=== PATIENT | female | born 1955 | race Caucasian/White ===

== ENCOUNTER → 2019-12-07 14:35 | Outpatient (BNVA) | payer OTHER, SELFPAY | PROVIDERS: PCP Internal Medicine; Referring Provider Internal Medicine; Visit Provider Internal Medicine | DX: J44.9 Chronic obstructive pulmonary disease, unspecified (principal); Z79.899 Other long term (current) drug therapy | CPT/HCPCS: 99212 ==

== ENCOUNTER 2019-12-14 09:36 | Outpatient (REF) | payer OTHER, SELFPAY ==
[2019-12-14 11:30] LABS: Alanine Aminotransferase 17 U/L (0-31); Albumin Level 4.4 g/dL (3.5-5.0); Alkaline Phosphatase 72 U/L (39-117); Anion Gap 12 (12-20); Aspartate Amino Transferase 15 U/L (5-31); Bilirubin Total 0.3 mg/dL (0.0-1.0); Blood Urea Nitrogen 20 mg/dL (9-16); Calcium 8.9 mg/dL (8.4-10.2); Carbon Dioxide 32 mmol/L (22-29); Chloride 102 mmol/L (96-108); Cholesterol 199 mg/dL; Estimated Glomerular Filt Rate > 60; Glucose Fasting 98 mg/dL (60-99); HDL Cholesterol 48 mg/dL; LDL Cholesterol Calculated 122 mg/dl; Potassium 3.9 mmol/l (3.3-5.1); Sodium 142 mmol/L (135-145); Total Protein 6.7 g/dL (6.5-8.0); Triglycerides 145 mg/dL
== END 2019-12-14 09:37 | disposition home or self-care (01) ==
LOC: HO.HMGCLDS 09:36
PROVIDERS: PCP Internal Medicine; Visit Provider Internal Medicine
DX: M54.5 Low back pain (principal); J44.9 Chronic obstructive pulmonary disease, unspecified
CPT/HCPCS: 80053; 80061

== ENCOUNTER 2019-12-22 16:20 | Outpatient (REF) | payer OTHER, SELFPAY ==
--- NOTE | 2019-12-22 16:27 | XR_ITS ---
EXAMINATION: XR RIBS, LEFT CLINICAL INFORMATION: 64-year-old female patient with pleural dyspnea. Left-sided rib pain following an injury. COMPARISON: Most recent portable chest x-ray on 11/30/2019. (No acute disease). TECHNIQUE: PA erect view of the chest with 3 additional views targeted to the left rib cage. A BB marker was placed at the site of concern in the lower left rib cage. FINDINGS: Lungs are clear. No consolidation, pneumothorax, or pleural effusion. The cardiomediastinal silhouette and pulmonary vasculature are normal. Osseous structures are unremarkable. Ribs are intact. No fractures are identified. IMPRESSION: Unremarkable examination.
== END 2019-12-22 16:21 | disposition home or self-care (01) ==
LOC: HO.HMGCX 16:20
PROVIDERS: PCP Internal Medicine; Visit Provider Nurse Practitioner Family
DX: R07.81 Pleurodynia (principal)
CPT/HCPCS: 71101

== ENCOUNTER 2020-01-14 14:04 | Outpatient (REF) | payer OTHER, SELFPAY ==
--- NOTE | 2020-01-14 14:09 | MM_ITS ---
EXAMINATION: MM SCREENING DIGITAL BREAST TOMOSYNTHESIS, BILATERAL CLINICAL INFORMATION: Screening. Asymptomatic. The lifetime risk of breast cancer based on the Tyrer-Cuzick Model is 5%. COMPARISON: Mammography: 09/14/2018, 07/18/2017 TECHNIQUE: Digital breast tomosynthesis is performed in both the craniocaudal and mediolateral oblique views along with computer-aided detection (CAD). Synthesized 2D images are generated from the tomosynthesis. FINDINGS: The breasts are almost entirely fatty (ACR BI-RADS breast composition Category a). There are no significant masses, abnormal calcifications, or other abnormalities. The axilla and skin contours are unremarkable. No significant changes. MM/MM tomosynthesis screening BI IMPRESSION: No mammographic evidence of malignancy. ASSESSMENT: BI-RADS 1: Negative RECOMMENDATION: Routine annual mammography screening. This patient's information was entered into a reminder system with a target due date for their next mammogram.
== END 2020-01-14 14:05 | disposition home or self-care (01) ==
LOC: HO.MAMMO 14:04
PROVIDERS: PCP Internal Medicine
DX: Z12.31 Encounter for screening mammogram for malignant neoplasm of breast (principal)
CPT/HCPCS: 77063; 77067

== ENCOUNTER 2020-01-31 14:25 | Outpatient (REF) | payer OTHER, SELFPAY ==
--- NOTE | 2020-01-31 14:27 | CT_ITS ---
EXAMINATION: CT CHEST SCREENING CLINICAL INFORMATION: Follow-up nodules in lung cancer screening. COMPARISON: CT chest 10/09/2018 TECHNIQUE: Multidetector volumetric CT imaging of the chest is performed without contrast using low dose technique. Additional 2D coronal and sagittal reformatted images and axial 3D maximum intensity projection (MIP) images are generated on the CT workstation. This CT examination was performed using dose optimization techniques as appropriate, variously including the following: *Automated exposure control *Adjustment of mA and/or kV according to patient size (this includes techniques or standardized protocols for targeted exams where dose is matched to indication/reason for exam; i.e. extremities or head) *Use of iterative reconstruction technique DLP: 71 mGy-cm FINDINGS: LUNGS: There is a 6 mm nodule along the major fissure likely intrafissural lymph node on axial image 229/6 minimal atelectasis scarring seen in the right middle lobe axial image 315/6. There are no pulmonary nodules visualized at this time. MEDIASTINUM: There is a 1.3 x 1.1 cm left thyroid nodule. The right thyroid lobe appears normal. The central trachea and bronchi appears widely patent. Mild atherosclerotic changes of thoracic arch is noted. Heart size is normal. Central trachea and the bronchi are widely patent. There is no pleural effusion. No abnormal mediastinal mass or lymph nodes. PLEURA: There is no pleural effusion. No pleural mass or thickening. AXILLA: No lymphadenopathy. UPPER ABDOMEN: Visualized liver, gallbladder, spleen and bilateral adrenal glands are unremarkable. OSSEOUS STRUCTURES: No lytic or sclerotic process seen. CT/CT lung screening IMPRESSION: New intrafissural lymph node. No parenchymal lung nodules seen. ASSESSMENT: Lung-RADS category 2 benign RECOMMENDATION: Recommend low-dose annual CT chest
== END 2020-01-31 14:26 | disposition home or self-care (01) ==
LOC: HO.CT 14:25
PROVIDERS: PCP Internal Medicine; Visit Provider Physician Assistant Medical
DX: Z12.2 Encounter for screening for malignant neoplasm of respiratory organs (principal); Z87.891 Personal history of nicotine dependence
CPT/HCPCS: 71250

== ENCOUNTER 2020-03-15 10:14 | Outpatient (REF) | payer OTHER, SELFPAY ==
--- NOTE | 2020-03-15 10:19 | XR_ITS ---
EXAMINATION: XR LUMBOSACRAL SPINE CLINICAL INFORMATION: Low back pain COMPARISON: April 30, 2018 TECHNIQUE: 3 views of the lumbar spine FINDINGS: There are 5 nonrib bearing lumbar vertebra. No acute fracture, spondylolisthesis, spondylolysis is identified there is mild scoliosis convex right superiorly and mild scoliosis convex left inferiorly. There is disc space narrowing at the L2-L3 level with marginal sclerosis and spurring. There is mild narrowing of the L5-S1 disc space. Facet arthropathy is seen L5-S1 bilaterally. No significant sacroiliac joint disease identified. There has been some mild progression in degenerative change at the L to 3 disc space level. XR/XR lumbar spine 2-3V IMPRESSION: No acute fracture, spondylolisthesis, or spondylolysis of the lumbar spine. Mild progression in degenerative disc disease as described.
[2020-03-15 11:09] LABS: MANUAL DIFF FLAG NO
[2020-03-15 11:14] LABS: Basophils Absolute Auto 0.1 X10*3/uL (0.0-0.2); Basophils Percent Auto 0.6 % (0-2); Eosinophils Absolute Auto 0.2 X10*3/uL (0.0-0.4); Eosinophils Percent Auto 1.5 % (0-4); Hematocrit 38.6 % (37-47); Hemoglobin 12.2 g/dl (12.0-16.0); Imm Gran Abs Auto 0.04 X10*3/uL (0.00-0.03); Imm Gran Pct Auto 0.4 % (0.0-0.4); Lymphocytes Absolute Auto 2.3 X10*3/uL (1.2-4.9); Lymphocytes Percent Auto 20.9 % (20-40); Mean Corpuscular HGB Conc 31.6 g/dl (31.0-35.0); Mean Corpuscular Hemoglobin 27.6 pg (27.0-33.0); Mean Corpuscular Volume 87.3 fL (80-98); Mean Platelet Volume 10.3 fL (9.4-12.3); Monocytes Absolute Auto 0.6 X10*3/uL (0.1-1.2); Neutrophils Absolute Auto 7.9 X10*3/uL (2.0-8.3); Neutrophils Percent Auto 71.6 % (45-73); Platelet Count 257 X10*3/uL (160-400); Red Blood Count 4.42 X10*6/uL (4.20-5.50); White Blood Count 11.1 X10*3/uL (4.8-10.8)
[2020-03-15 11:58] LABS: Anion Gap 14 (12-20); Blood Urea Nitrogen 20 mg/dL (9-16); Calcium 8.7 mg/dL (8.4-10.2); Carbon Dioxide 33 mmol/L (22-29); Chloride 101 mmol/L (96-108); Estimated Glomerular Filt Rate 60; Glucose Random 103 mg/dL (60-115); Potassium 3.5 mmol/l (3.3-5.1); Sodium 144 mmol/L (135-145)
== END 2020-03-15 10:15 | disposition home or self-care (01) ==
LOC: HO.HMGCX 10:14
PROVIDERS: PCP Internal Medicine; Visit Provider Nurse Practitioner Family
DX: R53.83 Other fatigue (principal); M54.5 Low back pain
CPT/HCPCS: 36415; 72100; 80048; 85025

== ENCOUNTER → 2020-03-22 14:15 | Outpatient (BNVA) | payer OTHER, SELFPAY | PROVIDERS: PCP Internal Medicine; Visit Provider Internal Medicine | DX: J44.9 Chronic obstructive pulmonary disease, unspecified (principal); G47.34 Idiopathic sleep related nonobstructive alveolar hypoventilation | CPT/HCPCS: Q3014 ==

== ENCOUNTER → 2020-06-28 14:15 | Outpatient (BNVA) | payer OTHER, SELFPAY | PROVIDERS: PCP Internal Medicine; Visit Provider Internal Medicine | DX: J44.9 Chronic obstructive pulmonary disease, unspecified (principal); M54.5 Low back pain; G47.34 Idiopathic sleep related nonobstructive alveolar hypoventilation | CPT/HCPCS: 99212 ==

== ENCOUNTER 2020-08-04 11:58 | Outpatient (REF) | payer OTHER, SELFPAY ==
[2020-08-11 09:27] LABS: HPV mRNA E6/E7 Not Detected (Not Detected)
== END 2020-08-04 11:59 | disposition home or self-care (01) ==
LOC: HO.LAB 11:58
PROVIDERS: Visit Provider Internal Medicine
DX: Z12.4 Encounter for screening for malignant neoplasm of cervix (principal)
CPT/HCPCS: 87624; 88142

== ENCOUNTER → 2020-11-01 08:15 | Outpatient (BNVA) | payer MEDICARE, SELFPAY | PROVIDERS: PCP Internal Medicine; Referring Provider Internal Medicine; Visit Provider Nurse Practitioner Family | DX: K59.01 Slow transit constipation (principal); K21.9 Gastro-esophageal reflux disease without esophagitis | CPT/HCPCS: 99202 ==

== ENCOUNTER 2020-12-05 14:19 | Outpatient (REF) | payer MEDICARE, SELFPAY ==
[2020-12-05 15:43] LABS: Hematocrit 37.6 % (37-47); Hemoglobin 12.1 g/dl (12.0-16.0); Mean Corpuscular HGB Conc 32.2 g/dl (31.0-35.0); Mean Corpuscular Hemoglobin 28.3 pg (27.0-33.0); Mean Corpuscular Volume 87.9 fL (80-98); Mean Platelet Volume 9.7 fL (9.4-12.3); Platelet Count 249 X10*3/uL (160-400); Red Blood Count 4.28 X10*6/uL (4.20-5.50); Red Cell Distribution Width 13.3 % (11.0-16.0); White Blood Count 9.4 X10*3/uL (4.8-10.8)
[2020-12-05 16:04] LABS: Alanine Aminotransferase 21 U/L (0-31); Albumin Level 4.7 g/dL (3.5-5.0); Alkaline Phosphatase 76 U/L (39-117); Anion Gap 11 (12-20); Aspartate Amino Transferase 20 U/L (5-31); Bilirubin Total 0.4 mg/dL (0.0-1.0); Blood Urea Nitrogen 14 mg/dL (9-16); Calcium 9.4 mg/dL (8.4-10.2); Carbon Dioxide 29 mmol/L (22-29); Chloride 107 mmol/L (96-108); Estimated Glomerular Filt Rate > 60; Glucose Random 95 mg/dL (60-115); Potassium 4.1 mmol/L (3.3-5.1); Sodium 143 mmol/L (135-145); Total Protein 7.2 g/dL (6.5-8.0)
[2020-12-05 16:25] LABS: TSH reflex Free T4 1.13 uIU/mL (0.32-4.0)
== END 2020-12-05 14:20 | disposition home or self-care (01) ==
LOC: HO.LAB 14:19
PROVIDERS: PCP Internal Medicine; Referring Provider Internal Medicine; Visit Provider Nurse Practitioner Family
DX: K59.01 Slow transit constipation (principal); K21.9 Gastro-esophageal reflux disease without esophagitis; Z12.11 Encounter for screening for malignant neoplasm of colon
CPT/HCPCS: 36415; 80053; 84443; 85027; 99212

== ENCOUNTER → 2020-12-07 13:42 | Outpatient (BNVA) | payer MEDICARE, SELFPAY | PROVIDERS: PCP Internal Medicine; Visit Provider Internal Medicine | DX: J44.9 Chronic obstructive pulmonary disease, unspecified (principal); G47.34 Idiopathic sleep related nonobstructive alveolar hypoventilation | CPT/HCPCS: 99212 ==

== ENCOUNTER 2021-01-12 16:53 | Emergency (ER) | payer MEDICARE, SELFPAY ==
[2021-01-12 17:38] VITALS: BP 125/56; PULSE 92; RESP 16; TEMP 36.9; O2SAT 98; BMI 29.9
--- NOTE | 2021-01-12 17:55 | ECG_ITS ---
Test Reason : AFIB Blood Pressure : / mmHG Vent. Rate : 087 BPM Atrial Rate : 087 BPM P-R Int : 156 ms QRS Dur : 080 ms QT Int : 400 ms P-R-T Axes : 018 001 008 degrees QTc Int : 481 ms Normal sinus rhythm Nonspecific ST abnormality Abnormal ECG When compared with ECG of 30-NOV-2019 15:19, ST more depressed Inferior leads Lateral leads Referred By: Kevin Enrique Electronically Signed By:MOON LOVETT MD
--- NOTE | 2021-01-12 17:56 | ED_ITS ---
HPI - Arrhythmia/Palpitations General Chief Complaint: Arrhythmia/Palpitations Stated Complaint: rapid heart beat back pain Time Seen by Provider: 01/12/21 17:47 Source: patient Limitations: no limitations History of Present Illness HPI narrative: This is a 65-year-old female with a history of palpitations, V- tach status post ablation, but no atrial fibrillation, who had gone to a clinic today for her back pain/sciatica, and when they took her vital signs are heart rate was noted to be fast. She was transported by EMS and was given Cardizem 20 mg IV for reported AFib with RVR. Patient reports that she feels better now. She denies any chest pain or shortness of breath. She denies alcohol use. She denies caffeine use. She denies any problems with thyroid, notes that she did have her thyroid checked recently. She notes that she does have history of hypertension and is on Cardizem and metoprolol for this. Related Data Home Medications Medication Instructions Recorded Confirmed amitriptyline 75 mg tablet 150 mg PO BEDTIME 11/27/19 09/07/20 lorazepam 0.5 mg tablet 0.5 mg PO TID PRN 11/27/19 09/07/20 sertraline 100 mg tablet 200 mg PO DAILY 11/27/19 09/07/20 zolpidem 10 mg tablet 10 mg PO BEDTIME PRN 11/27/19 09/07/20 aspirin 81 mg tablet,delayed 81 mg PO DAILY 03/22/20 09/07/20 release flu vacc [id number] 6mos up(PF) ml IM 03/22/20 09/07/20 trazodone 100 mg tablet 200 mg PO BEDTIME tab 06/28/20 09/07/20 Previous Rx's Medication Instructions Recorded atenolol 25 mg tablet 25 mg PO DAILY #90 tab 02/16/20 tiotropium bromide 18 mcg capsule 1 cap INHALATION DAILY #90 inh 02/16/20 with inhalation device omeprazole 20 mg capsule,delayed 20 mg PO BID #180 cap 02/29/20 release fluticasone 500 mcg-salmeterol 50 1 inh INHALATION BID #60 ea 05/15/20 mcg/dose blistr powdr for inhalation calcium citrate 500 mg PO BID #100 tab 05/20/20 atorvastatin 20 mg tablet 20 mg PO DAILY #90 tab 05/24/20 furosemide 40 mg tablet 40 mg PO DAILY #90 tab 10/12/20 diltiazem HCl 180 mg 180 mg PO DAILY #90 cap 10/16/20 capsule,extended release 24 hr, controlled docusate sodium 100 mg capsule 100 mg PO BEDTIME #30 cap 11/01/20 magnesium citrate (Citrate of 150 ml PO DAILY PRN #296 ml 11/01/20 Magnesia) sennosides 8.6 mg tablet (Natural 17.2 mg PO BEDTIME #60 tab 11/01/20 Senna Laxative) plecanatide 3 mg tablet (Trulance) 3 mg PO DAILY #30 tab 12/05/20 tramadol 50 mg tablet 50 - 100 mg PO Q4H PRN #20 tab 01/12/21 Allergies Allergy/AdvReac Type Severity Reaction Status Date / Time paroxetine [From PAXIL] Allergy Mild RASH Verified 01/12/21 15:57 adhesive tape AdvReac Severe Redness of Verified 01/12/21 15:57 Skin Review of Systems Constitutional: Constitutional: Denies headache(s) ENT: Denies dizziness and Denies headache(s) Musculoskeletal: Musculoskeletal: Reports back pain Neurologic: Denies dizziness, Denies headache(s) and Denies Sensory deficit (Neuro) REPLACED BY [facility] Past Medical History Medical History (Updated 01/12/21 @ 19:01 by Kevin Enrique MD) Anxiety Colonoscopy refused Constipation COPD (chronic obstructive pulmonary disease) Depression Fibromyalgia Hyperlipidemia Hypertension Lower back pain Mammogram normal Mitral valve prolapse Nocturnal hypoxia Normal pelvic exam Supraventricular tachycardia Surgical History History of cardiac radiofrequency ablation Family History Family History Father History of CVA (cerebrovascular accident) Mother History of CVA (cerebrovascular accident) Social History Social History Alcohol intake: current Alcohol intake frequency: does not drink Patient Tobacco Use Status: Former Tobacco user Advance Directives: No Advance Directives Information Provided: Yes Physical Exam Vital Signs: Vital Signs: Last Vital Signs Temp 98.4 F 01/12/21 17:38 Pulse 82 01/12/21 18:37 Resp 14 11/12/21 18:37 BP 125/59 L 01/12/21 18:37 Pulse Ox 92 01/12/21 18:37 Body Mass Index 29.9 Const: General: cooperative, no acute distress and alert Orientation/consciousness: patient oriented x3 HENMT: Head: Yes normal to inspection Eyes: General: appearance normal, both eyes and all related structures Eyelids: Yes eyelids normal Conjunctivae: conjunctivae normal Pupils: Equal, round and reactive pupils present Neck: Neck: Yes normal visual inspection and Yes supple Chest: Chest palpation & inspection: normal inspection of the chest Resp: Effort & Inspection: normal respiratory effort Auscultation: clear to auscultation bilaterally Cardio: Rate: regular rate Rhythm: regular rhythm Heart sounds: S1 normal heart sound present, S2 normal heart sound present, no gallops, no murmurs and no rubs GI: Palpation (GI): Soft to palpation, nontender and Other GI palpation findin gs present (Non-distended) Auscultation: normal bowel sounds Skin: General skin exam: no rashes or lesions noted Neuro: General: patient oriented x3, no focal motor deficits and CN's II-XI intact bilaterally Cranial nerves: Yes Equal, round and reactive pupils present Cognition (Neuro): normal cognition Motor exam (neuro): 5/5 motor strength present throughout Sensory Exam: No Sensory deficit (Neuro) Extrem: General: Yes normal to inspection and Yes no pedal edema Psych: Appearance: grossly normal Affect: normal affect MDM - Arrhythmia/Palpitations MDM Narrative Medical decision making narrative: Patient with reported atrial fibrillation, which was treated with Cardizem IV pre-hospital, and appears to have resolved. No evidence initially on the monitor or by EKG of ongoing atrial fibrillation. Patient has no history of atrial fibrillation, though she does have a history of ablation for V-tach. Few PVCs were noted on the monitor. CBC and chemistry, troponin were all negative. Patient's primary concern soon to her chronic left lower back and hip pain, for which she was being seen today when she had onset of the tachycardia, or when it was inclusion paraeducator when they were checking vital signs. Patient advised to follow-up the primary care physician. The patient is already on Cardizem and a beta-nasir, which should help suppress a rate control atrial fibrillation. Given the patient is out of atrial fibrillation now in I have not seen firm evidence that she was in it, do not believe anticoagulation is indicated at this time. Patient's potassium was borderline low, however this is unlikely to have contributed to paroxysmal atrial fibrillation Lab Data Result diagrams: 01/12/21 18:12 01/12/21 18:12 Labs: Lab Results 01/12/21 01/12/21 01/12/21 Range/Units 18:12 18:12 18:12 WBC 8.1 (4.8-10.8) X10*3/uL RBC 4.21 (4.20-5.50) X10*6/uL Hgb 12.1 (12.0-16.0) g/dl Hct 36.6 L (37.0-47.0) % MCV 86.9 (80.0-98.0) fL MCH 28.7 (27.0-33.0) pg MCHC 33.1 (31.0-35.0) g/dl RDW 13.1 (11.0-16.0) % Plt Count 228 (160-400) X10*3/uL MPV 9.6 (9.4-12.3) fL Immature Gran % (Auto) 0.2 (0.0-0.4) % Neut % (Auto) 70.6 (45-73) % Lymph % (Auto) 21.4 (20-40) % Grainger % (Auto) 4.8 (2-11) % Eos % (Auto) 2.5 (0-4) % Baso % (Auto) 0.5 (0-2) % Lymph # (Auto) 1.7 (1.2-4.9) X10*3/uL Grainger # (Auto) 0.4 (0.1-1.2) X10*3/uL Eos # (Auto) 0.2 (0.0-0.4) X10*3/uL Baso # (Auto) 0.0 (0.0-0.2) X10*3/uL Abs Immat Gran (auto) 0.02 (0.00-0.03) X10*3/uL Absolute Neuts (auto) 5.7 (2.0-8.3) x10*3/uL Absolute Nucleated RBC 0.000 (0.0-0.012) X10*3/uL Nucleated RBC % (auto) 0.0 (0.0-0.2) /100WBC Sodium 143 (135-145) mmol/L Potassium 3.3 (3.3-5.1) mmol/L Chloride 104 (96-108) mmol/L Carbon Dioxide 30 H (22-29) mmol/L Anion Gap 12 (12-20) BUN 8 L (9-16) mg/dL Creatinine 0.78 (0.5-1.4) mg/dL Estim Creat Clear Calc 81.3 Estimated GFR > 60 Random Glucose 104 (60-115) mg/dL Calcium 8.7 D (8.4-10.2) mg/dL Magnesium 1.8 (1.6-2.6) mg/dL Total Bilirubin 0.3 (0.0-1.0) mg/dL AST 21 (5-31) U/L ALT 25 (0-31) U/L Alkaline Phosphatase 78 (39-117) U/L Troponin I High Sens 4.6 (<3.5-17.0) ng/L Total Protein 6.6 (6.5-8.0) g/dL Albumin 4.2 (3.5-5.0) g/dL ECG Data Attestation: I personally reviewed and interpreted this ECG as follows: ECG interpretation date: 01/12/21 ECG interpretation time: 18:03 Interpretation: Sinus rhythm with a rate of 87. Nonspecific ST changes in leads to be very. Baseline artifact. Normal QRS axis. Q-waves in leads V1 and V2 suggestive of old septal infarct Discharge Plan Discharge Clinical Impression: Paroxysmal A-fib, Sciatica Patient Disposition: Home, Self-Care Instructions: A-fib (Atrial Fibrillation) (ED), Sciatica (ED) Additional Instructions: Follow-up with primary care physician or type disk quality control supervisor Use the tramadol as prescribed, for your low back pain. You can also continue the ibuprofen, and use acetaminophen 650 mg every 4-6 hours for pain. Return for any new or worsened symptoms. You were not in atrial fibrillation here in the emergency department but may have been in earlier. Your primary care physician or type disk quality control supervisor may want to have you where a heart monitor for a month to determine whether not you go in and out of atrial fibrillation. Anticoagulant therapy may be indicated if you repeatedly go into atrial fibrillation Prescriptions: New tramadol 50 mg tablet 50 - 100 mg PO Q4H PRN (Reason: pain) Qty: 20 RF: 0 No Action atenolol 25 mg tablet 25 mg PO DAILY Qty: 90 RF: 3 tiotropium bromide 18 mcg capsule, w/inhalation device 1 cap inhalation DAILY Qty: 90 RF: 3 omeprazole 20 mg capsule,delayed release(DR/EC) 20 mg PO BID Qty: 180 RF: 3 fluticasone propion-salmeterol 500-50 mcg/dose blister with device 1 inh inhalation BID Qty: 60 RF: 5 calcium citrate 250 mg calcium tablet 500 mg PO BID Qty: 100 RF: 2 atorvastatin 20 mg tablet 20 mg PO DAILY Qty: 90 RF: 3 furosemide 40 mg tablet 40 mg PO DAILY Qty: 90 RF: 3 diltiazem HCl 180 mg capsule,ext.rel 24h degradable 180 mg PO DAILY Qty: 90 RF: 0 zolpidem 10 mg tablet 10 mg PO BEDTIME PRNRF: 0 lorazepam 0.5 mg tablet 0.5 mg PO TID PRNRF: 0 sertraline 100 mg tablet 200 mg PO DAILY RF: 0 amitriptyline 75 mg tablet 150 mg PO BEDTIME RF: 0 Fluzone Quad [id number] (PF) 60 mcg (15 mcg x 4)/0.5 mL syringe IM RF: 0 aspirin 81 mg tablet,delayed release (DR/EC) 81 mg PO DAILY RF: 0 trazodone 100 mg tablet 200 mg PO BEDTIME RF: 0 docusate sodium 100 mg capsule 100 mg PO BEDTIME Qty: 30 RF: 3 sennosides [Natural Senna Laxative] 8.6 mg tablet 17.2 mg PO BEDTIME Qty: 60 RF: 1 magnesium citrate [Citrate of Magnesia] Solution 150 ml PO DAILY PRN (Reason: constipation) Qty: 296 RF: 2 Trulance 3 mg tablet 3 mg PO DAILY Qty: 30 RF: 3 Interventions: ED Discharge Assessment Last Done: 01/12/21 19:30 Discharge Date/Time: 01/12/21 19:30
[2021-01-12 18:16] LABS: MANUAL DIFF FLAG NO
[2021-01-12 18:22] LABS: Basophils Percent Auto 0.5 % (0-2); Eosinophils Absolute Auto 0.2 X10*3/uL (0.0-0.4); Eosinophils Percent Auto 2.5 % (0-4); Hematocrit 36.6 % (37.0-47.0); Hemoglobin 12.1 g/dl (12.0-16.0); Imm Gran Abs Auto 0.02 X10*3/uL (0.00-0.03); Imm Gran Pct Auto 0.2 % (0.0-0.4); Lymphocytes Absolute Auto 1.7 X10*3/uL (1.2-4.9); Lymphocytes Percent Auto 21.4 % (20-40); Mean Corpuscular HGB Conc 33.1 g/dl (31.0-35.0); Mean Corpuscular Hemoglobin 28.7 pg (27.0-33.0); Mean Corpuscular Volume 86.9 fL (80.0-98.0); Mean Platelet Volume 9.6 fL (9.4-12.3); Monocytes Absolute Auto 0.4 X10*3/uL (0.1-1.2); Monocytes Percent Auto 4.8 % (2-11); Neutrophils Absolute Auto 5.7 x10*3/uL (2.0-8.3); Neutrophils Percent Auto 70.6 % (45-73); Platelet Count 228 X10*3/uL (160-400); Red Blood Count 4.21 X10*6/uL (4.20-5.50); Red Cell Distribution Width 13.1 % (11.0-16.0); White Blood Count 8.1 X10*3/uL (4.8-10.8)
[2021-01-12 18:37] VITALS: BP 125/59; PULSE 82; RESP 14; O2SAT 92
[2021-01-12 18:37] LABS: Alanine Aminotransferase 25 U/L (0-31); Albumin Level 4.2 g/dL (3.5-5.0); Alkaline Phosphatase 78 U/L (39-117); Anion Gap 12 (12-20); Aspartate Amino Transferase 21 U/L (5-31); Bilirubin Total 0.3 mg/dL (0.0-1.0); Blood Urea Nitrogen 8 mg/dL (9-16); Calcium 8.7 mg/dL (8.4-10.2); Carbon Dioxide 30 mmol/L (22-29); Chloride 104 mmol/L (96-108); Creatinine Clr Calc Pharmacy 81.3; Estimated Glomerular Filt Rate > 60; Glucose Random 104 mg/dL (60-115); Magnesium 1.8 mg/dL (1.6-2.6); Potassium 3.3 mmol/L (3.3-5.1); Sodium 143 mmol/L (135-145); Total Protein 6.6 g/dL (6.5-8.0); Troponin-I High Sensitivity 4.6 ng/L (<3.5-17.0)
[2021-01-12] MEDS: traMADoL HCL 50 MG TABLET PO (19:27)
== END 2021-01-12 19:30 | disposition home or self-care (01) ==
PROVIDERS: Emergency Provider Emergency Medicine; PCP Internal Medicine
DX: I48.0 Paroxysmal atrial fibrillation (principal); M54.30 Sciatica, unspecified side; I10 Essential (primary) hypertension; J44.9 Chronic obstructive pulmonary disease, unspecified; Z79.899 Other long term (current) drug therapy
CPT/HCPCS: 36415; 80053; 83735; 84484; 85025; 93005; 99283; 99284

== ENCOUNTER → 2021-02-12 14:11 | Outpatient (BNVA) | payer MEDICARE, SELFPAY | PROVIDERS: PCP Internal Medicine; Referring Provider Internal Medicine; Visit Provider Nurse Practitioner Family | DX: K21.9 Gastro-esophageal reflux disease without esophagitis (principal); K58.1 Irritable bowel syndrome with constipation; K59.04 Chronic idiopathic constipation | CPT/HCPCS: 99212 ==

== ENCOUNTER 2021-03-27 14:26 | Outpatient (REF) | payer MEDICARE, SELFPAY ==
[2021-03-27 16:53] LABS: Folate 5.5 ng/mL (> or = 4.0); Vitamin B12 631 pg/mL (200-900)
[2021-03-30 10:25] LABS: Transglutaminase Ab IgG <1.0 U/mL; Transglutaminase IgA <1.0 U/mL
[2021-04-01 15:21] LABS: Vitamin D 25-OH, D2 <4 ng/mL; Vitamin D 25-OH, D3 60 ng/mL; Vitamin D 25-OH, Total 60 ng/mL (30-100)
== END 2021-03-27 14:27 | disposition home or self-care (01) ==
LOC: HO.LAB 14:26
PROVIDERS: PCP Internal Medicine; Referring Provider Internal Medicine; Visit Provider Nurse Practitioner Family
DX: R10.11 Right upper quadrant pain (principal); R14.0 Abdominal distension (gaseous); R19.7 Diarrhea, unspecified; E55.9 Vitamin D deficiency, unspecified; K59.04 Chronic idiopathic constipation; K58.1 Irritable bowel syndrome with constipation; K21.9 Gastro-esophageal reflux disease without esophagitis
CPT/HCPCS: 36415; 82306; 82607; 82746; 86364; 99212

== ENCOUNTER → 2021-03-28 13:13 | Outpatient (BNVA) | payer MEDICARE, SELFPAY | PROVIDERS: PCP Internal Medicine; Referring Provider Internal Medicine; Visit Provider Internal Medicine | DX: I48.0 Paroxysmal atrial fibrillation (principal); I47.1 Supraventricular tachycardia | CPT/HCPCS: 93005; 99202 ==

== ENCOUNTER → 2021-05-18 09:06 | Outpatient (REF) | payer MEDICARE, SELFPAY ==
--- NOTE | 2021-05-18 09:09 | CA_ITS ---
Transthoracic Echocardiogram Patient (Last, First, Middle): Yue Zayas, Gender: Female Date of : 1955 Age: 66 Procedure Date: 05/18/2021 Procedure Type: Transthoracic Echocardiogram Location: OP Height: 167.64 cm Weight: 86.18 kg BSA: 1.96 m2 Heart Rate: bpm BP: 132 / 80 mmHg Aviation Electrical Technician: NICOLE Referring MD: Nestor Sam MD Symptoms: I48.0 - Paroxysmal atrial fibrillation Study Quality: Fair ECG Rhythm: Sinus Conclusions: - The left ventricular systolic function is normal. The calculated ejection fraction is 57% by biplane method. - No obvious valvular pathology seen on this study. Findings Left Ventricle Normal left ventricular cavity size. There is normal left ventricular wall thickness. The left ventricular systolic function is normal. The calculated ejection fraction is 57% by biplane method. There is no evidence of regional wall motion abnormalities. Diastolic function is normal for age. Right Ventricle Normal right ventricular cavity size and systolic function. Atria Both atria are normal in size. Aortic Valve There is a normal trileaflet aortic valve. There is no aortic valve stenosis. There is no aortic valve regurgitation. Mitral Valve The mitral valve appears normal. There is trace mitral valve regurgitation. There is no mitral valve stenosis. Pulmonic Valve The pulmonic valve was not well visualized. Tricuspid Valve Normal tricuspid valve structure. There is trace tricuspid valve regurgitation. The pulmonary artery systolic pressure is normal. Great Vessels The aortic annulus, sinuses of valsalva, and asc aorta are normal in size. Venous The inferior vena cava is normal in size and collapses greater than 50% with inspiration. Pericardium/Pleural There is no evidence of pericardial effusion. Prior Study Comparison No significant change compared to prior study dated: 01/18/2015. Recommendations, Care & Conclusions No obvious valvular pathology seen on this study. Measurements 2D Linear Measurements IVSd: 0.96 0.6-0.9/0.6-1.0 cm LVIDd: 4.49 3.9-5.3/4.2-5.9 cm LVIDd Index: 2.29 2.4-3.2/2.2-3.1 cm/m2 LVIDs: 2.89 2.0-3.6 cm LVPWd: 1.01 0.7-1.1 cm LA Diam: 3.20 2.7-3.8/3.0-4.0 cm LAIDs Index: 1.63 1.5-2.3 cm/m2 LV Mass: 186.49 67-162/88-224 g LV Mass Index: 95.15 43-95/49-115 g/m2 LVOT Diam: 2.00 3.0+(-)1.3 cm 2D Systolic Function EF 4C: 56.60 >55% EF 2C: 57.20 >55% EF BiP: 56.50 >55% Mitral Valve MV Pk E: 0.72 MV PK A: 1.06 MV Decel Time: 156.00 E/A: 0.70 E'Lateral: 7.51 E'Medial: 6.96 E/E' Med: 10.30 E/E' Lat: 9.60 PHT: 46.00 MVA PHT: 4.78 Decel [place]: 4.62 Aortic Valve AoV Pk Subhash: 1.56 AoV Mn Subhash: 1.08 AoV VTI: 0.33 AoV Pk Grad: 10.00 Aov Mn Grad: 5.00 MASSIMO Cont.VTI: 2.18 LVOT LVOT Pk Subhash: 1.10 LVOT Mn Subhash: 0.74 LVOT VTI: 0.23 LVOT Pk Grad: 5.00 LVOT Mn Grad: 3.00 LVOT Diam: 2.00 LVOT Area: 3.14 Diastolic Function MV Pk E: 0.72 MV Pk A: 1.06 E/A: 0.70 E'Medial: 6.96 E/E' Med: 10.30 E' Laterial: 7.51 E/E' Lat: 9.60 Right Ventricle TAPSE (mm): 23.60 TVS' Subhash: 11.50 Tricuspid Valve TR Pk Subhash: 1.57 TR Pk Grad: 10.00 RA Press: 3.00 RVSP: 13.00 Great Vessels Aorta Sinus of Valsalva: 2.69 2.0-3.[address] [place]: 2.50 1.7-3.4 cm Ao Asc: 3.10 2.1-3.4 cm Ao Arch: 2.80 Updated in Other Vendor System with Status of Final Nestor Sam MD electronically signed on 05/19/2021 12:50:03 PM with status of Final
== END ==
LOC: HO.CARD 09:06
PROVIDERS: PCP Internal Medicine; Visit Provider Internal Medicine
DX: I48.0 Paroxysmal atrial fibrillation (principal)
CPT/HCPCS: 93306

== ENCOUNTER → 2021-05-22 11:02 | Outpatient (REF) | payer MEDICARE, SELFPAY ==
--- NOTE | 2021-05-22 11:04 | HM_ITS ---
Conclusion: 1. Patient was monitored for total period of 12 days and 23 hours 2. Baseline rhythm is normal sinus rhythm with average heart of 72 beats per minute 3. For short episodes of supra tachycardia, longest lasting 7 beats 4. Total of 3831 PVCs accounting for 0.29% of total beats accounting for occasional PVCs 5. Rare PACs noted 6. Patient reported symptoms correlate with sinus tachycardia MTDD
== END ==
LOC: HO.CARD 11:02
PROVIDERS: PCP Internal Medicine; Visit Provider Internal Medicine
DX: I48.0 Paroxysmal atrial fibrillation (principal)
CPT/HCPCS: 93246

== ENCOUNTER → 2021-06-06 13:44 | Outpatient (BNVA) | payer OTHER, SELFPAY | PROVIDERS: PCP Internal Medicine; Referring Provider Internal Medicine; Visit Provider Nurse Practitioner Family | DX: Z12.11 Encounter for screening for malignant neoplasm of colon (principal); K21.9 Gastro-esophageal reflux disease without esophagitis; K59.04 Chronic idiopathic constipation | CPT/HCPCS: 99212 ==

== ENCOUNTER → 2021-07-12 09:16 | Outpatient (BNVA) | payer OTHER, SELFPAY | PROVIDERS: PCP Internal Medicine; Referring Provider Internal Medicine; Visit Provider Internal Medicine | DX: I47.1 Supraventricular tachycardia (principal); I49.8 Other specified cardiac arrhythmias | CPT/HCPCS: 99212 ==

== ENCOUNTER 2021-07-25 13:24 | Outpatient (REF) | payer OTHER, SELFPAY ==
--- NOTE | ~2021-07-25 | XR_ITS ---
EXAMINATION: XR CHEST CLINICAL INFORMATION: Chest wall pain COMPARISON: Previous chest x-ray most recent December [address] January 2020 TECHNIQUE: 2 views of the chest were obtained. FINDINGS: No significant abnormality is noted involving the heart, lungs, mediastinum, bony thorax or soft tissues. XR/XR chest 2V IMPRESSION: Unremarkable examination.
[2021-07-25 17:22] LABS: Influenza A PCR NEGATIVE (Negative); Influenza B PCR NEGATIVE (Negative); Resp Syncy Virus RNA Qual PCR NEGATIVE (Negative); SARS COV2 PCR INHOUSE POSITIVE (Negative)
== END 2021-07-25 13:25 | disposition home or self-care (01) ==
LOC: HO.HMGCX 13:24
PROVIDERS: Visit Provider Emergency Medicine
DX: Z20.822 Contact with and (suspected) exposure to COVID-19 (principal); R07.81 Pleurodynia; R68.89 Other general symptoms and signs
CPT/HCPCS: 0241U; 71046

== ENCOUNTER → 2021-08-28 13:05 | Outpatient (BNVA) | payer OTHER, SELFPAY | PROVIDERS: PCP Internal Medicine; Visit Provider Internal Medicine | DX: J44.9 Chronic obstructive pulmonary disease, unspecified (principal); G47.34 Idiopathic sleep related nonobstructive alveolar hypoventilation; Z99.81 Dependence on supplemental oxygen | CPT/HCPCS: 94010; 99212 ==

== ENCOUNTER 2021-10-09 11:50 | Day surgery (SDC) | payer OTHER, SELFPAY ==
[2021-09-12 12:39] VITALS: BMI 29.0
[2021-10-05 09:57] VITALS: BMI 29.0
--- NOTE | 2021-10-08 10:24 | HO.ANESPROP2 ---
Documented by User: Rossy Ashton NP 10/08/21 13:08 HPI - Anesthesia Eval Consult details Narrative: 66yo F for Upper Endoscopy and Colonoscopy Pulmo cleared Cardiac cleared [facility] Active Problems Active Problems: All Active Problems (Updated 08/28/21 @ 13:57 by Ibrahima Hernandez MD) Urticaria (Acute) Atrial arrhythmia (Acute) AVNRT (AV neil re-entry tachycardia) (Acute) Supraventricular tachycardia (Acute) Tachycardia (Acute) Dog bite (Acute) Constipation (Acute) Normal pelvic exam (Acute) Rash (Acute) Radicular low back pain (Acute) Tired (Acute) Rib pain on left side (Acute) Nocturnal hypoxia (Acute) Colonoscopy refused (Acute) Mammogram normal (Acute) Hyperlipidemia (Acute) Hypertension (Acute) Lower back pain (Acute) COPD (chronic obstructive pulmonary disease) (Acute) Past Medical History Medical History Anxiety Colonoscopy refused Constipation COPD (chronic obstructive pulmonary disease) Depression Fibromyalgia Hyperlipidemia Hypertension Lower back pain Mammogram normal Mitral valve prolapse Nocturnal hypoxia Normal pelvic exam Supraventricular tachycardia Family History Family History Father History of CVA (cerebrovascular accident) Mother History of CVA (cerebrovascular accident) Surgical History Surgical History History of cardiac radiofrequency ablation Social History Social History Housing: House Alcohol intake: current Alcohol intake frequency: does not drink Patient Tobacco Use Status: Former Tobacco user Quit Date: 2011 e-Cigarette/Vaping Use: Never Used Use of substances other than those prescribed or required for medical reasons: No Are you DNR?: No Advance Directives: No Advance Directives Information Provided: Yes Current occupational status: retired Meds Allergies Allergy/AdvReac Type Severity Reaction Status Date / Time paroxetine [From PAXIL] Allergy Mild RASH Verified 08/28/21 13:37 adhesive tape AdvReac Severe Redness of Verified 08/28/21 13:37 Skin Home Medications Medication Instructions Recorded Confirmed Last Taken Type lorazepam 0.5 mg tablet 0.5 mg PO TID PRN 11/27/19 08/28/21 Unknown History zolpidem 10 mg tablet 10 mg PO BEDTIME PRN 11/27/19 08/28/21 Unknown History aspirin 81 mg tablet,delayed 81 mg PO DAILY 03/22/20 08/28/21 Unknown History release flu vacc [id number] 6mos up(PF) 60 ml IM 03/22/20 08/28/21 Unknown History mcg(15 mcgx4)/0.5 mL IM syringe trazodone 100 mg tablet 200 mg PO BEDTIME 06/28/20 08/28/21 Unknown History sennosides 8.6 mg capsule (senna) 8.6 mg PO BEDTIME 02/16/21 08/28/21 Unknown History cholecalciferol (vitamin D3) 50 50 mcg PO DAILY 08/28/21 08/28/21 Unknown History mcg (2,000 unit) capsule vitamin E 200 unit capsule 200 unit PO DAILY 08/28/21 08/28/21 Unknown History Exam Exam Date and Time: October 08, 2021 1024 Height,Weight and Vital Signs: Height 5 ft 7 in Weight 83.915 kg Narrative Narrative: SPIROMETRY TEST 08/2021 FVC=87 % FEV1=87% ? FEF 25-75? = 88 %? ( NORMAL ) EKG 03/2021 sinus rhythm at 83/Min; nonspecific ST-T changes but otherwise unremarkable ECHO 05/2021 Conclusions: - The left ventricular systolic function is normal.? The ? calculated ejection fraction is 57% by biplane method. ? - No obvious valvular pathology seen on this study.? Holter 05/2021 1. Patient was monitored for total period of 12 days and 23 hours 2. Baseline rhythm is normal sinus rhythm with average heart of 72 beats per minute 3. For short episodes of supra tachycardia, longest lasting 7 beats 4. Total of 3831 PVCs accounting for 0.29% of total beats accounting for occasional PVCs 5. Rare PACs noted 6. Patient reported symptoms correlate with sinus tachycardia Assessment and Plan Assessment Anesthesia Assessment: Chart Reviewed Documented by User: Yue Maharaj MD 10/09/21 13:58 PMF Past Medical History Medical History Anxiety Colonoscopy refused Constipation COPD (chronic obstructive pulmonary disease) Depression Fibromyalgia Hyperlipidemia Hypertension Lower back pain Mammogram normal Mitral valve prolapse Nocturnal hypoxia Normal pelvic exam Supraventricular tachycardia Family History Family History Father History of CVA (cerebrovascular accident) Mother History of CVA (cerebrovascular accident) Surgical History Surgical History History of cardiac radiofrequency ablation History of Problems with Anesthesia: No Social History Social History Housing: House Alcohol intake: current Alcohol intake frequency: does not drink Patient Tobacco Use Status: Former Tobacco user Quit Date: 2011 e-Cigarette/Vaping Use: Never Used Use of substances other than those prescribed or required for medical reasons: No Are you DNR?: No Advance Directives: No Advance Directives Information Provided: Yes Current occupational status: retired [employer] Allergies Allergy/AdvReac Type Severity Reaction Status Date / Time paroxetine [From PAXIL] Allergy Mild RASH Verified 08/28/21 13:37 adhesive tape AdvReac Severe Redness of Verified 08/28/21 13:37 Skin Home Medications Medication Instructions Recorded Confirmed Last Taken Type lorazepam 0.5 mg tablet 0.5 mg PO TID PRN 11/27/19 08/28/21 Unknown History zolpidem 10 mg tablet 10 mg PO BEDTIME PRN 11/27/19 08/28/21 Unknown History aspirin 81 mg tablet,delayed 81 mg PO DAILY 03/22/20 08/28/21 Unknown History release flu vacc [id number] 6mos up(PF) 60 ml IM 03/22/20 08/28/21 Unknown History mcg(15 mcgx4)/0.5 mL IM syringe trazodone 100 mg tablet 200 mg PO BEDTIME 06/28/20 08/28/21 Unknown History sennosides 8.6 mg capsule (senna) 8.6 mg PO BEDTIME 02/16/21 08/28/21 Unknown History cholecalciferol (vitamin D3) 50 50 mcg PO DAILY 08/28/21 08/28/21 Unknown History mcg (2,000 unit) capsule vitamin E 200 unit capsule 200 unit PO DAILY 08/28/21 08/28/21 Unknown History Exam Airway Mallampati Class: III TM Dist: >3cm Neck ROM: Full Denture: Upper and Lower Loose/Missing/Broken Teeth: Yes, Upper and Lower Heart: RRR Lungs: CTA Assessment and Plan Assessment Anesthesia Assessment: Anesthesia Plan Discussed Final Anesthetic Review History of Problems with Anesthesia: No NPO: Yes ASA Class: III Final Preanesthetic Review: Meds/Allgs Chart Reviewed, Consent Obtained/Reviewed and Anes Risks/Benef Reviewed Patient Risk: Intermediate Procedure Risk: Intermediate Anesthetic Plan Anesthetic Plan: MAC: Disposition: Standard PACU
[2021-10-09 12:55] VITALS: BP 167/81; PULSE 85; RESP 16; TEMP 36.3; O2SAT 95
[2021-10-09] MEDS: Lactated Ringers 1,000 ML 100 ML IVCONT (12:57)
--- NOTE | 2021-10-09 13:30 | MHC.SHP ---
Pre-Procedural Eval Section A Date of Service: 10/09/21 Section B Chief Complaint: reflux disease,screening Details of Present Illness: dysphagia Relevant Family History (Specify if Yes): No Relevant Social History: None Present Medications: see Short Stay Collaborative assessment Medical History: Significant History (Anxiety Colonoscopy refused Constipation COPD (chronic obstructive pulmonary disease) Depression Fibromyalgia Hyperlipidemia Hypertension Lower back pain Mammogram normal Mitral valve prolapse Nocturnal hypoxia Normal pelvic exam Supraventricular tachycardia) History of Previous Operations: Relevant previous surgery/procedure and date(s) (History of cardiac radiofrequency ablation) Allergies: Allergies Allergy/AdvReac Type Severity Reaction Status Date / Time paroxetine [From PAXIL] Allergy Mild RASH Verified 08/28/21 13:37 adhesive tape AdvReac Severe Redness of Verified 08/28/21 13:37 Skin Review of Systems Sugical H&P ROS: Negative: Constitution, Cardiovascular, Respiratory, Neurological, Psychiatric, Hem-Onc, Allergic/Immunologic, Gastrointestinal, Genitourinary, Musculoskeletal, Integumentary, Endocrine and Eyes/Ears/Nose/Throat Exam Surgical H&P Exam: Normal: HEENT, Normal: Heart, Normal: Lungs, Normal: Extremities, Normal: Abdomen, Normal: Skin and Normal: Neurological Plan Diagnosis/Plan: Unchanged I have reviewed the history and physical and performed a pertinent physical examination on my patient. No changes have occurred unless specified.
--- NOTE | 2021-10-09 13:34 | P.OP_ITS ---
Operative Note Operative Note Date of Service: 10/09/21 Narrative: Operative Information Procedure Description: EGD, Colonoscopy Indication: GERD, dysphagia Anesthesia: MAC FLEXIBLE TRANSORAL UPPER GASTROINTESTINAL ENDOSCOPY AND COLONOSCOPY PROCEDURE NOTE UPPER ENDOSCOPY Consent: Indications for the procedure and potential complications of bleeding, perforation, reaction to medications and missed diagnosis were discussed with the patient and informed consent was obtained. Instrument: Olympus GIF H 190 J mid size upper endoscope Monitoring: Vital signs and clinical assessment, continuous EKG monitoring, Pulse oximetry, Carbon Dioxide monitoring and blood pressure monitoring were done throughout the procedure. Procedure: The patient was placed in the left lateral decubitis position and pre-procedure medications were administered and a bite block was placed. The endoscope was inserted into the mouth and advanced under direct vision to the third part of duodenum. A careful inspection was made as the upper endoscope was withdrawn including a retroflexed examination of the proximal stomach; Findings and interventions are described below. Findings: Larynx:normal Esophagus: GE junction at 40 cm, diaphragm hiatus at 40 cm, esophagitis at GEJ with erythema and edema, bx taken. Balloon dilation to 18 mm with resistance felt at LES and UEs, no tears seen, Random esophagus bx taken Stomach: Patchy erythema, with few bleeding spots. Biopsies were obtained. Grade 2 flap valve on retroflexed examination of the cardia. Duodenum: Normal bulb and descending duodenum, bx taken Intervention: Biopsies as noted above COLONOSCOPY Instrument: Olympus variable stiffness pediatric scope 190L Colonoscopy Monitoring: Vital signs and clinical assessment, continuous EKG monitoring, Pulse oximetry, Carbon Dioxide monitoring and blood pressure monitoring were done throughout the procedure. Colon withdrawal time was 10 minutes. Procedure: The patient was placed in the left lateral decubitis position and pre-procedure medications were administered. After a digital rectal examination of the ano-rectum, the video colonoscope was inserted into the rectum and advanced through the colon to the cecum/TI. The colonoscope was slowly withdrawn in a retrograde panoramic fashion and the colon mucosa was carefully examined including a retroflexed view of the rectum. Findings and interventions are described below. Procedure Difficulty:moderate, pressure was required Findings: Terminal Ileum-normal Patchy melanosis coli Cecum:normal Ascending Colon: 8-10 mm sessile polyp removed with cold snare Transverse Colon -normal Descending Colon:normal Sigmoid Colon: moderate severe diverticulosis wwith luminal narrowing and hypertrophy Rectum: Retroflexion with medium internal hemorrhoids, grade II Anorectum - normal Colon preparation: [place] Bowel Preparation Scale Right colon; 2 Transverse colon: 1-2 Left colon; 1-2 (0 = Unprepared colon segment with mucosa not seen due to solid stool that cannot be cleared. 1 = Portion of mucosa of the colon segment seen, but other areas of the colon segment not well seen due to staining, residual stool and/or opaque liquid. 2 = Minor amount of residual staining, small fragments of stool and/or opaque liquid, but mucosa of colon segment seen well. 3 = Entire mucosa of colon segment seen well with no residual staining, small fragments of stool or opaque liquid) Impression and Post Procedure Diagnosis: Endoscopy Findings: gastritis esophagitis Colonoscopy Findings: polyp internal hemorrhoids diverticular disease melanosis coli Plan: Await Pathology results Repeat Colonoscopy in 1-2 years due to prep or earlier if clinically indicated High fiber diet leaflet avoid straining at stool, epsom salts and sitz bath, anusol supps or cream review compliance and timing of PPi, may need to change PPi or increase dose Above findings were reviewed with the patient and relevant handouts were provided if indicated.
[2021-10-09 14:35] VITALS: BP 133/78; PULSE 74; RESP 18; TEMP 36.6; O2SAT 95
[2021-10-09 14:50] VITALS: BP 126/79; PULSE 72; RESP 18; O2SAT 97
[2021-10-09 15:05] VITALS: BP 147/57; PULSE 73; RESP 16; TEMP 36.5; O2SAT 97
== END 2021-10-09 16:03 | disposition home or self-care (01) ==
PROVIDERS: PCP Emergency Medicine; Visit Provider Internal Medicine Gastroenterology
PROC: (CPT 45385; principal; 2021-10-09 13:10)
DX: Z12.11 Encounter for screening for malignant neoplasm of colon (principal); D12.2 Benign neoplasm of ascending colon; K63.89 Other specified diseases of intestine; K57.30 Diverticulosis of large intestine without perforation or abscess without bleeding; K58.1 Irritable bowel syndrome with constipation; K21.9 Gastro-esophageal reflux disease without esophagitis; K64.1 Second degree hemorrhoids; K29.70 Gastritis, unspecified, without bleeding; K20.80 Other esophagitis without bleeding; K44.9 Diaphragmatic hernia without obstruction or gangrene; J44.9 Chronic obstructive pulmonary disease, unspecified; E78.5 Hyperlipidemia, unspecified; M79.7 Fibromyalgia; I10 Essential (primary) hypertension; I47.1 Supraventricular tachycardia; F32.A Depression, unspecified; G47.34 Idiopathic sleep related nonobstructive alveolar hypoventilation; F41.1 Generalized anxiety disorder; Z79.82 Long term (current) use of aspirin; Z79.899 Other long term (current) drug therapy; Z88.8 Allergy status to other drugs, medicaments and biological substances; Z87.891 Personal history of nicotine dependence
CPT/HCPCS: 45385; 43249; 43239; 88305; 88342; J2250

== ENCOUNTER 2021-10-16 12:50 | Outpatient (REF) | payer OTHER, SELFPAY ==
--- NOTE | ~2021-10-16 | CT_ITS ---
EXAMINATION: CT CHEST SCREENING CLINICAL INFORMATION: Lung screening. Z87.891 - Personal history of nicotine dependence. COMPARISON: CT lung screening 01/31/2020, 10/09/2018 TECHNIQUE: Multidetector volumetric CT imaging of the chest is performed without contrast using low dose technique. Additional 2D coronal and sagittal reformatted images and axial 3D maximum intensity projection (MIP) images are generated on the CT workstation. This CT examination was performed using dose optimization techniques as appropriate, variously including the following: *Automated exposure control *Adjustment of mA and/or kV according to patient size (this includes techniques or standardized protocols for targeted exams where dose is matched to indication/reason for exam; i.e. extremities or head) *Use of iterative reconstruction technique DLP: 59 mGy-cm FINDINGS: LUNGS: Central airways are clear and there is no endobronchial lesion or bronchiectasis. No airspace consolidation or groundglass opacity. No interval new pulmonary nodules. Again, there are small triangular pleural tags at the bilateral apices right series 5/ and left series 5/74. Left: There is a stable nodule under 5 mm medial left lower lobe, series 5/341, unchanged since 2019 consistent with a benign nodule. MEDIASTINUM: No hilar or mediastinal adenopathy. Thoracic aorta normal in caliber. Heart size normal. No pericardial effusion. Coronary artery atherosclerotic calcifications similar to prior studies. PLEURA: There is no pleural effusion. No pleural mass or thickening. AXILLA: No lymphadenopathy. UPPER ABDOMEN: Unremarkable OSSEOUS STRUCTURES: Unremarkable. CT/CT lung screening IMPRESSION: -Stable nodule under 5 mm medial left lower lobe similar to prior exams dating back to 2019 consistent with benign nodule. -No new pulmonary nodule. -No adenopathy or effusion. ASSESSMENT: Lung-RADS category 2: Benign RECOMMENDATION: Routine annual low-dose CT screening in 12 months.
== END 2021-10-16 12:51 | disposition home or self-care (01) ==
LOC: HO.CT 12:50
PROVIDERS: Visit Provider Physician Assistant Medical
DX: Z12.2 Encounter for screening for malignant neoplasm of respiratory organs (principal); Z87.891 Personal history of nicotine dependence
CPT/HCPCS: 71271

== ENCOUNTER → 2021-11-02 10:38 | Outpatient (BNVA) | payer OTHER, SELFPAY | PROVIDERS: PCP Internal Medicine; Visit Provider Nurse Practitioner Family | DX: R19.7 Diarrhea, unspecified (principal); K21.9 Gastro-esophageal reflux disease without esophagitis; K59.04 Chronic idiopathic constipation; D36.9 Benign neoplasm, unspecified site; Z98.890 Other specified postprocedural states | CPT/HCPCS: 99212 ==

== ENCOUNTER 2022-01-22 12:55 | Outpatient (REF) | payer OTHER, SELFPAY ==
--- NOTE | ~2022-01-22 | MM_ITS ---
EXAMINATION: BONE DENSITOMETRY CLINICAL INDICATION: Asymptomatic menopausal state. COMPARISON: Baseline BD dated 05/27/2017. TECHNIQUE: Using a Topple Track DXA System (software version: 13.1) manufactured by [employer], dual-energy x-ray absorptiometry was performed of the lumbar spine and left hip. The images are of good technical quality. Summary results are attached. FINDINGS: AP SPINE L1-L4 (excluding L2 and L3): The data of L1-L4 has been changed to exclude the L2 and L3 vertebral bodies, because degenerative changes at these levels may cause overestimation of lumbar spine density. Current: BMD 1.189 g/cm2, Z-score 0.7, T-score 0.2, normal, 3.0% increase from baseline (<5% change is not significant). Baseline: BMD 1.154 g/cm2. LEFT FEMUR, NECK: Current: BMD 0.903 g/cm2, Z-score -0.2, T-score -1.0, normal. Baseline: BMD 0.884 g/cm2. LEFT FEMUR, TOTAL: Current: BMD 0.971 g/cm2, Z-score 0.2, T-score -0.3, normal, 4.3% increase from baseline (<5% change is not significant). Baseline: BMD 0.931 g/cm2. IDENTIFIED RISK FACTORS: Early menopause, glucocorticoids (chronic), menopause, osteoporosis, secondary osteoporosis. HISTORY OF FRACTURE: None listed. MEDICATIONS: Calcium supplements or multivitamin, vitamin D. MM/XR DEXA axial skeleton IMPRESSION: 1. DIAGNOSIS: Normal bone density based on the lowest T-score value of -1.0 in the femoral neck applying World Health Organization criteria. 2. 10-YEAR FRACTURE RISK PREDICTION, FRAX: According to the guidelines, FRAX calculation should only be performed on patients in the osteopenia bone density category. Therefore, FRAX was not performed on this patient. 3. Treatment Recommendations: NOF guidelines recommend consideration for treatment in postmenopausal women and men age 50 and older presenting with the following: -A hip or vertebral (clinical or morphometric) fracture. -T-score less than or equal to -2.5 at the femoral neck or spine after appropriate evaluation to exclude secondary causes. -Low bone mass at the hip or spine and a 10-year fracture probability by FRAX of greater than or equal to 3% for hip fracture or greater than or equal to 20% for major osteoporotic fracture based on the [place] adapted WHO algorithm. 4. Other Recommendations: All treatment decisions require clinical judgment and consideration of individual patient factors, including patient preferences, comorbidities, previous drug use, risk factors not captured in the FRAX model (e.g. frailty, falls, vitamin D deficiency, increased bone turnover, interval significant decline in bone density) and possible under or overestimation of fracture risk by FRAX. FUTURE SCAN RECOMMENDATION: People with diagnosed cases of osteoporosis or at high risk for fracture should have regular bone mineral density tests. For patients eligible for Medicare, routine testing is allowed once every 2 years. The testing frequency can be increased to one year for patients who have rapidly progressing disease, those who are receiving or discontinuing medical therapy to restore bone mass, or have additional risk factors.
--- NOTE | ~2022-01-22 | MM_ITS ---
EXAMINATION: MM SCREENING DIGITAL BREAST TOMOSYNTHESIS, BILATERAL CLINICAL INFORMATION: Screening. Asymptomatic. The lifetime risk of breast cancer based on the Tyrer-Cuzick Model is 10%. COMPARISON: Mammography: 01/14/2020, 09/14/2018, 07/18/2017 TECHNIQUE: Digital breast tomosynthesis is performed in both the craniocaudal and mediolateral oblique views along with computer-aided detection (CAD). Synthesized 2D images are generated from the tomosynthesis. FINDINGS: The breasts are almost entirely fatty (ACR BI-RADS breast composition Category a). There are no significant masses, abnormal calcifications, or other abnormalities. No developing density or architectural abnormality. The axilla are unremarkable. No significant changes. MM/MM tomosynthesis screening BI IMPRESSION: No mammographic evidence of malignancy. ASSESSMENT: BI-RADS 1: Negative RECOMMENDATION: Routine annual mammography screening. This patient's information was entered into a reminder system with a target due date for their next mammogram.
== END 2022-01-22 12:56 | disposition home or self-care (01) ==
LOC: HO.MAMMO 12:55
PROVIDERS: PCP Internal Medicine; Visit Provider Internal Medicine
DX: Z12.31 Encounter for screening mammogram for malignant neoplasm of breast (principal); Z13.820 Encounter for screening for osteoporosis; Z78.0 Asymptomatic menopausal state
CPT/HCPCS: 77063; 77067; 77080

== ENCOUNTER → 2022-03-27 13:46 | Outpatient (BNVA) | payer OTHER, SELFPAY | PROVIDERS: PCP Internal Medicine; Visit Provider Internal Medicine | DX: J44.9 Chronic obstructive pulmonary disease, unspecified (principal); G47.34 Idiopathic sleep related nonobstructive alveolar hypoventilation | CPT/HCPCS: 99212 ==

== ENCOUNTER → 2022-04-01 12:48 | Outpatient (BNVA) | payer OTHER, SELFPAY | PROVIDERS: PCP Internal Medicine; Referring Provider Internal Medicine; Visit Provider Internal Medicine | DX: I47.1 Supraventricular tachycardia (principal); I49.8 Other specified cardiac arrhythmias | CPT/HCPCS: 93005; 99212 ==

== ENCOUNTER → 2022-05-09 10:43 | Outpatient (BNVA) | payer OTHER, SELFPAY | PROVIDERS: PCP Internal Medicine; Visit Provider Nurse Practitioner Family | DX: K59.04 Chronic idiopathic constipation (principal); K21.9 Gastro-esophageal reflux disease without esophagitis | CPT/HCPCS: 99212 ==

== ENCOUNTER 2022-09-18 10:26 | Outpatient (AMB) | payer OTHER, SELFPAY ==
--- NOTE | 2022-09-18 10:56 | A.OFFPC_ITS ---
Vital Signs 09/18/22 10:58 Height 5 ft 6 in Weight 173 lb BMI 27.9 BP 122/66 Blood Pressure Location Lt brachial Position Sitting Pulse 91 Pulse Source Pulse Oximeter Pulse Oximetry (%) 98 Oxygen Delivery Method Room Air Intake Visit Reasons: cancer screening, x-rays of the chest and spine Intake Note: Pt is here today for a follow up visit. Pt states that she would like to have xrays order for neck and shoulder, and spine and lower back. Pt states that she also gets pain on the R side of her groin area. Allergies paroxetine [From PAXIL] Allergy (Mild, Verified 09/18/22 11:03) RASH adhesive tape Adverse Reaction (Severe, Verified 09/18/22 11:03) Redness of Skin Tobacco use date assessed: 09/18/22 Fall risk assessment: No Falls in past year Last assessed Fall Risk: 09/18/22 Dental Screening Dental Screen Date: 09/18/22 Did you have a dental visit in the last 12 months?: Yes Did you have a dental problem in the last 6 months where you did not have access to dental care?: No Was dental information given to patient?: Patient has dentist HPI cancer screening, x-rays of the chest and spine HPI Details Patient presents for the follow-up. Chronic depression hypertension hyperlipidemia and COPD are stable on current medications. Patient complains of chronic neck pain and right groin pain worse when starting to walk on and off for few months. Patient denies any weakness or numbness in extremities. she complains of chronic lower back pain for many years [facility] Medical History Anxiety Colonoscopy refused Constipation COPD (chronic obstructive pulmonary disease) Depression Fibromyalgia Hyperlipidemia Hypertension Lower back pain Mammogram normal Mitral valve prolapse Nocturnal hypoxia Normal pelvic exam Supraventricular tachycardia Tubular adenoma Surgical History History of cardiac radiofrequency ablation Family History (Updated 09/18/22 @ 11:07 by NEREYDA Roberts) Father History of CVA (cerebrovascular accident) Mother History of CVA (cerebrovascular accident) Social History Housing: House Alcohol intake: never Patient Tobacco Use Status: Former Tobacco user Quit Date: 2011 e-Cigarette/Vaping Use: Never Used Current occupational status: retired Cognitive needs: No Hearing needs: No Vision needs: Yes Questionnaire Thrive Questionnaire Date Thrive assessed: 02/07/22 AUDIT C Alcohol Use Questionnaire (AUDIT-C) 1. How often do you have a drink containing alcohol?: Never 3. How often do you have six or more drinks on one occasion?: Never Total Score: 0 SAI-7 AMB Questionnaire SAI-7 Date SAI - 7 assessed: 02/07/22 Source: Developed by Drs. Mustapha Dunlap, Mandi Good, Segun Dueñas and colleagues, with an educational jennifer from [employer]. Review of Systems Const All systems reviewed & are unremarkable except as noted in HPI and below Reports no additional complaints Eyes Reports no additional complaints ENT Reports no additional complaints Card Reports no additional complaints Resp Reports no additional complaints GI Reports no additional complaints Reports no additional complaints Physical exam (Primary Care) Vital Signs: Last Vital Signs Pulse 91 09/18/22 10:58 BP 122/66 09/18/22 10:58 Pulse Ox 98 09/18/22 10:58 Oxygen Delivery Method Room Air 09/18/22 10:58 BMI result Body Mass Index 27.9 Tobacco/Smoking Status: Tobacco use Status Tobacco use date assessed 09/18/22 09/18/22 11:10 Patient Tobacco Use Status Former Tobacco user 09/18/22 11:10 e-Cigarette/Vaping Use Never Used 09/18/22 11:10 Thrive Assessment: Date of Thrive Assessment Date Thrive assessed 02/07/22 09/18/22 11:10 Const General: no acute distress HENMT Head: Yes normal to inspection Ears: hearing grossly normal bilaterally Mouth: Normal oral and palatal mucosa present Eyes General: appearance normal, both eyes and all related structures Neck Neck: Yes supple Resp Effort & Inspection: normal respiratory effort Auscultation: clear to auscultation bilaterally Cardio Rhythm: regular rhythm Heart sounds: S1 normal heart sound present and S2 normal heart sound present GI Inspection: Yes normal to inspection Palpation (GI): Soft to palpation Percussion: Yes normal to percussion Auscultation: normal bowel sounds Extrem Other: DROM of both hips Assessment and Plan Assessment & Plan (1) Hip pain, right: Code(s): M25.551 - Pain in right hip Plan: check XR , PT PRN (2) Hyperlipidemia: Code(s): E78.5 - Hyperlipidemia, unspecified Plan: restart Lipitor (3) Hypertension: Code(s): I10 - Essential (primary) hypertension Plan: cont meds (4) COPD (chronic obstructive pulmonary disease): Comment: COPD , CHRONIC, WELL CONTROLLED AND STABLE AT THIS TIME. CONTINUE CURRENT MEDICAL REGIMEN WHICH IS FOLLOWS TX: WIXELA , [id number] ONE INH BID INCRUSE ELLIPTA ONE INH DAILY PROAIR 2 PUFFS Q 4-6 HRS PRN Code(s): J44.9 - Chronic obstructive pulmonary disease, unspecified Plan: cont inhalers and f/u with Pulmonology (5) Neck pain: Code(s): M54.2 - Cervicalgia Plan: refer to PT Orders: Orders XR hip BI w PEL1V Today M25.551 - Pain in right hip Comprehensive [place]. Panel Fast Today E78.5 - Hyperlipidemia, unspecified, I10 - Essential (primary) hypertension, J44.9 - Chronic obstructive pulmonary disease, unspecified Lipid Panel Today E78.5 - Hyperlipidemia, unspecified, I10 - Essential (primary) hypertension, J44.9 - Chronic obstructive pulmonary disease, unspecified TSH reflex Free T4 Today E78.5 - Hyperlipidemia, unspecified, I10 - Essential (primary) hypertension, J44.9 - Chronic obstructive pulmonary disease, unspecified Complete Blood Count Auto Diff Today E78.5 - Hyperlipidemia, unspecified, I10 - Essential (primary) hypertension, J44.9 - Chronic obstructive pulmonary disease, unspecified Vitamin D 25-OH Total Today E78.5 - Hyperlipidemia, unspecified, I10 - Essential (primary) hypertension, J44.9 - Chronic obstructive pulmonary disease, unspecified PT Evaluation and Treatment Today M54.2 - Cervicalgia Medications: Refilled atorvastatin 20 mg PO DAILY 90 tabs 3RF Coding Level of Care Code Est Pt Level 4 (13148) Diagnoses Hip pain, right M25.551 Hyperlipidemia E78.5 Hypertension I10 COPD (chronic obstructive pulmonary disease) J44.9 Neck pain M54.2
[2022-09-18 10:58] VITALS: BP 122/66; PULSE 91; O2SAT 98; BMI 27.9
== END 2022-09-18 11:38 | disposition home or self-care (01) ==
PROVIDERS: PCP Internal Medicine; Visit Provider Internal Medicine
DX: M25.551 Pain in right hip (principal); E78.5 Hyperlipidemia, unspecified; I10 Essential (primary) hypertension; J44.9 Chronic obstructive pulmonary disease, unspecified; M54.2 Cervicalgia
CPT/HCPCS: 99214

== ENCOUNTER 2022-09-18 11:33 | Outpatient (REF) | payer OTHER, SELFPAY ==
--- NOTE | ~2022-09-18 | XR_ITS ---
EXAMINATION: XR BILATERAL HIPS WITH AP PELVIS CLINICAL INFORMATION: Hip pain. COMPARISON: CT abdomen and pelvis of 12/22/2016. TECHNIQUE: AP view of the pelvis and 2 views of each hip were obtained. FINDINGS: AP film of the pelvis does not demonstrate any evidence of acute fracture or diastasis. Sacroiliac joints appear unremarkable. The hip joint spaces appear generally maintained. There is degenerative disc disease with facet arthropathy bilaterally at the L5-S1 level. Bone island is seen about the right ischium. Sclerotic region involving the left ischium is present and appears to have been present on lumbar spine study of 04/30/2018. 2 views of the right hip demonstrate stable bone islands within the femoral head and neck. No acute fracture or dislocation is identified. Joint spaces maintained. Mild marginal spurring is present. No new abnormal lytic or sclerotic lesions are appreciated and there is no evidence of femoral head collapse. About the superior junctions of the femoral head and neck, there appears to be a bump which may be related to impingement syndrome. 2 views of the left hip do not demonstrate any evidence of acute fracture or dislocation. No abnormal lytic or sclerotic lesions are appreciated. No evidence of femoral head collapse. XR/XR hip BI w PEL1V IMPRESSION: Degenerative disc disease and facet arthropathy L5-S1 bilaterally. No evidence of acute fracture or diastasis of the pelvis or either hip. Question some degree of right hip impingement syndrome. Stable sclerotic lesions about the pelvis and proximal femurs.
[2022-09-18 13:03] LABS: MANUAL DIFF FLAG NO
[2022-09-18 13:41] LABS: Basophils Absolute Auto 0.1 X10*3/uL (0.0-0.2); Basophils Percent Auto 0.7 % (0-2); Eosinophils Absolute Auto 0.1 X10*3/uL (0.0-0.4); Eosinophils Percent Auto 1.3 % (0-4); Hematocrit 40.2 % (37.0-47.0); Hemoglobin 13.1 g/dl (12.0-16.0); Imm Gran Abs Auto 0.02 X10*3/uL (0.00-0.03); Imm Gran Pct Auto 0.2 % (0.0-0.4); Lymphocytes Absolute Auto 1.9 X10*3/uL (1.2-4.9); Lymphocytes Percent Auto 19.3 % (20-40); Mean Corpuscular HGB Conc 32.6 g/dl (31.0-35.0); Mean Corpuscular Hemoglobin 28.9 pg (27.0-33.0); Mean Corpuscular Volume 88.5 fL (80.0-98.0); Monocytes Absolute Auto 0.4 X10*3/uL (0.1-1.2); Monocytes Percent Auto 4.5 % (2-11); Neutrophils Absolute Auto 7.1 x10*3/uL (2.0-8.3); Platelet Count 256 X10*3/uL (160-400); Red Blood Count 4.54 X10*6/uL (4.20-5.50); Red Cell Distribution Width 12.7 % (11.0-16.0); White Blood Count 9.6 X10*3/uL (4.8-10.8)
[2022-09-19 02:12] LABS: Alanine Aminotransferase 14 U/L (0-31); Albumin Level 4.5 g/dL (3.5-5.0); Alkaline Phosphatase 71 U/L (39-117); Anion Gap 11 (12-20); Aspartate Amino Transferase 13 U/L (5-31); Bilirubin Total 0.3 mg/dL (0.0-1.0); Blood Urea Nitrogen 14 mg/dL (9-16); Calcium 9.4 mg/dL (8.4-10.2); Carbon Dioxide 30 mmol/L (22-29); Chloride 106 mmol/L (96-108); Cholesterol 308 mg/dL; Estimated Glomerular Filt Rate > 60; Glucose Fasting 77 mg/dL (60-99); HDL Cholesterol 50 mg/dL; LDL Cholesterol Calculated 233 mg/dl; Potassium 3.4 mmol/L (3.3-5.1); Sodium 144 mmol/L (135-145); Triglycerides 129 mg/dL; Vitamin D 25-OH Total 68.1 ng/mL (>30)
== END 2022-09-18 11:34 | disposition home or self-care (01) ==
LOC: HO.HMGCX 11:33
PROVIDERS: PCP Internal Medicine; Visit Provider Internal Medicine
DX: E78.5 Hyperlipidemia, unspecified (principal); I10 Essential (primary) hypertension; J44.9 Chronic obstructive pulmonary disease, unspecified; M25.551 Pain in right hip
CPT/HCPCS: 36415; 73521; 80053; 80061; 82306; 84443; 85025

== ENCOUNTER 2022-11-08 10:51 | Outpatient (REF) | payer OTHER, SELFPAY ==
[2022-11-08 13:08] LABS: Alanine Aminotransferase 20 U/L (0-31); Albumin Level 4.4 g/dL (3.5-5.0); Alkaline Phosphatase 62 U/L (39-117); Aspartate Amino Transferase 18 U/L (5-31); Bilirubin Direct 0.1 mg/dL (0.0-0.5); Bilirubin Total 0.3 mg/dL (0.0-1.0); Total Protein 6.8 g/dL (6.5-8.0)
== END 2022-11-08 10:52 | disposition home or self-care (01) ==
LOC: HO.LAB 10:51
PROVIDERS: PCP Nurse Practitioner Family; Visit Provider Nurse Practitioner Family
DX: K59.04 Chronic idiopathic constipation (principal); K21.9 Gastro-esophageal reflux disease without esophagitis; R10.9 Unspecified abdominal pain; Z91.09 Other allergy status, other than to drugs and biological substances
CPT/HCPCS: 36415; 80076; 86003; 99212

== ENCOUNTER 2022-11-08 10:51 | Outpatient (AMB) | payer OTHER, SELFPAY ==
--- NOTE | 2022-11-08 10:52 | A.OFFVIS_ITS ---
Intake Vital Signs 11/08/22 10:53 Height 5 ft 6 in Weight 174 lb 2.643 oz BMI 28.1 BP 131/76 Blood Pressure Location Lt brachial Position Sitting Pulse 80 Intake Visit Reasons: 6 month fu Intake Note: Yue presents in office as a est.patient for 6month f/u for GERD, CIC, re- discuss colo PT CC: Patient c/o LLQ abdominal pain for the last 3 days and constantly having a sore throat (onset a few weeks ago ). She reports having constipation and when she is able to have a BM it's really small . She also c/o nausea, poor appetite, GERD, and choking with food sometimes. She also reports waking up a lot at night because she feels theres is a liquid there and I have to swallow it down , and when she spits it out is white and sticky . Patient states she has noticed puffiness from face, hands and fingers recently. Allergies paroxetine [From PAXIL] Allergy (Mild, Verified 11/08/22 10:58) RASH adhesive tape Adverse Reaction (Severe, Verified 11/08/22 10:58) Redness of Skin HPI 6 month fu HPI Details LAST VISIT: Constipation Continue taking Linzess. Patient was encouraged that if she is not moving her bowels daily she should call and we can increase the Linzess. Patient was also encouraged to increase water/fluid intake and activity to promote better bowel motility. GERD (gastroesophageal reflux disease) Continue taking pantoprazole. I will have her take it once a day instead of twice a day. Patient can continue taking sucralfate at bedtime. Discussed with patient avoiding dietary triggers in late night snacking. Staying upright for minimum 3 hours after meals discussed with patient. I will see her in 6 months we will discuss going for colonoscopy done. Patient had suboptimal prep on last colonoscopy and will need to repeat it 1 year from the last one. Patient is agreeable to this plan and verbalizes understanding of instructions. She was given the opportunity to ask questions and all questions answered. ? Thank you for allowing me to participate in her care Plan Medications Changed From pantoprazole 40 mg PO BID 60 tabs 4RF K21.9 To pantoprazole 40 mg PO DAILY 90 tabs 4RF K21.9 TODAY'S VISIT Patient is here today for follow-up. Patient reports that she continues to have epigastric discomfort and bloating. Patient continues to be constipated. Taking Linzess 145 mcg daily and states that she is going very small amounts and not every day. Patient has left lower quadrant pain. Denies melena, hematochezia, unintentional weight loss or ribbon like stools. Patient continues to have epigastric discomfort and dyspepsia without dysphagia or odynophagia. Patient reports that sometimes at night time she will have epigastric pain feels like she is having mucus coming up. Patient is taking pantoprazole every morning and sucralfate at bedtime. Patient denies any nausea or vomiting. Reports to have sore throat in the past couple days postnasal drip and mucus. Patient denies any environmental allergies. [facility] Medical History Tubular adenoma Constipation Normal pelvic exam Nocturnal hypoxia Colonoscopy refused Mammogram normal Hyperlipidemia Lower back pain Hypertension Mitral valve prolapse Supraventricular tachycardia Fibromyalgia Depression Anxiety COPD (chronic obstructive pulmonary disease) Surgical History History of cardiac radiofrequency ablation Family History Father History of CVA (cerebrovascular accident) Mother History of CVA (cerebrovascular accident) Social History Housing: House Alcohol intake: never Patient Tobacco Use Status: Former Tobacco user Quit Date: 2011 e-Cigarette/Vaping Use: Never Used Current occupational status: retired Cognitive needs: No Hearing needs: No Vision needs: Yes Review of Systems Const Denies weight gain and Denies weight loss ENT Reports no additional complaints, Denies dysphagia and Denies odynophagia Card Reports no additional complaints Resp Reports no additional complaints GI Reports abdominal pain (LLQ), Denies belching, Denies melena, Reports bloating, Reports constipation, Denies dysphagia, Denies excessive flatus, Denies dyspepsia, Denies heartburn, Denies diarrhea, Denies loose stools, Denies nausea, Denies odynophagia and Denies vomiting Reports no additional complaints Musc Reports no additional complaints Neuro Reports no additional complaints Psych Reports no additional complaints Endo Reports no additional complaints Physical Exam Vital Signs: Last Vital Signs Pulse 80 11/08/22 10:53 BP 131/76 11/08/22 10:53 BMI result Body Mass Index 28.1 Const General: healthy appearing, no acute distress and well developed Nutritional Appearance: obese Orientation/consciousness: patient oriented x3 HEENT Head: Yes normal to inspection, Yes normocephalic and Yes atraumatic Face and sinus: Yes normal facial exam Mouth: Normal oral and palatal mucosa present Throat: Yes posterior oropharynx normal, Yes tonsils normal and Yes uvula midline Eyes General: appearance normal, both eyes and all related structures Neck Neck: Yes normal visual inspection, Yes full ROM and Yes trachea midline Thyroid: Thyroid normal Resp Effort & Inspection: normal respiratory effort, able to speak in complete sentences, no tracheal deviation and symmetric chest movement Auscultation: clear to auscultation bilaterally Cardio Rate: regular rate Heart sounds: S1 normal heart sound present and S2 normal heart sound present GI Inspection: Yes normal to inspection, No distended and Yes obesity Palpation (GI): Soft to palpation, not firm, nontender and No hepatosplenomegaly present Auscultation: normal bowel sounds General: Yes no CVA tenderness Back/Spine/Pelvis Back: no CVA tenderness Skin General skin exam: elasticity normal, turgor normal and dry skin Neuro General: patient oriented x3 Psych Appearance: grossly normal Mental Status: mental status grossly normal Speech and movement: Normal speech and movement present Assessment & Plan Assessment & Plan (1) Constipation: Code(s): K59.00 - Constipation, unspecified Qualifiers: Constipation type: chronic idiopathic constipation Qualified Code(s): K59.04 - Chronic idiopathic constipation Plan: Will increase Linzess to 290 mcg daily. Patient can also take Senokot in the evening if she will not have a better bowel movement. Patient was encouraged to increase fluid intake and activity to promote better bowel motility. (2) GERD (gastroesophageal reflux disease): Code(s): K21.9 - Gastro-esophageal reflux disease without esophagitis Qualifiers: Esophagitis presence: esophagitis presence not specified Qualified Code(s): K21.9 - Gastro-esophageal reflux disease without esophagitis Plan: Continue pantoprazole in the morning half an hour before breakfast and sucralfate at bedtime. Patient was encouraged to avoid dietary triggers and late night snacking. Staying upright for minimum 3 hours after meals discussed with patient. Patient will return in 6 weeks. Will send her for upper endoscopy and colonoscopy. Patient will call us sooner if she will have any GI concerning symptoms. Patient is agreeable to this plan and verbalizes understanding of instructions. She was given the opportunity to ask questions and all questions answered. Thank you for allowing me to participate in her care Orders: Orders Rast Allergen 11/08/22 K21.9 - Gastro-esophageal reflux disease without esophagitis Liver Panel 11/08/22 R10.9 - Unspecified abdominal pain Medications: New 2 linaclotide (Linzess) 290 mcg PO QAM 30 caps 4RF K59.00 - Constipation, unspecified sennosides (senna) 8.6 mg PO BEDTIME 90 caps 3RF Discontinued linaclotide Discontinued Reason: Doctor's Order 145 mcg PO DAILY 90 caps 2RF Coding Level of Care Code Est Pt Level 4 (25935) Diagnoses Chronic idiopathic constipation K59.04 Constipation type: chronic idiopathic constipation Gastroesophageal reflux disease, unspecified whether esophagitis present K21.9 Esophagitis presence: esophagitis presence not specified Time Spent (min) 35 Comment 25 minutes spent with patient and additional 10 minutes spent reviewing her records
[2022-11-08 10:53] VITALS: BP 131/76; PULSE 80; BMI 28.1
== END 2022-11-08 11:34 | disposition home or self-care (01) ==
PROVIDERS: Visit Provider Nurse Practitioner Family
DX: K59.04 Chronic idiopathic constipation (principal); K21.9 Gastro-esophageal reflux disease without esophagitis
CPT/HCPCS: 99214

== ENCOUNTER 2022-12-20 11:26 | Outpatient (AMB) | payer OTHER, SELFPAY ==
--- NOTE | 2022-12-20 11:45 | A.OFFVIS_ITS ---
Intake Vital Signs 12/20/22 11:51 Height 5 ft 6 in Weight 175 lb BMI 28.2 BP 131/62 Blood Pressure Location Lt brachial Position Sitting Pulse 83 Intake Visit Reasons: 6 week follow up Intake Note: Patient 6 week follow up for constipation and la results. Patient cc: abdominal discomfort and pain, acid reflex with burning sensation, between diarrhea and constipation and some swallowing problems on and off. Denies any other GI issues. 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 Patient can also take Senokot in the evening if she will not have a better bowel movement. Patient was encouraged to increase fluid intake and activity to promote better bowel motility. GERD (gastroesophageal reflux disease) Continue pantoprazole in the morning half an hour before breakfast and sucralfate at bedtime. Patient was encouraged to avoid dietary triggers and late night snacking. Staying upright for minimum 3 hours after meals discussed with patient. Patient will return in 6 weeks. Will send her for upper endoscopy and colonoscopy. Patient will call us sooner if she will have any GI concerning symptoms. Patient is agreeable to this plan and verbalizes understanding of instructions. She was given the opportunity to ask questions and all questions answered. TODAY'S VISIT Patient is here will today for follow-up. Patient reports that since last him his seen her she has noticed some improvement, however he continues to have abdominal pain hand discomfort review patient reports frequent postprandial abdominal bloating. Patient states that she is trying to eat healthy food. Avoiding foods that are greasy, spicy or fried. Patient reports that she has been moving her bowels better currently is taking Linzess 290 mcg daily and patient will take Senokot in the evening if she does not have a good bowel movement. Patient still does not feel like she empties her bowels completely. This happens every few days or so. Patient reports the pain in the left lower quadrant and left upper quadrant. Labs reviewed, and they were normal. Patient reports feeling nauseous occasionally no vomiting. Patient denies any melena, hematochezia, unintentional weight loss or ribbon like stools. Patient had colonoscopy and upper endoscopy done. Colonoscopy and upper endoscopy done in November of 2021. Recommendation was made for colonoscopy to be repeated in 1- 3 years due to suboptimal prep. [facility] Medical History Tubular adenoma Constipation Normal pelvic exam Nocturnal hypoxia Colonoscopy refused Mammogram normal Hyperlipidemia Lower back pain Hypertension Mitral valve prolapse Supraventricular tachycardia Fibromyalgia Depression Anxiety COPD (chronic obstructive pulmonary disease) Surgical History History of cardiac radiofrequency ablation Family History Father History of CVA (cerebrovascular accident) Mother History of CVA (cerebrovascular accident) Social History Housing: House Alcohol intake: never Patient Tobacco Use Status: Former Tobacco user Quit Date: 2011 e-Cigarette/Vaping Use: Never Used Current occupational status: retired Cognitive needs: No Hearing needs: No Vision needs: Yes Review of Systems Const Denies weight gain and Denies weight loss ENT Reports no additional complaints, Reports dysphagia and Denies odynophagia Card Reports no additional complaints Resp Reports no additional complaints GI Reports abdominal pain, Reports belching, Denies melena, Reports bloating, Denies change in bowel habits, Reports constipation, Reports dysphagia, Denies excessive flatus, Reports dyspepsia, Reports heartburn, Denies diarrhea, Denies loose stools, Denies nausea, Denies odynophagia and Denies vomiting Reports no additional complaints Musc Reports no additional complaints Neuro Reports no additional complaints Psych Reports no additional complaints Endo Reports no additional complaints Physical Exam Vital Signs: Last Vital Signs Pulse 83 12/20/22 11:51 BP 131/62 12/20/22 11:51 BMI result Body Mass Index 28.2 Const General: healthy appearing, no acute distress and well developed Nutritional Appearance: obese Orientation/consciousness: patient oriented x3 HEENT Head: Yes normal to inspection, Yes normocephalic and Yes atraumatic Face and sinus: Yes normal facial exam Mouth: Normal oral and palatal mucosa present Throat: Yes posterior oropharynx normal, Yes tonsils normal and Yes uvula midline Eyes General: appearance normal, both eyes and all related structures Neck Neck: Yes normal visual inspection, Yes full ROM and Yes trachea midline Thyroid: Thyroid normal Resp Effort & Inspection: normal respiratory effort, able to speak in complete sentences, no tracheal deviation and symmetric chest movement Auscultation: clear to auscultation bilaterally Cardio Rate: regular rate Heart sounds: S1 normal heart sound present and S2 normal heart sound present GI Inspection: Yes normal to inspection, No distended and Yes obesity Palpation (GI): Soft to palpation, not firm, Tenderness to palpation present (GI) (LLQ) and No hepatosplenomegaly present Auscultation: Hypoactive bowel sounds present General: Yes no CVA tenderness Back/Spine/Pelvis Back: no CVA tenderness Skin General skin exam: elasticity normal, turgor normal and dry skin Neuro General: patient oriented x3 Psych Appearance: grossly normal Mental Status: mental status grossly normal Affect: normal affect Assessment & Plan Assessment & Plan (1) Constipation: Code(s): K59.00 - Constipation, unspecified Qualifiers: Constipation type: chronic idiopathic constipation Qualified Code(s): K59.04 - Chronic idiopathic constipation (2) GERD (gastroesophageal reflux disease): Code(s): K21.9 - Gastro-esophageal reflux disease without esophagitis Qualifiers: Esophagitis presence: esophagitis presence not specified Qualified Code(s): K21.9 - Gastro-esophageal reflux disease without esophagitis (3) Postprandial abdominal bloating: Code(s): R14.0 - Abdominal distension (gaseous) (4) Abdominal pain: Code(s): R10.9 - Unspecified abdominal pain Qualifiers: Abdominal location: left lower quadrant Qualified Code(s): R10.32 - Left lower quadrant pain Plan Patient will continue taking Linzess. She was encouraged to increase fluid intake and activity to promote better bowel motility. Patient continues to have pain in the left lower quadrant sometimes in the mid abdomen. Patient describes this pain as sharp, he not elevated by rest. Will need to send her for CT scan to rule out diverticulitis, unlikely colitis due to her constipation. Patient experiences nausea, however there is no right upper quadrant discomfort we will hold off on ordering abdominal ultrasound as patient has mild tenderness to left lower quadrant. Due to patient's body habitus unable to identify if there is inguinal hernia. I will see patient in 3 months , sooner on as needed basis. Will call patient with CT scan results. If patient will continue to have abdominal pain is discomfort despite moving her bowels and change in diet she was encouraged to go to ED. Next visit we will discuss going for colonoscopy and upper endoscopy. Patient still has occasional epigastric pain and nausea will change her PPI to Nexium. Patient will call the office if she will continue to have epigastric pain. Patient is agreeable to this plan and verbalizes understanding of instructions. She was given the opportunity to ask questions and all questions answered. Thank you for allowing me to participate in her care Orders: Orders CT abdomen pelvis w IV con 12/20/22 R10.9 - Unspecified abdominal pain Lipase Today R10.9 - Unspecified abdominal pain Blood Urea Nitrogen 12/20/22 R10.11 - Right upper quadrant pain Creatinine 12/20/22 R10.11 - Right upper quadrant pain Medications: New esomeprazole magnesium (Nexium) 40 mg PO DAILY 30 caps 5RF K21.9 - Gastro- esophageal reflux disease without esophagitis Discontinued pantoprazole Discontinued Reason: Doctor's Order 40 mg PO BID 180 tabs 4RF K21.9 - Gastro-esophageal reflux disease without esophagitis Coding Level of Care Code Est Pt Level 4 (90277) Diagnoses Chronic idiopathic constipation K59.04 Constipation type: chronic idiopathic constipation Gastroesophageal reflux disease, unspecified whether esophagitis present K21.9 Esophagitis presence: esophagitis presence not specified Postprandial abdominal bloating R14.0 Left lower quadrant abdominal pain R10.32 Abdominal location: left lower quadrant Time Spent (min) 35 Comment 25 minutes spent with patient and additional 10 minutes spent reviewing her records
[2022-12-20 11:51] VITALS: BP 131/62; PULSE 83; BMI 28.2
== END 2022-12-20 12:22 | disposition home or self-care (01) ==
PROVIDERS: PCP Internal Medicine; Visit Provider Nurse Practitioner Family
DX: K59.04 Chronic idiopathic constipation (principal); K21.9 Gastro-esophageal reflux disease without esophagitis; R14.0 Abdominal distension (gaseous); R10.32 Left lower quadrant pain
CPT/HCPCS: 99214

== ENCOUNTER → 2022-12-20 11:26 | Outpatient (BNVA) | payer OTHER, SELFPAY | PROVIDERS: PCP Internal Medicine; Visit Provider Nurse Practitioner Family | DX: K59.04 Chronic idiopathic constipation (principal); K21.9 Gastro-esophageal reflux disease without esophagitis; R14.0 Abdominal distension (gaseous); R10.32 Left lower quadrant pain | CPT/HCPCS: 99212 ==

== ENCOUNTER 2023-01-14 12:21 | Outpatient (REF) | payer OTHER, SELFPAY ==
[2023-01-14 14:10] LABS: Blood Urea Nitrogen 19 mg/dL (9-16); Estimated Glomerular Filt Rate > 60; Lipase 15 U/L (8-78)
== END 2023-01-14 12:22 | disposition home or self-care (01) ==
LOC: HO.HMGCLDS 12:21
PROVIDERS: PCP Internal Medicine; Visit Provider Nurse Practitioner Family
DX: R10.11 Right upper quadrant pain (principal)
CPT/HCPCS: 36415; 82565; 83690; 84520

== ENCOUNTER 2023-01-27 13:13 | Outpatient (REF) | payer OTHER, SELFPAY | END 2023-01-27 13:14 | disposition home or self-care (01) | LOC: HO.MAMMO 13:13 | PROVIDERS: PCP Internal Medicine; Visit Provider Internal Medicine | DX: Z12.31 Encounter for screening mammogram for malignant neoplasm of breast (principal) | CPT/HCPCS: 77063; 77067 ==

== ENCOUNTER → 2023-01-27 13:15 | Outpatient (BNV) | payer OTHER, SELFPAY | PROVIDERS: PCP Internal Medicine; Visit Provider Radiology Diagnostic Radiology | DX: Z12.31 Encounter for screening mammogram for malignant neoplasm of breast (principal) | CPT/HCPCS: 77063; 77067 ==

== ENCOUNTER 2023-01-28 13:28 | Outpatient (REF) | payer OTHER, SELFPAY ==
--- NOTE | ~2023-01-28 | CT_ITS ---
EXAMINATION: CT ABDOMEN AND PELVIS WITH CONTRAST CLINICAL INFORMATION: Unspecified abdominal pain. COMPARISON: CT lung screening study 10/16/2021, CT abdomen and pelvis 12/22/2016. TECHNIQUE: Multidetector volumetric images were obtained from the superior aspect of the liver through the pubic symphysis following administration 85 mL of Omnipaque 350 intravenous contrast. Sagittal and coronal reformatted images were obtained on the technologist's workstation. Oral contrast: No This CT examination was performed using dose optimization techniques as appropriate, variously including the following: *Automated exposure control *Adjustment of mA and/or kV according to patient size (this includes techniques or standardized protocols for targeted exams where dose is matched to indication/reason for exam; i.e. extremities or head) *Use of iterative reconstruction technique DLP: 534 mGy-cm FINDINGS: LUNG BASES: There is a new area of wedge-shaped/mass-like consolidation present in the right lower lobe. A pleural-based mass cannot be entirely excluded. LIVER, GALLBLADDER, AND BILIARY TREE: The liver is normal in size, shape, and attenuation. Two small subcentimeter hypodensities are present in the left lobe of the liver consistent with cysts or possibly tiny hemangiomas. These were also present on the 12/22/2016 study. No new worrisome focal hepatic lesion or biliary ductal dilatation is present. The gallbladder is contracted but otherwise is unremarkable with no evidence of radiopaque gallstones, gallbladder wall thickening, or obvious pericholecystic inflammatory changes. PANCREAS: Unremarkable. SPLEEN: Unremarkable. ADRENAL GLANDS: Unremarkable. KIDNEYS AND URETERS: The kidneys are normal in size, shape, and attenuation. No hydronephrosis, hydroureter, or calculi seen. In the left kidney, there is an 8 mm rounded cortical hypodensity seen in the upper pole posterior which measures 27 Hounsfield units. In 2017, this was present and measured 5 mm. Although this is most likely a cyst, possibly Bosniak class II, ultrasound is needed for confirmation of this. BLADDER: Unremarkable. GASTROINTESTINAL TRACT: The small and large bowel is unremarkable aside from scattered diverticula without diverticulitis. The appendix is unremarkable. ABDOMINAL WALL: No significant hernia is appreciated. LYMPH NODES: Normal. VASCULAR: Calcific atherosclerotic changes are present in the aorta and iliofemoral vessels. There is no evidence of an abdominal aortic aneurysm. PELVIC VISCERA: Unremarkable. OSSEOUS STRUCTURES: Degenerative changes are present in the spine, most marked from L1 through L3 and at L4-L5. No bony destructive lesions are seen. CT/CT abdomen pelvis w IV con IMPRESSION: 1. A cause for the patient's abdominal pain has not been found. 2. There is a new area of wedge-shaped/mass-like consolidation in the right lower lobe. A pleural-based mass cannot be entirely excluded. 3. There is an 8 mm rounded cortical hypodensity in the upper pole of the left kidney which measures 27 Hounsfield units. Although this is most likely a cyst, possibly Bosniak class II, ultrasound is needed for confirmation of this. 4. Other incidental findings as described above. According to the UPDATED 2017 Fleischner Society recommendations, the advised follow up imaging for a single solid nodule measuring greater than [address] at 3 months, PET/CT, or tissue sampling as clinically appropriate.
[2023-01-28] MEDS: Barium Sulfate Oral (Vanilla) 450 ML ORAL.SUSP 900 ML PO (15:43)
[2023-01-28] MEDS: iohexoL 350 MG/ML 100 ML INFUS..BTL IV (15:44)
== END 2023-01-28 13:29 | disposition home or self-care (01) ==
LOC: HO.CT 13:28
PROVIDERS: PCP Internal Medicine; Visit Provider Nurse Practitioner Family
DX: R10.9 Unspecified abdominal pain (principal)
CPT/HCPCS: 74177; Q9967

== ENCOUNTER 2023-01-30 08:40 | Outpatient (AMB) | payer OTHER, SELFPAY ==
[2023-01-30 09:32] VITALS: BP 128/74; PULSE 82; TEMP 36.6; O2SAT 93; BMI 28.2
--- NOTE | 2023-01-30 09:32 | AM.OFFWIN_ITS ---
Intake Vital Signs 01/30/23 09:32 Height 5 ft 6 in Weight 175 lb BMI 28.2 BP 128/74 Blood Pressure Location Lt brachial Position Sitting Pulse 82 Pulse Source Pulse Oximeter Temp 97.8 F Temp Source Temporal Artery Scan Pulse Oximetry (%) 93 Oxygen Delivery Method Room Air Intake Visit Reasons: EP wheezing dry cough headache masked in lobby Intake Note: pt is here for c/o wheezing with dry cough and headache Patient Tobacco Use Status: Former Tobacco user Quit Date: 2011 Allergies paroxetine [From PAXIL] Allergy (Mild, Verified 01/30/23 09:32) RASH adhesive tape Adverse Reaction (Severe, Verified 01/30/23 09:32) Redness of Skin Do you need a note to return to daycare/school/sports/work: Yes HPI HPI Comments History of Present Illness Details This is a 67-year-old female with a past medical history of hypertension, hyperlipidemia, atrial fibrillation and COPD utilizing oxygen at nighttime only presenting for evaluation of a scratchy throat, dry cough and wheezing that has been evolving over the past 1 week. Patient states she has not used her rescue inhaler or oxygen with any increased frequency. She denies having any fevers, chills, ear pain, Chest pain,hemoptysis or sputum production. [facility] Medical History Tubular adenoma Constipation Normal pelvic exam Nocturnal hypoxia Colonoscopy refused Mammogram normal Hyperlipidemia Lower back pain Hypertension Mitral valve prolapse Supraventricular tachycardia Fibromyalgia Depression Anxiety COPD (chronic obstructive pulmonary disease) Surgical History History of cardiac radiofrequency ablation Family History Father History of CVA (cerebrovascular accident) Mother History of CVA (cerebrovascular accident) Social History Housing: House Alcohol intake: never Patient Tobacco Use Status: Former Tobacco user Quit Date: 2011 e-Cigarette/Vaping Use: Never Used Current occupational status: retired Cognitive needs: No Hearing needs: No Vision needs: Yes Review of Systems Const All systems reviewed & are unremarkable except as noted in HPI and below Eyes Reports as per HPI ENT Reports no additional complaints Card Reports as per HPI Resp Reports cough, Denies hemoptysis and Reports wheezing GI Reports as per HPI Skin/Breast Reports system reviewed and no additional complaints, except as documented Neuro Reports no additional complaints Aller/Immun Reports wheezing Physical Exam Vital Signs: Last Vital Signs Temp 97.8 F 01/30/23 09:32 Pulse 82 01/30/23 09:32 BP 128/74 01/30/23 09:32 Pulse Ox 93 01/30/23 09:32 Oxygen Delivery Method Room Air 01/30/23 09:32 BMI result Body Mass Index 28.2 Afebrile, POX 93 on room air. Const General: cooperative, healthy appearing, comfortable, no acute distress and well developed; No ill appearing Nutritional Appearance: average body habitus Orientation/consciousness: patient oriented x3 Limitations: no limitations HEENT Head: Yes normal to inspection Ears: hearing grossly normal bilaterally, external ears normal, TM's normal bilaterally and EAC's normal General nose exam: Normal external nose present Face and sinus: Yes normal facial exam Mouth: Normal oral and palatal mucosa present and moist mucous membranes abnormal (dry mucous membranes) Throat: Yes posterior oropharynx normal and No postnasal drainage Eyes Alignment and Position: alignment normal Conjunctivae: conjunctivae normal Sclerae: sclerae normal Corneas: corneas normal Pupils: Equal, round and reactive pupils present EOM: EOMs intact bilaterally Neck Lymphatic: no lymphadenopathy noted Resp Effort & Inspection: able to speak in complete sentences, audible wheezes, Actively coughing, respiratory effort not decreased and no respiratory distress Auscultation: wheezes and diminished lung sounds Cardio Rate: regular rate Neuro General: patient oriented x3 Cranial nerves: Yes Equal, round and reactive pupils present Psych Appearance: grossly normal Mental Status: mental status grossly normal Insight: Good insight present (Psych) Judgement: Good judgement present (Psych) Results Reviewed Results Reviewed: CXR reveals possible new nodule RLL; no evidence of active pneumonia. Assessment & Plan Assessment & Plan (1) Cough: Code(s): R05.9 - Cough, unspecified Plan: Prednisone burst x 4 days; patient will follow-up with PCP within 2 weeks if her symptoms do not improve, sooner for any worsening symptoms. Orders: Orders XR chest 2V Today R05.9 - Cough, unspecified Medications: New prednisone 40 mg (2 x 20 mg) PO DAILY 8 tabs 0RF Coding Level of Care Code Est Pt Level 3 (40827) Diagnoses Cough R05.9 Time Spent (min) 25
== END 2023-01-30 10:50 | disposition home or self-care (01) ==
PROVIDERS: PCP Internal Medicine; Visit Provider Physician Assistant
DX: R05.9 Cough, unspecified (principal)
CPT/HCPCS: 99213

== ENCOUNTER 2023-01-30 10:24 | Outpatient (REF) | payer OTHER, SELFPAY ==
--- NOTE | ~2023-01-30 | XR_ITS ---
EXAMINATION: XR CHEST 2 VIEW CLINICAL INFORMATION: Cough COMPARISON: 07/25/2021 TECHNIQUE: PA and lateral views of the chest obtained. FINDINGS: New 22 mm Nodular opacity is evident in the medial right infrahilar region. The left lung is clear. The cardiomediastinal silhouette is stable. XR/XR chest 2V IMPRESSION: New nodular right lower lobe 22 mm airspace opacity, perhaps pneumonia though nonspecific. Close follow-up is recommended to confirm clearing. If persistent, suggest chest CT.
== END 2023-01-30 10:25 | disposition home or self-care (01) ==
LOC: HO.HMGCX 10:24
PROVIDERS: PCP Internal Medicine; Visit Provider Physician Assistant
DX: R05.9 Cough, unspecified (principal)
CPT/HCPCS: 71046

== ENCOUNTER 2023-02-03 19:06 | Inpatient (IN) | payer OTHER, SELFPAY ==
[2023-02-03] VITALS (8 sets, daily range): BP systolic 122–139; BP diastolic 39–78; PULSE 80–101; RESP 14–20; TEMP 36.9; O2SAT 93–96; BMI 29.4
--- NOTE | ~2023-02-03 | XR_ITS ---
EXAMINATION: XR CHEST CLINICAL INFORMATION: Shortness of breath. COMPARISON: Chest radiograph dated 01/30/2023; CT lung dated 10/16/2021. TECHNIQUE: Frontal view of the chest was obtained. FINDINGS: The heart, great vessels, pulmonary vasculature and mediastinum are stable. There is a focus of probable plate-like atelectasis at the medial right base overlapping the right cardiac contour. No pleural effusion or pneumothorax is seen. There is mild bilateral bronchiolar wall thickening. No acute osseous abnormality is seen. XR/XR chest 1V IMPRESSION: 1. There is a small focus of probable plate-like atelectasis at the medial right base. Recommend short-term follow-up chest radiographs to ensure clearance and exclude the possibility of underlying obstructive process. 2. There is mild bilateral bronchiolar wall thickening, which can be associated with acute bronchiolitis or reactive airways disease.
[2023-02-03 19:23] LABS: MANUAL DIFF FLAG NO
[2023-02-03 19:24] LABS: Basophils Percent Auto 0.2 % (0-2); Eosinophils Absolute Auto 0.1 X10*3/uL (0.0-0.4); Eosinophils Percent Auto 0.8 % (0-4); Hematocrit 39.3 % (37.0-47.0); Imm Gran Abs Auto 0.06 X10*3/uL (0.00-0.03); Imm Gran Pct Auto 0.5 % (0.0-0.4); Lymphocytes Absolute Auto 2.2 X10*3/uL (1.2-4.9); Lymphocytes Percent Auto 17.1 % (20-40); Mean Corpuscular HGB Conc 33.1 g/dl (31.0-35.0); Mean Corpuscular Volume 87.5 fL (80.0-98.0); Monocytes Absolute Auto 0.3 X10*3/uL (0.1-1.2); Monocytes Percent Auto 2.2 % (2-11); Neutrophils Percent Auto 79.2 % (45-73); Platelet Count 246 X10*3/uL (160-400); Red Blood Count 4.49 X10*6/uL (4.20-5.50); Red Cell Distribution Width 12.6 % (11.0-16.0); White Blood Count 12.6 X10*3/uL (4.8-10.8)
[2023-02-03] MEDS: diphenhydrAMINE HCL 50 MG/ML VIAL 25 MG IVPUSH (19:31)
[2023-02-03] MEDS: EPINEPHrine 1 MG/ML VIAL 0.3 MG IM (19:32)
[2023-02-03] MEDS: methylPREDNISolone Sod Succ 125 MG/2 ML VIAL IVPUSH (19:32)
[2023-02-03] MEDS: 0.9 % Sodium Chloride 1,000 ML 999 ML IV (19:33)
[2023-02-03 19:40] LABS: Alanine Aminotransferase 13 U/L (0-31); Albumin Level 4.1 g/dL (3.5-5.0); Alkaline Phosphatase 75 U/L (39-117); Anion Gap 14 (12-20); Aspartate Amino Transferase 11 U/L (5-31); Bilirubin Total 0.3 mg/dL (0.0-1.0); Blood Urea Nitrogen 12 mg/dL (9-16); Calcium 8.7 mg/dL (8.4-10.2); Carbon Dioxide 28 mmol/L (22-29); Chloride 103 mmol/L (96-108); Creatinine Clr Calc Pharmacy 69.5; Estimated Glomerular Filt Rate > 60; Glucose Random 115 mg/dL (60-115); Potassium 3.1 mmol/L (3.3-5.1); Sodium 142 mmol/L (135-145); Total Protein 6.7 g/dL (6.5-8.0)
--- NOTE | 2023-02-03 19:47 | ED.ALLEREA ---
HPI - Allergic Reaction General Chief complaint: Allergic Reaction Stated complaint: HIVES WHEEZING AND COUGH Time Seen by Provider: 02/03/23 19:10 Source: patient Mode of arrival: EMS Limitations: no limitations History of Present Illness HPI narrative: 67 y/o F patient; PMH COPD, SVT s/p ablation, HTN, HLD; presents from home on recommendation of physician over the phone with concern for anaphylaxis. The patient states she started feeling ill on 01/30/2023. She endorses a cough, congestion, and wheezing. She was treated with 5 days of prednisone and no antibiotics. She states today she woke up with red rash covering her body and significant wheezing. She denies throat swelling, difficulty breathing, nausea/vomiting, or diarrhea. She states the rash is whole body and pruritic despite home benadryl. Patient denies a PMH of anaphylaxis, denies use of an epi-pen previously. She does not current smoke. She denies any new foods, products, lotions, etc. Related Data Home Medications Medication Instructions Recorded Confirmed lorazepam 0.5 mg tablet 0.5 mg PO TID PRN 11/27/19 04/01/22 aspirin 81 mg tablet,delayed 81 mg PO DAILY 03/22/20 04/01/22 release trazodone 100 mg tablet 200 mg PO BEDTIME 06/28/20 04/01/22 cholecalciferol (vitamin D3) 50 50 mcg PO DAILY 08/28/21 04/01/22 mcg (2,000 unit) capsule vitamin E 200 unit capsule 200 unit PO DAILY 08/28/21 04/01/22 duloxetine 20 mg capsule,delayed 20 mg PO DAILY 09/18/22 release (Cymbalta) sertraline 100 mg tablet 100 mg PO DAILY 09/18/22 zolpidem 5 mg tablet 5 mg PO BEDTIME PRN 11/08/22 Previous Rx's Medication Instructions Recorded amitriptyline 75 mg tablet 150 mg (2 x 75 mg) PO BEDTIME #60 05/30/21 tabs albuterol sulfate 90 mcg/actuation 2 puff PO Q6H PRN for wheezing 02/05/22 aerosol inhaler #25.5 grams furosemide 40 mg tablet 40 mg PO DAILY #90 tabs 03/15/22 diltiazem HCl 180 mg 180 mg PO DAILY #90 caps 04/11/22 capsule,extended release 24 hr, controlled atorvastatin 20 mg tablet 20 mg PO DAILY #90 tabs 09/18/22 Incruse Ellipta 62.5 mcg/actuation 1 inh inhalation DAILY #90 ea 10/01/22 powder for inhalation (umeclidinium) linaclotide 290 mcg capsule 290 mcg PO QAM #30 caps 11/08/22 (Linzess) sucralfate 1 gram tablet 1 g PO BEDTIME #90 tabs 11/25/22 atenolol 25 mg tablet 25 mg PO DAILY #90 tabs 11/26/22 esomeprazole magnesium 40 mg 40 mg PO DAILY #30 caps 12/20/22 capsule,delayed release (Nexium) cyclobenzaprine 5 mg tablet 5 mg PO BEDTIME #60 tabs 01/01/23 bisacodyl 5 mg tablet,delayed 10 mg (2 x 5 mg) PO BEDTIME #60 01/13/23 release (Dulcolax (bisacodyl)) tabs prednisone 20 mg tablet 40 mg (2 x 20 mg) PO DAILY #8 tabs 01/30/23 Allergies Allergy/AdvReac Type Severity Reaction Status Date / Time paroxetine [From PAXIL] Allergy Mild RASH Verified 01/30/23 09:32 adhesive tape AdvReac Severe Redness of Verified 01/30/23 09:32 Skin Review of Systems Review of Systems: Yes all other systems are reviewed and are negative PMFSH Past Medical History Attestation statement: The following information was validated with the patient. Source: old records reviewed Medical History Tubular adenoma Constipation Normal pelvic exam Nocturnal hypoxia Colonoscopy refused Mammogram normal Hyperlipidemia Lower back pain Hypertension Mitral valve prolapse Supraventricular tachycardia Fibromyalgia Depression Anxiety COPD (chronic obstructive pulmonary disease) Surgical History History of cardiac radiofrequency ablation Family History Family History Father History of CVA (cerebrovascular accident) Mother History of CVA (cerebrovascular accident) Social History Social History Housing: House Alcohol intake: never Patient Tobacco Use Status: Former Tobacco user Quit Date: 2012 Smoked in Last 30 Days: No e-Cigarette/Vaping Use: Never Used Use of substances other than those prescribed or required for medical reasons: No Advance Directives: Yes Advance Directives Information Provided: No Advance Directives on File: No Current occupational status: retired Cognitive needs: No Hearing needs: No Vision needs: Yes Physical Exam ED Vital Signs: Vital Signs - 24 hr 02/03/23 19:11 02/03/23 19:22 02/03/23 19:23 Temperature 98.5 F Pulse Rate 86 85 Respiratory Rate 20 20 Blood Pressure 139/59 L Pulse Oximetry 95 95 Oxygen Delivery Method Room Air Room Air 02/03/23 19:32 02/03/23 19:59 02/03/23 20:18 Temperature Pulse Rate 82 89 81 Respiratory Rate 14 16 Blood Pressure 139/59 L Pulse Oximetry Oxygen Delivery Method 02/03/23 20:49 Temperature Pulse Rate 101 H Respiratory Rate 20 Blood Pressure 129/39 L Pulse Oximetry 93 Oxygen Delivery Method Room Air BMI result Body Mass Index 29.4 Patient is afebrile and hemodynamically stable. Const General: cooperative HENMT Head: Yes normal to inspection and Yes atraumatic Ears: hearing grossly normal bilaterally, external ears normal and TM's normal bilaterally General nose exam: Normal external nose present and Normal nares present Mouth: Normal oral and palatal mucosa present, lip normal, tongue normal, oropharynx normal, moist mucous membranes and no drooling Throat: Yes tonsils normal and Yes uvula midline Eyes General: appearance normal, both eyes and all related structures Pupils: Equal, round and reactive pupils present EOM: EOMs intact bilaterally Neck Neck: Yes full ROM and Yes supple Chest Chest palpation & inspection: normal inspection of the chest and normal palpation of entire chest wall Resp Effort & Inspection: able to speak in complete sentences, audible wheezes, Actively coughing and no stridor Auscultation: wheezes Cardio Rate: regular rate Rhythm: regular rhythm Peripheral pulses: Peripheral pulses 2+ throughout GI Inspection: Yes normal to inspection Palpation (GI): Soft to palpation, not firm, nontender, no guarding and not rigid Skin Other: Erythematous maculopapular rash to entire body including face, chest, abdomen, back, arms/legs, hands/feet Neuro Cranial nerves: Yes Equal, round and reactive pupils present Course Course Course Narrative: Patient is afebrile and hemodynamically stable. She has an erythematous maculopapular rash to entire body and audible wheezing without respiratory acute distress, with concern for anaphylaxis - decision to treat with Epi-Pen. Ordered Famotidine, Solu-Medrol, Benadryl, and breathing treatments. Reevaluation(s) Reevaluation #1: Patient continued to have wheezing and report difficulty with breathing. Difficult presentation of anaphylaxis versus allergic reaction with underlying dyspnea. Low suspicion for COPD exacerbation or sepsis due to clear CXR, no change in cough, no fever. No indication for antibiotic coverage at this time. Provided Magnesium 2g IV. Time: 20:27 Reevaluation #2: Re-evaluated multiple times. Reports continued improvement in symptoms. However continues to have wheezing. SpO2 90 - 94% on RA. Provided tylenol 975mg for generalized non-focal headache. Time: 21:00 Reevaluation #3: Discussed with hospitalist plan for admission for observation. Patient accepted for admission. Condition: Stable Time: 21:17 Medications Administered Discontinued Medications Generic Name Dose Route Start Last Admin Trade Name Freq PRN Reason Stop Dose Admin Albuterol Sulfate 5 mg/ 7.5 mg 02/03/23 20:13 02/03/23 20:16 Albuterol Sulfate 2.5 mg INHALE 02/03/23 20:14 7.5 mg ONCE ONE Administration Albuterol Sulfate 2.5 mg/ 0 mg 02/03/23 19:54 02/03/23 19:57 Albuterol/Ipratropium 3 ml INHALE 02/03/23 19:55 5 dose ONCE ONE Administration Diphenhydramine HCl 25 mg 02/03/23 19:23 02/03/23 19:31 Diphenhydramine Hcl 50 Mg/Ml Vial IVPUSH 02/03/23 19:24 25 mg ONCE ONE Administration Epinephrine 0.3 mg 02/03/23 19:23 02/03/23 19:32 Epinephrine 1 Mg/Ml Vial IM 02/03/23 19:24 0.3 mg STAT STA Administration Famotidine 20 mg 02/03/23 19:45 02/03/23 20:03 Famotidine/Pf 20 Mg/2 Ml Vial IVPUSH 02/03/23 19:46 20 mg ONCE ONE Administration Sodium Chloride 1,000 mls @ 999 mls/hr 02/03/23 19:30 02/03/23 21:08 Ns IV 02/03/23 20:30 Infused .Q1H1M JULISSA Infusion Magnesium Sulfate 2 gm in 50 mls @ 150 mls/hr 02/03/23 20:06 02/03/23 20:55 Magnesium Sulfate/H2o IV 02/03/23 20:25 Infused ONCE ONE Infusion Methylprednisolone Sodium Succinate 125 mg 02/03/23 19:23 02/03/23 19:32 Methylprednisolone Sod Succ 125 Mg/2 Ml Vial IVPUSH 02/03/23 19:24 125 mg ONCE ONE Administration Medical Decision Making Lab Data 02/03/23 19:20 02/03/23 19:20 Labs: Lab Results 02/03/23 Range/Units 19:20 WBC 12.6 H (4.8-10.8) X10*3/uL RBC 4.49 (4.20-5.50) X10*6/uL Hgb 13.0 (12.0-16.0) g/dl Hct 39.3 (37.0-47.0) % MCV 87.5 (80.0-98.0) fL MCH 29.0 (27.0-33.0) pg MCHC 33.1 (31.0-35.0) g/dl RDW 12.6 (11.0-16.0) % Plt Count 246 (160-400) X10*3/uL MPV 9.0 L (9.4-12.3) fL Immature Gran % (Auto) 0.5 H (0.0-0.4) % Neut % (Auto) 79.2 H (45-73) % Lymph % (Auto) 17.1 L (20-40) % [place] % (Auto) 2.2 (2-11) % Eos % (Auto) 0.8 (0-4) % Baso % (Auto) 0.2 (0-2) % Lymph # (Auto) 2.2 (1.2-4.9) X10*3/uL [place] # (Auto) 0.3 (0.1-1.2) X10*3/uL Eos # (Auto) 0.1 (0.0-0.4) X10*3/uL Baso # (Auto) 0.0 (0.0-0.2) X10*3/uL Abs Immat Gran (auto) 0.06 H (0.00-0.03) X10*3/uL Absolute Neuts (auto) 10.0 H (2.0-8.3) x10*3/uL Absolute Nucleated RBC 0.000 (0.0-0.012) X10*3/uL Nucleated RBC % (auto) 0.0 (0.0-0.2) /100WBC Sodium 142 (135-145) mmol/L Potassium 3.1 L (3.3-5.1) mmol/L Chloride 103 (96-108) mmol/L Carbon Dioxide 28 (22-29) mmol/L Anion Gap 14 (12-20) BUN 12 (9-16) mg/dL Creatinine 0.85 (0.5-1.4) mg/dL Estim Creat Clear Calc 69.5 Estimated GFR > 60 Random Glucose 115 (60-115) mg/dL Calcium 8.7 D (8.4-10.2) mg/dL Magnesium 1.5 L (1.6-2.6) mg/dL Total Bilirubin 0.3 (0.0-1.0) mg/dL AST 11 (5-31) U/L ALT 13 (0-31) U/L Alkaline Phosphatase 75 (39-117) U/L Total Protein 6.7 (6.5-8.0) g/dL Albumin 4.1 (3.5-5.0) g/dL Discharge Plan Discharge Prescriptions: No Action amitriptyline 75 mg tablet 150 mg PO BEDTIME Qty: 60 2RF albuterol sulfate 90 mcg/actuation HFA aerosol inhaler 2 puff PO Q6H PRN (Reason: for wheezing) Qty: 25.5 0RF furosemide 40 mg tablet 40 mg PO DAILY Qty: 90 3RF diltiazem HCl 180 mg capsule,ext.rel 24h degradable 180 mg PO DAILY Qty: 90 3RF Incruse Ellipta 62.5 mcg/actuation blister with device 1 inh inhalation DAILY Qty: 90 3RF sucralfate 1 gram tablet 1 g PO BEDTIME Qty: 90 0RF atenolol 25 mg tablet 25 mg PO DAILY Qty: 90 3RF cyclobenzaprine 5 mg tablet 5 mg PO BEDTIME Qty: 60 0RF bisacodyl [Dulcolax (bisacodyl)] 5 mg tablet,delayed release (DR/EC) 10 mg PO BEDTIME Qty: 60 4RF diphenhydramine HCl 25 mg tablet 50 mg PO ONCE Qty: 2 0RF sertraline 100 mg tablet 100 mg PO DAILY duloxetine [Cymbalta] 20 mg capsule,delayed release(DR/EC) 20 mg PO DAILY atorvastatin 20 mg tablet 20 mg PO DAILY Qty: 90 3RF prednisone 20 mg tablet 40 mg PO DAILY Qty: 8 0RF lorazepam 0.5 mg tablet 0.5 mg PO TID PRN aspirin 81 mg tablet,delayed release (DR/EC) 81 mg PO DAILY trazodone 100 mg tablet 200 mg PO BEDTIME vitamin E 200 unit capsule 200 unit PO DAILY cholecalciferol (vitamin D3) 50 mcg (2,000 unit) capsule 50 mcg PO DAILY zolpidem 5 mg tablet 5 mg PO BEDTIME PRN Linzess 290 mcg capsule 290 mcg PO QAM Qty: 30 4RF esomeprazole magnesium [Nexium] 40 mg capsule,delayed release(DR/EC) 40 mg PO DAILY Qty: 30 5RF
--- NOTE | 2023-02-03 19:49 | PC.NURSE ---
pt chuya from home reporting the sudden onset of a hive like rash. pt reports being seen at PCP previously and being given prednisone, pt reports after taking prednisone the rash developed. pt reports taking prednisone in the past without any issues. pt has hives noted across her face, neck, upper extremities, lower extremities, chest and back. Bilateral expiratory wheezing noted at this time. pt able to talk in full sentences and denies SOB. pt air way clear. at bedside to assess pt. Iv established and labs obtained and sent.
[2023-02-03] MEDS: Albuterol Sulfate 2.5 MG, Albuterol/Iprat 2.5/0.5MG 3 ML 3 ML INHALE (19:57)
[2023-02-03 20:03] LABS: Magnesium 1.5 mg/dL (1.6-2.6)
[2023-02-03] MEDS: Famotidine/PF 20 MG/2 ML VIAL IVPUSH (20:03)
--- NOTE | 2023-02-03 20:05 | PC.NURSE ---
respiratory at bedside doing breathing treatment, pt medicated per may.
[2023-02-03] MEDS: Albuterol Sulfate 5 MG, Albuterol Sulfate (0.083%) 2.5 MG 7.5 MG INHALE (20:16)
[2023-02-03] MEDS: Magnesium Sulfate/H2O 2 GM/50 ML PIGGYBACK IV (20:28)
[2023-02-03 21:16] LABS: COVID-19 Test Negative (Negative); IDNOW Serial# BCCEAD1C
[2023-02-03] MEDS: Acetaminophen 325 MG TABLET 975 MG PO (21:21)
--- NOTE | 2023-02-03 21:22 | PC.NURSE ---
pt medicated per may for 10/10 headache.
--- NOTE | 2023-02-03 22:49 | P.HPHOSP_ITS ---
History of Present Illness Date of Service: 02/03/23 Attending physician on admission: Bubba Herzog Chief Complaint: Worsening SOB x 4 days; Generalized body rash / Hives x1 day 67 year old white female with PMH of COPD (on home o2), AVNRT (s/p ablation), hypertension, hyperlipidemia, chronic low back pain she presents to the emergency room for evaluation of a generalized body rash that she noticed when she woke up this morning. She has been feeling unwell for the last week or so - stating that she has been feeling weak, congested and [place] a cough and as wheezing. She was seen at an urgent care facility and diagnosed with COPD exacebation and was started on Prednisone 40 mg BID for 5 days. She unfortunately has not noticed any appreciable change in her condition stating that she still feels congested and has shortness of breath that is worse with exertion and is still wheezing. She does not endorse any associated chest pain, palpitations, fevers or chills. Today when she woke up, she noticed that she had hives all over her body which were not present last night when she went to bed plus she was also wheezing a lot. She has not taken any new medications. Later in the evening, she called her PCP who advised her to come to the ER where on arrival she was treated with a dose of Epi-pen, Benadryl, Pepcid, Solu- medrol, magnesium and IV fluids. She also received updrafts for her COPD and reported feeling somehow better when compared to her initial presentation and her oxygen saturations also improved to 90-94% on room air. Initial work up was significant for mild leucocytosis of 12.6, hypokalemia at 3.1 and hypomagnesemia. Admission was requested or continued care. Review of Systems 2 Review of Systems: Yes all other systems are reviewed and are negative [facility] Medical History Tubular adenoma Constipation Normal pelvic exam Nocturnal hypoxia Colonoscopy refused Mammogram normal Hyperlipidemia Lower back pain Hypertension Mitral valve prolapse Supraventricular tachycardia Fibromyalgia Depression Anxiety COPD (chronic obstructive pulmonary disease) Family History Father History of CVA (cerebrovascular accident) Mother History of CVA (cerebrovascular accident) Surgical History History of cardiac radiofrequency ablation Social History Housing: House Alcohol intake: never Patient Tobacco Use Status: Former Tobacco user Quit Date: 2011 Smoked in Last 30 Days: No e-Cigarette/Vaping Use: Never Used Use of substances other than those prescribed or required for medical reasons: No Advance Directives: Yes Advance Directives Information Provided: No Advance Directives on File: No Nutrition Risks: No Nutritional Risk Current occupational status: retired Cognitive needs: No Hearing needs: No Vision needs: Yes Meds Allergies Allergy/AdvReac Type Severity Reaction Status Date / Time paroxetine [From PAXIL] Allergy Mild RASH Verified 01/30/23 09:32 adhesive tape AdvReac Severe Redness of Verified 01/30/23 09:32 Skin Home Medications Medication Instructions Recorded Confirmed Last Taken Type lorazepam 0.5 mg tablet 0.5 mg PO TID PRN Agitation 11/27/19 02/03/23 Unknown History aspirin 81 mg tablet,delayed 81 mg PO DAILY 03/22/20 02/03/23 02/03/23 History release trazodone 100 mg tablet 200 mg PO BEDTIME 06/28/20 02/03/23 Unknown History cholecalciferol (vitamin D3) 50 50 mcg PO DAILY 08/28/21 02/03/23 Unknown History mcg (2,000 unit) capsule vitamin E 200 unit capsule 200 unit PO DAILY 08/28/21 02/03/23 Unknown History duloxetine 20 mg capsule,delayed 20 mg PO DAILY 09/18/22 02/03/23 02/03/23 History release (Cymbalta) sertraline 100 mg tablet 100 mg PO DAILY 09/18/22 02/03/23 Unknown History zolpidem 5 mg tablet 5 mg PO BEDTIME PRN Insomnia 11/08/22 02/03/23 Unknown History atenolol 25 mg tablet 25 mg PO BEDTIME 02/03/23 02/03/23 Unknown History bisacodyl 5 mg tablet,delayed 10 mg PO BEDTIME PRN Constipation 02/03/23 02/03/23 Unknown History release (Dulcolax (bisacodyl)) cyanocobalamin (vitamin B-12) 500 500 mcg PO DAILY 02/03/23 02/03/23 Unknown History mcg tablet cyclobenzaprine 5 mg tablet 5 mg PO BEDTIME PRN Pain 02/03/23 02/03/23 Unknown History furosemide 40 mg tablet 40 mg PO DAILY 02/03/23 02/03/23 Unknown History linaclotide 290 mcg capsule 290 mcg PO DAILY 02/03/23 02/03/23 Unknown History (Linzess) pantoprazole 40 mg tablet,delayed 40 mg PO DAILY 02/03/23 02/03/23 Unknown History release Physical Exam 2 Vital Signs and Narrative: Vital Signs: Last Vital Signs Temp 98.5 F 02/03/23: Pulse 101 H 02/03/23 20:49 Resp 20 02/03/23 20:49 BP 129/39 L 02/03/23 20:49 Pulse Ox 93 02/03/23 20:49 O2 Del Method Room Air 02/03/23 20:49 BMI result Body Mass Index 29.4 General: Well nourished WF in bed. Awake and alert. In no apparent distress Eyes: No pallor or jaundice. PERRLA, EOMI HENT: Moist oral mucus membranes. No oropharyngeal lesions. Neck: Supple. No cervical adenopathy. No JVD Cardiovascular: Tachycardic but regular. Normal heart sounds. No murmurs, rubs or gallops. No JVD. No peripheral edema. Respiratory: Normal respiratory effort with no accessory muscle use. CTAB. , CTA bilaterally Gastrointestinal: Abdomen is soft, non-tender, non-distended. Normoactive bowel sounds. No hepatosplenomegally Extremities: No edema. No calf tenderness. Good peripheral pulses Skin - Warm/Dry. Noted with a maculopapular rash involving the proximal thighs and trunk (anterior chest, abdomen and back). No mottling. Capillary refill is < 2 seconds Neurological - AAOx4. Intact speech & cognition. Normal gait & balance. CN II - XII grossly intact but not individually tested. No motor or sensory deficits Hematologic: No bleeding. No ecchymosis. No swollen or tender lymph nodes. Psychiatric: Cooperative. Appropriate mood and affect . Results Labs 02/03/23 19:20 02/03/23 19:20 Labs: Laboratory Results - last 24 hr 02/03/23 02/03/23 19:20 20:52 MCV 87.5 MCH 29.0 MCHC 33.1 RDW 12.6 Plt Count 246 MPV 9.0 L Immature Gran % (Auto) 0.5 H Neut % (Auto) 79.2 H Lymph % (Auto) 17.1 L [place] % (Auto) 2.2 Eos % (Auto) 0.8 Baso % (Auto) 0.2 Lymph # (Auto) 2.2 [place] # (Auto) 0.3 Eos # (Auto) 0.1 Baso # (Auto) 0.0 Abs Immat Gran (auto) 0.06 H Absolute Neuts (auto) 10.0 H Absolute Nucleated RBC 0.000 Nucleated RBC % (auto) 0.0 Anion Gap 14 Estim Creat Clear Calc 69.5 Estimated GFR > 60 Random Glucose 115 Calcium 8.7 D Magnesium 1.5 L Total Bilirubin 0.3 AST 11 ALT 13 Alkaline Phosphatase 75 Total Protein 6.7 Albumin 4.1 COVID-19 (DELON) Negative COVID-19 Clin Com See Note Imaging Radiologist's Impressions: Impressions Chest X-Ray 02/03/23 19:33 IMPRESSION: 1. There is a small focus of probable plate-like atelectasis at the medial right base. Recommend short-term follow-up chest radiographs to ensure clearance and exclude the possibility of underlying obstructive process. 2. There is mild bilateral bronchiolar wall thickening, which can be associated with acute bronchiolitis or reactive airways disease. Assessment and Plan (1) COPD exacerbation: Status: Acute (2) Allergic reaction: Status: Acute (3) Hypomagnesemia: Status: Acute (4) Leukocytosis (leucocytosis): Status: Acute Plan 67 year old white female with PMH of COPD (on home o2), AVNRT (s/p ablation), hypertension, hyperlipidemia, chronic low back pain here with 1. COPD with acute exacerbation - with associated acute bronchitis - admit and continue with scheduled steroids, Duo Nebs and PRN Albuterol updrafts - start Azithromycin - continue supplemental Oxygen with target SpO2 of ~ 88-94% 2. Allergic reaction - unclear allergen - likely from exposure to beddings or clothes overnight though denies using new detergent - states that she is improving since treatment at time of arrival - will continue PRN steroids, Benadryl and Pepcid - re-evaluate in AM 3. Hypokalemia & Hypomagnesemia - 3.1 mmol/L & 1.5 mg/dl respectively - replete and recheck in AM 4. Leucocytosis - likely reactive due to steroids - monitor 5. Depression - resume Duloxetine and Sertraline Quality Stroke Does the patient have a stroke diagnosis?: No VTE Prior VTE?: No VTE Risk Level:: Medical - moderate - high VTE Device Contraindication: Treatment Not Indicated VTE Drug Contraindication: N/A - Med Ordered
--- NOTE | 2023-02-03 22:58 | PHA.MEDREC ---
Pharmacy Consult ? Medication Reconciliation Pharmacy has completed the medication reconciliation with patient, patient stated she doesn't use the prednisone or senna.
[2023-02-03 23:05] LABS: Appearance Urine Clear; Color Urine Yellow; Glucose Urine UA Negative (Negative); Leukocyte Esterase Urine Small (1+) (Negative); Nitrite Urine Negative (Negative); Specific Gravity - Urine <= 1.005 (1.005-1.025); UMIC TRIGGER UACC YES; Urine Blood Negative (Negative); Urine Ketones Negative (Negative); Urine Protein Negative (Neg-Trace)
[2023-02-03 23:09] LABS: Bacteria Urine None Seen (None Seen); Hyaline Casts Urine 0-2 /LPF (0-2); RBC Urine 0-2 /HPF (0-2); Squamous Epithelial Cell Urine 0-2 /HPF (0-2); WBC Urine 0-5 /HPF (0-5)
--- NOTE | 2023-02-03 23:10 | PC.NURSE ---
pt ambulated to bedside commode with steady gait, urine sample obtained.
[2023-02-03 23:16] LABS: UACC Culture Trigger YES
[2023-02-03] MEDS: Enoxaparin Sodium 40 MG/0.4 ML SYRINGE SUBCUT (23:28)
--- NOTE | 2023-02-03 23:35 | PC.NURSE ---
pt facial swelling subsided, pt still has notable rash to abdomen, bilateral legs and bilateral forearms.
[2023-02-03 23:42] LABS: Influenza A PCR NEGATIVE (Negative); Influenza B PCR NEGATIVE (Negative); Resp Syncy Virus RNA Qual PCR NEGATIVE (Negative); SARS COV2 PCR INHOUSE NEGATIVE (Negative)
[2023-02-04] VITALS (10 sets, daily range): BP systolic 129–150; BP diastolic 51–70; PULSE 71–89; RESP 15–20; TEMP 36.1–37.1; O2SAT 91–97
[2023-02-04] MEDS: 0.9 % Sodium Chloride Flush 3 ML SYRINGE IVFLUSH ×4 (00:19→21:05)
[2023-02-04] MEDS: traZODone HCL 100 MG TABLET 200 MG PO ×2 (01:31→21:16)
[2023-02-04] MEDS: atenoloL 25 MG TABLET PO ×2 (01:31→21:17)
[2023-02-04] MEDS: Sucralfate 1 GM TABLET PO ×2 (01:31→21:16)
--- NOTE | 2023-02-04 01:33 | PC.NURSE ---
pt medicated per brooke, RN grinding supervisor to bring up amyltripalin.
[2023-02-04] MEDS: Amitriptyline HCl 50 MG TABLET 150 MG PO ×2 (01:57→21:17)
--- NOTE | 2023-02-04 04:34 | PC.NURSE ---
p sleeping, respirations even and unlabored.
[2023-02-04 05:55] LABS: Basophils Percent Auto 0.1 % (0-2); Hemoglobin 10.9 g/dl (12.0-16.0); Imm Gran Abs Auto 0.09 X10*3/uL (0.00-0.03); Imm Gran Pct Auto 0.8 % (0.0-0.4); Lymphocytes Absolute Auto 0.9 X10*3/uL (1.2-4.9); Lymphocytes Percent Auto 7.4 % (20-40); MANUAL DIFF FLAG SCAN; Mean Corpuscular Hemoglobin 29.1 pg (27.0-33.0); Mean Corpuscular Volume 88.2 fL (80.0-98.0); Mean Platelet Volume 9.4 fL (9.4-12.3); Monocytes Absolute Auto 0.1 X10*3/uL (0.1-1.2); Monocytes Percent Auto 0.8 % (2-11); Neutrophils Absolute Auto 10.7 x10*3/uL (2.0-8.3); Neutrophils Percent Auto 90.9 % (45-73); Platelet Count 220 X10*3/uL (160-400); Red Blood Count 3.74 X10*6/uL (4.20-5.50); Red Cell Distribution Width 12.7 % (11.0-16.0); SCAN SMEAR FLAG 1; White Blood Count 11.8 X10*3/uL (4.8-10.8)
[2023-02-04 06:13] LABS: SLIDE REVIEW VERIFIED
[2023-02-04 06:17] LABS: Anion Gap 12 (12-20); Blood Urea Nitrogen 9 mg/dL (9-16); Calcium 8.3 mg/dL (8.4-10.2); Carbon Dioxide 26 mmol/L (22-29); Chloride 105 mmol/L (96-108); Creatinine Clr Calc Pharmacy 84.4; Estimated Glomerular Filt Rate > 60; Glucose Random 142 mg/dL (60-115); Potassium 3.4 mmol/L (3.3-5.1); Sodium 140 mmol/L (135-145)
[2023-02-04 06:33] LABS: Thyroid Stimulating Hormone 0.22 uIU/mL (0.32-4.0)
[2023-02-04] MEDS: Omeprazole 20 MG CAPSULE.DR PO (06:55)
--- NOTE | 2023-02-04 07:05 | PC.NURSE ---
pt set up for breakfast at this time.
[2023-02-04] MEDS: Albuterol/Iprat 2.5/0.5MG 3 ML AMPUL.NEB INHALE ×4 (08:25→20:19)
[2023-02-04] MEDS: methylPREDNISolone Sod Succ 125 MG/2 ML VIAL 60 MG IVPUSH ×2 (08:28→21:18)
[2023-02-04] MEDS: Sertraline HCL 100 MG TABLET PO (08:29)
[2023-02-04] MEDS: Docusate Sodium 100 MG CAPSULE PO ×2 (08:29→21:16)
[2023-02-04] MEDS: Atorvastatin Calcium 20 MG TABLET PO (08:29)
[2023-02-04] MEDS: Furosemide 40 MG TABLET PO (08:29)
[2023-02-04] MEDS: Cholecalciferol (Vitamin D3) 25 MCG TABLET 50 MCG PO (08:29)
[2023-02-04] MEDS: DULoxetine HCl 20 MG CAPSULE.DR PO (08:29)
[2023-02-04] MEDS: Aspirin Enteric Coated 81 MG TABLET.DR PO (08:29)
[2023-02-04] MEDS: dilTIAZem HCL CD 180 MG CAP.ER.24H PO (08:29)
--- NOTE | 2023-02-04 08:37 | PC.NURSE ---
pt medicated per may, this rn contacted pharmacy to bring pt vitamin B12.
--- NOTE | 2023-02-04 08:46 | P.PNIM_ITS ---
Subjective Subjective Date of Service: 02/04/23 Interval History: f/u on copd exacerbation and urticaria rash she feels less sob, rash is fading and is not sure what may have triggered it Physical Exam 2 Vital Signs: Vital Signs: Last Vital Signs Temp 98.7 F 02/04/23 01:29 Pulse 76 02/04/23 08:36 Resp 16 02/04/23 08:36 BP 139/61 02/04/23 08:36 Pulse Ox 93 02/04/23 08:36 O2 Del Method Room Air 02/04/23 08:36 O2 Flow Rate 2 02/04/23 01:29 BMI result Body Mass Index 29.4 Const: Other: General: AO X 3, no acute distress Resp: no wheeze CVS: S1,S2,RRR GI: +BS, NT, no distention Skin: No rash Neuro: motor grossly intact Psych: appropriate affect Objective Data Active Medications Acetaminophen (Acetaminophen 325 Mg Tablet) 650 mg PO Q6H PRN PRN Reason: Pain, Mild (Pain Scale 1-3) Al Hydroxide/Mg Hydroxide (Magnesium Hydrox/Alum Hydrox 30 Ml Oral.Susp) 30 ml PO Q4H PRN PRN Reason: Heartburn/Nausea Albuterol Sulfate (Albuterol Sulfate (0.083%) 2.5 Mg/3 Ml Vial.Neb) 2.5 mg INHALE 6XD PRN PRN Reason: Shortness of Breath/Wheezing Stop: 02/04/23 12:01 Albuterol/Ipratropium (Albuterol/Iprat 2.5/0.5mg 3 Ml Ampul.Neb) 3 ml INHALE RQID [facility] Last Admin: 02/04/23 08:25 Dose: 3 ml Documented By: JESUS Amitriptyline HCl (Amitriptyline Hcl 50 Mg Tablet) 150 mg PO BEDTIME [facility] Last Admin: 02/04/23 01:57 Dose: 150 mg Documented By: SUDEEP Aspirin (Aspirin Enteric Coated 81 Mg Tablet.) 81 mg PO DAILY [facility] Last Admin: 02/04/23 08:29 Dose: 81 mg Documented By: SUDEEP Atenolol (Atenolol 25 Mg Tablet) 25 mg PO BEDTIME [facility]; Protocol Last Admin: 02/04/23 01:31 Dose: 25 mg Documented By: SUDEEP Atorvastatin Calcium (Atorvastatin Calcium 20 Mg Tablet) 20 mg PO DAILY [facility] Last Admin: 02/04/23 08:29 Dose: 20 mg Documented By: SUDEEP Bisacodyl (Bisacodyl 5 Mg Tablet.) 10 mg PO BEDTIME PRN PRN Reason: Constipation Cyanocobalamin (Cyanocobalamin (Vitamin B-12) 500 Mcg Tablet) 500 mcg PO DAILY [facility] Cyclobenzaprine HCl (Cyclobenzaprine Hcl 5 Mg Tablet) 5 mg PO BEDTIME PRN PRN Reason: Pain, Moderate(Pain Scale 4-6) Diltiazem HCl (Diltiazem Hcl Cd 180 Mg Cap.Er.24h) 180 mg PO DAILY [facility]; Protocol Last Admin: 02/04/23 08:29 Dose: 180 mg Documented By: SUDEEP Docusate Sodium (Docusate Sodium 100 Mg Capsule) 100 mg PO BID [facility] Last Admin: 02/04/23 08:29 Dose: 100 mg Documented By: SUDEEP Duloxetine HCl (Duloxetine Hcl 20 Mg Capsule.) 20 mg PO DAILY [facility] Last Admin: 02/04/23 08:29 Dose: 20 mg Documented By: SUDEEP Enoxaparin Sodium (Enoxaparin Sodium 40 Mg/0.4 Ml Syringe) 40 mg SUBCUT Q24H [facility] Last Admin: 02/03/23 23:28 Dose: 40 mg Documented By: SUDEEP Furosemide (Furosemide 40 Mg Tablet) 40 mg PO DAILY [facility]; Protocol Last Admin: 02/04/23 08:29 Dose: 40 mg Documented By: SUDEEP Guaifenesin/Dextromethorphan (Guaifenesin Dm 200/20/10 Ml 10 Ml Syrup) 10 ml PO QID PRN PRN Reason: Cough Lorazepam (Lorazepam 0.5 Mg Tablet) 0.5 mg PO TID PRN PRN Reason: Restlessness Melatonin (Melatonin 3 Mg Tablet) 6 mg PO BEDTIME PRN PRN Reason: Insomnia Methylprednisolone Sodium Succinate (Methylprednisolone Sod Succ 125 Mg/2 Ml Vial) 60 mg IVPUSH BID [facility] Last Admin: 02/04/23 08:28 Dose: 60 mg Documented By: SUDEEP Non-Formulary Medication (Linaclotide [Linzess]) 290 mcg PO DAILY [facility] Non-Formulary Medication (Vitamin E) 200 unit PO DAILY [facility] Omeprazole (Omeprazole 20 Mg Capsule.Dr) 20 mg PO DAILY@0630 [facility] Last Admin: 02/04/23 06:55 Dose: 20 mg Documented By: SUDEEP Ondansetron HCl (Ondansetron Hcl 4 Mg/2 Ml Vial) 4 mg IVPUSH Q8H PRN PRN Reason: Nausea and Vomiting Senna (Sennosides 8.6 Mg Tablet) 17.2 mg PO BEDTIME PRN PRN Reason: Constipation Sertraline HCl (Sertraline Hcl 100 Mg Tablet) 100 mg PO DAILY [facility] Last Admin: 02/04/23 08:29 Dose: 100 mg Documented By: SUDEEP Sodium Chloride (0.9 % Sodium Chloride Flush 3 Ml Syringe) 3 ml IVFLUSH QSHIFT [facility] Last Admin: 02/04/23 07:03 Dose: 3 ml Documented By: SUDEEP Sucralfate (Sucralfate 1 Gm Tablet) 1 gm PO BEDTIME [facility] Last Admin: 02/04/23 01:31 Dose: 1 gm Documented By: SUDEEP Trazodone HCl (Trazodone Hcl 100 Mg Tablet) 200 mg PO BEDTIME [facility] Last Admin: 02/04/23 01:31 Dose: 200 mg Documented By: SUDEEP Vitamin D (Cholecalciferol (Vitamin D3) 25 Mcg Tablet) 50 mcg PO DAILY [facility] Last Admin: 02/04/23 08:29 Dose: 50 mcg Documented By: SUDEEP Labs 02/04/23 05:19 02/04/23 05:19 Labs: Laboratory Results - last 24 hr 02/03/23 02/03/23 02/03/23 19:20 20:52 22:59 MCV 87.5 MCH 29.0 MCHC 33.1 RDW 12.6 Plt Count 246 MPV 9.0 L Immature Gran % (Auto) 0.5 H Neut % (Auto) 79.2 H Lymph % (Auto) 17.1 L [place]anner % (Auto) 2.2 Eos % (Auto) 0.8 Baso % (Auto) 0.2 Lymph # (Auto) 2.2 Banner # (Auto) 0.3 Eos # (Auto) 0.1 Baso # (Auto) 0.0 Abs Immat Gran (auto) 0.06 H Absolute Neuts (auto) 10.0 H Absolute Nucleated RBC 0.000 Nucleated RBC % (auto) 0.0 Smear Tech's Comments Anion Gap 14 Estim Creat Clear Calc 69.5 Estimated GFR > 60 Random Glucose 115 Calcium 8.7 D Magnesium 1.5 L Total Bilirubin 0.3 AST 11 ALT 13 Alkaline Phosphatase 75 Total Protein 6.7 Albumin 4.1 TSH Urine Color Yellow Urine Appearance Clear Urine pH 6.0 Ur Specific [place] <= 1.005 Urine Protein Negative Urine Glucose (UA) Negative Urine Ketones Negative Urine Blood Negative Urine Nitrite Negative Ur Leukocyte Esterase Small (1+) H Urine RBC 0-2 Urine WBC 0-5 Ur Squamous Epith Cells 0-2 Urine Bacteria None Seen Hyaline Casts 0-2 COVID-19 (DELON) Negative COVID-19 Clin Com See Note Influenza Type A (PCR) NEGATIVE Influenza Type B (PCR) NEGATIVE RSV RNA Qual (PCR) NEGATIVE SARS-CoV-2 RNA (RT-PCR) NEGATIVE 02/04/23 05:19 MCV 88.2 MCH 29.1 MCHC 33.0 RDW 12.7 Plt Count 220 MPV 9.4 Immature Gran % (Auto) 0.8 H Neut % (Auto) 90.9 H Lymph % (Auto) 7.4 L [place] % (Auto) 0.8 L Eos % (Auto) 0.0 Baso % (Auto) 0.1 Lymph # (Auto) 0.9 L [place] # (Auto) 0.1 Eos # (Auto) 0.0 Baso # (Auto) 0.0 Abs Immat Gran (auto) 0.09 H Absolute Neuts (auto) 10.7 H Absolute Nucleated RBC 0.000 Nucleated RBC % (auto) 0.0 Smear Tech's Comments VERIFIED Anion Gap 12 Estim Creat Clear Calc 84.4 Estimated GFR > 60 Random Glucose 142 H Calcium 8.3 L Magnesium Total Bilirubin AST ALT Alkaline Phosphatase Total Protein Albumin TSH 0.22 L Urine Color Urine Appearance Urine pH Ur Specific [place] Urine Protein Urine Glucose (UA) Urine Ketones Urine Blood Urine Nitrite Ur Leukocyte Esterase Urine RBC Urine WBC Ur Squamous Epith Cells Urine Bacteria Hyaline Casts COVID-19 (DELON) COVID-19 Clin Com Influenza Type A (PCR) Influenza Type B (PCR) RSV RNA Qual (PCR) SARS-CoV-2 RNA (RT-PCR) Assessment and Plan (1) COPD exacerbation: Status: Acute (2) Allergic reaction: Status: Acute Plan 67 year old white female with PMH of COPD (on home o2), AVNRT (s/p ablation), hypertension, hyperlipidemia, chronic low back pain here with 1. COPD with acute exacerbation + bronchitis, overall better. Continue bronchodilators, change steroid to Prednisone, continue Z-pack for bronchitis, reassess for dischargte later today 2. Allergic reaction, urticaria type, cause unknown, is fading, continue steroid as above 3. Hypokalemia & Hypomagnesemia--both corrected 4. Leucocytosis - likely reactive due to steroids - monitor 5. Depression - resume Duloxetine and Sertraline dispo: reassess for dc after lunch Quality Stroke Does the patient have a stroke diagnosis?: No VTE Prior VTE?: No VTE Risk Level:: Medical - moderate - high VTE Device Contraindication: Treatment Not Indicated VTE Drug Contraindication: N/A - Med Ordered
[2023-02-04 09:03] LABS: Estimated Average Glucose 105 mg/dL; Hemoglobin A1c % 5.3 % (<6.0)
[2023-02-04 09:06] LABS: Magnesium 2.3 mg/dL (1.6-2.6)
--- NOTE | 2023-02-04 09:15 | PC.NURSE ---
this RN resumed care of pt at this time. a&ox3, vss and up to date. nsr on the property assessment monitor. pt c/o headache - requesting tylenol - will administer. no sob/wob noted at this time. productive cough noted. crackles noted throughout upon auscultation. 95% on RA - pt no longer on O2 - states she uses O2 via NC PRN at home. mostly at night. warm to the touch red/non-raised hives noted to face/neck/bilateral thighs. pt denies itchiness/pain. resting comfortably in no apparent distress. respirations even and unlabored. call ag placed within reach.
[2023-02-04] MEDS: Acetaminophen 325 MG TABLET 650 MG PO ×3 (09:21→21:18)
--- NOTE | 2023-02-04 09:22 | PC.NURSE ---
medicated w/ PRN tylenol for MATTHEWS - will reassess.
--- NOTE | 2023-02-04 10:23 | PC.NURSE ---
belongings list completed. admission note completed. admitting RN notified and aware. transport also notified.
--- NOTE | 2023-02-04 10:36 | MHC.CM.PN ---
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
--- NOTE | 2023-02-04 10:59 | PC.NURSE ---
pt receiving breathing treatment from RT prior to being transported upstairs. transport also bedside.
[2023-02-04] MEDS: LORazepam 0.5 MG TABLET PO ×2 (12:02→21:16)
[2023-02-04] MEDS: Cyanocobalamin (Vitamin B-12) 500 MCG TABLET PO (12:02)
[2023-02-04] MEDS: Enoxaparin Sodium 40 MG/0.4 ML SYRINGE SUBCUT (23:14)
[2023-02-05 04:00] VITALS: BP 147/69; PULSE 67; RESP 18; TEMP 36.9; O2SAT 96
[2023-02-05 06:51] VITALS: BP 158/72; PULSE 77; RESP 18; TEMP 36; O2SAT 98
[2023-02-05] MEDS: Albuterol/Iprat 2.5/0.5MG 3 ML AMPUL.NEB INHALE ×2 (07:34→11:24)
[2023-02-05 07:37] VITALS: PULSE 63; RESP 18; O2SAT 95
[2023-02-05] MEDS: methylPREDNISolone Sod Succ 125 MG/2 ML VIAL 60 MG IVPUSH (08:55)
[2023-02-05] MEDS: 0.9 % Sodium Chloride Flush 3 ML SYRINGE IVFLUSH (08:57)
[2023-02-05] MEDS: dilTIAZem HCL CD 180 MG CAP.ER.24H PO (08:58)
[2023-02-05] MEDS: Cholecalciferol (Vitamin D3) 25 MCG TABLET 50 MCG PO (08:58)
[2023-02-05] MEDS: Docusate Sodium 100 MG CAPSULE PO (08:58)
[2023-02-05] MEDS: Atorvastatin Calcium 20 MG TABLET PO (08:59)
[2023-02-05] MEDS: Aspirin Enteric Coated 81 MG TABLET.DR PO (08:59)
[2023-02-05] MEDS: DULoxetine HCl 20 MG CAPSULE.DR PO (08:59)
[2023-02-05] MEDS: Furosemide 40 MG TABLET PO (08:59)
[2023-02-05] MEDS: Sertraline HCL 100 MG TABLET PO (08:59)
[2023-02-05] MEDS: Cyanocobalamin (Vitamin B-12) 500 MCG TABLET PO (08:59)
--- NOTE | 2023-02-05 09:23 | P.DS_ITS ---
DS: Providers Provider Date of Service: 02/05/23 Date of admission: 02/03/23 22:34 Primary care physician: Liberty Bustillos MD DS: Diagnosis Discharge Diagnosis (1) COPD exacerbation: Status: Acute (2) Allergic reaction: Status: Acute DS: Summary Hospital Course Hospital Course: Admission HPI Chief Complaint: Worsening SOB x 4 days; Generalized body rash / Hives x1 day 67 year old white female with PMH of COPD (on home o2), AVNRT (s/p ablation), hypertension, hyperlipidemia, chronic low back pain she presents to the emergency room for evaluation of a generalized body rash that she noticed when she woke up this morning. She has been feeling unwell for the last week or so - stating that she has been feeling weak, congested and [place] a cough and as wheezing. She was seen at an urgent care facility and diagnosed with COPD exacebation and was started on Prednisone 40 mg BID for 5 days. She unfortunately has not noticed any appreciable change in her condition stating that she still feels congested and has shortness of breath that is worse with exertion and is still wheezing. She does not endorse any associated chest pain, palpitations, fevers or chills. Today when she woke up, she noticed that she had hives all over her body which were not present last night when she went to bed plus she was also wheezing a lot. She has not taken any new medications. Later in the evening, she called her PCP who advised her to come to the ER where on arrival she was treated with a dose of Epi-pen, Benadryl, Pepcid, Solu- medrol, magnesium and IV fluids. She also received updrafts for her COPD and reported feeling somehow better when compared to her initial presentation and her oxygen saturations also improved to 90-94% on room air. Initial work up was significant for mild leucocytosis of 12.6, hypokalemia at 3.1 and h ypomagnesemia. Admission was requested or continued care. Hospital course: Patient presented with shortness of breath with her clinical presentation consistent with acute exacerbation of copd, additionally had some urticaria rash on arms and legs of unclear etiology. copd exacerbation was treated with iv steroid, bronchodilators by Neb and oxygen as needed, she uses oxygen at home mostly at night. Overall she is breathing better, more comfortable and wish to go home. She will be dischargd with Prednisone 40 mg daily for 3 more days for total of 5, as for the rash she doesn't recall taking new medes or using any new products as triger. The rash is fading and she can using benadryl as needed for itch contro Time Attestation Discharge coordination time: Greater than 30 minutes Quality: Safe Use of Opioids Does Pt have an Active Cancer Diagnosis on the Problem List?: No Quality: Stroke Does the patient have a stroke diagnosis?: No Physical Exam Vital Signs: Vital Signs: Last Vital Signs Temp 96.8 F 02/05/23 06:51 Pulse 63 02/05/23 07:37 Resp 18 02/05/23 07:37 BP 158/72 H 02/05/23 06:51 Pulse Ox 98 02/05/23 06:51 O2 Del Method Nasal Cannula 02/05/23 06:51 O2 Flow Rate 2 02/05/23 06:51 BMI result Body Mass Index 29.4 Const: Other: General: AO X 3, no acute distress Resp: CTA bilateral, no wheeze CVS: S1,S2,RRR GI: +BS, NT, no distention Skin: No rash Neuro: motor grossly intact Psych: appropriate affect Discharge Plan Discharge Anticipated Discharge Date/Time: 02/05/23 09:13 Patient Disposition: Home, Self-Care Discharge Diagnosis: Acute copd exacerbation, urticaria rash Referrals: Liberty Bustillos MD [Primary Care Provider] - 1 Week Discharge Medications: New prednisone 20 mg tablet 40 mg PO DAILY Qty: 6 0RF diphenhydramine HCl [Benadryl Allergy] 25 mg tablet 25 mg PO Q8H PRN (Reason: itching or allergic reaction) Qty: 10 0RF Rx Instructions: OTC ok Continued amitriptyline 75 mg tablet 150 mg PO BEDTIME Qty: 60 2RF albuterol sulfate 90 mcg/actuation HFA aerosol inhaler 2 puff PO Q6H PRN (Reason: for wheezing) Qty: 25.5 0RF diltiazem HCl 180 mg capsule,ext.rel 24h degradable 180 mg PO DAILY Qty: 90 3RF Incruse Ellipta 62.5 mcg/actuation blister with device 1 inh inhalation DAILY Qty: 90 3RF sucralfate 1 gram tablet 1 g PO BEDTIME Qty: 90 0RF pantoprazole 40 mg tablet,delayed release (DR/EC) 40 mg PO DAILY Linzess 290 mcg capsule 290 mcg PO DAILY furosemide 40 mg tablet 40 mg PO DAILY atenolol 25 mg tablet 25 mg PO BEDTIME bisacodyl [Dulcolax (bisacodyl)] 5 mg tablet,delayed release (DR/EC) 10 mg PO BEDTIME PRN (Reason: Constipation) cyclobenzaprine 5 mg tablet 5 mg PO BEDTIME PRN (Reason: Pain) cyanocobalamin (vitamin B-12) 500 mcg Tablet 500 mcg PO DAILY sertraline 100 mg tablet 100 mg PO DAILY duloxetine [Cymbalta] 20 mg capsule,delayed release(DR/EC) 20 mg PO DAILY atorvastatin 20 mg tablet 20 mg PO DAILY Qty: 90 3RF lorazepam 0.5 mg tablet 0.5 mg PO TID PRN (Reason: Agitation) aspirin 81 mg tablet,delayed release (DR/EC) 81 mg PO DAILY trazodone 100 mg tablet 200 mg PO BEDTIME vitamin E 200 unit capsule 200 unit PO DAILY cholecalciferol (vitamin D3) 50 mcg (2,000 unit) capsule 50 mcg PO DAILY zolpidem 5 mg tablet 5 mg PO BEDTIME PRN (Reason: Insomnia) esomeprazole magnesium [Nexium] 40 mg capsule,delayed release(DR/EC) 40 mg PO DAILY Qty: 30 5RF Discontinued diphenhydramine HCl 25 mg tablet 50 mg PO ONCE Qty: 2 0RF Discharge Orders: Discharge Order (Routine); Ordered 02/05/23 Ordered By: Jer Hammonds Diet: Advance to usual diet Activity on Discharge: As tolerated Stand Alone Forms: Patient Portal Discharge page Care Plan Goals: full recovery from copd exacerbation and rash Health Concerns: copd urticaria rash Plan of Treatment: take prednisone as directed for copd exacerbation, continue using inhalers, prednisone should also help with the rash and if itchy you may take benadryl for this, please benadryl causes sedation and you should be careful driving or operating machinery after taking it Assessment: as above
--- NOTE | 2023-02-05 09:23 | MHC.CM.PN ---
pt dcd home no skilled servies needed
[2023-02-05 11:27] VITALS: PULSE 83; RESP 20; O2SAT 96
== END 2023-02-05 14:00 | disposition home or self-care (01) | DRG 202 ==
LOC: HO.ED 22:36 → HO.EDOVER 22:50 → HO.S3 02-04 09:37
PROVIDERS: Admitting Provider Internal Medicine; Emergency Provider Emergency Medicine; PCP Internal Medicine; Visit Provider Internal Medicine
DX: J20.9 Acute bronchitis, unspecified (principal); J44.0 Chronic obstructive pulmonary disease with (acute) lower respiratory infection; J44.1 Chronic obstructive pulmonary disease with (acute) exacerbation; L50.0 Allergic urticaria; F32.A Depression, unspecified; E87.6 Hypokalemia; I10 Essential (primary) hypertension; E78.5 Hyperlipidemia, unspecified; E83.42 Hypomagnesemia; Z20.822 Contact with and (suspected) exposure to COVID-19; Z87.891 Personal history of nicotine dependence; Z79.82 Long term (current) use of aspirin; Z79.899 Other long term (current) drug therapy
CPT/HCPCS: 0241U; 36415; 71045; 80048; 80053; 81001; 83036; 83735; 84443; 85025; 87086; 87635; 94640; 99285; J0171; J1200; J1650; J2930; J3475

== ENCOUNTER → 2023-02-03 22:34 | Outpatient (BNV) | payer OTHER, SELFPAY | PROVIDERS: Admitting Provider Internal Medicine; Emergency Provider Emergency Medicine; PCP Internal Medicine; Visit Provider Internal Medicine | DX: J44.1 Chronic obstructive pulmonary disease with (acute) exacerbation (principal); T78.40XA Allergy, unspecified, initial encounter; E83.42 Hypomagnesemia; D72.829 Elevated white blood cell count, unspecified | CPT/HCPCS: 99222; 99232; 99239 ==

== ENCOUNTER 2023-02-11 10:58 | Outpatient (AMB) | payer OTHER, SELFPAY ==
--- NOTE | 2023-02-11 11:32 | MHC.OFFVIS ---
Intake Vital Signs 02/11/23 11:33 Height 5 ft 6 in Weight 179 lb BMI 28.9 BP 110/70 Blood Pressure Location Lt brachial Position Sitting Pulse 90 Pulse Source Pulse Oximeter Pulse Oximetry (%) 92 Oxygen Delivery Method Room Air Intake Visit Reasons: COPD Intake Note: pt is here for follow up of abnormal ct scan from abd/pelvic. She went to urgent care for dx of bronchitis and was given prednisone for 4 days and after finishing the med, she woke up in hives and went to ER for this. Merchandising Lead Required: No Allergies paroxetine [From PAXIL] Allergy (Mild, Verified 02/11/23 12:33) RASH adhesive tape Adverse Reaction (Severe, Verified 02/11/23 12:33) Redness of Skin Medication List - Last Reconciled 02/11/23 by Ibrahima Hernandez MD albuterol sulfate 90 mcg/actuation 2 puffs PO Q6H PRN amitriptyline 150 mg (2 x 75 mg) PO BEDTIME aspirin 81 mg PO DAILY atenolol 25 mg PO BEDTIME atorvastatin 20 mg PO DAILY cholecalciferol (vitamin D3) 50 mcg PO DAILY cyanocobalamin (vitamin B-12) 500 mcg PO DAILY cyclobenzaprine 5 mg PO BEDTIME PRN diltiazem HCl ER 180 mg PO DAILY diphenhydramine HCl (Benadryl Allergy) 25 mg PO Q8H PRN duloxetine (Cymbalta) 20 mg PO DAILY esomeprazole magnesium (Nexium) 40 mg PO DAILY furosemide 40 mg PO DAILY Incruse Ellipta 62.5 mcg/actuation (umeclidinium) 1 inh inhalation DAILY NS linaclotide (Linzess) 290 mcg PO DAILY lorazepam 0.5 mg PO TID PRN pantoprazole 40 mg PO DAILY sennosides (senna) mg PO DAILY sertraline 100 mg PO DAILY sucralfate 1 g PO BEDTIME trazodone 200 mg PO BEDTIME vitamin E 200 units PO DAILY zolpidem 5 mg PO BEDTIME PRN Do you need a note to return to daycare/school/sports/work: No HPI COPD HPI Details Comes in today, with increased cough sore throat, Recently seen at our urgent care with the symptoms and she was prescribed 5 days course of prednisone, for acute exacerbation, no antibiotics. After using prednisone for 4 days she broken to hives and had to rash over the body, She thought the she may have allergy to prednisone, seen in the emergency room, Treated symptomatically. No antibiotics were given, Her rash had subsided within 1 day. She continues to have hacking cough and is has hoarseness. She gets short of breath on minimal exertion. Patient has past history of smoking but quit in 2011. [facility] Medical History (Updated 02/11/23 @ 12:44 by Ibrahima Hernandez MD) Lung density on x-ray Tubular adenoma Constipation Normal pelvic exam Nocturnal hypoxia Colonoscopy refused Mammogram normal Hyperlipidemia Lower back pain Hypertension Mitral valve prolapse Supraventricular tachycardia Fibromyalgia Depression Anxiety COPD (chronic obstructive pulmonary disease) Surgical History History of cardiac radiofrequency ablation Family History Father History of CVA (cerebrovascular accident) Mother History of CVA (cerebrovascular accident) Social History Household Members: Family Housing: House Alcohol intake: never Patient Tobacco Use Status: Former Tobacco user Quit Date: 2011 e-Cigarette/Vaping Use: Never Used Advance Directives Date on File: 02/03/23 service: No Current occupational status: retired Cognitive needs: No Hearing needs: No Vision needs: Yes Review of Systems Const All systems reviewed & are unremarkable except as noted in HPI and below Eyes Reports no additional complaints ENT Reports no additional complaints Card Denies chest pain, Denies irregular heart rhythm and Denies leg edema Resp Reports as per HPI GI Reports constipation and Reports heartburn (Controlled with omeprazole) Reports no additional complaints Musc Denies abnormal gait (Slow mainly because of back pain), Reports back pain (Her back remains stiff most of the times) and Reports myalgias Skin/Breast Reports system reviewed and no additional complaints, except as documented Neuro Denies abnormal gait (Slow mainly because of back pain) Psych Reports anxiety Physical Exam Vital Signs: Last Vital Signs Pulse 90 02/11/23 11:33 BP 110/70 02/11/23 11:33 Pulse Ox 92 02/11/23 11:33 Oxygen Delivery Method Room Air 02/11/23 11:33 BMI result Body Mass Index 28.9 Const General: comfortable, no acute distress, alert and awake Orientation/consciousness: patient oriented x3 HEENT Head: Yes normal to inspection General nose exam: No nasal polyps present and No nasal discharge present Face and sinus: Yes sinuses nontender Mouth: oropharynx normal Throat: Yes posterior oropharynx normal Eyes General: appearance normal, both eyes and all related structures Neck Neck: Yes normal visual inspection, Yes no lymphadenopathy, Yes trachea midline and Yes no JVD Thyroid: Thyroid normal Chest Chest palpation & inspection: normal inspection of the chest, normal palpation of entire chest wall and no tenderness Resp Other: Percussion note resonant, breath sounds are equal on both sides. She has scattered expiratory wheezes on both sides. Cardio Palpation: normal PMI Rate: regular rate Rhythm: regular rhythm Heart sounds: no gallops and no murmurs GI Palpation (GI): Soft to palpation, nontender, No hepatosplenomegaly present and no masses Auscultation: normal bowel sounds Back/Spine/Pelvis Thoracic/Lumbar Spine: thoracic and lumbar spine normal to inspection, thoraco-lumbar ROM limited and thoraco-lumbar spasm Skin General skin exam: no rashes or lesions noted Neuro General: patient oriented x3 and no focal motor deficits Cranial nerves: Yes CN's II-XII intact bilaterally Extrem General: Yes normal to inspection, Yes no clubbing, cyanosis or edema and Yes no calf tenderness Psych Appearance: grossly normal and well kempt Speech and movement: Normal speech and movement present Results Reviewed Results Reviewed: CT scan of the abdomen and pelvis on 01/28/2023. A wedge shaped masslike consolidation in the right lower lobe, probably atelectasis Assessment & Plan Assessment & Plan (1) COPD (chronic obstructive pulmonary disease): Comment: COPD , CHRONIC, ,HAS AN ACUTE EXCERBATION ,. SEC TO AC BRONCHITIS . CONTINUE CURRENT MEDICAL REGIMEN WHICH IS FOLLOWS Code(s): J44.9 - Chronic obstructive pulmonary disease, unspecified Plan: TX: INCRUSE ELLIPTA ONE INH DAILY PROAIR 2 PUFFS Q 4-6 HRS PRN ALBUTEROL INH SOLUTION IN NEB , Q 4-6 HRS PRN Z-SUNIL FOLLOWED BY AZITHROMYCIN 250 MG ON ALTERNATE DAYS . (2) Nocturnal hypoxia: Comment: PATIENT HAS HISTORY OF NOCTURNAL HYPOXEMIA, TREATED WITH OXYGEN SUPPLEMENTATION. 2L/MT SHE DOES NEED OXYGEN SOMETIME DURING THE DAY WELL Code(s): G47.34 - Idiopathic sleep related nonobstructive alveolar hypoventilation Plan: ABOVE (3) Lung density on x-ray: Comment: ON THE CT SCAN OF ABDOMEN, A WHICH SHAPE DENSITY IN THE RIGHT LOWER LOBE WHICH IS PROBABLY DUE TO ATELECTASIS, BUT A PLEURAL. BASED NEOPLASM CANNOT BE RULED OUT Code(s): J98.4 - Other disorders of lung Plan: PATIENT WOULD NEED A CT SCAN OF THE CHEST AT A SHORT INTERVAL OF 3 MONTHS, FOR FOLLOW-UP. Medications: New azithromycin For 250 mg dose pack: take 500 mg today (day 1), then 250 mg for 4 days (days 2-5) PO 6 tabs 0RF BRONCHITIS azithromycin INTIAL COURSE OF Z-SUNIL FOLLOWED BY AZITHROMYCIN 250 MG ON ALTERNATE DAYS 250 mg PO .Q ALTERNATE DAYS 5 weeks 18 tabs 2RF COPD/BRONCHITIS albuterol sulfate 2.5 mg (3 mL) inhalation Q4-6H PRN 180 mL 1RF shortness of breath or wheezing 30 days Coding Level of Care Code Est Pt Level 4 (71317) Diagnoses COPD (chronic obstructive pulmonary disease) J44.9 Nocturnal hypoxia G47.34 Lung density on x-ray J98.4
[2023-02-11 11:33] VITALS: BP 110/70; PULSE 90; O2SAT 92; BMI 28.9
== END 2023-02-11 12:00 | disposition home or self-care (01) ==
PROVIDERS: PCP Internal Medicine; Visit Provider Internal Medicine
DX: J44.9 Chronic obstructive pulmonary disease, unspecified (principal); G47.34 Idiopathic sleep related nonobstructive alveolar hypoventilation; J98.4 Other disorders of lung
CPT/HCPCS: 99214

== ENCOUNTER → 2023-02-11 10:58 | Outpatient (BNVA) | payer OTHER, SELFPAY | PROVIDERS: PCP Internal Medicine; Visit Provider Internal Medicine | DX: J44.9 Chronic obstructive pulmonary disease, unspecified (principal); J98.4 Other disorders of lung; G47.34 Idiopathic sleep related nonobstructive alveolar hypoventilation | CPT/HCPCS: 99212 ==

== ENCOUNTER 2023-03-04 13:32 | Outpatient (AMB) | payer OTHER, SELFPAY ==
[2023-03-04 13:44] VITALS: BP 124/76; PULSE 87; O2SAT 95; BMI 29.0
--- NOTE | 2023-03-04 13:44 | A.OFFPC_ITS ---
Vital Signs 03/04/23 13:44 Height 5 ft 6 in Weight 180 lb BMI 29.0 BP 124/76 Blood Pressure Location Lt brachial Position Sitting Pulse 87 Pulse Source Pulse Oximeter Pulse Oximetry (%) 95 Oxygen Delivery Method Room Air Intake Visit Reasons: Hospital follow up Intake Note: Pt is here today for hospital follow up visit. Allergies paroxetine [From PAXIL] Allergy (Mild, Verified 03/04/23 13:48) RASH adhesive tape Adverse Reaction (Severe, Verified 03/04/23 13:48) Redness of Skin Medication List - Last Reconciled 03/04/23 by Liberty Bustillos MD albuterol sulfate 90 mcg/actuation 2 puffs PO Q6H PRN albuterol sulfate 2.5 mg (3 mL) inhalation Q4-6H PRN 30 days amitriptyline 150 mg (2 x 75 mg) PO BEDTIME aspirin 81 mg PO DAILY atenolol 25 mg PO BEDTIME atorvastatin 20 mg PO DAILY azithromycin 250 mg PO .Q ALTERNATE DAYS 5 weeks cholecalciferol (vitamin D3) 50 mcg PO DAILY cyanocobalamin (vitamin B-12) 500 mcg PO DAILY cyclobenzaprine 5 mg PO BEDTIME PRN diltiazem HCl ER 180 mg PO DAILY diphenhydramine HCl (Benadryl Allergy) 25 mg PO Q8H PRN duloxetine (Cymbalta) 20 mg PO DAILY esomeprazole magnesium (Nexium) 40 mg PO DAILY furosemide 40 mg PO DAILY Incruse Ellipta 62.5 mcg/actuation (umeclidinium) 1 inh inhalation DAILY NS linaclotide (Linzess) 290 mcg PO DAILY lorazepam 0.5 mg PO TID PRN pantoprazole 40 mg PO DAILY sennosides (senna) mg PO DAILY sertraline 100 mg PO DAILY sucralfate 1 g PO BEDTIME trazodone 200 mg PO BEDTIME vitamin E 200 units PO DAILY zolpidem 5 mg PO BEDTIME PRN Tobacco use date assessed: 03/04/23 Fall risk assessment: 1 Fall in past year Last assessed Fall Risk: 03/04/23 Dental Screening Dental Screen Date: 03/04/23 Did you have a dental visit in the last 12 months?: No Did you have a dental problem in the last 6 months where you did not have access to dental care?: No Was dental information given to patient?: Patient declined HPI Hospital follow up HPI Details Pt presents for f/u of ER for asthma and acute urticaria. Pt completed 5 days of Prednisone. Pt f/u with return agent and was started on Azithromycin slow taper down using albuterol inhaler every 3 hours. [facility] Medical History (Updated 03/04/23 @ 14:38 by Liberty Bustillos MD) Lung density on x-ray Tubular adenoma Constipation Normal pelvic exam Nocturnal hypoxia Colonoscopy refused Mammogram normal Hyperlipidemia Lower back pain Hypertension Mitral valve prolapse Supraventricular tachycardia Fibromyalgia Depression Anxiety COPD (chronic obstructive pulmonary disease) Surgical History History of cardiac radiofrequency ablation Family History Father History of CVA (cerebrovascular accident) Mother History of CVA (cerebrovascular accident) Social History Household Members: Family Housing: House Alcohol intake: never Patient Tobacco Use Status: Former Tobacco user Quit Date: 2011 e-Cigarette/Vaping Use: Never Used Advance Directives Date on File: 02/03/23 service: No Current occupational status: retired Cognitive needs: No Hearing needs: No Vision needs: Yes Questionnaire PHQ-9 Over the last 2 weeks, how often have you been bothered by any of the following problems? 1. Little interest or pleasure in doing things: nearly every day 2. Feeling down, depressed, or hopeless: more than half the days 3. Trouble falling or staying asleep, or sleeping too much: nearly every day 4. Feeling tired or having little energy: nearly every day 5. Poor appetite or overeating: nearly every day 6. Feeling bad about yourself - or that you are a failure or have let yourself or your family down: nearly every day 7. Trouble concentrating on things, such as reading the newspaper or watching television: not at all 8. Moving or speaking so slowly that other people could have noticed. Or the opposite - being so fidgety or restless that you have been moving around a lot more than usual: not at all 9. Thoughts that you would be better off or of hurting yourself in some way: not at all Total score: 17 Depression Screening Interpretation: Positive Depression Screening Done: Yes [id number] - PHQ-9 Billing: Yes Source: Developed by Drs. Mustapha Dunlap, eSgun Marquis and colleagues, with an educational jennifer from [employer] Thrive Questionnaire Date Thrive assessed: 03/04/23 I am a: Patient What is your living situation today?: I have a steady place to live Within the past 12 months, did the food you bought not last and you didn't have the money to get more?: Sometimes True Within the past 12 months, did you worry whether your food would run out before you got money to buy more?: Sometimes True Do you have trouble paying for medicines?: No Do you have trouble getting transportation to medical appointments?: No Do you have trouble paying your heating and electricity bill?: No Do you have trouble taking care of your child, family member or friend?: No Do you have trouble with day-to-day activities such as bathing, preparing meals, shopping, managing finances, etc.?: Yes Are you currently unemployed and looking for a job?: No Are you interested in more education?: No AUDIT C Alcohol Use Questionnaire (AUDIT-C) 1. How often do you have a drink containing alcohol?: Never 3. How often do you have six or more drinks on one occasion?: Never Total Score: 0 SAI-7 AMB Questionnaire SAI-7 Date SAI - 7 assessed: 03/04/23 Feeling nervous, anxious, or on edge: 3 = Nearly every day Not being able to stop or control worryin = More than half the days Worrying too much about different things: 2 = More than half the days Trouble relaxin = Nearly every day Being so restless that it is hard to sit still: 1 = Several days Becoming easily annoyed or irritable: 3 = Nearly every day Feeling afraid as if something awful might happen: 2 = More than half the days Total SAI-7 score (0-4 normal; 5-9 mild; 10-14 moderate; 15-21 severe): 16 Source: Developed by Drs. Mustapha Dunlap, Segun Marquis and colleagues, with an educational jennifer from [employer] Review of Systems Const All systems reviewed & are unremarkable except as noted in HPI and below Reports no additional complaints Eyes Reports no additional complaints ENT Reports no additional complaints Card Reports no additional complaints Resp Reports no additional complaints GI Reports no additional complaints Reports no additional complaints Physical exam (Primary Care) Vital Signs: Last Vital Signs Pulse 87 03/04/23 13:44 BP 124/76 03/04/23 13:44 Pulse Ox 95 03/04/23 13:44 Oxygen Delivery Method Room Air 03/04/23 13:44 BMI result Body Mass Index 29.0 Tobacco/Smoking Status: Tobacco use Status Tobacco use date assessed 03/04/23 03/04/23 13:54 Patient Tobacco Use Status Former Tobacco user 03/04/23 13:54 e-Cigarette/Vaping Use Never Used 03/04/23 13:47 Depression Screening Interpretation: Positive Thrive Assessment: Date of Thrive Assessment Date Thrive assessed 02/04/23 03/04/23 13:47 Const General: no acute distress HENMT Head: Yes normal to inspection Face and sinus: Yes normal facial exam Neck Neck: Yes supple Resp Effort & Inspection: normal respiratory effort Auscultation: wheezes and diminished lung sounds Cardio Rhythm: regular rhythm Heart sounds: S1 normal heart sound present and S2 normal heart sound present GI Inspection: Yes normal to inspection Palpation (GI): Soft to palpation Assessment and Plan Assessment & Plan (1) Hypertension: Code(s): I10 - Essential (primary) hypertension Plan: Continue current medications (2) Hyperlipidemia: Code(s): E78.5 - Hyperlipidemia, unspecified Plan: Continue statin (3) Supraventricular tachycardia: Comment: s/p ablation [facility] 2017, echo and Holter normal 05/22, follow-up with cardiology, on Cardizem and atenolol Code(s): I47.1 - Supraventricular tachycardia (4) COPD (chronic obstructive pulmonary disease): Comment: COPD , CHRONIC, ,HAS AN ACUTE EXCERBATION ,. SEC TO AC BRONCHITIS . CONTINUE CURRENT MEDICAL REGIMEN WHICH IS FOLLOWS Code(s): J44.9 - Chronic obstructive pulmonary disease, unspecified Plan: Not well controlled on current treatment, Trelegy will be started. patient was advised to stop Incruse and use albuterol as needed for wheezing. she follows up in 1 month for PE Orders: Orders Comprehensive [place]. Panel Fast 3 Weeks E78.5 - Hyperlipidemia, unspecified, I10 - Essential (primary) hypertension, I49.8 - Other specified cardiac arrhythmias, Z00.00 - Encounter for general adult medical examination without abnormal findings Complete Blood Count Auto Diff 3 Weeks E78.5 - Hyperlipidemia, unspecified, I10 - Essential (primary) hypertension, I49.8 - Other specified cardiac arrhythmias, Z00.00 - Encounter for general adult medical examination without abnormal findings Lipid Panel 3 Weeks E78.5 - Hyperlipidemia, unspecified, I10 - Essential (primary) hypertension, I49.8 - Other specified cardiac arrhythmias, Z00.00 - Encounter for general adult medical examination without abnormal findings TSH reflex Free T4 3 Weeks E78.5 - Hyperlipidemia, unspecified, I10 - Essential (primary) hypertension, I49.8 - Other specified cardiac arrhythmias, Z00.00 - Encounter for general adult medical examination without abnormal findings Vitamin D 25-OH Total 3 Weeks E78.5 - Hyperlipidemia, unspecified, I10 - Essential (primary) hypertension, I49.8 - Other specified cardiac arrhythmias, Z00.00 - Encounter for general adult medical examination without abnormal findings Medications: New Trelegy Ellipta 100-62.5-25 mcg ([id number]) 1 inh inhalation DAILY 60 ea 3RF NS Discontinued Incruse Ellipta 62.5 mcg/actuation (umeclidinium) Discontinued Reason: Doctor's Order 1 inh inhalation DAILY 90 ea 3RF NS Coding Level of Care Code Est Pt Level 4 (78478) Diagnoses Hypertension I10 Hyperlipidemia E78.5 Supraventricular tachycardia I47.1 COPD (chronic obstructive pulmonary disease) J44.9
== END 2023-03-04 14:40 | disposition home or self-care (01) ==
PROVIDERS: PCP Internal Medicine; Visit Provider Internal Medicine
DX: I10 Essential (primary) hypertension (principal); E78.5 Hyperlipidemia, unspecified; I47.1 Supraventricular tachycardia; J44.9 Chronic obstructive pulmonary disease, unspecified
CPT/HCPCS: 99214

== ENCOUNTER 2023-03-19 13:34 | Outpatient (AMB) | payer OTHER, SELFPAY ==
--- NOTE | 2023-03-19 13:47 | MHC.OFFVIS ---
Intake Vital Signs 03/19/23 13:48 Height 5 ft 6 in Weight 182 lb BMI 29.4 BP 122/60 Blood Pressure Location Lt brachial Position Sitting Pulse 88 Pulse Source Pulse Oximeter Pulse Oximetry (%) 96 Oxygen Delivery Method Room Air Intake Visit Reasons: COPD Allergies paroxetine [From PAXIL] Allergy (Mild, Verified 03/19/23 14:13) RASH adhesive tape Adverse Reaction (Severe, Verified 03/19/23 14:13) Redness of Skin Medication List - Last Reconciled 03/19/23 by Ibrahima Hernandez MD albuterol sulfate 90 mcg/actuation 2 puffs PO Q6H PRN albuterol sulfate 2.5 mg (3 mL) inhalation Q4-6H PRN 30 days amitriptyline 150 mg (2 x 75 mg) PO BEDTIME aspirin 81 mg PO DAILY atenolol 25 mg PO BEDTIME atorvastatin 20 mg PO DAILY azithromycin 250 mg PO .Q ALTERNATE DAYS 5 weeks cholecalciferol (vitamin D3) 50 mcg PO DAILY cyanocobalamin (vitamin B-12) 500 mcg PO DAILY cyclobenzaprine 5 mg PO BEDTIME PRN diltiazem HCl ER 180 mg PO DAILY diphenhydramine HCl (Benadryl Allergy) 25 mg PO Q8H PRN duloxetine (Cymbalta) 20 mg PO DAILY esomeprazole magnesium (Nexium) 40 mg PO DAILY furosemide 40 mg PO DAILY linaclotide (Linzess) 290 mcg PO DAILY lorazepam 0.5 mg PO TID PRN pantoprazole 40 mg PO DAILY sennosides (senna) mg PO DAILY sertraline 100 mg PO DAILY sucralfate 1 g PO BEDTIME trazodone 200 mg PO BEDTIME Trelegy Ellipta 100-62.5-25 mcg ([id number]) 1 inh inhalation DAILY NS vitamin E 200 units PO DAILY zolpidem 5 mg PO BEDTIME PRN Do you need a note to return to daycare/school/sports/work: No HPI COPD HPI Details Yue is 67 years old female being treated for chronic obstructive pulmonary disease. She is on Trelegy Ellipta 1 inhalation daily and also uses albuterol in the nebulizer or albuterol HFA p.r.n.. She is doing fairly well except for ongoing complaint of mild intermittent cough, and getting short of breath on minimal exertion. Luckily she has had no recent respiratory infection. She is on azithromycin 250 mg on alternate days to prevent any recurrent respiratory infection and also for anti-inflammatory effect. Complaining of discomfort in the back of the chest and also in the back, and this is all more related to her chronic backache problem. [facility] Medical History Lung density on x-ray Tubular adenoma Constipation Normal pelvic exam Nocturnal hypoxia Colonoscopy refused Mammogram normal Hyperlipidemia Lower back pain Hypertension Mitral valve prolapse Supraventricular tachycardia Fibromyalgia Depression Anxiety COPD (chronic obstructive pulmonary disease) Surgical History History of cardiac radiofrequency ablation Family History Father History of CVA (cerebrovascular accident) Mother History of CVA (cerebrovascular accident) Social History Household Members: Family Housing: House Alcohol intake: never Patient Tobacco Use Status: Former Tobacco user Quit Date: 2011 e-Cigarette/Vaping Use: Never Used Advance Directives Date on File: 02/03/23 service: No Current occupational status: retired Cognitive needs: No Hearing needs: No Vision needs: Yes Review of Systems Const All systems reviewed & are unremarkable except as noted in HPI and below Eyes Reports no additional complaints ENT Reports no additional complaints Card Denies chest pain, Denies irregular heart rhythm and Denies leg edema Resp Reports as per HPI GI Reports constipation and Reports heartburn (Controlled with omeprazole) Reports no additional complaints Musc Denies abnormal gait (Slow mainly because of back pain), Reports back pain (Her back remains stiff most of the times) and Reports myalgias Skin/Breast Reports system reviewed and no additional complaints, except as documented Neuro Denies abnormal gait (Slow mainly because of back pain) Psych Reports anxiety Physical Exam Vital Signs: Last Vital Signs Pulse 88 03/19/23 13:48 BP 122/60 03/19/23 13:48 Pulse Ox 96 03/19/23 13:48 Oxygen Delivery Method Room Air 03/19/23 13:48 BMI result Body Mass Index 29.4 Const General: comfortable, no acute distress, alert and awake Orientation/consciousness: patient oriented x3 HEENT Head: Yes normal to inspection General nose exam: No nasal polyps present and No nasal discharge present Face and sinus: Yes sinuses nontender Mouth: oropharynx normal Throat: Yes posterior oropharynx normal Eyes General: appearance normal, both eyes and all related structures Neck Neck: Yes normal visual inspection, Yes no lymphadenopathy, Yes trachea midline and Yes no JVD Thyroid: Thyroid normal Chest Chest palpation & inspection: normal inspection of the chest, normal palpation of entire chest wall and no tenderness Resp Other: Percussion note resonant, breath sounds are equal on both sides. I do not hear any wheezes or crepitations today. Cardio Palpation: normal PMI Rate: regular rate Rhythm: regular rhythm Heart sounds: no gallops and no murmurs GI Palpation (GI): Soft to palpation, nontender, No hepatosplenomegaly present and no masses Auscultation: normal bowel sounds Back/Spine/Pelvis Thoracic/Lumbar Spine: thoracic and lumbar spine normal to inspection, thoraco-lumbar ROM limited and thoraco-lumbar spasm Skin General skin exam: no rashes or lesions noted Neuro General: patient oriented x3 and no focal motor deficits Cranial nerves: Yes CN's II-XII intact bilaterally Extrem General: Yes normal to inspection, Yes no clubbing, cyanosis or edema and Yes no calf tenderness Psych Appearance: grossly normal and well kempt Speech and movement: Normal speech and movement present Assessment & Plan Assessment & Plan (1) COPD (chronic obstructive pulmonary disease): Comment: COPD , CHRONIC, CONTROLLED AND STABLE . Code(s): J44.9 - Chronic obstructive pulmonary disease, unspecified Plan: CONTINUE TRELEGY ELLIPTA 1 INHALATION DAILY. ALBUTEROL SOLUTION IN THE NEBULIZER Q 4-6 HOURS ONLY P.R.N.. ALTERNATIVELY SHE CAN USE ALBUTEROL HFA 2 PUFFS Q 4-6 HOURS P.R.N. ADVISED TO AVOID ANY EXCESSIVE USE OF ALBUTEROL. (2) Nocturnal hypoxia: Comment: PATIENT HAS HISTORY OF NOCTURNAL HYPOXEMIA, TREATED WITH OXYGEN SUPPLEMENTATION. 2L/MT SHE DOES NEED OXYGEN SOMETIME DURING THE DAY WELL Code(s): G47.34 - Idiopathic sleep related nonobstructive alveolar hypoventilation Plan: CONTINUE USING O2 2 L/MINUTE AT NIGHT. (3) Lung density on x-ray: Comment: ON THE CT SCAN OF ABDOMEN, A WHICH SHAPE DENSITY IN THE RIGHT LOWER LOBE WHICH IS PROBABLY DUE TO ATELECTASIS, BUT A PLEURAL. BASED NEOPLASM CANNOT BE RULED OUT SHE WOULD NEED A REPEAT CT SCAN OF THE CHEST , AT 3 MONTHS INTERVAL, WHICH IS BEING ORDERED. Code(s): J98.4 - Other disorders of lung Plan: CT SCAN OF THE CHEST BEFORE NEXT VISIT Orders: Orders CT chest wo IV con Today J44.9 - Chronic obstructive pulmonary disease, unspecified, J98.4 - Other disorders of lung Coding Level of Care Code Est Pt Level 3 (10731) Diagnoses COPD (chronic obstructive pulmonary disease) J44.9 Nocturnal hypoxia G47.34 Lung density on x-ray J98.4
[2023-03-19 13:48] VITALS: BP 122/60; PULSE 88; O2SAT 96; BMI 29.4
== END 2023-03-19 14:13 | disposition home or self-care (01) ==
PROVIDERS: PCP Internal Medicine; Visit Provider Internal Medicine
DX: J44.9 Chronic obstructive pulmonary disease, unspecified (principal); G47.34 Idiopathic sleep related nonobstructive alveolar hypoventilation; J98.4 Other disorders of lung
CPT/HCPCS: 99213

== ENCOUNTER → 2023-03-19 13:34 | Outpatient (BNVA) | payer OTHER, SELFPAY | PROVIDERS: PCP Internal Medicine; Visit Provider Internal Medicine | DX: J44.9 Chronic obstructive pulmonary disease, unspecified (principal); J98.4 Other disorders of lung; G47.34 Idiopathic sleep related nonobstructive alveolar hypoventilation; Z99.81 Dependence on supplemental oxygen | CPT/HCPCS: 99212 ==

== ENCOUNTER 2023-03-21 11:21 | Outpatient (AMB) | payer OTHER, SELFPAY ==
[2023-03-21 11:23] VITALS: BP 86/48; PULSE 88; BMI 29.2
--- NOTE | 2023-03-21 11:23 | A.OFFVIS_ITS ---
Intake Vital Signs 03/21/23 11:23 Height 5 ft 6 in Weight 180 lb 12.465 oz BMI 29.2 BP 86/48 L Blood Pressure Location Lt brachial Position Sitting Pulse 88 Intake Visit Reasons: [address] results Intake Note: Yue presents in the office as a [address] scan results. CC: She is not having any concerns just here today for the results of the CT scan. Director Media Required: No Allergies paroxetine [From PAXIL] Allergy (Mild, Verified 03/21/23 11:26) RASH adhesive tape Adverse Reaction (Severe, Verified 03/21/23 11:26) Redness of Skin HPI [address] results HPI Details LAST VISIT: Constipation GERD (gastroesophageal reflux disease) Postprandial abdominal bloating Abdominal pain Plan Patient will continue taking Linzess. She was encouraged to increase fluid intake and activity to promote better bowel motility. Patient continues to have pain in the left lower quadrant sometimes in the mid abdomen. Patient describes this pain as sharp, he not elevated by rest. Will need to send her for CT scan to rule out diverticulitis, unlikely colitis due to her constipation. Patient experiences nausea, however there is no right upper quadrant discomfort we will hold off on ordering abdominal ultrasound as patient has mild tenderness to left lower quadrant. Due to patient's body habitus unable to identify if there is inguinal hernia. I will see patient in 3 months , sooner on as needed basis. Will call patient with CT scan results. If patient will continue to have abdominal pain is discomfort despite moving her bowels and change in diet she was encouraged to go to ED. Next visit we will discuss going for colonoscopy and upper endoscopy. Patient still has occasional epigastric pain and nausea will change her PPI to Nexium. Patient will call the office if she will continue to have epigastric pain. Patient is agreeable to this plan and verbalizes understanding of instructions. She was given the opportunity to ask questions and all questions answered. ? Thank you for allowing me to participate in her care Orders Orders CT abdomen pelvis w IV con 12/20/22 R10.9 Lipase Today R10.9 Blood Urea Nitrogen 12/20/22 R10.11 Creatinine 12/20/22 R10.11 Medications New esomeprazole magnesium (Nexium) 40 mg PO DAILY 30 caps 5RF K21.9 Discontinued pantoprazole Discontinued Reason: Doctor's Order 40 mg PO BID 180 tabs 4RF K21.9 TODAY'S VISIT: Patient is here today for follow-up and to discuss CT scan results. Patient had no acute processes found on CT scan that would explain patient's abdominal pain in the left upper quadrant. Patient reports that she started taking Nexium and feeling better her symptoms of epigastric pain. Moving her bowels better now that she is taking Linzess daily. Patient denies any melena, hematochezia, unintentional weight loss or ribbon like stools. Patient denies any dyspepsia, dysphagia or odynophagia. Patient reports increased symptoms of shortness of breath even at rest. Patient reports that just recently her PCP change her inhaler to Trelegy Ellipta. Patient has to use additional rescue inhalers and nebulizers. Patient is scheduled for colonoscopy in June. Uses O2 p.r.n.. [facility] Medical History Lung density on x-ray Tubular adenoma Constipation Normal pelvic exam Nocturnal hypoxia Colonoscopy refused Mammogram normal Hyperlipidemia Lower back pain Hypertension Mitral valve prolapse Supraventricular tachycardia Fibromyalgia Depression Anxiety COPD (chronic obstructive pulmonary disease) Surgical History History of cardiac radiofrequency ablation Family History Father History of CVA (cerebrovascular accident) Mother History of CVA (cerebrovascular accident) Social History Household Members: Family Housing: House Alcohol intake: never Patient Tobacco Use Status: Former Tobacco user Quit Date: 2011 e-Cigarette/Vaping Use: Never Used Advance Directives Date on File: 02/03/23 service: No Current occupational status: retired Cognitive needs: No Hearing needs: No Vision needs: Yes Review of Systems Const Denies weight gain and Denies weight loss ENT Reports no additional complaints, Denies dysphagia and Denies odynophagia Card Reports no additional complaints Resp Reports no additional complaints GI Denies abdominal pain, Denies belching, Denies melena, Denies bloating, Denies change in bowel habits, Denies dysphagia, Denies excessive flatus, Denies dyspepsia, Denies heartburn, Denies diarrhea, Denies loose stools, Denies nausea, Denies odynophagia and Denies vomiting Musc Reports no additional complaints Neuro Reports no additional complaints Psych Reports no additional complaints Endo Reports no additional complaints Physical Exam Vital Signs: Last Vital Signs Pulse 88 03/21/23 11:23 BP 86/48 L 03/21/23 11:23 BMI result Body Mass Index 29.2 Const General: healthy appearing, no acute distress and well developed Nutritional Appearance: obese Orientation/consciousness: patient oriented x3 HEENT Mouth: Normal oral and palatal mucosa present Resp Effort & Inspection: normal respiratory effort, able to speak in complete sentences, no tracheal deviation and symmetric chest movement Auscultation: clear to auscultation bilaterally Cardio Jugular venous distension: no JVD Rate: regular rate Heart sounds: S1 normal heart sound present, S2 normal heart sound present, no gallops and no murmurs GI Inspection: Yes normal to inspection and No distended Palpation (GI): Soft to palpation, not firm, nontender and No hepatosplenomegaly present Auscultation: normal bowel sounds General: Yes no CVA tenderness Back/Spine/Pelvis Back: no CVA tenderness Skin General skin exam: elasticity normal, turgor normal and dry skin Neuro General: patient oriented x3 Psych Appearance: grossly normal Mental Status: mental status grossly normal Results Reviewed Results Reviewed: CT OF ABDOMEN AND PELVIS FINDINGS: LUNG BASES: There is a new area of wedge-shaped/mass-like consolidation present in the right lower lobe. A pleural-based mass cannot be entirely excluded. LIVER, GALLBLADDER, AND BILIARY TREE: The liver is normal in size, shape, and attenuation. Two small subcentimeter hypodensities are present in the left lobe of the liver consistent with cysts or possibly tiny hemangiomas. These were also present on the 12/22/2016 study. No new worrisome focal hepatic lesion or biliary ductal dilatation is present. The gallbladder is contracted but otherwise is unremarkable with no evidence of radiopaque gallstones, gallbladder wall thickening, or obvious pericholecystic inflammatory changes. PANCREAS: Unremarkable. SPLEEN: Unremarkable. ADRENAL GLANDS: Unremarkable. KIDNEYS AND URETERS: The kidneys are normal in size, shape, and attenuation. No hydronephrosis, hydroureter, or calculi seen. In the left kidney, there is an 8 mm rounded cortical hypodensity seen in the upper pole posterior which measures 27 Hounsfield units. In 2017, this was present and measured 5 mm. Although this is most likely a cyst, possibly Bosniak class II, ultrasound is needed for confirmation of this. BLADDER: Unremarkable. GASTROINTESTINAL TRACT: The small and large bowel is unremarkable aside from scattered diverticula without diverticulitis. The appendix is unremarkable. ABDOMINAL WALL: No significant hernia is appreciated. LYMPH NODES: Normal. VASCULAR: Calcific atherosclerotic changes are present in the aorta and iliofemoral vessels. There is no evidence of an abdominal aortic aneurysm. PELVIC VISCERA: Unremarkable. OSSEOUS STRUCTURES: Degenerative changes are present in the spine, most marked from L1 through L3 and at L4-L5. No bony destructive lesions are seen. CT/CT abdomen pelvis w IV con IMPRESSION: 1. A cause for the patient's abdominal pain has not been found. 2. There is a new area of wedge-shaped/mass-like consolidation in the right lower lobe. A pleural-based mass cannot be entirely excluded. 3. There is an 8 mm rounded cortical hypodensity in the upper pole of the left kidney which measures 27 Hounsfield units. Although this is most likely a cyst, possibly Bosniak class II, ultrasound is needed for confirmation of this. 4. Other incidental findings as described above. Assessment & Plan Assessment & Plan (1) Constipation: Code(s): K59.00 - Constipation, unspecified Qualifiers: Constipation type: chronic idiopathic constipation Qualified Code(s): K59.04 - Chronic idiopathic constipation (2) GERD (gastroesophageal reflux disease): Code(s): K21.9 - Gastro-esophageal reflux disease without esophagitis Qualifiers: Esophagitis presence: esophagitis presence not specified Qualified Code(s): K21.9 - Gastro-esophageal reflux disease without esophagitis (3) Postprandial abdominal bloating: Code(s): R14.0 - Abdominal distension (gaseous) (4) Abdominal pain: Code(s): R10.9 - Unspecified abdominal pain Qualifiers: Abdominal location: left upper quadrant Qualified Code(s): R10.12 - Left upper quadrant pain Plan Patient will continue Linzess daily patient can take Dulcolax tablets in the evening. Colonoscopy scheduled for June. Patient will do split MiraLax prep would for Dulcolax tablets at noon day before the procedure. Patient denies any cardiac symptoms. Patient is on Trelegy Ellipta for COPD and is doing better. Patient was encouraged to make sure that she uses in the morning of the procedure. Encouraged to take rescue inhaler with her. Patient might need a nebulizer treatment before the procedure. What to expect before during and after procedure discussed with patient. Patient will follow-up in the office after the procedure, sooner on as needed basis. Patient is agreeable to this plan and verbalizes understanding of instructions. She was given the opportunity to ask questions and all questions answered. Thank you for allowing me to participate in her care Medications: New bisacodyl 10 mg (2 x 5 mg) PO BEDTIME 180 tabs 1RF polyethylene glycol 3350 (Miralax) As directed by gastroenterology department at [facility] 238 grams PO ONCE 238 grams 0RF Z12.11 - Encounter for screening for malignant neoplasm of colon Refilled esomeprazole magnesium (Nexium) 40 mg PO DAILY 90 caps 2RF K21.9 - Gastro- esophageal reflux disease without esophagitis Coding Level of Care Code Est Pt Level 4 (71439) Diagnoses Chronic idiopathic constipation K59.04 Constipation type: chronic idiopathic constipation Gastroesophageal reflux disease, unspecified whether esophagitis present K21.9 Esophagitis presence: esophagitis presence not specified Postprandial abdominal bloating R14.0 Left upper quadrant abdominal pain R10.12 Abdominal location: left upper quadrant Time Spent (min) 35 Comment 25 minutes spent with patient and additional 10 minutes spent reviewing her records
== END 2023-03-21 11:52 | disposition home or self-care (01) ==
PROVIDERS: PCP Internal Medicine; Visit Provider Nurse Practitioner Family
DX: K59.04 Chronic idiopathic constipation (principal); K21.9 Gastro-esophageal reflux disease without esophagitis; R14.0 Abdominal distension (gaseous); R10.12 Left upper quadrant pain
CPT/HCPCS: 99214

== ENCOUNTER → 2023-03-21 11:21 | Outpatient (BNVA) | payer OTHER, SELFPAY | PROVIDERS: PCP Internal Medicine; Visit Provider Nurse Practitioner Family | DX: K59.04 Chronic idiopathic constipation (principal); K21.9 Gastro-esophageal reflux disease without esophagitis; R14.0 Abdominal distension (gaseous); R10.12 Left upper quadrant pain | CPT/HCPCS: 99212 ==

== ENCOUNTER 2023-03-28 08:54 | Outpatient (AMB) | payer OTHER, SELFPAY ==
[2023-03-28 09:05] VITALS: BP 122/74; PULSE 77; O2SAT 97; BMI 29.0
--- NOTE | 2023-03-28 09:05 | A.OFFPC_ITS ---
Vital Signs 03/28/23 09:05 Height 5 ft 6 in Weight 180 lb BMI 29.0 BP 122/74 Blood Pressure Location Lt brachial Position Sitting Pulse 77 Pulse Source Pulse Oximeter Pulse Oximetry (%) 97 Oxygen Delivery Method Room Air Intake Visit Reasons: Annual PE Intake Note: Pt is here today for PE.Pt is fasting today. Allergies paroxetine [From PAXIL] Allergy (Mild, Verified 03/28/23 09:08) RASH adhesive tape Adverse Reaction (Severe, Verified 03/28/23 09:08) Redness of Skin Medication List - Last Reconciled 03/28/23 by Liberty Bustillos MD albuterol sulfate 90 mcg/actuation 2 puffs PO Q6H PRN albuterol sulfate 2.5 mg (3 mL) inhalation Q4-6H PRN 30 days amitriptyline 150 mg (2 x 75 mg) PO BEDTIME aspirin 81 mg PO DAILY atenolol 25 mg PO BEDTIME atorvastatin 20 mg PO DAILY azithromycin 250 mg PO .Q ALTERNATE DAYS 5 weeks bisacodyl 10 mg (2 x 5 mg) PO BEDTIME cholecalciferol (vitamin D3) 50 mcg PO DAILY cyanocobalamin (vitamin B-12) 500 mcg PO DAILY cyclobenzaprine 5 mg PO BEDTIME PRN diltiazem HCl ER 180 mg PO DAILY diphenhydramine HCl (Benadryl Allergy) 25 mg PO Q8H PRN duloxetine (Cymbalta) 20 mg PO DAILY esomeprazole magnesium (Nexium) 40 mg PO DAILY furosemide 40 mg PO DAILY linaclotide (Linzess) 290 mcg PO DAILY lorazepam 0.5 mg PO TID PRN polyethylene glycol 3350 (Miralax) 238 grams PO ONCE sertraline 100 mg PO DAILY sucralfate 1 g PO BEDTIME trazodone 200 mg PO BEDTIME Trelegy Ellipta 100-62.5-25 mcg (kihgpeamhmy-xbufiztwm-mmnuowrs) 1 inh inhalation DAILY NS vitamin E 200 units PO DAILY zolpidem 5 mg PO BEDTIME PRN Tobacco use date assessed: 03/04/23 HPI Annual PE HPI Details Patient presents for physical. She complains of persistent wheezing shortness of breath with exertion despite using albuterol updraft every 4 hours and taking Trelegy daily. Patient will have a CT of the chest to evaluate for a new right lower lobe wedge shape masslike consolidation present on abdominal CT. Patient follows up with contact center professional Dr. Hernandez. She denies sputum production fever chills night sweats. Patient complains of chronic abdominal pain and constipation and will have a colonoscopy. Chronic depression anxiety stable on current medications. Patient is established with supraventricular tachycardia controlled on Cardizem and beta-nasir. [facility] Medical History (Updated 03/28/23 @ 10:20 by Liberty Bustillos MD) Lung density on x-ray Tubular adenoma Constipation Normal pelvic exam Nocturnal hypoxia Colonoscopy refused Mammogram normal Hyperlipidemia Lower back pain Hypertension Mitral valve prolapse Supraventricular tachycardia Fibromyalgia Depression Anxiety COPD (chronic obstructive pulmonary disease) Surgical History History of cardiac radiofrequency ablation Family History Father History of CVA (cerebrovascular accident) Mother History of CVA (cerebrovascular accident) Social History Household Members: Family Housing: House Alcohol intake: never Patient Tobacco Use Status: Former Tobacco user Quit Date: 2011 e-Cigarette/Vaping Use: Never Used Advance Directives Date on File: 02/03/23 service: No Current occupational status: retired Cognitive needs: No Hearing needs: No Vision needs: Yes Questionnaire Thrive Questionnaire Date Thrive assessed: 03/04/23 SAI-7 AMB Questionnaire SAI-7 Date SAI - 7 assessed: 03/04/23 Source: Developed by Drs. Mustapha Dunlap, Mandi Good, Segun Dueñas and colleagues, with an educational jennifer from [employer] Review of Systems Const All systems reviewed & are unremarkable except as noted in HPI and below Reports no additional complaints Eyes Reports no additional complaints ENT Reports no additional complaints Card Reports no additional complaints Resp Reports no additional complaints GI Reports no additional complaints Reports no additional complaints Physical exam (Primary Care) Vital Signs: Last Vital Signs Pulse 77 03/28/23 09:05 BP 122/74 03/28/23 09:05 Pulse Ox 97 03/28/23 09:05 Oxygen Delivery Method Room Air 03/28/23 09:05 BMI result Body Mass Index 29.0 Tobacco/Smoking Status: Tobacco use Status Tobacco use date assessed 03/04/23 03/28/23 09:07 Patient Tobacco Use Status Former Tobacco user 03/28/23 09:07 e-Cigarette/Vaping Use Never Used 03/28/23 09:07 Thrive Assessment: Date of Thrive Assessment Date Thrive assessed 03/04/23 03/28/23 09:07 Const General: no acute distress HENMT Head: Yes normal to inspection Ears: hearing grossly normal bilaterally General nose exam: Normal external nose present Face and sinus: Yes normal facial exam Mouth: Normal oral and palatal mucosa present Eyes General: appearance normal, both eyes and all related structures Neck Neck: Yes no lymphadenopathy and Yes supple Resp Effort & Inspection: normal respiratory effort Auscultation: wheezes Cardio Rhythm: regular rhythm Heart sounds: S1 normal heart sound present and S2 normal heart sound present GI Inspection: Yes normal to inspection Palpation (GI): Soft to palpation Percussion: Yes normal to percussion Auscultation: normal bowel sounds Assessment and Plan Assessment & Plan (1) Hyperlipidemia: Code(s): E78.5 - Hyperlipidemia, unspecified Plan: Continue statin (2) Hypertension: Code(s): I10 - Essential (primary) hypertension Plan: Continue current medications (3) Anemia: Code(s): D64.9 - Anemia, unspecified Plan: Check CBC iron studies and B12 level (4) Supraventricular tachycardia: Comment: s/p ablation [facility] 2017, echo and Holter normal 05/22, follow-up with cardiology, on Cardizem and atenolol Code(s): I47.1 - Supraventricular tachycardia Plan: Follow-up with cardiology (5) Mammogram normal: Comment: 2022 (6) Renal cyst, acquired, left: Comment: [address] abd/pelvis 03/26 Code(s): N28.1 - Cyst of kidney, acquired Plan: Obtain renal ultrasound (7) COPD (chronic obstructive pulmonary disease): Comment: COPD , CHRONIC, CONTROLLED AND STABLE, normal spirometry 2021 Code(s): J44.9 - Chronic obstructive pulmonary disease, unspecified Plan: For persistent wheezing increase Trelegy to 200 continue albuterol p.r.n. and supplemental O2. Patient follow-up with pulmonology in June (8) Nocturnal hypoxia: Comment: PATIENT HAS HISTORY OF NOCTURNAL HYPOXEMIA, TREATED WITH OXYGEN SUPPLEMENTATION. 2L/MT SHE DOES NEED OXYGEN SOMETIME DURING THE DAY WELL Code(s): G47.34 - Idiopathic sleep related nonobstructive alveolar hypoventilation Plan: Continue supplemental O2 (9) Depression: Comment: f/u psychiatrist and psychologist Code(s): F32.9 - Major depressive disorder, single episode, unspecified (10) Mass of right lung: Comment: RLL on CT abd/pelvic 03/26 , will have chest CT, F/U PULMONOLOGY Code(s): R91.8 - Other nonspecific abnormal finding of lung field Orders: Orders Comprehensive [place]. Panel Fast Today D64.9 - Anemia, unspecified, E78.5 - Hyper lipidemia, unspecified, I10 - Essential (primary) hypertension Lipid Panel Today D64.9 - Anemia, unspecified, E78.5 - Hyperlipidemia, unspecified, I10 - Essential (primary) hypertension IRON PROFILE Today D64.9 - Anemia, unspecified, E78.5 - Hyperlipidemia, unspecified, I10 - Essential (primary) hypertension Vitamin B12 and Folate Today D64.9 - Anemia, unspecified, E78.5 - Hyperlipidemia, unspecified, I10 - Essential (primary) hypertension B Type Natriuretic Peptide Today D64.9 - Anemia, unspecified, E78.5 - Hyperlipidemia, unspecified, I10 - Essential (primary) hypertension US renal BI Today N28.1 - Cyst of kidney, acquired Complete Blood Count Auto Diff Today D64.9 - Anemia, unspecified, E78.5 - Hyperlipidemia, unspecified, I10 - Essential (primary) hypertension Magnesium Today I47.1 - Supraventricular tachycardia Medications: New bfuhbqguadl-bizoxqmdc-dupcvhxi 200-62.5-25 mcg (Trelegy Ellipta) 1 inh inhalation DAILY 60 ea 5RF Discontinued Trelegy Ellipta 100-62.5-25 mcg (eiivyadynjv-cwjnocmac-tngfptoe) Discontinued Reason: Doctor's Order 1 inh inhalation DAILY 60 ea 3RF NS Coding Level of Care Code Est Pt Prev Care >65y(25428) Diagnoses Hyperlipidemia E78.5 Hypertension I10 Anemia D64.9 Supraventricular tachycardia I47.1 Mammogram normal Renal cyst, acquired, left N28.1 COPD (chronic obstructive pulmonary disease) J44.9 Nocturnal hypoxia G47.34 Depression F32.9 Mass of right lung R91.8
== END 2023-03-28 10:20 | disposition home or self-care (01) ==
PROVIDERS: PCP Internal Medicine; Visit Provider Internal Medicine
DX: Z00.00 Encounter for general adult medical examination without abnormal findings (principal); E78.5 Hyperlipidemia, unspecified; I47.10 Supraventricular tachycardia, unspecified; J44.9 Chronic obstructive pulmonary disease, unspecified; I10 Essential (primary) hypertension; D64.9 Anemia, unspecified; N28.1 Cyst of kidney, acquired; G47.34 Idiopathic sleep related nonobstructive alveolar hypoventilation; F32.9 Major depressive disorder, single episode, unspecified; R91.8 Other nonspecific abnormal finding of lung field
CPT/HCPCS: 99397

== ENCOUNTER 2023-04-07 14:06 | Outpatient (REF) | payer OTHER, SELFPAY ==
--- NOTE | ~2023-04-07 | US_ITS ---
EXAMINATION: US RETROPERITONEAL LIMITED (RENAL ONLY) CLINICAL INFORMATION: Cyst of kidney, acquired. COMPARISON: CT abdomen and pelvis 01/28/2023. Ultrasound abdomen 07/10/2017. TECHNIQUE: Real-time imaging of the kidneys. FINDINGS: RIGHT KIDNEY: 11.0 x 4.4 x 5.0 cm (SAG x AP x TRV). The kidney is normal in size, contour, and echogenicity. Renal cortical thickness is normal. No calculi or focal parenchymal lesions. No hydronephrosis. LEFT KIDNEY: 10.5 x 4.2 x 4.7 cm (SAG x AP x TRV). The kidney is normal in size, contour, and echogenicity. Renal cortical thickness is normal. No renal calculi or hydronephrosis. 0.9 x 0.8 x 0.8 cm upper/midpole cyst correlating with recent CT finding. US/US renal BI IMPRESSION: Subcentimeter left renal cyst.
== END 2023-04-07 14:07 | disposition home or self-care (01) ==
LOC: HO.HMGCX 14:06
PROVIDERS: PCP Internal Medicine; Visit Provider Internal Medicine
DX: N28.1 Cyst of kidney, acquired (principal)
CPT/HCPCS: 76775

== ENCOUNTER 2023-05-07 09:36 | Outpatient (AMB) | payer OTHER, SELFPAY ==
--- NOTE | 2023-05-07 09:38 | A.OFFVIS_ITS ---
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 Accompanied by: Self / Same As Patient Allergies paroxetine [From PAXIL] Allergy (Mild, Verified 05/07/23 09:40) RASH adhesive tape Adverse Reaction (Severe, Verified 05/07/23 09:40) Redness of Skin Medication List - Last Reconciled 05/07/23 by Nestor Sam MD albuterol sulfate 2.5 mg (3 mL) inhalation Q4-6H PRN 30 days albuterol sulfate 90 mcg/actuation 2 puffs PO Q6H PRN amitriptyline 150 mg (2 x 75 mg) PO BEDTIME aspirin 81 mg PO DAILY atenolol 25 mg PO BEDTIME atorvastatin 20 mg PO DAILY azithromycin 250 mg PO .Q ALTERNATE DAYS 5 weeks bisacodyl 10 mg (2 x 5 mg) PO BEDTIME cholecalciferol (vitamin D3) 50 mcg PO DAILY cyanocobalamin (vitamin B-12) 500 mcg PO DAILY diltiazem HCl ER 180 mg PO DAILY diphenhydramine HCl (Benadryl Allergy) 25 mg PO Q8H PRN duloxetine (Cymbalta) 20 mg PO DAILY esomeprazole magnesium (Nexium) 40 mg PO DAILY nubpwqpaeqk-gcuttjeep-ojlbomfs 200-62.5-25 mcg (Trelegy Ellipta) 1 inh inhalation DAILY furosemide 40 mg PO DAILY linaclotide (Linzess) 290 mcg PO QAM lorazepam 0.5 mg PO TID PRN polyethylene glycol 3350 (Miralax) 238 grams PO ONCE sucralfate 1 g PO BEDTIME trazodone 300 mg PO BEDTIME vitamin E 200 units PO DAILY HPI HPI Comments History of Present Illness Details 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 Previously seeing . It seems that she was getting a lot of episodes of palpitations thought to be from supraventricular tachycardia. Then in 2016, she was seen by [facility] EP and underwent ablation of the same. In 2020, she was again having palpitations and heart racing into the 140s. Then there is a mention of atrial fibrillation by EMT evaluation but the ER visit rather showed sinus rhythm. Since then, she has been on diltiazem plus atenolol. She states that she is recently again noticing some palpitations. She feels as though her heart rates going into the 140s. Happens off and on. Couple of times a month or so. No other cardiac symptoms. [facility] Medical History (Updated 05/07/23 @ 12:09 by Nestor Sam MD) Lung density on x-ray Tubular adenoma Constipation Normal pelvic exam Nocturnal hypoxia Colonoscopy refused Mammogram normal Hyperlipidemia Lower back pain Hypertension Mitral valve prolapse Supraventricular tachycardia Fibromyalgia Depression Anxiety COPD (chronic obstructive pulmonary disease) Surgical History History of cardiac radiofrequency ablation Family History Father History of CVA (cerebrovascular accident) Mother History of CVA (cerebrovascular accident) Social History Household Members: Family Housing: House Alcohol intake: never Patient Tobacco Use Status: Former Tobacco user Quit Date: 2011 e-Cigarette/Vaping Use: Never Used Advance Directives Date on File: 02/03/23 service: No Current occupational status: retired Cognitive needs: No Hearing needs: No Vision needs: Yes Review of Systems Const Denies weakness ENT Denies dizziness Card Reports chest pain, Denies chest pain with activity, Denies syncope, Denies rapid heart rate, Denies pedal edema, Denies edema, Denies leg edema, Denies lig htheadedness, Denies palpitations, Reports dyspnea and Denies orthopnea Resp Denies cough and Reports dyspnea GI Denies hematochezia and Denies change in stool character Musc Denies abnormal gait, Denies muscle cramps, Denies muscle weakness, Denies numbness, Denies radiating pain into limb and Denies tingling Neuro Denies abnormal gait, Denies dizziness, Denies syncope, Denies numbness, Denies tingling and Denies weakness Endo Denies palpitations Physical Exam Vital Signs: Last Vital Signs Pulse 76 05/07/23 09:42 BP 110/76 05/07/23 09:42 BMI result Body Mass Index 29.5 Const General: comfortable and no acute distress Orientation/consciousness: patient oriented x3 HEENT Other: Unremarkable Head: Yes normal to inspection Neck Neck: Yes normal visual inspection Chest Chest palpation & inspection: normal inspection of the chest Resp Auscultation: clear to auscultation bilaterally Cardio Palpation: normal PMI Heart sounds: S1 normal heart sound present, S2 normal heart sound present, no gallops, no murmurs and no rubs GI Palpation (GI): Soft to palpation Back/Spine/Pelvis Other: unremarkable Skin General skin exam: no rashes or lesions noted Neuro General: patient oriented x3 Extrem General: Yes normal to inspection Psych Mental Status: mental status grossly normal Office Procedures EKG Details: EKG with sinus rhythm at 79/Min; nonspecific ST-T changes; [place] [id number], Complete Assessment & Plan Assessment & Plan (1) AVNRT (AV neil re-entry tachycardia): Code(s): I47.1 - Supraventricular tachycardia (2) Atrial arrhythmia: Code(s): I49.8 - Other specified cardiac arrhythmias Plan EKG from 01/2021 shows a narrow complex tachycardia at 180/Min. Appears regular. Could be rather recurrent AVNRT. Atrial tachycardia vs flutter also possible. Less likely atrial fibrillation. EKG from ER itself shows sinus rhythm at 87/Min. 2 week Holter shows underlying sinus rhythm; occasional PACs and some PVCs but no significant runs. Echocardiogram with normal LVEF, 57%; no significant valvular pathology and otherwise unremarkable. Due to a complaints of palpitations again, we will do a 30 day monitor. For meds, continue diltiazem/atenolol. Follow-up after the above. Orders: Orders ECG 30 day event monitor Today I47.1 - Supraventricular tachycardia Coding Level of Care Code Est Pt Level 3 (48552) Diagnoses AVNRT (AV neil re-entry tachycardia) I47.1 Atrial arrhythmia I49.8 CPT Codes EKG - CPT: 46296-[id number], Complete ([id number])
[2023-05-07 09:42] VITALS: BP 110/76; PULSE 76; BMI 29.5
== END 2023-05-07 10:13 | disposition home or self-care (01) ==
PROVIDERS: PCP Internal Medicine; Visit Provider Internal Medicine
DX: I47.10 Supraventricular tachycardia, unspecified (principal); I49.8 Other specified cardiac arrhythmias
CPT/HCPCS: 93010; 99213

== ENCOUNTER → 2023-05-07 09:36 | Outpatient (BNVA) | payer OTHER, SELFPAY | PROVIDERS: PCP Internal Medicine; Visit Provider Internal Medicine | DX: I47.10 Supraventricular tachycardia, unspecified (principal); I49.8 Other specified cardiac arrhythmias | CPT/HCPCS: 93005; 99212 ==

== ENCOUNTER 2023-06-03 12:52 | Outpatient (REF) | payer OTHER, SELFPAY ==
--- NOTE | ~2023-06-03 | CT_ITS ---
EXAMINATION: CT CHEST WITHOUT CONTRAST CLINICAL INFORMATION: Other disorders of lung COMPARISON: CT lung screening study 10/16/2021, chest radiograph 02/03/2023 TECHNIQUE: Multidetector volumetric CT imaging of the chest was done. Axial MIP volume rendering provided. Sagittal and coronal reformatted images were obtained. This CT examination was performed using dose optimization techniques as appropriate, variously including the following: *Automated exposure control *Adjustment of mA and/or kV according to patient size (this includes techniques or standardized protocols for targeted exams where dose is matched to indication/reason for exam; i.e. extremities or head) *Use of iterative reconstruction technique DLP: 337 mGy-cm FINDINGS: LUNGS: Some scattered tiny punctate 1 to 2 mm sized pulmonary nodules are seen. Again noted is a 5 mm left lower lobe medial subpleural nodule, unchanged from prior (9:229 compare prior 5:340). The lungs are clear with no evidence of inflammation or new or concerning nodules. MEDIASTINUM: 1.8 cm nodule is seen in the left lobe of the thyroid. Although this was not included on the prior CT scan it was present on the 01/31/2020 CT scan and is unchanged. No mediastinal or hilar lymphadenopathy. CORONARY ARTERY CALCIFICATION: Moderate PLEURA: There is no pleural effusion. No pleural mass or thickening. AXILLA: No lymphadenopathy. UPPER ABDOMEN: Spleen is enlarged at 13.4 cm. OSSEOUS STRUCTURES: Unremarkable. CT/CT chest wo IV con IMPRESSION: 1. Stable 5 mm left lower lobe pulmonary nodule with other small scattered punctate nodules. 2. Stable 1.8 cm left thyroid nodule. 3. Mild splenomegaly. Fleischner guidelines were followed.
== END 2023-06-03 12:53 | disposition home or self-care (01) ==
LOC: HO.CT 12:52
PROVIDERS: PCP Internal Medicine; Visit Provider Internal Medicine
DX: J98.4 Other disorders of lung (principal); J44.9 Chronic obstructive pulmonary disease, unspecified
CPT/HCPCS: 71250

== ENCOUNTER 2023-06-12 10:07 | Outpatient (AMB) | payer OTHER, SELFPAY ==
[2023-06-12 10:22] VITALS: BP 104/68; PULSE 83; O2SAT 94; BMI 29.4
--- NOTE | 2023-06-12 10:22 | A.OFFVIS_ITS ---
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 Allergies paroxetine [From PAXIL] Allergy (Mild, Verified 06/12/23 10:44) RASH adhesive tape Adverse Reaction (Severe, Verified 06/12/23 10:44) Redness of Skin Medication List - Last Reconciled 06/12/23 by Ibrahima Hernandez MD albuterol sulfate 2.5 mg (3 mL) inhalation Q4-6H PRN 30 days albuterol sulfate 90 mcg/actuation 2 puffs PO Q6H PRN amitriptyline 150 mg (2 x 75 mg) PO BEDTIME aspirin 81 mg PO DAILY atenolol 25 mg PO BEDTIME atorvastatin 20 mg PO DAILY bisacodyl 10 mg (2 x 5 mg) PO BEDTIME cholecalciferol (vitamin D3) 50 mcg PO DAILY cyanocobalamin (vitamin B-12) 500 mcg PO DAILY diltiazem HCl ER 180 mg PO DAILY diphenhydramine HCl (Benadryl Allergy) 25 mg PO Q8H PRN duloxetine (Cymbalta) 20 mg PO DAILY esomeprazole magnesium (Nexium) 40 mg PO DAILY sdirkkfeiub-cbkxwaxdh-nztldifn 200-62.5-25 mcg (Trelegy Ellipta) 1 inh inhalation DAILY furosemide 40 mg PO DAILY linaclotide (Linzess) 290 mcg PO QAM lorazepam 0.5 mg PO TID PRN polyethylene glycol 3350 (Miralax) 238 grams PO ONCE sucralfate 1 g PO BEDTIME trazodone 300 mg PO BEDTIME vitamin E 200 units PO DAILY Do you need a note to return to daycare/school/sports/work: No HPI COPD HPI Details Yue is 68 years old female, with longstanding history of lung disease, related to smoking and allergies, Since she is on azithromycin 250 on alternate days her symptoms have been much less. She does have mild intermittent cough but it is not as bothersome as it used to be. Denies any wheezing attacks. And does not have any significant shortness of breath on exertion. She is being followed for a small pulmonary nodule, and had a recent CT scan. [facility] Medical History Lung density on x-ray Tubular adenoma Constipation Normal pelvic exam Nocturnal hypoxia Colonoscopy refused Mammogram normal Hyperlipidemia Lower back pain Hypertension Mitral valve prolapse Supraventricular tachycardia Fibromyalgia Depression Anxiety COPD (chronic obstructive pulmonary disease) Surgical History History of cardiac radiofrequency ablation Family History Father History of CVA (cerebrovascular accident) Mother History of CVA (cerebrovascular accident) Social History Household Members: Family Housing: House Alcohol intake: never Patient Tobacco Use Status: Former Tobacco user Quit Date: 2011 e-Cigarette/Vaping Use: Never Used Advance Directives Date on File: 02/03/23 service: No Current occupational status: retired Cognitive needs: No Hearing needs: No Vision needs: Yes Review of Systems Const All systems reviewed & are unremarkable except as noted in HPI and below Eyes Reports no additional complaints ENT Reports no additional complaints Card Denies chest pain, Denies irregular heart rhythm and Denies leg edema Resp Reports as per HPI GI Reports constipation and Reports heartburn (Controlled with omeprazole) Reports no additional complaints Musc Denies abnormal gait (Slow mainly because of back pain), Reports back pain (Her back remains stiff most of the times) and Reports myalgias Skin/Breast Reports system reviewed and no additional complaints, except as documented Neuro Denies abnormal gait (Slow mainly because of back pain) Psych Reports anxiety Physical Exam Vital Signs: Last Vital Signs Pulse 83 06/12/23 10:22 BP 104/68 06/12/23 10:22 Pulse Ox 94 06/12/23 10:22 Oxygen Delivery Method Room Air 06/12/23 10:22 BMI result Body Mass Index 29.4 Const General: comfortable, no acute distress, alert and awake Orientation/consciousness: patient oriented x3 HEENT Head: Yes normal to inspection General nose exam: No nasal polyps present and No nasal discharge present Face and sinus: Yes sinuses nontender Mouth: oropharynx normal Throat: Yes posterior oropharynx normal Eyes General: appearance normal, both eyes and all related structures Neck Neck: Yes normal visual inspection, Yes no lymphadenopathy, Yes trachea midline and Yes no JVD Thyroid: Thyroid normal Chest Chest palpation & inspection: normal inspection of the chest, normal palpation of entire chest wall and no tenderness Resp Other: Percussion note resonant, breath sounds are equal on both sides. I do not hear any wheezes or crepitations today. Cardio Palpation: normal PMI Rate: regular rate Rhythm: regular rhythm Heart sounds: no gallops and no murmurs GI Palpation (GI): Soft to palpation, nontender, No hepatosplenomegaly present and no masses Auscultation: normal bowel sounds Back/Spine/Pelvis Thoracic/Lumbar Spine: thoracic and lumbar spine normal to inspection, thoraco- lumbar ROM limited and thoraco-lumbar spasm Skin General skin exam: no rashes or lesions noted Neuro General: patient oriented x3 and no focal motor deficits Cranial nerves: Yes CN's II-XII intact bilaterally Extrem General: Yes normal to inspection, Yes no clubbing, cyanosis or edema and Yes no calf tenderness Psych Appearance: grossly normal and well kempt Speech and movement: Normal speech and movement present Results Reviewed Results Reviewed: CT SCAN OF THE CHEST RESULTS ARE REVIEWED. HAS A FEW TINY PULMONARY NODULES. AND ONE 5 MM NODULE IN THE LEFT LOWER LOBE WHICH REMAINS UNCHANGED . ALSO INCIDENTAL FINDING OF A NODULE IN LEFT LOBE OF THYROID 1.8 CM IN SIZE AND UNCHANGED FROM 2020. Assessment & Plan Assessment & Plan (1) COPD (chronic obstructive pulmonary disease): Comment: COPD , CHRONIC, CONTROLLED AND STABLE, normal spirometry 2021 Code(s): J44.9 - Chronic obstructive pulmonary disease, unspecified Plan: USE ALBUTEROL INHALER OR ALTERNATIVELY ALBUTEROL IN THE NEBULIZER Q 6 HOURS ONLY P.R.N. (2) Nocturnal hypoxia: Comment: PATIENT HAS HISTORY OF NOCTURNAL HYPOXEMIA, TREATED WITH OXYGEN SUPPLEMENTATION. 2L/MT She is now using it only off and on. Code(s): G47.34 - Idiopathic sleep related nonobstructive alveolar hypoventilation Plan: ADVISE THAT SHE SHOULD USE O2 2 L/MINUTE EVERY NIGHT. IF SHE WANTS TO GET RID OF OXYGEN WE WILL HAVE TO DO ANOTHER OVERNIGHT OXIMETRY RECORDING. SHE WILL LET US KNOW. (3) Lung density on x-ray: Comment: ON THE CT SCAN OF ABDOMEN, A WHICH SHAPE DENSITY IN THE RIGHT LOWER LOBE WHICH IS PROBABLY DUE TO ATELECTASIS, BUT A PLEURAL. BASED NEOPLASM REPEAT CT SCAN SHOWS THAT THE DENSITY IN THE RIGHT LOWER LOBE HAS RESOLVED, WAS PROBABLY ATELECTASIS. HAS 5 MM DENSITY IN LEFT LOWER LOBE WHICH IS UNCHANGED FROM BEFORE Code(s): J98.4 - Other disorders of lung Plan: WILL CONTINUE ANNUAL LUNG SCREENING PROGRAM Medications: New azithromycin 250 mg PO 3XW 30 days 13 tabs 3RF RECURRENT BRONCHITIS Coding Level of Care Code Est Pt Level 3 (50821) Diagnoses COPD (chronic obstructive pulmonary disease) J44.9 Nocturnal hypoxia G47.34 Lung density on x-ray J98.4
== END 2023-06-12 10:56 | disposition home or self-care (01) ==
PROVIDERS: PCP Internal Medicine; Visit Provider Internal Medicine
DX: J44.9 Chronic obstructive pulmonary disease, unspecified (principal); G47.34 Idiopathic sleep related nonobstructive alveolar hypoventilation; J98.4 Other disorders of lung
CPT/HCPCS: 99213

== ENCOUNTER → 2023-06-12 10:07 | Outpatient (BNVA) | payer OTHER, SELFPAY | PROVIDERS: PCP Internal Medicine; Visit Provider Internal Medicine | DX: J44.9 Chronic obstructive pulmonary disease, unspecified (principal); G47.34 Idiopathic sleep related nonobstructive alveolar hypoventilation; J98.4 Other disorders of lung | CPT/HCPCS: 99212 ==

== ENCOUNTER 2023-06-18 11:26 | Day surgery (SDC) | payer OTHER, SELFPAY ==
[2023-06-13 13:26] VITALS: BMI 29.2
--- NOTE | 2023-06-18 11:56 | HO.ANESPROP2 ---
HPI - Anesthesia Eval Consult details Narrative: for colon PMFSH Active Problems Active Problems: All Active Problems Mass of right lung (Acute) Depression (Acute) Renal cyst, acquired, left (Acute) Anemia (Acute) Annual physical exam (Acute) Lung density on x-ray (Acute) Leukocytosis (leucocytosis) (Acute) Allergic reaction (Acute) Cough (Acute) Hip pain, right (Acute) Neck pain (Acute) Hx of esophagogastroduodenoscopy (Acute) Hx of colonoscopy (Acute) Postmenopausal (Acute) Tubular adenoma (Acute) Urticaria (Acute) Supraventricular tachycardia (Acute) Tachycardia (Acute) Dog bite (Acute) Constipation (Acute) Normal pelvic exam (Acute) Rash (Acute) Radicular low back pain (Acute) Tired (Acute) Rib pain on left side (Acute) Nocturnal hypoxia (Acute) Colonoscopy refused (Acute) Mammogram normal (Acute) Hyperlipidemia (Acute) Hypertension (Acute) Lower back pain (Acute) COPD (chronic obstructive pulmonary disease) (Acute) Past Medical History Medical History Lung density on x-ray Tubular adenoma Constipation Normal pelvic exam Nocturnal hypoxia Colonoscopy refused Mammogram normal Hyperlipidemia Lower back pain Hypertension Mitral valve prolapse Supraventricular tachycardia Fibromyalgia Depression Anxiety COPD (chronic obstructive pulmonary disease) Family History Family History Father History of CVA (cerebrovascular accident) Mother History of CVA (cerebrovascular accident) Family history of problems with anesthesia: No Surgical History Surgical History History of cardiac radiofrequency ablation History of Problems with Anesthesia: No Social History Social History Household Members: Family Housing: House Alcohol intake: never Patient Tobacco Use Status: Former Tobacco user Quit Date: 2011 e-Cigarette/Vaping Use: Never Used Advance Directives: No Advance Directives Information Provided: Yes Advance Directives Date on File: 02/03/23 service: No Current occupational status: retired Cognitive needs: No Hearing needs: No Vision needs: Yes Meds Allergies Allergy/AdvReac Type Severity Reaction Status Date / Time paroxetine [From PAXIL] Allergy Mild RASH Verified 06/12/23 10:44 adhesive tape AdvReac Severe Redness of Verified 06/12/23 10:44 Skin Active Medications: Current Medications Lactated Ringer's (Lr) 1,000 mls @ 50 mls/hr IVCONT .Q20H JULISSA Home Medications ?Medication ?Instructions ?Recorded ?Confirmed ?Last Taken ?Type lorazepam 0.5 mg tablet 0.5 mg PO TID PRN Agitation 11/27/19 06/13/23 Unknown History aspirin 81 mg tablet,delayed 81 mg PO DAILY 03/22/20 06/13/23 02/03/23 History release cholecalciferol (vitamin D3) 50 50 mcg PO DAILY 08/28/21 06/13/23 Unknown History mcg (2,000 unit) capsule vitamin E 200 unit capsule 200 unit PO DAILY 08/28/21 06/13/23 Unknown History duloxetine 20 mg capsule,delayed 20 mg PO DAILY 09/18/22 06/13/23 02/03/23 History release (Cymbalta) atenolol 25 mg tablet 25 mg PO BEDTIME 02/03/23 06/13/23 Unknown History cyanocobalamin (vitamin B-12) 500 500 mcg PO DAILY 02/03/23 06/13/23 Unknown History mcg tablet trazodone 100 mg tablet 300 mg PO BEDTIME 05/07/23 06/13/23 Unknown History Exam Height,Weight and Vital Signs: Height 5 ft 6 in Weight 82.1 kg Airway Mallampati Class: II TM Dist: >3cm Neck ROM: Full Heart: rrrr Lungs: cta Assessment and Plan Assessment Anesthesia Assessment: Anesthesia Plan Discussed and Chart Reviewed Final Anesthetic Review Family History of Problems with Anesthesia: No History of Problems with Anesthesia: No NPO: Yes ASA Class: III (on 2 l oxygen at night) Final Preanesthetic Review: No Changes in Pt Med Stat, Meds/Allgs Chart Reviewed, Consent Obtained/Reviewed and Anes Risks/Benef Reviewed Patient Risk: Intermediate Procedure Risk: Low Anesthetic Plan Anesthetic Plan: MAC: Disposition: Standard PACU
[2023-06-18 12:05] VITALS: BP 127/79; PULSE 85; RESP 20; TEMP 36.9; O2SAT 90
[2023-06-18 12:21] VITALS: BP 126/84; PULSE 79; RESP 20; TEMP 36.9; O2SAT 96
[2023-06-18] MEDS: Lactated Ringers 1,000 ML 50 ML IVCONT (12:22)
--- NOTE | 2023-06-18 12:41 | P.HPSUR_ITS ---
Pre-Procedural Eval Section A - 24 Hr Update-Section A only Date of Service: 06/18/23 Section B - Complete if H&P > 30 days Chief Complaint: screening Relevant Family History (Specify if Yes): No Relevant Social History: None Present Medications: see Short Stay Collaborative assessment Medical History: Significant History (Lung density on x-ray Tubular adenoma Constipation Normal pelvic exam Nocturnal hypoxia Colonoscopy refused Mammogram normal Hyperlipidemia Lower back pain Hypertension Mitral valve prolapse Supraventricular tachycardia Fibromyalgia Depression Anxiety COPD (chronic obstructive pulmonary disease)) History of Previous Operations: Relevant previous surgery/procedure and date(s) (History of cardiac radiofrequency ablation) Allergies: Allergies Allergy/AdvReac Type Severity Reaction Status Date / Time paroxetine [From PAXIL] Allergy Mild RASH Verified 06/12/23 10:44 adhesive tape AdvReac Severe Redness of Verified 06/12/23 10:44 Skin Review of Systems Sugical H&P ROS: Negative: Constitution, Cardiovascular, Respiratory, Ne urological, Psychiatric, Hem-Onc, Allergic/Immunologic, Gastrointestinal, Genitourinary, Musculoskeletal, Integumentary, Endocrine and Eyes/Ears/Nose/Throat Exam Surgical H&P Exam: Normal: HEENT, Normal: Heart, Normal: Lungs, Normal: Extremities, Normal: Abdomen, Normal: Skin and Normal: Neurological Plan Diagnosis/Plan: Unchanged I have reviewed the history and physical and performed a pertinent physical examination on my patient. No changes have occurred unless specified. Time Spent With Patient Time: Total time managing care of this patient today ____ minutes.
--- NOTE | 2023-06-18 12:43 | P.OP_ITS ---
Operative Note Operative Note Date of Service: 06/18/23 Narrative: Operative Information Procedure Description: Colonoscopy Indication: screening, hx of colon polyps Anesthesia: MAC COLONOSCOPY Instrument: Olympus variable stiffness pediatric scope 190L Colonoscopy Monitoring: Vital signs and clinical assessment, continuous EKG monitoring, Pulse oximetry, Carbon Dioxide monitoring and blood pressure monitoring were done throughout the procedure. Colon withdrawal time was 11 minutes. Procedure: The patient was placed in the left lateral decubitis position and pre-procedure medications were administered. After a digital rectal examination of the ano-rectum, the video colonoscope was inserted into the rectum and advanced through the colon to the cecum/TI. The colonoscope was slowly withdrawn in a retrograde panoramic fashion and the colon mucosa was carefully examined including a retroflexed view of the rectum. Findings and interventions are described below. Procedure Difficulty: easy Findings: Terminal Ileum-normal Cecum: 10 mm sessile polyp removed with cold snare, several small non bleeding AVM noted Ascending Colon: normal Transverse Colon -normal Descending Colon:normal Sigmoid Colon: mild to moderate diverticulosis Rectum: Retroflexion with small to medium internal hemorrhoids seen, grade I Anorectum - normal Intervention: cold forceps Colon preparation: [place] Bowel Preparation Scale Right colon; 2 Transverse colon: 2 Left colon; 2 (0 = Unprepared colon segment with mucosa not seen due to solid stool that cannot be cleared. 1 = Portion of mucosa of the colon segment seen, but other areas of the colon segment not well seen due to staining, residual stool and/or opaque liquid. 2 = Minor amount of residual staining, small fragments of stool and/or opaque liquid, but mucosa of colon segment seen well. 3 = Entire mucosa of colon segment seen well with no residual staining, small fragments of stool or opaque liquid) Impression and Post Procedure Diagnosis: diverticulosis colon polyp internal hemorrhoids AVM Plan: High fiber diet leaflet Avoid straining at stool, epsom salts and sitz bath, anusol supps or cream Repeat Colonoscopy in 5 years due to polyp or earlier if clinically indicated Above findings were reviewed with the patient and relevant handouts were provided if indicated.
[2023-06-18 13:23] VITALS: BP 101/36; PULSE 99; RESP 16; TEMP 36.7; O2SAT 99
[2023-06-18 13:38] VITALS: BP 110/48; PULSE 70; RESP 16; TEMP 36.7; O2SAT 94
== END 2023-06-18 15:01 | disposition home or self-care (01) ==
PROVIDERS: PCP Internal Medicine; Visit Provider Internal Medicine Gastroenterology
PROC: 0DJD8ZZ Inspection of Lower Intestinal Tract, Via Natural or Artificial Opening Endoscopic (ICD-10-PCS; CPT 45378; principal; 2023-06-18 13:40)
DX: Z12.11 Encounter for screening for malignant neoplasm of colon (principal); D12.0 Benign neoplasm of cecum; K55.20 Angiodysplasia of colon without hemorrhage; K57.30 Diverticulosis of large intestine without perforation or abscess without bleeding; K64.0 First degree hemorrhoids; Z86.010 Personal history of colon polyps; I10 Essential (primary) hypertension; J44.9 Chronic obstructive pulmonary disease, unspecified
CPT/HCPCS: 45385; 88305; J2704

== ENCOUNTER → 2023-06-18 11:26 | Outpatient (BNV) | payer OTHER, SELFPAY | PROVIDERS: PCP Internal Medicine; Visit Provider Internal Medicine Gastroenterology | DX: Z12.11 Encounter for screening for malignant neoplasm of colon (principal); Z86.010 Personal history of colon polyps; D12.0 Benign neoplasm of cecum; Q27.33 Arteriovenous malformation of digestive system vessel; K57.30 Diverticulosis of large intestine without perforation or abscess without bleeding; K64.0 First degree hemorrhoids | CPT/HCPCS: 45385 ==

== ENCOUNTER 2023-07-02 12:43 | Outpatient (AMB) | payer OTHER, SELFPAY ==
[2023-07-02 13:06] VITALS: BP 108/48; PULSE 67; BMI 29.4
--- NOTE | 2023-07-02 13:06 | A.OFFVIS_ITS ---
Vital Signs 07/02/23 13:06 Height 5 ft 6 in Weight 182 lb 1.629 oz BMI 29.4 BP 108/48 L Blood Pressure Location Lt brachial Position Sitting Pulse 67 Intake Visit Reasons: s/p colon terence Intake Note: Yue returns to in office visit today in follow up of colonoscopy performed on 06/18/[address] Rodas. CC: Patient c/o lower abdominal cramping, and constipation sometimes. Polysomnographer Required: No Accompanied by: Self / Same As Patient Allergies paroxetine [From PAXIL] Allergy (Mild, Verified 07/02/23 13:12) RASH adhesive tape Adverse Reaction (Severe, Verified 07/02/23 13:12) Redness of Skin HPI HPI s/p colon terence: Details: LAST VISIT: Constipation GERD (gastroesophageal reflux disease) Postprandial abdominal bloating Abdominal pain Plan Patient will continue Linzess daily patient can take Dulcolax tablets in the evening. Colonoscopy scheduled for June. Patient will do split MiraLax prep would for Dulcolax tablets at noon day before the procedure. Patient denies any cardiac symptoms. Patient is on Trelegy Ellipta for COPD and is doing better. Patient was encouraged to make sure that she uses in the morning of the procedure. Encouraged to take rescue inhaler with her. Patient might need a nebulizer treatment before the procedure. What to expect before during and after procedure discussed with patient. Patient will follow-up in the office after the procedure, sooner on as needed basis. Patient is agreeable to this plan and verbalizes understanding of instructions. She was given the opportunity to ask questions and all questions answered. ? Thank you for allowing me to participate in her care Medications New bisacodyl 10 mg (2 x 5 mg) PO BEDTIME 180 tabs 1RF polyethylene glycol 3350 (Miralax) As directed by gastroenterology department at [facility] 238 grams PO ONCE 238 grams 0RF Z12.11 Refilled esomeprazole magnesium (Nexium) 40 mg PO DAILY 90 caps 2RF K21.9 COLONOSCOPY: Findings: Terminal Ileum-normal Cecum: 10 mm sessile polyp removed with cold snare, several small non bleeding AVM noted Ascending Colon: normal Transverse Colon -normal Descending Colon:normal Sigmoid Colon: mild to moderate diverticulosis Rectum: Retroflexion with small to medium internal hemorrhoids seen, grade I Anorectum - normal Intervention: cold forceps Colon preparation: [place] Bowel Preparation Scale Right colon; 2 Transverse colon: 2 Left colon; 2 (0 = Unprepared colon segment with mucosa not seen due to solid stool that cannot be cleared. 1 = Portion of mucosa of the colon segment seen, but other areas of the colon segment not well seen due to staining, residual stool and/or opaque liquid. 2 = Minor amount of residual staining, small fragments of stool and/or opaque liquid, but mucosa of colon segment seen well. 3 = Entire mucosa of colon segment seen well with no residual staining, small fragments of stool or opaque liquid) Impression and Post Procedure Diagnosis: diverticulosis colon polyp internal hemorrhoids AVM Plan: High fiber diet leaflet Avoid straining at stool, epsom salts and sitz bath, anusol supps or cream Repeat Colonoscopy in 5 years due to polyp or earlier if clinically indicated PATHOLOGY RESULTS Diagnosis Colon, cecal polyp: Tubular adenoma; negative for high-grade dysplasia and carcinoma TODAY'S VISIT Patient is here today for follow-up and to discuss colonoscopy results. Patient denies any ill effects from the prep, anesthesia or procedure itself. Patient continues to have a left lower quadrant discomfort. Severe diverticulosis in sigmoid colon most likely related to her discomfort. Patient is taking Linzess in the morning, however she continues to feel like she does not empty her bowels completely. Patient is taking Nexium in the morning and sucralfate at night time. Her symptoms of acid reflux are suppressed completely. Occasional depending on what she eats she might have epigastric discomfort with postprandial abdominal bloating. Patient denies any melena, hematochezia, unintentional weight loss or ribbon like stools. Patient denies any dyspepsia, dysphagia or odynophagia. Tubular adenoma found in cecum without high-grade dysplasia or carcinoma. Multiple small AVM noted also in cecum without any trace of bleeding. Colonoscopy and biopsy results discussed with patient [facility] Medical History (Updated 07/14/23 @ 20:37 by RAYMON GoncalvesP-BC) Diverticulosis Lung density on x-ray Tubular adenoma Constipation Normal pelvic exam Nocturnal hypoxia Colonoscopy refused Mammogram normal Hyperlipidemia Lower back pain Hypertension Mitral valve prolapse Supraventricular tachycardia Fibromyalgia Depression Anxiety COPD (chronic obstructive pulmonary disease) Surgical History H/O colonoscopy History of cardiac radiofrequency ablation Family History Father History of CVA (cerebrovascular accident) Mother History of CVA (cerebrovascular accident) Social History Household Members: Family Housing: House Alcohol intake: never Patient Tobacco Use Status: Former Tobacco user Quit Date: 2011 e-Cigarette/Vaping Use: Never Used Advance Directives Date on File: 02/03/23 service: No Current occupational status: retired Cognitive needs: No Hearing needs: No Vision needs: Yes Review of Systems Const Denies weight gain and Denies weight loss ENT Reports no additional complaints, Denies dysphagia and Denies odynophagia Card Reports no additional complaints Resp Reports no additional complaints GI Reports abdominal pain (LLQ), Denies belching, Denies melena, Reports bloating (Occasional), Reports constipation, Denies dysphagia, Denies excessive flatus, Denies dyspepsia, Denies heartburn, Denies diarrhea, Denies loose stools, Denies nausea, Denies odynophagia and Denies vomiting Reports no additional complaints Musc Reports no additional complaints Neuro Reports no additional complaints Psych Reports no additional complaints Endo Reports no additional complaints Physical Exam Vital Signs: Last Vital Signs Pulse 67 07/02/23 13:06 BP 108/48 L 07/02/23 13:06 BMI result Body Mass Index 29.4 Const General: healthy appearing and no acute distress Nutritional Appearance: obese Orientation/consciousness: patient oriented x3 Resp Effort & Inspection: normal respiratory effort, able to speak in complete sentences, no tracheal deviation and symmetric chest movement Auscultation: clear to auscultation bilaterally Cardio Rate: regular rate GI Inspection: Yes normal to inspection, No distended and Yes obesity Palpation (GI): Soft to palpation, not firm, nontender and No hepatosplenomegaly present Auscultation: normal bowel sounds General: Yes no CVA tenderness Back/Spine/Pelvis Back: no CVA tenderness Skin General skin exam: elasticity normal, turgor normal and dry skin Neuro General: patient oriented x3 Psych Appearance: grossly normal Mental Status: mental status grossly normal Assessment & Plan Assessment & Plan (1) Constipation: Code(s): K59.00 - Constipation, unspecified Category: Medical Qualifiers: Constipation type: chronic idiopathic constipation Qualified Code(s): K59.04 - Chronic idiopathic constipation (2) Tubular adenoma: Code(s): D36.9 - Benign neoplasm, unspecified site Category: Medical (3) Diverticulosis: Code(s): K57.90 - Diverticulosis of intestine, part unspecified, without perforation or abscess without bleeding Category: Medical (4) GERD (gastroesophageal reflux disease): Code(s): K21.9 - Gastro-esophageal reflux disease without esophagitis Qualifiers: Esophagitis presence: esophagitis presence not specified Qualified Code(s): K21.9 - Gastro-esophageal reflux disease without esophagitis (5) Postprandial abdominal bloating: Code(s): R14.0 - Abdominal distension (gaseous) (6) Abdominal pain: Code(s): R10.9 - Unspecified abdominal pain Qualifiers: Abdominal location: left lower quadrant Qualified Code(s): R10.32 - Left lower quadrant pain (7) Status post colonoscopy: Code(s): Z98.890 - Other specified postprocedural states Plan Patient will continue taking Linzess. However patient can try taking Senokot 2 tablets as well as Colace 2 capsules in the evening to see if her left lower quadrant pain gets better. Patient was diagnosed with moderate diverticulosis. She was encouraged to increase fiber intake as well as increase fluid intake. Colonoscopy will be repeated in 5 years, sooner if clinically necessary. Tubular adenoma found on colonoscopy without high-grade dysplasia or carcinoma. Patient will return in the office in 3 weeks. She is agreeable to this plan and verbalizes understanding of instructions. She was given the opportunity to ask questions and all questions answered. Thank you for allowing me to participate in her care Medications: New docusate sodium 200 mg (2 x 100 mg) PO BEDTIME 180 caps 3RF K59.00 - Constipation, unspecified sennosides (Natural Senna Laxative) 17.2 mg (2 x 8.6 mg) PO BEDTIME 180 tabs 3RF constipation K59.00 - Constipation, unspecified Coding Level of Care Code Est Pt Level 3 (08056) Diagnoses Chronic idiopathic constipation K59.04 Constipation type: chronic idiopathic constipation Tubular adenoma D36.9 Diverticulosis K57.90 Gastroesophageal reflux disease, unspecified whether esophagitis present K21.9 Esophagitis presence: esophagitis presence not specified Postprandial abdominal bloating R14.0 Left lower quadrant abdominal pain R10.32 Abdominal location: left lower quadrant Status post colonoscopy Z98.890 Time Spent (min) 30 Comment 20 minutes spent with patient and additional 10 minutes spent reviewing her records
== END 2023-07-02 13:33 | disposition home or self-care (01) ==
PROVIDERS: PCP Internal Medicine; Visit Provider Nurse Practitioner Family
DX: K59.04 Chronic idiopathic constipation (principal); D36.9 Benign neoplasm, unspecified site; K57.90 Diverticulosis of intestine, part unspecified, without perforation or abscess without bleeding; K21.9 Gastro-esophageal reflux disease without esophagitis; R14.0 Abdominal distension (gaseous); R10.32 Left lower quadrant pain; Z98.890 Other specified postprocedural states
CPT/HCPCS: 99213

== ENCOUNTER → 2023-07-02 12:43 | Outpatient (BNVA) | payer OTHER, SELFPAY | PROVIDERS: PCP Internal Medicine; Visit Provider Nurse Practitioner Family | DX: K59.04 Chronic idiopathic constipation (principal); R10.9 Unspecified abdominal pain; D36.9 Benign neoplasm, unspecified site; K57.90 Diverticulosis of intestine, part unspecified, without perforation or abscess without bleeding; R14.0 Abdominal distension (gaseous); R10.32 Left lower quadrant pain; L21.9 Seborrheic dermatitis, unspecified; Z98.890 Other specified postprocedural states | CPT/HCPCS: 99212 ==

== ENCOUNTER 2023-09-19 13:06 | Outpatient (AMB) | payer OTHER, SELFPAY ==
--- NOTE | 2023-09-19 13:09 | A.OFFVIS_ITS ---
Vital Signs 09/19/23 13:13 Height 5 ft 6 in Weight 189 lb 9.561 oz BMI 30.6 BP 146/63 H Blood Pressure Location Lt brachial Position Sitting Pulse 80 Intake Visit Reasons: 2 mos follow up Intake Note: Yue presents in the office as a 2 month follow up. CC: She states that she stopped the linzess and senna. She was having constipation but with the dulcolax and docusate sodium she seems to go just fine. Allergies paroxetine [From PAXIL] Allergy (Mild, Verified 09/19/23 13:13) RASH adhesive tape Adverse Reaction (Severe, Verified 09/19/23 13:13) Redness of Skin HPI HPI 2 mos follow up: Details: LAST VISIT Constipation Tubular adenoma Diverticulosis GERD (gastroesophageal reflux disease) Postprandial abdominal bloating Abdominal pain Status post colonoscopy Plan Patient will continue taking Linzess. However patient can try taking Senokot 2 tablets as well as Colace 2 capsules in the evening to see if her left lower quadrant pain gets better. Patient was diagnosed with moderate diverticulosis. She was encouraged to increase fiber intake as well as increase fluid intake. Colonoscopy will be repeated in 5 years, sooner if clinically necessary. Tubular adenoma found on colonoscopy without high-grade dysplasia or carcinoma. Patient will return in the office in 3 weeks. She is agreeable to this plan and verbalizes understanding of instructions. She was given the opportunity to ask questions and all questions answered. ? Thank you for allowing me to participate in her care Medications New docusate sodium 200 mg (2 x 100 mg) PO BEDTIME 180 caps 3RF K59.00 sennosides (Natural Senna Laxative) 17.2 mg (2 x 8.6 mg) PO BEDTIME 180 tabs 3RF constipation K59.00 TODAY'S VISIT Patient is here today for follow-up. Patient reports that she still was unable to have a bowel movement even though she was taking Linzess and Senokot. Patient reports that she stopped taking both of these medications she was given script for Colace. States that she had left over Dulcolax so she started taking Dulcolax and Colace at bedtime. Patient reports that now she is able to move her bowels. Denies any melena, hematochezia. Reports that she no longer experiences acid reflux. Patient states that she takes Nexium every morning and her symptoms are suppressed throughout the day and at night time. Patient is avoiding dietary triggers. Does not eat late at night. Occasional postprandial abdominal bloating depending on what she eats patient denies any other GI concerning symptoms. [facility] Medical History Diverticulosis Lung density on x-ray Tubular adenoma Constipation Normal pelvic exam Nocturnal hypoxia Colonoscopy refused Mammogram normal Hyperlipidemia Lower back pain Hypertension Mitral valve prolapse Supraventricular tachycardia Fibromyalgia Depression Anxiety COPD (chronic obstructive pulmonary disease) Surgical History H/O colonoscopy History of cardiac radiofrequency ablation Family History Father History of CVA (cerebrovascular accident) Mother History of CVA (cerebrovascular accident) Social History Household Members: Family Housing: House Alcohol intake: never Patient Tobacco Use Status: Former Tobacco user e-Cigarette/Vaping Use: Never Used Advance Directives Date on File: 02/03/23 service: No Current occupational status: retired Cognitive needs: No Hearing needs: No Vision needs: Yes Review of Systems Const Denies weight gain and Denies weight loss ENT Reports no additional complaints, Denies dysphagia and Denies odynophagia Card Reports no additional complaints Resp Reports no additional complaints GI Denies abdominal pain, Denies belching, Denies melena, Denies bloating, Denies change in bowel habits, Denies dysphagia, Denies excessive flatus, Denies dyspepsia, Denies heartburn, Denies diarrhea, Denies loose stools, Denies nausea, Denies odynophagia and Denies vomiting Musc Reports no additional complaints Neuro Reports no additional complaints Psych Reports no additional complaints Endo Reports no additional complaints Physical Exam Vital Signs: Last Vital Signs Pulse 80 09/19/23 13:13 BP 146/63 H 09/19/23 13:13 BMI result Body Mass Index 30.6 Const General: healthy appearing and no acute distress Nutritional Appearance: obese Orientation/consciousness: patient oriented x3 Resp Effort & Inspection: normal respiratory effort, able to speak in complete sentences, no tracheal deviation and symmetric chest movement Auscultation: clear to auscultation bilaterally Cardio Rate: regular rate GI Inspection: Yes normal to inspection, No distended and Yes obesity Palpation (GI): Soft to palpation, not firm, nontender and No hepatosplenomegaly present Auscultation: normal bowel sounds General: Yes no CVA tenderness Back/Spine/Pelvis Back: no CVA tenderness Skin General skin exam: elasticity normal, turgor normal and dry skin Neuro General: patient oriented x3 Psych Appearance: grossly normal Mental Status: mental status grossly normal Assessment & Plan Assessment & Plan (1) Constipation: Code(s): K59.00 - Constipation, unspecified Category: Medical Qualifiers: Constipation type: chronic idiopathic constipation Qualified Code(s): K59.04 - Chronic idiopathic constipation (2) Tubular adenoma: Code(s): D36.9 - Benign neoplasm, unspecified site Category: Medical (3) Diverticulosis: Code(s): K57.90 - Diverticulosis of intestine, part unspecified, without perforation or abscess without bleeding Category: Medical (4) GERD (gastroesophageal reflux disease): Code(s): K21.9 - Gastro-esophageal reflux disease without esophagitis Qualifiers: Esophagitis presence: esophagitis presence not specified Qualified Code(s): K21.9 - Gastro-esophageal reflux disease without esophagitis (5) Postprandial abdominal bloating: Code(s): R14.0 - Abdominal distension (gaseous) (6) Abdominal pain: Code(s): R10.9 - Unspecified abdominal pain Qualifiers: Abdominal location: generalized Qualified Code(s): R10.84 - Generalized abdominal pain Plan Patient will continue taking Colace and Dulcolax. Increase fluid intake and activity to promote better bowel motility. Continue Nexium. Patient will wean herself off of sucralfate. Will check ultrasound of the liver. Patient had CT scan in January of 2023, two hypodense cyst versus hemangiomas that were unchanged since 2016. Will recheck liver panel. Avoid dietary triggers and late night snacking. Staying upright for minimum 3 hours after meals discussed with patient. Patient will follow-up in 6 months, sooner on as needed basis. Patient is agreeable to this plan and verbalizes understanding of instructions. She was given the opportunity to ask questions and all questions answered. Thank you for allowing me to participate in her care Orders: Orders US abdomen limited Today K76.89 - Other specified diseases of liver Liver Panel Today R74.01 - Elevation of levels of liver transaminase levels Medications: New bisacodyl 10 mg (2 x 5 mg) PO DAILY 180 tabs 3RF Refilled esomeprazole magnesium (Nexium) 40 mg PO DAILY 90 caps 2RF K21.9 - Gastro- esophageal reflux disease without esophagitis Coding Level of Care Code Est Pt Level 3 (15442) Diagnoses Chronic idiopathic constipation K59.04 Constipation type: chronic idiopathic constipation Tubular adenoma D36.9 Diverticulosis K57.90 Gastroesophageal reflux disease, unspecified whether esophagitis present K21.9 Esophagitis presence: esophagitis presence not specified Postprandial abdominal bloating R14.0 Generalized abdominal pain R10.84 Abdominal location: generalized Time Spent (min) 30 Comment 20 minutes spent with patient and additional 10 minutes spent reviewing her records
[2023-09-19 13:13] VITALS: BP 146/63; PULSE 80; BMI 30.6
== END 2023-09-19 13:46 | disposition home or self-care (01) ==
PROVIDERS: PCP Internal Medicine; Visit Provider Nurse Practitioner Family
DX: K59.04 Chronic idiopathic constipation (principal); D36.9 Benign neoplasm, unspecified site; K57.90 Diverticulosis of intestine, part unspecified, without perforation or abscess without bleeding; K21.9 Gastro-esophageal reflux disease without esophagitis; R14.0 Abdominal distension (gaseous); R10.84 Generalized abdominal pain
CPT/HCPCS: 99213

== ENCOUNTER → 2023-09-19 13:06 | Outpatient (BNVA) | payer OTHER, SELFPAY | PROVIDERS: PCP Internal Medicine; Visit Provider Nurse Practitioner Family | DX: K59.04 Chronic idiopathic constipation (principal); K57.90 Diverticulosis of intestine, part unspecified, without perforation or abscess without bleeding; K21.9 Gastro-esophageal reflux disease without esophagitis; K76.89 Other specified diseases of liver; D36.9 Benign neoplasm, unspecified site; R14.0 Abdominal distension (gaseous); R10.84 Generalized abdominal pain; R74.01 Elevation of levels of liver transaminase levels | CPT/HCPCS: 99212 ==

== ENCOUNTER 2023-09-30 09:48 | Outpatient (REF) | payer OTHER, SELFPAY ==
--- NOTE | ~2023-09-30 | US_ITS ---
EXAMINATION: US ABDOMEN LIMITED CLINICAL INFORMATION: Other specified diseases of liver/liver cyst. COMPARISON: Renal ultrasound 04/07/2023. CT abdomen and pelvis 01/28/2023. Ultrasound abdomen complete 07/10/2017. TECHNIQUE: Real-time imaging of the right upper quadrant abdominal viscera. FINDINGS: PANCREAS: Tail obscured. LIVER: The liver is normal in size. The liver contour is normal. There is diffuse increased liver parenchymal echogenicity, consistent with hepatic steatosis. Left hepatic cyst measures 9 x 8 x 10 mm. There is no intrahepatic biliary duct dilatation seen. GALLBLADDER: The gallbladder is physiologically distended without evidence of stones, sludge, polyps, wall thickening or pericholecystic fluid. COMMON BILE DUCT: Normal in caliber measuring 0.6 cm in diameter. RIGHT KIDNEY: No hydronephrosis. No renal calculi or focal parenchymal lesions. The kidney measures 10.2 cm in maximum dimension. FREE FLUID: None. US/US abdomen limited IMPRESSION: Left hepatic simple cyst measuring 9 x 8 x 10 mm. No further routine imaging follow-up is needed.
[2023-09-30 13:45] LABS: MANUAL DIFF FLAG NO
[2023-09-30 13:58] LABS: B Type Natriuretic Peptide 82 pg/mL (<100)
[2023-09-30 14:07] LABS: Basophils Absolute Auto 0.1 X10*3/uL (0.0-0.2); Basophils Percent Auto 0.9 % (0-2); Eosinophils Absolute Auto 0.1 X10*3/uL (0.0-0.4); Eosinophils Percent Auto 1.3 % (0-4); Hematocrit 37.4 % (37.0-47.0); Hemoglobin 12.3 g/dl (12.0-16.0); Imm Gran Abs Auto 0.02 X10*3/uL (0.00-0.03); Imm Gran Pct Auto 0.3 % (0.0-0.4); Lymphocytes Absolute Auto 1.6 X10*3/uL (1.2-4.9); Lymphocytes Percent Auto 20.4 % (20-40); Mean Corpuscular HGB Conc 32.9 g/dl (31.0-35.0); Mean Corpuscular Hemoglobin 29.6 pg (27.0-33.0); Mean Corpuscular Volume 89.9 fL (80.0-98.0); Mean Platelet Volume 10.1 fL (9.4-12.3); Monocytes Absolute Auto 0.4 X10*3/uL (0.1-1.2); Monocytes Percent Auto 4.9 % (2-11); Neutrophils Absolute Auto 5.6 x10*3/uL (2.0-8.3); Neutrophils Percent Auto 72.2 % (45-73); Platelet Count 205 X10*3/uL (160-400); Red Blood Count 4.16 X10*6/uL (4.20-5.50); Red Cell Distribution Width 12.3 % (11.0-16.0); White Blood Count 7.7 X10*3/uL (4.8-10.8)
[2023-09-30 14:15] LABS: Alanine Aminotransferase 11 U/L (0-31); Albumin Level 4.1 g/dL (3.5-5.0); Alkaline Phosphatase 66 U/L (39-117); Anion Gap 12 (12-20); Aspartate Amino Transferase 15 U/L (5-31); Bilirubin Total 0.4 mg/dL (0.0-1.0); Blood Urea Nitrogen 16 mg/dL (9-16); Calcium 9.1 mg/dL (8.4-10.2); Carbon Dioxide 30 mmol/L (22-29); Chloride 106 mmol/L (96-108); Cholesterol 180 mg/dL (<200); Estimated Glomerular Filt Rate > 60; Glucose Fasting 91 mg/dL (60-99); HDL Cholesterol 55 mg/dL (>40); Iron 79 mcg/dL (30-160); LDL Cholesterol Calculated 108 mg/dL (<100); Magnesium 2.2 mg/dL (1.6-2.6); Percent Iron Saturation 31 % (15-50); Potassium 3.6 mmol/L (3.3-5.1); Sodium 144 mmol/L (135-145); Total Iron Binding Capacity 258 mcg/dL (228-428); Total Protein 6.3 g/dL (6.5-8.0); Triglycerides 87 mg/dL (<150); Unsaturated Iron Binding 179 ug/dL
[2023-09-30 14:26] LABS: Alanine Aminotransferase 12 U/L (0-31); Albumin Level 4.1 g/dL (3.5-5.0); Alkaline Phosphatase 67 U/L (39-117); Aspartate Amino Transferase 15 U/L (5-31); Bilirubin Direct 0.1 mg/dL (0.0-0.5); Bilirubin Total 0.4 mg/dL (0.0-1.0); Total Protein 6.4 g/dL (6.5-8.0)
[2023-09-30 14:52] LABS: Vitamin B12 > 2000 pg/mL (200-900)
== END 2023-09-30 09:49 | disposition home or self-care (01) ==
LOC: HO.HMGCX 09:48
PROVIDERS: PCP Internal Medicine; Visit Provider Nurse Practitioner Family
DX: K76.89 Other specified diseases of liver (principal); R74.01 Elevation of levels of liver transaminase levels; E78.5 Hyperlipidemia, unspecified; I10 Essential (primary) hypertension; D64.9 Anemia, unspecified; I47.10 Supraventricular tachycardia, unspecified
CPT/HCPCS: 36415; 76705; 80053; 80061; 80076; 82607; 82746; 83540; 83735; 83880; 85025

== ENCOUNTER → 2023-10-03 10:41 | Outpatient (REF) | payer OTHER, SELFPAY ==
--- NOTE | 2023-10-03 10:43 | HM_ITS ---
Cardiac event monitor Indication: Supraventricular tachycardia Technique: Patient was hooked up to cardiac event monitor from 10/03/2023 to 11/02/2023 with a where time of 11.2 days Findings: Baseline was normal sinus rhythm with 98% of time heart rate in sinus rhythm with average heart rate of 72 beats per minute and slowest heart rate of 50 beats per minute and maximum heart rate 119 beats per minute. There were no significant pauses noted. There were no sustained arrhythmias noted. There were occasional PACs noted with total burden of 1.2%. There were rare PVCs noted with total burden of less than 1%. Patient triggered the counter 14 times with associated symptoms reported 4 times all of them correlating with sinus rhythm. Conclusion: 1. Baseline was normal sinus rhythm with no pauses 2. No sustained arrhythmias 3. Occasional PACs and rare PVCs noted 4. Patient reported symptoms and triggered events correlated with sinus rhythm MTDD
== END ==
LOC: HO.CARD 10:41
PROVIDERS: Visit Provider Internal Medicine
DX: I47.10 Supraventricular tachycardia, unspecified (principal)
CPT/HCPCS: 93270

== ENCOUNTER → 2023-10-03 10:43 | Outpatient (BNV) | payer OTHER, SELFPAY | PROVIDERS: Visit Provider Internal Medicine Cardiovascular Disease | DX: I49.1 Atrial premature depolarization (principal); I49.3 Ventricular premature depolarization | CPT/HCPCS: 93272 ==

== ENCOUNTER 2023-10-16 13:00 | Outpatient (AMB) | payer OTHER, SELFPAY ==
[2023-10-16 13:11] VITALS: BP 110/68; PULSE 77; O2SAT 92; BMI 28.8
--- NOTE | 2023-10-16 13:11 | MHC.OFFVIS ---
Vital Signs 10/16/23 13:11 Height 5 ft 6 in Weight 178 lb 9.191 oz BMI 28.8 BP 110/68 Blood Pressure Location Lt brachial Position Sitting Pulse 77 Pulse Source Pulse Oximeter Pulse Oximetry (%) 92 Oxygen Delivery Method Room Air Intake Visit Reasons: COPD Intake Note: pt is here for follow up and states she states she does get wheezy at times, and a very bad dry cough, headaches. and at times feels she cannot get a good breath out. [employer] Required: No Allergies paroxetine [From PAXIL] Allergy (Mild, Verified 10/16/23 13:28) RASH adhesive tape Adverse Reaction (Severe, Verified 10/16/23 13:28) Redness of Skin Medication List - Last Reconciled 10/16/23 by Ibrahima Hernandez MD albuterol sulfate 90 mcg/actuation 2 puffs PO Q6H PRN albuterol sulfate 2.5 mg (3 mL) inhalation Q4-6H PRN 30 days amitriptyline 150 mg (2 x 75 mg) PO BEDTIME aspirin 81 mg PO DAILY atenolol 25 mg PO BEDTIME atorvastatin 20 mg PO DAILY azithromycin 250 mg PO 3XW 30 days bisacodyl 10 mg (2 x 5 mg) PO DAILY cholecalciferol (vitamin D3) 50 mcg PO DAILY cyanocobalamin (vitamin B-12) 500 mcg PO DAILY diltiazem HCl ER 180 mg PO DAILY docusate sodium 200 mg (2 x 100 mg) PO BEDTIME duloxetine (Cymbalta) 20 mg PO DAILY esomeprazole magnesium (Nexium) 40 mg PO DAILY zzrobojsqfi-ferzkrgsk-nrzawwfn 200-62.5-25 mcg (Trelegy Ellipta) 1 inh inhalation DAILY furosemide 40 mg PO DAILY lorazepam 0.5 mg PO TID PRN sertraline 100 mg PO DAILY sucralfate 1 g PO BEDTIME trazodone 300 mg PO BEDTIME vitamin E 200 units PO DAILY Do you need a note to return to daycare/school/sports/work: No HPI HPI COPD: Details: THIS 68 YEARS OLD VERY PLEASANT FEMALE COMES AFTER 4 MONTHS FOR HER ROUTINE FOLLOW-UP. SHE IS BEING TREATED FOR ADVANCED COPD, AND IT HAS REMAINED VERY STABLE ON HER CURRENT MEDICAL REGIMEN. SHE IS OUT OF AZITHROMYCIN FOR ABOUT 1 WEEK, COMPLAINS OF SCRATCHY FEELING IN HER THROAT AND INCREASED COUGH FOR THE LAST FEW DAYS. WHETHER IT COINCIDES WITH NOT TAKING AZITHROMYCIN OR NOT IS NOT CLEAR. ANYWAY SHE DOES NOT HAVE ANY SYMPTOMS OF ACTIVE RESPIRATORY INFECTION. EMOTIONALLY STABLE AND WELL CONTROLLED. [facility]LY [facility] Medical History Diverticulosis Lung density on x-ray Tubular adenoma Constipation Normal pelvic exam Nocturnal hypoxia Colonoscopy refused Mammogram normal Hyperlipidemia Lower back pain Hypertension Mitral valve prolapse Supraventricular tachycardia Fibromyalgia Depression Anxiety COPD (chronic obstructive pulmonary disease) Surgical History H/O colonoscopy History of cardiac radiofrequency ablation Family History Father History of CVA (cerebrovascular accident) Mother History of CVA (cerebrovascular accident) Social History Household Members: Family Housing: House Alcohol intake: never Patient Tobacco Use Status: Former Tobacco user e-Cigarette/Vaping Use: Never Used Advance Directives Date on File: 02/03/23 service: No Current occupational status: retired Cognitive needs: No Hearing needs: No Vision needs: Yes Review of Systems Const All systems reviewed & are unremarkable except as noted in HPI and below Eyes Reports no additional complaints ENT Reports no additional complaints Card Denies chest pain, Denies irregular heart rhythm and Denies leg edema Resp Reports as per HPI GI Reports constipation and Reports heartburn (Controlled with omeprazole) Reports no additional complaints Musc Denies abnormal gait (Slow mainly because of back pain), Reports back pain (Her back remains stiff most of the times) and Reports myalgias Skin/Breast Reports system reviewed and no additional complaints, except as documented Neuro Denies abnormal gait (Slow mainly because of back pain) Psych Reports anxiety Physical Exam Vital Signs: Last Vital Signs Pulse 77 10/16/23 13:11 BP 110/68 10/16/23 13:11 Pulse Ox 92 10/16/23 13:11 Oxygen Delivery Method Room Air 10/16/23 13:11 BMI result Body Mass Index 28.8 Const General: comfortable, no acute distress, alert and awake Orientation/consciousness: patient oriented x3 HEENT Head: Yes normal to inspection General nose exam: No nasal polyps present and No nasal discharge present Face and sinus: Yes sinuses nontender Mouth: oropharynx normal Throat: Yes posterior oropharynx normal Eyes General: appearance normal, both eyes and all related structures Neck Neck: Yes normal visual inspection, Yes no lymphadenopathy, Yes trachea midline and Yes no JVD Thyroid: Thyroid normal Chest Chest palpation & inspection: normal inspection of the chest, normal palpation of entire chest wall and no tenderness Resp Other: Percussion note resonant, breath sounds are equal on both sides. I do not hear any wheezes or crepitations today. Cardio Palpation: normal PMI Rate: regular rate Rhythm: regular rhythm Heart sounds: no gallops and no murmurs GI Palpation (GI): Soft to palpation, nontender, No hepatosplenomegaly present and no masses Auscultation: normal bowel sounds Back/Spine/Pelvis Thoracic/Lumbar Spine: thoracic and lumbar spine normal to inspection, thoraco-lumbar ROM limited and thoraco-lumbar spasm Skin General skin exam: no rashes or lesions noted Neuro General: patient oriented x3 and no focal motor deficits Cranial nerves: Yes CN's II-XII intact bilaterally Extrem General: Yes normal to inspection, Yes no clubbing, cyanosis or edema and Yes no calf tenderness Psych Appearance: grossly normal and well kempt Speech and movement: Normal speech and movement present Assessment & Plan Assessment & Plan (1) COPD (chronic obstructive pulmonary disease): Comment: COPD , CHRONIC, CONTROLLED AND STABLE, normal spirometry 2021 DESCRIBES SLIGHTLY INCREASED COUGH AND SCRATCHY FEELING IN THE THROAT SINCE SHE IS NOT TAKING AZITHROMYCIN FOR 1 WEEK. THIS MAY BE COINCIDENT. SHE DOES NOT HAVE ANY ACUTE RESPIRATORY INFECTION. Code(s): J44.9 - Chronic obstructive pulmonary disease, unspecified Category: Medical Plan: CONTINUE TRELEGY 1 INHALATION DAILY. AZITHROMYCIN 250 MG 3 DAYS A WEEK. PRESCRIPTION IS RENEWED. ALBUTEROL HFA Q 6 HOURS P.R.N. OR ALTERNATIVELY AT HOME SHE CAN USE ALBUTEROL SOLUTION IN THE NEBULIZER Q 4-6 HOURS P.R.N.. (2) Nocturnal hypoxia: Comment: PATIENT HAS HISTORY OF NOCTURNAL HYPOXEMIA, TREATED WITH OXYGEN SUPPLEMENTATION. 2L/MT She is now using it only off and on. Code(s): G47.34 - Idiopathic sleep related nonobstructive alveolar hypoventilation Category: Medical Plan: USE O2 2 L/MINUTE AT NIGHT. (3) Lung density on x-ray: Comment: ON THE CT SCAN OF ABDOMEN, A WHICH SHAPE DENSITY IN THE RIGHT LOWER LOBE WHICH IS PROBABLY DUE TO ATELECTASIS, BUT A PLEURAL. BASED NEOPLASM REPEAT CT SCAN SHOWS THAT THE DENSITY IN THE RIGHT LOWER LOBE HAS RESOLVED, WAS PROBABLY ATELECTASIS. HAS 5 MM DENSITY IN LEFT LOWER LOBE WHICH IS UNCHANGED FROM BEFORE Code(s): J98.4 - Other disorders of lung Category: Medical Plan: SHE WILL CONTINUE TO HAVE ANNUAL LUNG SCREENING FOR THE 5 MM DENSITY IN LEFT LOWER LOBE. Coding Level of Care Code Est Pt Level 3 (43891) Diagnoses COPD (chronic obstructive pulmonary disease) J44.9 Nocturnal hypoxia G47.34 Lung density on x-ray J98.4
== END 2023-10-16 13:28 | disposition home or self-care (01) ==
PROVIDERS: PCP Internal Medicine; Visit Provider Internal Medicine
DX: J44.9 Chronic obstructive pulmonary disease, unspecified (principal); G47.34 Idiopathic sleep related nonobstructive alveolar hypoventilation; J98.4 Other disorders of lung
CPT/HCPCS: 99213

== ENCOUNTER → 2023-10-16 13:00 | Outpatient (BNVA) | payer OTHER, SELFPAY | PROVIDERS: PCP Internal Medicine; Visit Provider Internal Medicine | DX: J44.9 Chronic obstructive pulmonary disease, unspecified (principal); G47.34 Idiopathic sleep related nonobstructive alveolar hypoventilation; J98.4 Other disorders of lung | CPT/HCPCS: 99212 ==

== ENCOUNTER 2023-11-13 12:11 | Outpatient (AMB) | payer OTHER, SELFPAY ==
--- NOTE | 2023-11-13 12:36 | MHC.PC.OV ---
Vital Signs 11/13/23 12:37 Height 5 ft 6 in Weight 173 lb BMI 27.9 BP 100/60 Blood Pressure Location Rt brachial Position Sitting Pulse 77 Pulse Source Pulse Oximeter Pulse Oximetry (%) 95 Oxygen Delivery Method Room Air Intake Visit Reasons: Follow up HTN Intake Note: Pt is here today for a follow up visit on HTN and labs. Allergies paroxetine [From PAXIL] Allergy (Mild, Verified 11/13/23 12:39) RASH adhesive tape Adverse Reaction (Severe, Verified 11/13/23 12:39) Redness of Skin Medication List - Last Reconciled 11/13/23 by Liberty Bustillos MD albuterol sulfate 90 mcg/actuation 2 puffs PO Q6H PRN albuterol sulfate 2.5 mg (3 mL) inhalation Q4-6H PRN 30 days amitriptyline 150 mg (2 x 75 mg) PO BEDTIME aspirin 81 mg PO DAILY atenolol 25 mg PO BEDTIME atorvastatin 20 mg PO DAILY azithromycin 250 mg PO 3XW 30 days azithromycin 250 mg PO DAILY 10 days bisacodyl 10 mg (2 x 5 mg) PO DAILY cholecalciferol (vitamin D3) 50 mcg PO DAILY cyanocobalamin (vitamin B-12) 500 mcg PO DAILY diltiazem HCl ER 180 mg PO DAILY docusate sodium 200 mg (2 x 100 mg) PO BEDTIME duloxetine (Cymbalta) 20 mg PO DAILY esomeprazole magnesium (Nexium) 40 mg PO DAILY numgcwurjcf-riygvbnqv-wccgplux 200-62.5-25 mcg (Trelegy Ellipta) 1 inh inhalation DAILY furosemide 40 mg PO DAILY lorazepam 0.5 mg PO TID PRN sertraline 100 mg PO DAILY sucralfate 1 g PO BEDTIME trazodone 300 mg PO BEDTIME vitamin E 200 units PO DAILY Tobacco use date assessed: 03/04/23 HPI Follow up HTN HPI Details Pt presents for f/u COPD, HTN, hyperlipid, stable on meds. Patient follows up with psychiatrist and therapist for the depression and anxiety. [facility] Medical History (Updated 11/13/23 @ 13:08 by Liberty Bustillos MD) Diverticulosis Lung density on x-ray Tubular adenoma Constipation Normal pelvic exam Nocturnal hypoxia Colonoscopy refused Mammogram normal Hyperlipidemia Lower back pain Hypertension Mitral valve prolapse Supraventricular tachycardia Fibromyalgia Depression Anxiety COPD (chronic obstructive pulmonary disease) Surgical History (Updated 11/13/23 @ 12:52 by Liberty Bustillos MD) H/O colonoscopy History of cardiac radiofrequency ablation Family History Father History of CVA (cerebrovascular accident) Mother History of CVA (cerebrovascular accident) Social History Household Members: Family Housing: House Alcohol intake: never Patient Tobacco Use Status: Former Tobacco user e-Cigarette/Vaping Use: Never Used Advance Directives Date on File: 02/03/23 service: No Current occupational status: retired Cognitive needs: No Hearing needs: No Vision needs: Yes Questionnaire PHQ-9 Over the last 2 weeks, how often have you been bothered by any of the following problems? 1. Little interest or pleasure in doing things: more than half the days 2. Feeling down, depressed, or hopeless: more than half the days 3. Trouble falling or staying asleep, or sleeping too much: more than half the days 4. Feeling tired or having little energy: more than half the days 5. Poor appetite or overeating: more than half the days 6. Feeling bad about yourself - or that you are a failure or have let yourself or your family down: not at all 7. Trouble concentrating on things, such as reading the newspaper or watching television: not at all 8. Moving or speaking so slowly that other people could have noticed. Or the opposite - being so fidgety or restless that you have been moving around a lot more than usual: not at all 9. Thoughts that you would be better off or of hurting yourself in some way: not at all Total score: 10 Depression Screening Interpretation: Positive Depression Screening Follow-up: Existing condition and In treatment Depression Screening Done: Yes 43122 - PHQ-9 Billing: Yes Source: Developed by Drs. Mustapha Dunlap, Mandi Good, Segun Dueñas and colleagues, with an educational jennifer from [employer]. Thrive Questionnaire Date Thrive assessed: 03/04/23 I am a: Patient What is your living situation today?: I have a steady place to live Within the past 12 months, did the food you bought not last and you didn't have the money to get more?: Never true Within the past 12 months, did you worry whether your food would run out before you got money to buy more?: Never true Do you have trouble paying for medicines?: No Do you have trouble getting transportation to medical appointments?: No Do you have trouble paying your heating and electricity bill?: No Do you have trouble taking care of your child, family member or friend?: I choose not to answer this question Do you have trouble with day-to-day activities such as bathing, preparing meals, shopping, managing finances, etc.?: I choose not to answer this question Are you currently unemployed and looking for a job?: No Are you interested in more education?: No Please select the resources that you would like help with: None Currently or been in a relationship where the following occur: Controlled Financially and I choose not to answer THRIVE Score: 1 AUDIT C Alcohol Use Questionnaire (AUDIT-C) 1. How often do you have a drink containing alcohol?: Never 3. How often do you have six or more drinks on one occasion?: Never Total Score: 0 SAI-7 AMB Questionnaire SAI-7 Date SAI - 7 assessed: 11/13/23 Feeling nervous, anxious, or on edge: 2 = More than half the days Not being able to stop or control worryin = More than half the days Worrying too much about different things: 2 = More than half the days Trouble relaxin = More than half the days Source: Developed by Drs. Mustapha Dunlap, Mandi Good, Segun Dueñas and colleagues, with an educational jennifer from [employer]. SAI-7 Assessment Billing SAI-7 Assessment Tool: SAI-7 Assessment 71063 Review of Systems Const All systems reviewed & are unremarkable except as noted in HPI and below Card Reports no additional complaints Resp Reports no additional complaints GI Reports no additional complaints Reports no additional complaints Physical exam (Primary Care) Vital Signs: Last Vital Signs Pulse 77 11/13/23 12:37 BP 100/60 11/13/23 12:37 Pulse Ox 95 11/13/23 12:37 Oxygen Delivery Method Room Air 11/13/23 12:37 BMI result Body Mass Index 27.9 Tobacco/Smoking Status: Tobacco use Status Tobacco use date assessed 03/04/23 11/13/23 12:36 Patient Tobacco Use Status Former Tobacco user 11/13/23 12:36 e-Cigarette/Vaping Use Never Used 11/13/23 12:36 PHQ-9: PHQ-9 Score PHQ-9: Total score 10 11/13/23 12:42 Depression Screening Interpretation: Positive Depression Screening Follow-up: Existing condition and In treatment Thrive Assessment: Date of Thrive Assessment Date Thrive assessed 03/04/23 11/13/23 12:36 Currently or been in a relationship where the following occur: Controlled Financially and I choose not to answer Const General: no acute distress HENMT Head: Yes normal to inspection Face and sinus: Yes normal facial exam Neck Neck: Yes supple Resp Effort & Inspection: normal respiratory effort Auscultation: clear to auscultation bilaterally Cardio Rhythm: regular rhythm Heart sounds: S1 normal heart sound present and S2 normal heart sound present GI Inspection: Yes normal to inspection Palpation (GI): Soft to palpation Percussion: Yes normal to percussion Auscultation: normal bowel sounds Assessment and Plan Assessment & Plan (1) Hx of colonoscopy: Comment: 08/22 1 polyp , 06/2023 negative, [facility] [place] Code(s): Z98.890 - Other specified postprocedural states (2) Depression: Comment: f/u psychiatrist and psychologist Code(s): F32.9 - Major depressive disorder, single episode, unspecified Plan: Continue current medications and follow-up with the Psychiatry (3) Supraventricular tachycardia: Comment: s/p ablation [facility] 2017, echo and Holter normal 05/22, follow-up with cardiology, on Cardizem and atenolol Code(s): I47.1 - Supraventricular tachycardia Plan: Controlled on current medications follow-up with the Cardiology (4) Hypertension: Code(s): I10 - Essential (primary) hypertension Plan: Continue current medications (5) COPD (chronic obstructive pulmonary disease): Comment: COPD , CHRONIC, CONTROLLED AND STABLE, normal spirometry 2021 DESCRIBES SLIGHTLY INCREASED COUGH AND SCRATCHY FEELING IN THE THROAT SINCE SHE IS NOT TAKING AZITHROMYCIN FOR 1 WEEK. THIS MAY BE COINCIDENT. SHE DOES NOT HAVE ANY ACUTE RESPIRATORY INFECTION. Code(s): J44.9 - Chronic obstructive pulmonary disease, unspecified Plan: Continue Trelegy Orders: Orders Complete Blood Count Auto Diff 4 Months E78.5 - Hyperlipidemia, unspecified, I10 - Essential (primary) hypertension, J44.9 - Chronic obstructive pulmonary disease, unspecified Lipid Panel 4 Months E78.5 - Hyperlipidemia, unspecified, I10 - Essential (primary) hypertension, J44.9 - Chronic obstructive pulmonary disease, unspecified Comprehensive [place]. Panel Fast 4 Months E78.5 - Hyperlipidemia, unspecified, I10 - Essential (primary) hypertension, J44.9 - Chronic obstructive pulmonary disease, unspecified TSH reflex Free T4 4 Months E78.5 - Hyperlipidemia, unspecified, I10 - Essential (primary) hypertension, J44.9 - Chronic obstructive pulmonary disease, unspecified Coding Level of Care Code Est Pt Level 4 (14835) Diagnoses Hx of colonoscopy Z98.890 Depression F32.9 Supraventricular tachycardia I47.1 Hypertension I10 COPD (chronic obstructive pulmonary disease) J44.9 Additional Codes SAI-7 Assessment Billing - SAI-7 Assessment Tool: SAI-7 Assessment 04566 ([id number])
[2023-11-13 12:37] VITALS: BP 100/60; PULSE 77; O2SAT 95; BMI 27.9
== END 2023-11-13 13:10 | disposition home or self-care (01) ==
PROVIDERS: PCP Internal Medicine; Visit Provider Internal Medicine
DX: I47.10 Supraventricular tachycardia, unspecified (principal); J44.9 Chronic obstructive pulmonary disease, unspecified; Z98.890 Other specified postprocedural states; F32.9 Major depressive disorder, single episode, unspecified; I10 Essential (primary) hypertension
CPT/HCPCS: 99214

== ENCOUNTER 2024-01-01 09:35 | Outpatient (AMB) | payer OTHER, SELFPAY ==
[2024-01-01 09:38] VITALS: BP 130/80; PULSE 99; O2SAT 99; BMI 26.3
--- NOTE | 2024-01-01 09:38 | A.OFFPC_ITS ---
Vital Signs 01/01/24 09:38 Height 5 ft 6 in Weight 163 lb BMI 26.3 BP 130/80 Blood Pressure Location Lt brachial Position Sitting Pulse 99 Pulse Source Pulse Oximeter Pulse Oximetry (%) 99 Oxygen Delivery Method Room Air Intake Visit Reasons: Sudden Weigh Lost / Low Energy Intake Note: Pt is here today for a sick visit. Pt states that she lost 27 lbs since October and she has no energy feeling very tired all the time. Pt also c/o pain behind her L knee. Allergies paroxetine [From PAXIL] Allergy (Mild, Verified 01/01/24 09:43) RASH adhesive tape Adverse Reaction (Severe, Verified 01/01/24 09:43) Redness of Skin Medication List - Last Reconciled 01/01/24 by Liberty Bustillos MD albuterol sulfate 90 mcg/actuation 2 puffs PO Q6H PRN albuterol sulfate 2.5 mg (3 mL) inhalation Q4-6H PRN 30 days amitriptyline 150 mg (2 x 75 mg) PO BEDTIME aspirin 81 mg PO DAILY atenolol 25 mg PO BEDTIME atorvastatin 20 mg PO DAILY azithromycin 250 mg PO 3XW 30 days bisacodyl 10 mg (2 x 5 mg) PO DAILY cholecalciferol (vitamin D3) 50 mcg PO DAILY cyanocobalamin (vitamin B-12) 500 mcg PO DAILY diltiazem HCl ER 180 mg PO DAILY docusate sodium 200 mg (2 x 100 mg) PO BEDTIME duloxetine (Cymbalta) 20 mg PO DAILY bkrnyadehlz-vddhlmmyk-lnutrgii 200-62.5-25 mcg (Trelegy Ellipta) 1 inh inhalation DAILY furosemide 40 mg PO DAILY lorazepam 0.5 mg PO TID PRN sertraline 200 mg PO DAILY trazodone 300 mg PO BEDTIME vitamin E 200 units PO DAILY Tobacco use date assessed: 01/01/24 Fall risk assessment: 1 Fall in past year Last assessed Fall Risk: 01/01/24 Dental Screening Dental Screen Date: 01/01/24 Did you have a dental visit in the last 12 months?: Yes Did you have a dental problem in the last 6 months where you did not have access to dental care?: No Was dental information given to patient?: Patient has dentist HPI Sudden Weigh Lost / Low Energy HPI Details Patient complains of 10 lb weight loss within the last month. She reports decreased appetite nausea and intermittent lower abdominal discomfort on and off. She had negative colonoscopy in August. Patient denies change in bowel habits, hematochezia melena. She reports worsening depression and is established with a psychiatrist and therapist. Patient denies fever chills night sweats cough dyspnea on exertion palpitations chest pains. [facility] Medical History (Updated 01/01/24 @ 10:11 by Liberty Bustillos MD) Diverticulosis Lung density on x-ray Tubular adenoma Constipation Normal pelvic exam Nocturnal hypoxia Colonoscopy refused Mammogram normal Hyperlipidemia Lower back pain Hypertension Mitral valve prolapse Supraventricular tachycardia Fibromyalgia Depression Anxiety COPD (chronic obstructive pulmonary disease) Surgical History H/O colonoscopy History of cardiac radiofrequency ablation Family History Father History of CVA (cerebrovascular accident) Mother History of CVA (cerebrovascular accident) Social History Household Members: Family Housing: House Alcohol intake: never Patient Tobacco Use Status: Former Tobacco user e-Cigarette/Vaping Use: Never Used Advance Directives Date on File: 02/03/23 service: No Current occupational status: retired Cognitive needs: No Hearing needs: No Vision needs: Yes Questionnaire PHQ-9 Over the last 2 weeks, how often have you been bothered by any of the following problems? 7. Trouble concentrating on things, such as reading the newspaper or watching television: more than half the days Source: Developed by Drs. Mustapha Dunlap, Mandi Good, Segun Dueñas and colleagues, with an educational jennifer from [employer]. Thrive Questionnaire Date Thrive assessed: 11/13/23 I am a: Patient What is your living situation today?: I have a steady place to live Within the past 12 months, did the food you bought not last and you didn't have the money to get more?: Never true Within the past 12 months, did you worry whether your food would run out before you got money to buy more?: Never true Do you have trouble paying for medicines?: No Do you have trouble getting transportation to medical appointments?: No Do you have trouble paying your heating and electricity bill?: No Do you have trouble taking care of your child, family member or friend?: I choose not to answer this question Do you have trouble with day-to-day activities such as bathing, preparing meals, shopping, managing finances, etc.?: I choose not to answer this question Are you currently unemployed and looking for a job?: No Are you interested in more education?: No Please select the resources that you would like help with: None THRIVE Score: 0 SAI-7 AMB Questionnaire SAI-7 Date SAI - 7 assessed: 11/13/23 Source: Developed by Drs. Mustapha Dunlap, Mandi Good, Segun Dueñas and colleagues, with an educational jennifer from [employer]. Review of Systems Const All systems reviewed & are unremarkable except as noted in HPI and below Eyes Reports no additional complaints Card Reports no additional complaints Resp Reports no additional complaints GI Reports no additional complaints Reports no additional complaints Physical exam (Primary Care) Vital Signs: Last Vital Signs Pulse 99 01/01/24 09:38 BP 130/80 01/01/24 09:38 Pulse Ox 99 01/01/24 09:38 Oxygen Delivery Method Room Air 01/01/24 09:38 BMI result Body Mass Index 26.3 Tobacco/Smoking Status: Tobacco use Status Tobacco use date assessed 01/01/24 01/01/24 09:47 Patient Tobacco Use Status Former Tobacco user 01/01/24 09:38 e-Cigarette/Vaping Use Never Used 01/01/24 09:38 Thrive Assessment: Date of Thrive Assessment Date Thrive assessed 11/13/23 01/01/24 09:38 Const General: no acute distress HENMT Head: Yes normal to inspection Throat: Yes posterior oropharynx normal Neck Neck: Yes supple Resp Effort & Inspection: normal respiratory effort Auscultation: clear to auscultation bilaterally Cardio Rhythm: regular rhythm Heart sounds: S1 normal heart sound present and S2 normal heart sound present GI Inspection: Yes normal to inspection Palpation (GI): Soft to palpation Percussion: Yes normal to percussion Auscultation: normal bowel sounds Coding Level of Care Code Est Pt Level 4 (87655) Diagnoses Hypertension I10 Hx of esophagogastroduodenoscopy Z98.890 Weight loss R63.4 Depression F32.9 Assessment & Plan Assessment & Plan (1) Hypertension: Code(s): I10 - Essential (primary) hypertension Category: Medical Plan: Continue atenolol (2) Hx of esophagogastroduodenoscopy: Comment: 08/22 f/u [facility] [place] GI Code(s): Z98.890 - Other specified postprocedural states Category: Surgical Plan: Patient was advised to restart PPI for 1 month (3) Weight loss: Code(s): R63.4 - Abnormal weight loss Category: Medical Plan: Check basic blood work, well-balanced diet in small frequent meals discussed with the patient. She will monitor her weight (4) Depression: Comment: f/u psychiatrist and psychologist Code(s): F32.9 - Major depressive disorder, single episode, unspecified Category: Medical Plan: Follow-up with a counselor and therapist continue current medications Orders: Orders Complete Blood Count Auto Diff Today I10 - Essential (primary) hypertension, Z98.890 - Other specified postprocedural states Comprehensive Met. Panel Today I10 - Essential (primary) hypertension, Z98.890 - Other specified postprocedural states Erythrocyte Sedimentation Rate Today I10 - Essential (primary) hypertension, Z98.890 - Other specified postprocedural states TSH reflex Free T4 Today I10 - Essential (primary) hypertension, Z98.890 - Other specified postprocedural states IRON PROFILE Today I10 - Essential (primary) hypertension, Z98.890 - Other specified postprocedural states
== END 2024-01-01 10:12 | disposition home or self-care (01) ==
LOC: HO.HMCC 09:35
PROVIDERS: PCP Internal Medicine; Visit Provider Internal Medicine
DX: I10 Essential (primary) hypertension (principal); Z98.890 Other specified postprocedural states; R63.4 Abnormal weight loss; F32.9 Major depressive disorder, single episode, unspecified

== ENCOUNTER → 2024-01-01 09:35 | Outpatient (BNVA) | payer OTHER, SELFPAY | PROVIDERS: PCP Internal Medicine; Visit Provider Internal Medicine | DX: I10 Essential (primary) hypertension (principal); R63.4 Abnormal weight loss; F32.9 Major depressive disorder, single episode, unspecified; Z98.890 Other specified postprocedural states | CPT/HCPCS: 99212 ==

== ENCOUNTER 2024-01-03 09:23 | Outpatient (REF) | payer OTHER, SELFPAY ==
[2024-01-03 11:16] LABS: MANUAL DIFF FLAG NO
[2024-01-03 11:23] LABS: Basophils Percent Auto 0.5 % (0-2); Eosinophils Absolute Auto 0.2 X10*3/uL (0.0-0.4); Eosinophils Percent Auto 2.3 % (0-4); Hematocrit 35.6 % (37.0-47.0); Hemoglobin 11.9 g/dl (12.0-16.0); Imm Gran Abs Auto 0.03 X10*3/uL (0.00-0.03); Imm Gran Pct Auto 0.5 % (0.0-0.4); Lymphocytes Absolute Auto 1.9 X10*3/uL (1.2-4.9); Lymphocytes Percent Auto 29.7 % (20-40); Mean Corpuscular HGB Conc 33.4 g/dl (31.0-35.0); Mean Corpuscular Hemoglobin 29.3 pg (27.0-33.0); Mean Corpuscular Volume 87.7 fL (80.0-98.0); Monocytes Absolute Auto 0.4 X10*3/uL (0.1-1.2); Monocytes Percent Auto 5.4 % (2-11); Neutrophils Percent Auto 61.6 % (45-73); Platelet Count 242 X10*3/uL (160-400); Red Blood Count 4.06 X10*6/uL (4.20-5.50); Red Cell Distribution Width 13.2 % (11.0-16.0); White Blood Count 6.5 X10*3/uL (4.8-10.8)
[2024-01-03 11:50] LABS: Alanine Aminotransferase 11 U/L (0-31); Albumin Level 3.9 g/dL (3.5-5.0); Alkaline Phosphatase 48 U/L (39-117); Anion Gap 11 (12-20); Aspartate Amino Transferase 15 U/L (5-31); Bilirubin Total 0.4 mg/dL (0.0-1.0); Blood Urea Nitrogen 14 mg/dL (9-16); Calcium 9.5 mg/dL (8.4-10.2); Carbon Dioxide 33 mmol/L (22-29); Chloride 105 mmol/L (96-108); Estimated Glomerular Filt Rate > 60; Glucose Random 91 mg/dL (60-115); Iron 63 mcg/dL (30-160); Percent Iron Saturation 26 % (15-50); Potassium 3.2 mmol/L (3.3-5.1); Sodium 146 mmol/L (135-145); Total Iron Binding Capacity 243 mcg/dL (228-428); Total Protein 6.1 g/dL (6.5-8.0); Unsaturated Iron Binding 180 ug/dL
[2024-01-03 11:57] LABS: Erythrocyte Sedimentation Rate 13 MM/HR (0-20)
[2024-01-03 12:07] LABS: TSH reflex Free T4 2.45 uIU/mL (0.32-4.0)
== END 2024-01-03 09:24 | disposition home or self-care (01) ==
LOC: HO.HMGCLDS 09:23
PROVIDERS: PCP Internal Medicine; Visit Provider Internal Medicine
DX: I10 Essential (primary) hypertension (principal); Z98.890 Other specified postprocedural states
CPT/HCPCS: 36415; 80053; 83540; 84443; 85025; 85652

== ENCOUNTER 2024-02-02 12:58 | Outpatient (REF) | payer OTHER, SELFPAY ==
--- NOTE | ~2024-02-02 | MM_ITS ---
EXAMINATION: MM SCREENING DIGITAL BREAST TOMOSYNTHESIS, BILATERAL CLINICAL INFORMATION: Screening. Asymptomatic. COMPARISON: Mammography: Comparison is made with available priors TECHNIQUE: Digital breast mammography with tomosynthesis is performed in both the craniocaudal and mediolateral oblique views along with computer-aided detection (CAD). FINDINGS: There are scattered areas of fibroglandular density (ACR BI-RADS breast composition Category b). There are no significant masses, abnormal calcifications, or other abnormalities. MM/MM tomosynthesis screening BI IMPRESSION: No mammographic evidence of malignancy. ASSESSMENT: BI-RADS BI-RADS 1 - Negative RECOMMENDATION: Routine annual mammography screening. 1 year F/U This examination should not preclude the clinical evaluation of a suspicious palpable abnormality. This patient's information was entered into a reminder system with a target due date for their next mammogram. Electronically signed by: Bridgette Rush DO 02/06/2024 08:05 PM [facility]
== END 2024-02-02 12:59 | disposition home or self-care (01) ==
LOC: HO.MAMMO 12:58
PROVIDERS: PCP Internal Medicine; Visit Provider Internal Medicine
DX: Z12.31 Encounter for screening mammogram for malignant neoplasm of breast (principal)
CPT/HCPCS: 77063; 77067

== ENCOUNTER → 2024-02-02 13:15 | Outpatient (BNV) | payer OTHER, SELFPAY | PROVIDERS: PCP Internal Medicine; Visit Provider Internal Medicine | DX: Z12.31 Encounter for screening mammogram for malignant neoplasm of breast (principal) | CPT/HCPCS: 77063; 77067 ==

== ENCOUNTER 2024-03-08 12:39 | Outpatient (AMB) | payer OTHER, SELFPAY ==
--- NOTE | 2024-03-08 12:45 | A.OFFVIS_ITS ---
Vital Signs 03/08/24 12:46 Height 5 ft 6 in Weight 160 lb 14.999 oz BMI 26.0 BP 142/68 H Blood Pressure Location Rt brachial Position Sitting Pulse 100 Pulse Source Pulse Oximeter Pulse Oximetry (%) 94 Oxygen Delivery Method Room Air Intake Visit Reasons: 6 mnth follow up Intake Note: ESTABLISHED PATIENT Reason; in office 6 mos FUV. Changes/concerns? Imaging + Labs done. Abd pain, RUQ. New onset within the last few months. Allergies paroxetine [From PAXIL] Allergy (Mild, Verified 03/08/24 12:46) RASH adhesive tape Adverse Reaction (Severe, Verified 03/08/24 12:46) Redness of Skin HPI HPI 6 mnth follow up: Details: LAST VISIT: Constipation Tubular adenoma Diverticulosis GERD (gastroesophageal reflux disease) Postprandial abdominal bloating Abdominal pain Plan Patient will continue taking Colace and Dulcolax. Increase fluid intake and activity to promote better bowel motility. Continue Nexium. Patient will wean herself off of sucralfate. Will check ultrasound of the liver. Patient had CT scan in January of 2023, two hypodense cyst versus hemangiomas that were unchanged since 2017. Will recheck liver panel. Avoid dietary triggers and late night snacking. Staying upright for minimum 3 hours after meals discussed with patient. Patient will follow-up in 6 months, sooner on as needed basis. Patient is agreeable to this plan and verbalizes understanding of instructions. She was given the opportunity to ask questions and all questions answered. ? Thank you for allowing me to participate in her care Orders Orders US abdomen limited Today K76.89 Liver Panel Today R74.01 Medications New bisacodyl 10 mg (2 x 5 mg) PO DAILY 180 tabs 3RF Refilled esomeprazole magnesium (Nexium) 40 mg PO DAILY 90 caps 2RF K21.9 TODAY'S VISIT: Patient is here today for follow-up and to discuss ultrasound results and lab results. Results discussed with patient. Ultrasound showed hepatic steatosis, patient had normal liver enzymes. She did loose 29 lb since August, however patient change her diet completely. She is no longer eating carbs is particularly sugars. However patient still complains of occasional abdominal pain and bloating. Patient reports that she is not having success moving her bowels. Currently is taking Linzess 290 mcg with Dulcolax at bedtime and she sometimes will have couple days with no bowel movement. Patient reports pain in her abdomen 2 to 3 times a week. Patient reports she does not have appetite and states that her acid reflux symptoms are suppressed for the most part. However patient does report sometimes pain in the epigastric area depending on what she eats. Reports large amount of phlegm in the morning when she wakes up. Patient will be seeing her filing or registry clerk in the couple days. Possible large amount of postnasal drip during the night, however can not exclude reflux. Patient reports occasional dyspepsia and dysphagia without odynophagia. [facility] Medical History Diverticulosis Lung density on x-ray Tubular adenoma Constipation Normal pelvic exam Nocturnal hypoxia Colonoscopy refused Mammogram normal Hyperlipidemia Lower back pain Hypertension Mitral valve prolapse Supraventricular tachycardia Fibromyalgia Depression Anxiety COPD (chronic obstructive pulmonary disease) Surgical History H/O colonoscopy History of cardiac radiofrequency ablation Family History Father History of CVA (cerebrovascular accident) Mother History of CVA (cerebrovascular accident) Social History Household Members: Family Housing: House Alcohol intake: never Patient Tobacco Use Status: Former Tobacco user e-Cigarette/Vaping Use: Never Used Advance Directives Date on File: 02/03/23 service: No Current occupational status: retired Cognitive needs: No Hearing needs: No Vision needs: Yes Review of Systems Const Denies weight gain and Denies weight loss ENT Reports no additional complaints, Denies dysphagia and Denies odynophagia Card Reports no additional complaints Resp Reports no additional complaints GI Denies abdominal pain, Denies belching, Denies melena, Denies bloating, Denies change in bowel habits, Denies dysphagia, Denies excessive flatus, Denies dyspepsia, Denies heartburn, Denies diarrhea, Denies loose stools, Denies nausea, Denies odynophagia and Denies vomiting Musc Reports no additional complaints Neuro Reports no additional complaints Psych Reports no additional complaints Endo Reports no additional complaints Physical Exam Vital Signs: Last Vital Signs Pulse 100 03/08/24 12:46 BP 142/68 H 03/08/24 12:46 Pulse Ox 94 03/08/24 12:46 Oxygen Delivery Method Room Air 03/08/24 12:46 BMI result Body Mass Index 26.0 Const General: healthy appearing and no acute distress Nutritional Appearance: obese Orientation/consciousness: patient oriented x3 Resp Effort & Inspection: normal respiratory effort, able to speak in complete sentences, no tracheal deviation and symmetric chest movement Auscultation: clear to auscultation bilaterally Cardio Rate: regular rate GI Inspection: Yes normal to inspection, No distended and Yes obesity Palpation (GI): Soft to palpation, not firm, nontender and No hepatosplenomegaly present Auscultation: normal bowel sounds General: Yes no CVA tenderness Back/Spine/Pelvis Back: no CVA tenderness Skin General skin exam: elasticity normal, turgor normal and dry skin Neuro General: patient oriented x3 Psych Appearance: grossly normal Mental Status: mental status grossly normal Results Reviewed Results Reviewed: ABDOMINAL US FINDINGS: PANCREAS: Tail obscured. LIVER: The liver is normal in size. The liver contour is normal. There is diffuse increased liver parenchymal echogenicity, consistent with hepatic steatosis. Left hepatic cyst measures 9 x 8 x 10 mm. There is no intrahepatic biliary duct dilatation seen. GALLBLADDER: The gallbladder is physiologically distended without evidence of stones, sludge, polyps, wall thickening or pericholecystic fluid. COMMON BILE DUCT: Normal in caliber measuring 0.6 cm in diameter. RIGHT KIDNEY: No hydronephrosis. No renal calculi or focal parenchymal lesions. The kidney measures 10.2 cm in maximum dimension. FREE FLUID: None. US/US abdomen limited IMPRESSION: Left hepatic simple cyst measuring 9 x 8 x 10 mm. No further routine imaging follow-up is needed. Laboratory Tests 01/03/24 09:47 AST 15 ALT 11 Alkaline Phosphatase 48 Total Protein 6.1 L TSH 2.45 Assessment & Plan Assessment & Plan (1) Constipation: Code(s): K59.00 - Constipation, unspecified Category: Medical Qualifiers: Constipation type: chronic idiopathic constipation Qualified Code(s): K59.04 - Chronic idiopathic constipation (2) Tubular adenoma: Comment: 09/2023 Code(s): D36.9 - Benign neoplasm, unspecified site Category: Medical (3) Diverticulosis: Code(s): K57.90 - Diverticulosis of intestine, part unspecified, without perforation or abscess without bleeding Category: Medical (4) GERD (gastroesophageal reflux disease): Code(s): K21.9 - Gastro-esophageal reflux disease without esophagitis Qualifiers: Esophagitis presence: esophagitis presence not specified Qualified Code(s): K21.9 - Gastro-esophageal reflux disease without esophagitis (5) Postprandial abdominal bloating: Code(s): R14.0 - Abdominal distension (gaseous) (6) Abdominal pain: Code(s): R10.9 - Unspecified abdominal pain Qualifiers: Abdominal location: right upper quadrant Qualified Code(s): R10.11 - Right upper quadrant pain (7) Dysphagia: Code(s): R13.10 - Dysphagia, unspecified Qualifiers: Dysphagia type: unspecified Qualified Code(s): R13.10 - Dysphagia, unspecified (8) Hepatic steatosis: Code(s): K76.0 - Fatty (change of) liver, not elsewhere classified Plan Patient will start Trulance and stop Linzess. She can continue taking Dulcolax daily. Patient was encouraged to increase fluid intake and activity to promote better bowel motility. Patient lost 29 lb in the past 8 months. She did change her diet and no longer eating carbs or sugars. Patient reports dysphagia occasionally as well as dyspepsia and epigastric pain. We will send her for upper GI series. Patient will be sent for upper endoscopy as well. Her last endoscopy was couple years ago. Will check for eosinophilic esophagitis. Patient does admit to have large amount of mucus when she wakes up in the morning. Patient had normal ultrasound. I will see patient in 3 months, sooner on as needed basis. She is agreeable to plan of care and verbalizes understanding of instructions. She was given the opportunity to ask questions and all questions answered. Thank you for allowing me to participate in her care Orders: Orders FL upper GI w Ba Swallow Today K21.9 - Gastro-esophageal reflux disease without esophagitis Medications: New plecanatide (Trulance) 3 mg PO DAILY 30 tabs 3RF K59.09 - Other constipation Coding Level of Care Code Est Pt Level 4 (21981) Complex EM visit Add On G2211 Diagnoses Chronic idiopathic constipation K59.04 Constipation type: chronic idiopathic constipation Tubular adenoma D36.9 Diverticulosis K57.90 Gastroesophageal reflux disease, unspecified whether esophagitis present K21.9 Esophagitis presence: esophagitis presence not specified Postprandial abdominal bloating R14.0 Right upper quadrant abdominal pain R10.11 Abdominal location: right upper quadrant Dysphagia, unspecified type R13.10 Dysphagia type: unspecified Hepatic steatosis K76.0 Time Spent (min) 35 Comment 20 minutes spent with patient and additional 15 minutes spent reviewing her records
[2024-03-08 12:46] VITALS: BP 142/68; PULSE 100; O2SAT 94; BMI 26.0
== END 2024-03-08 13:41 | disposition home or self-care (01) ==
PROVIDERS: PCP Internal Medicine; Visit Provider Nurse Practitioner Family
DX: K59.04 Chronic idiopathic constipation (principal); D36.9 Benign neoplasm, unspecified site; K57.90 Diverticulosis of intestine, part unspecified, without perforation or abscess without bleeding; K21.9 Gastro-esophageal reflux disease without esophagitis; R14.0 Abdominal distension (gaseous); R10.11 Right upper quadrant pain; R13.10 Dysphagia, unspecified; K76.0 Fatty (change of) liver, not elsewhere classified
CPT/HCPCS: 99214; G2211

== ENCOUNTER → 2024-03-08 12:39 | Outpatient (BNVA) | payer OTHER, SELFPAY | PROVIDERS: PCP Internal Medicine; Visit Provider Nurse Practitioner Family | DX: K59.04 Chronic idiopathic constipation (principal); K57.90 Diverticulosis of intestine, part unspecified, without perforation or abscess without bleeding; K21.9 Gastro-esophageal reflux disease without esophagitis; K76.0 Fatty (change of) liver, not elsewhere classified; D36.9 Benign neoplasm, unspecified site; R14.0 Abdominal distension (gaseous); R10.11 Right upper quadrant pain; R13.10 Dysphagia, unspecified | CPT/HCPCS: 99212 ==

== ENCOUNTER 2024-03-18 14:22 | Outpatient (AMB) | payer OTHER, SELFPAY ==
[2024-03-18 14:28] VITALS: BP 114/62; PULSE 74; O2SAT 97; BMI 26.2
--- NOTE | 2024-03-18 14:28 | A.OFFVIS_ITS ---
Vital Signs 03/18/24 14:28 Height 5 ft 6 in Weight 162 lb 0.636 oz BMI 26.2 BP 114/62 Blood Pressure Location Lt brachial Position Sitting Pulse 74 Pulse Source Pulse Oximeter Pulse Oximetry (%) 97 Oxygen Delivery Method Room Air Intake Visit Reasons: COPD Intake Note: pt is here for follow up and states she is has been getting a lot of headaches and some pain in back where lungs are, and when waking up in am she has a lot of thick phelgm that she has to almost peel out, and some wheeze, with dry cough Smutter Required: No Allergies paroxetine [From PAXIL] Allergy (Mild, Verified 03/18/24 14:49) RASH adhesive tape Adverse Reaction (Severe, Verified 03/18/24 14:49) Redness of Skin Medication List - Last Reconciled 03/18/24 by Ibrahima Hernandez MD albuterol sulfate 90 mcg/actuation 2 puffs PO Q6H PRN albuterol sulfate 2.5 mg (3 mL) inhalation Q4-6H PRN 30 days amitriptyline 150 mg (2 x 75 mg) PO BEDTIME aspirin 81 mg PO DAILY atenolol 25 mg PO BEDTIME atorvastatin 20 mg PO DAILY azithromycin 250 mg PO 3XW PRN bisacodyl 10 mg (2 x 5 mg) PO DAILY cholecalciferol (vitamin D3) 50 mcg PO DAILY cyanocobalamin (vitamin B-12) 500 mcg PO DAILY diltiazem HCl ER 180 mg PO DAILY docusate sodium 200 mg (2 x 100 mg) PO BEDTIME duloxetine (Cymbalta) 20 mg PO DAILY lrptctjighl-yrxxcaluc-qpoaadxd 200-62.5-25 mcg (Trelegy Ellipta) 1 inh inhalation DAILY furosemide 40 mg PO DAILY lorazepam 0.5 mg PO TID PRN plecanatide (Trulance) 3 mg PO DAILY sertraline 200 mg PO DAILY trazodone 300 mg PO BEDTIME vitamin E 200 units PO DAILY Do you need a note to return to daycare/school/sports/work: No HPI HPI COPD: Details: 68 YEARS OLD FEMALE WITH LONGSTANDING HISTORY OF CHRONIC OBSTRUCTIVE PULMONARY DISEASE, ANXIETY AND DEPRESSION, COMES FOR FOLLOW-UP AFTER 4 MONTHS. SHE HAS BEEN FAIRLY STABLE EXCEPT IN THE LAST FEW WEEKS, SHE IS OUT OF AZITHROMYCIN, AND HAS HAD INCREASED PHLEGM ESPECIALLY IN THE MORNING WHICH IS QUITE THICK AND DIFFICULT TO EXPECTORATE. THE SAME TIME SHE HAS HAD NO ACUTE RESPIRATORY INFECTION. 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 COMPLAINS OF PAIN IN THE INTERSCAPULAR AREA AND WONDERS IF THIS HAS ANYTHING TO DO WITH THE LUNGS. SHE DOES HAVE DEGENERATIVE ARTHRITIS OF THE CERVICAL SPINE. HOWEVER SHE TRIES TO STAY ACTIVE AND PLAYS WITH HER GRANDCHILDREN, AND CLAIMS TO BE QUITE HAPPY MOST OF THE TIMES. FORMERLY [facility] Medical History Diverticulosis Lung density on x-ray Tubular adenoma Constipation Normal pelvic exam Nocturnal hypoxia Colonoscopy refused Mammogram normal Hyperlipidemia Lower back pain Hypertension Mitral valve prolapse Supraventricular tachycardia Fibromyalgia Depression Anxiety COPD (chronic obstructive pulmonary disease) Surgical History H/O colonoscopy History of cardiac radiofrequency ablation Family History Father History of CVA (cerebrovascular accident) Mother History of CVA (cerebrovascular accident) Social History Household Members: Family Housing: House Alcohol intake: never Patient Tobacco Use Status: Former Tobacco user e-Cigarette/Vaping Use: Never Used Advance Directives Date on File: 02/03/23 service: No Current occupational status: retired Cognitive needs: No Hearing needs: No Vision needs: Yes Review of Systems Const All systems reviewed & are unremarkable except as noted in HPI and below Eyes Reports no additional complaints ENT Reports no additional complaints Card Denies chest pain, Denies irregular heart rhythm and Denies leg edema Resp Reports as per HPI GI Reports constipation and Reports heartburn (Controlled with omeprazole) Reports no additional complaints Musc Denies abnormal gait (Slow mainly because of back pain), Reports back pain (Her back remains stiff most of the times) and Reports myalgias Skin/Breast Reports system reviewed and no additional complaints, except as documented Neuro Denies abnormal gait (Slow mainly because of back pain) Psych Reports anxiety Physical Exam Vital Signs: Last Vital Signs Pulse 74 03/18/24 14:28 BP 114/62 03/18/24 14:28 Pulse Ox 97 03/18/24 14:28 Oxygen Delivery Method Room Air 03/18/24 14:28 BMI result Body Mass Index 26.2 Const General: comfortable, no acute distress, alert and awake Orientation/consciousness: patient oriented x3 HEENT Head: Yes normal to inspection General nose exam: No nasal polyps present and No nasal discharge present Face and sinus: Yes sinuses nontender Mouth: oropharynx normal Throat: Yes posterior oropharynx normal Eyes General: appearance normal, both eyes and all related structures Neck Neck: Yes normal visual inspection, Yes no lymphadenopathy, Yes trachea midline and Yes no JVD Thyroid: Thyroid normal Chest Chest palpation & inspection: normal inspection of the chest, normal palpation of entire chest wall and no tenderness Resp Other: Percussion note resonant, breath sounds are equal on both sides. I do not hear any wheezes or crepitations today. Cardio Palpation: normal PMI Rate: regular rate Rhythm: regular rhythm Heart sounds: no gallops and no murmurs GI Palpation (GI): Soft to palpation, nontender, No hepatosplenomegaly present and no masses Auscultation: normal bowel sounds Back/Spine/Pelvis Thoracic/Lumbar Spine: thoracic and lumbar spine normal to inspection, thoraco- lumbar ROM limited and thoraco-lumbar spasm Skin General skin exam: no rashes or lesions noted Neuro General: patient oriented x3 and no focal motor deficits Cranial nerves: Yes CN's II-XII intact bilaterally Extrem General: Yes normal to inspection, Yes no clubbing, cyanosis or edema and Yes no calf tenderness Psych Appearance: grossly normal and well kempt Speech and movement: Normal speech and movement present Assessment & Plan Assessment & Plan (1) COPD (chronic obstructive pulmonary disease): Comment: COPD , CHRONIC, CONTROLLED AND STABLE, normal spirometry 2021 DESCRIBES SLIGHTLY INCREASED COUGH AND SCRATCHY FEELING IN THE THROAT . ALSO HAD THICK MUCUS ESPECIALLY IN THE MORNING. Code(s): J44.9 - Chronic obstructive pulmonary disease, unspecified Category: Medical Plan: CONTINUE TO USE TRELEGY 1 INHALATION DAILY. ALBUTEROL HFA 2 PUFFS Q 6 HOURS P.R.N./ALTERNATIVELY MAY USE ALBUTEROL SOLUTION IN THE NEBULIZER Q 6 HOURS P.R.N.. AZITHROMYCIN 250 MG P.O. 3 DAYS A WEEK (2) Nocturnal hypoxia: Comment: PATIENT HAS HISTORY OF NOCTURNAL HYPOXEMIA, TREATED WITH OXYGEN SUPPLEMENTATION. 2L/MT She is now using it only off and on. Code(s): G47.34 - Idiopathic sleep related nonobstructive alveolar hypoventilation Category: Medical Plan: SHE DOES HAVE O2 CONCENTRATOR AT HOME, ADVISED TO USE O2 2 L/MINUTE P.R.N. IF SHE RUNS INTO ANY DISTRESS (3) Lung density on x-ray: Comment: ON THE CT SCAN OF ABDOMEN, A WEDGE SHAPED DENSITY IN THE RIGHT LOWER LOBE WHICH IS PROBABLY DUE TO ATELECTASIS. REPEAT CT SCAN SHOWS THAT THE DENSITY IN THE RIGHT LOWER LOBE HAS RESOLVED, WAS PROBABLY ATELECTASIS. A 5 MM DENSITY IN LEFT LOWER LOBE REMAINED UNCHANGED FROM BEFORE . Code(s): J98.4 - Other disorders of lung Category: Medical Plan: DOES NOT NEED ONGOING FOLLOW-UP, .SCANS Coding Level of Care Code Est Pt Level 3 (62164) Diagnoses COPD (chronic obstructive pulmonary disease) J44.9 Nocturnal hypoxia G47.34 Lung density on x-ray J98.4
== END 2024-03-18 14:50 | disposition home or self-care (01) ==
PROVIDERS: PCP Internal Medicine; Visit Provider Internal Medicine
DX: J44.9 Chronic obstructive pulmonary disease, unspecified (principal); G47.34 Idiopathic sleep related nonobstructive alveolar hypoventilation; J98.4 Other disorders of lung
CPT/HCPCS: 99213

== ENCOUNTER → 2024-03-18 14:22 | Outpatient (BNVA) | payer OTHER, SELFPAY | PROVIDERS: PCP Internal Medicine; Visit Provider Internal Medicine | DX: J44.9 Chronic obstructive pulmonary disease, unspecified (principal); J98.4 Other disorders of lung; G47.34 Idiopathic sleep related nonobstructive alveolar hypoventilation | CPT/HCPCS: 99212 ==

== ENCOUNTER 2024-04-02 11:37 | Outpatient (REF) | payer OTHER, SELFPAY ==
[2024-04-02 15:58] LABS: MANUAL DIFF FLAG NO
[2024-04-02 16:08] LABS: Basophils Absolute Auto 0.1 X10*3/uL (0.0-0.2); Basophils Percent Auto 0.5 % (0-2); Eosinophils Absolute Auto 0.2 X10*3/uL (0.0-0.4); Eosinophils Percent Auto 1.7 % (0-4); Hematocrit 35.5 % (37.0-47.0); Imm Gran Abs Auto 0.09 X10*3/uL (0.00-0.03); Imm Gran Pct Auto 0.7 % (0.0-0.4); Lymphocytes Absolute Auto 2.3 X10*3/uL (1.2-4.9); Lymphocytes Percent Auto 17.7 % (20-40); Mean Corpuscular HGB Conc 33.8 g/dl (31.0-35.0); Mean Corpuscular Hemoglobin 29.6 pg (27.0-33.0); Mean Corpuscular Volume 87.7 fL (80.0-98.0); Mean Platelet Volume 9.4 fL (9.4-12.3); Monocytes Absolute Auto 0.6 X10*3/uL (0.1-1.2); Monocytes Percent Auto 4.7 % (2-11); Neutrophils Absolute Auto 9.9 x10*3/uL (2.0-8.3); Neutrophils Percent Auto 74.7 % (45-73); Platelet Count 331 X10*3/uL (160-400); Red Blood Count 4.05 X10*6/uL (4.20-5.50); Red Cell Distribution Width 12.2 % (11.0-16.0); White Blood Count 13.2 X10*3/uL (4.8-10.8)
[2024-04-02 18:01] LABS: Alanine Aminotransferase 7 U/L (0-31); Anion Gap 14 (12-20); Aspartate Amino Transferase 19 U/L (5-31); Bilirubin Total 0.3 mg/dL (0.0-1.0); Blood Urea Nitrogen 14 mg/dL (9-16); Calcium 9.3 mg/dL (8.4-10.2); Carbon Dioxide 31 mmol/L (22-29); Chloride 102 mmol/L (96-108); Estimated Glomerular Filt Rate > 60; Glucose Random 78 mg/dL (60-115); Magnesium 1.8 mg/dL (1.6-2.6); Sodium 144 mmol/L (135-145); Total Protein 7.2 g/dL (6.5-8.0)
[2024-04-02 18:10] LABS: Alkaline Phosphatase 64 U/L (39-117); TSH reflex Free T4 1.25 uIU/mL (0.32-4.0)
== END 2024-04-02 11:38 | disposition home or self-care (01) ==
LOC: HO.HMGCLDS 11:37
PROVIDERS: PCP Internal Medicine; Visit Provider Internal Medicine
DX: Z00.00 Encounter for general adult medical examination without abnormal findings (principal); I47.10 Supraventricular tachycardia, unspecified; E87.6 Hypokalemia; J44.9 Chronic obstructive pulmonary disease, unspecified; F32.9 Major depressive disorder, single episode, unspecified
CPT/HCPCS: 36415; 80053; 83735; 84443; 85025; 96127; 99397

== ENCOUNTER 2024-04-02 11:37 | Outpatient (AMB) | payer OTHER, SELFPAY ==
--- NOTE | 2024-04-02 11:50 | MHC.PC.OV ---
Vital Signs 04/02/24 11:52 Height 5 ft 6 in Weight 158 lb BMI 25.5 BP 108/68 Blood Pressure Location Lt brachial Position Sitting Respiration 18 Pulse 89 Pulse Source Pulse Oximeter Temp 98.7 F Temp Source Oral Pulse Oximetry (%) 97 Oxygen Delivery Method Room Air Intake Visit Reasons: Annual PE Intake Note: Pt is here today for PE. Allergies paroxetine [From PAXIL] Allergy (Mild, Verified 04/02/24 11:56) RASH adhesive tape Adverse Reaction (Severe, Verified 04/02/24 11:56) Redness of Skin Medication List - Last Reconciled 04/02/24 by Liberty Bustillos MD albuterol sulfate 90 mcg/actuation 2 puffs PO Q6H PRN albuterol sulfate 2.5 mg (3 mL) inhalation Q4-6H PRN 30 days amitriptyline 150 mg (2 x 75 mg) PO BEDTIME aspirin 81 mg PO DAILY atenolol 25 mg PO BEDTIME atorvastatin 20 mg PO DAILY azithromycin 250 mg PO 3XW bisacodyl 10 mg (2 x 5 mg) PO DAILY cholecalciferol (vitamin D3) 50 mcg PO DAILY cyanocobalamin (vitamin B-12) 500 mcg PO DAILY diltiazem HCl ER 180 mg PO DAILY docusate sodium 200 mg (2 x 100 mg) PO BEDTIME doxycycline hyclate 100 mg PO BID duloxetine (Cymbalta) 20 mg PO DAILY pmvcjfrlpfg-tvzokohzn-wwbopxdm 200-62.5-25 mcg (Trelegy Ellipta) 1 inh inhalation DAILY furosemide 40 mg PO DAILY lorazepam 0.5 mg PO TID PRN plecanatide (Trulance) 3 mg PO DAILY prednisone Four tablets p.o. q.d. for 3 days then 3 tablets p.o. q.d. for 3 days then 2 tablets p.o. q.d. for 3 days then 1 tablet p.o. q.d. for 3 days orally daily; sertraline 200 mg PO DAILY trazodone 300 mg PO BEDTIME vitamin E 200 units PO DAILY Tobacco use date assessed: 04/02/24 Fall risk assessment: No Falls in past year Last assessed Fall Risk: 04/02/24 Dental Screening Dental Screen Date: 04/02/24 Did you have a dental visit in the last 12 months?: Yes Did you have a dental problem in the last 6 months where you did not have access to dental care?: No Was dental information given to patient?: Patient has dentist HPI Annual PE HPI Details Pt presents for PE. Pt c/o productive cough chest tightness wheezing congestion for 2 weeks. She has been taking Mucinex [id number] without significant relief. Patient denies pleurisy fever chills or night sweats PFSH Medical History Personal history of nicotine dependence Diverticulosis Lung density on x-ray Tubular adenoma Constipation Normal pelvic exam Nocturnal hypoxia Colonoscopy refused Mammogram normal Hyperlipidemia Lower back pain Hypertension Mitral valve prolapse Supraventricular tachycardia Fibromyalgia Depression Anxiety COPD (chronic obstructive pulmonary disease) Surgical History H/O colonoscopy History of cardiac radiofrequency ablation Family History Father History of CVA (cerebrovascular accident) Mother History of CVA (cerebrovascular accident) Social History Household Members: Family Housing: House Alcohol intake: never Patient Tobacco Use Status: Former Tobacco user e-Cigarette/Vaping Use: Never Used Advance Directives Date on File: 02/03/23 service: No Current occupational status: retired Cognitive needs: No Hearing needs: No Vision needs: Yes Questionnaire PHQ-9 Over the last 2 weeks, how often have you been bothered by any of the following problems? 1. Little interest or pleasure in doing things: not at all 2. Feeling down, depressed, or hopeless: not at all 3. Trouble falling or staying asleep, or sleeping too much: more than half the days 4. Feeling tired or having little energy: more than half the days 5. Poor appetite or overeating: more than half the days 6. Feeling bad about yourself - or that you are a failure or have let yourself or your family down: not at all 7. Trouble concentrating on things, such as reading the newspaper or watching television: not at all 8. Moving or speaking so slowly that other people could have noticed. Or the opposite - being so fidgety or restless that you have been moving around a lot more than usual: not at all 9. Thoughts that you would be better off or of hurting yourself in some way: not at all Total score: 6 Depression Screening Interpretation: Negative Depression Screening Done: Yes [id number] - PHQ-9 Billing: Yes Source: Developed by Drs. Mustapha Dunlap, Mandi Good, Segun Dueñas and colleagues, with an educational jennifer from [employer]. Thrive Questionnaire Date Thrive assessed: 04/02/24 I am a: Patient What is your living situation today?: I have a steady place to live Within the past 12 months, did the food you bought not last and you didn't have the money to get more?: Never true Within the past 12 months, did you worry whether your food would run out before you got money to buy more?: Never true Do you have trouble paying for medicines?: No Do you have trouble getting transportation to medical appointments?: No Do you have trouble paying your heating and electricity bill?: No Do you have trouble taking care of your child, family member or friend?: I choose not to answer this question Do you have trouble with day-to-day activities such as bathing, preparing meals, shopping, managing finances, etc.?: Yes Are you currently unemployed and looking for a job?: No Are you interested in more education?: No Please select the resources that you would like help with: None Currently or been in a relationship where the following occur: No concerns reported THRIVE Score: 0 AUDIT C Alcohol Use Questionnaire (AUDIT-C) 1. How often do you have a drink containing alcohol?: Never 3. How often do you have six or more drinks on one occasion?: Never Total Score: 0 SAI-7 AMB Questionnaire SAI-7 Date SAI - 7 assessed: 04/02/24 Feeling nervous, anxious, or on edge: 0 = Not at all Not being able to stop or control worryin = More than half the days Worrying too much about different things: 2 = More than half the days Trouble relaxin = More than half the days Being so restless that it is hard to sit still: 2 = More than half the days Becoming easily annoyed or irritable: 0 = Not at all Feeling afraid as if something awful might happen: 0 = Not at all Total SAI-7 score (0-4 normal; 5-9 mild; 10-14 moderate; 15-21 severe): 8 Source: Developed by Drs. Mustapha Dunlap, Mandi Good, Segun Dueñas and colleagues, with an educational jennifer from [employer]. SAI-7 Assessment Billing SAI-7 Assessment Tool: SAI-7 Assessment 42242 Review of Systems Const All systems reviewed & are unremarkable except as noted in HPI and below Eyes Reports no additional complaints ENT Reports no additional complaints Card Reports no additional complaints Resp Reports no additional complaints GI Reports no additional complaints Reports no additional complaints Physical exam (Primary Care) Vital Signs: Last Vital Signs Temp 98.7 F 04/02/24 11:52 Pulse 89 04/02/24 11:52 Resp 18 04/02/24 11:52 BP 108/68 04/02/24 11:52 Pulse Ox 97 04/02/24 11:52 Oxygen Delivery Method Room Air 04/02/24 11:52 BMI result Body Mass Index 25.5 Tobacco/Smoking Status: Tobacco use Status Tobacco use date assessed 04/02/24 04/02/24 11:57 Patient Tobacco Use Status Former Tobacco user 04/02/24 11:51 e-Cigarette/Vaping Use Never Used 04/02/24 11:51 PHQ-9: PHQ-9 Score PHQ-9: Total score 6 04/02/24 11:57 Depression Screening Interpretation: Negative Thrive Assessment: Date of Thrive Assessment Date Thrive assessed 04/02/24 04/02/24 11:57 Currently or been in a relationship where the following occur: No concerns reported Const General: no acute distress HENMT Head: Yes normal to inspection Face and sinus: Yes normal facial exam Throat: Yes posterior oropharynx normal Eyes General: appearance normal, both eyes and all related structures Neck Neck: Yes no lymphadenopathy and Yes supple Resp Effort & Inspection: normal respiratory effort Auscultation: rhonchi, wheezes and diminished lung sounds Cardio Rhythm: regular rhythm Heart sounds: S1 normal heart sound present and S2 normal heart sound present GI Inspection: Yes normal to inspection Palpation (GI): Soft to palpation Percussion: Yes normal to percussion Auscultation: normal bowel sounds Extrem General: Yes no clubbing, cyanosis or edema Coding Level of Care Code Est Pt Prev Care >65y(11857) Diagnoses Supraventricular tachycardia I47.1 Hypokalemia E87.6 COPD (chronic obstructive pulmonary disease) J44.9 Depression F32.9 Annual physical exam Z00.00 Additional Codes SAI-7 Assessment Billing - SAI-7 Assessment Tool: SAI-7 Assessment [id number] ([id number]) PHQ-9 - 34820 - PHQ-9 Billing: Yes ([id number]) Assessment & Plan Assessment & Plan (1) Supraventricular tachycardia: Comment: s/p ablation [facility] 2018, echo and Holter normal 05/22, follow-up with cardiology, on Cardizem and atenolol Code(s): I47.1 - Supraventricular tachycardia Category: Medical Plan: Controlled on Cardizem and atenolol (2) Hypokalemia: Code(s): E87.6 - Hypokalemia Category: Medical Plan: Potassium rich diet discussed with the patient repeat labs today. (3) COPD (chronic obstructive pulmonary disease): Comment: COPD , CHRONIC, CONTROLLED AND STABLE, normal spirometry 2021 DESCRIBES SLIGHTLY INCREASED COUGH AND SCRATCHY FEELING IN THE THROAT . ALSO HAD THICK MUCUS ESPECIALLY IN THE MORNING. Code(s): J44.9 - Chronic obstructive pulmonary disease, unspecified Category: Medical Plan: For COPD exacerbation prednisone taper and doxycycline are prescribed. patient will continue Trelegy and albuterol as needed (4) Depression: Comment: f/u psychiatrist and psychologist Code(s): F32.9 - Major depressive disorder, single episode, unspecified Category: Medical Plan: Continue current medications (5) Annual physical exam: Code(s): Z00.00 - Encounter for general adult medical examination without abnormal findings Category: Medical Plan: Well-balanced diet regular physical activity discussed with the patient. She is up-to-date with the mammogram and colonoscopy. Follow-up in 6 months Orders: Orders Magnesium Today E87.6 - Hypokalemia, I47.1 - Supraventricular tachycardia Comprehensive Met. Panel Today E87.6 - Hypokalemia, I47.1 - Supraventricular tachycardia Complete Blood Count Auto Diff Today E87.6 - Hypokalemia, I47.1 - Supraventricular tachycardia Medications: New doxycycline hyclate 100 mg PO BID 20 tabs 0RF prednisone Four tablets p.o. q.d. for 3 days then 3 tablets p.o. q.d. for 3 days then 2 tablets p.o. q.d. for 3 days then 1 tablet p.o. q.d. for 3 days orally daily; 30 tabs 0RF
[2024-04-02 11:52] VITALS: BP 108/68; PULSE 89; RESP 18; TEMP 37.1; O2SAT 97; BMI 25.5
== END 2024-04-02 12:58 | disposition home or self-care (01) ==
PROVIDERS: PCP Internal Medicine; Visit Provider Internal Medicine
DX: I47.10 Supraventricular tachycardia, unspecified (principal); E87.6 Hypokalemia; J44.9 Chronic obstructive pulmonary disease, unspecified; F32.9 Major depressive disorder, single episode, unspecified; Z00.00 Encounter for general adult medical examination without abnormal findings

== ENCOUNTER 2024-05-25 08:16 | Outpatient (REF) | payer OTHER, SELFPAY ==
--- NOTE | ~2024-05-25 | FL_ITS ---
EXAMINATION: XR FLUOROSCOPY UPPER GI SERIES CLINICAL INFORMATION: Gastroesophageal reflux disease. Episodic dysphagia. COMPARISON: None TECHNIQUE: Fluoroscopic air contrast upper GI examination was performed utilizing standard techniques with thin and thick barium and effervescent granules. Numerous spot images were obtained. Several fluoroscopic image hold cine sequences were also obtained. FINDINGS: UPPER GI SERIES: Lateral cine images of the oropharynx and hypopharynx demonstrate normal swallow mechanism with normal epiglottic inversion and soft palate elevation. There was mild laryngeal penetration, without glottic or subglottic aspiration identified. No nasopharyngeal reflux present. Hypopharyngeal structures appear normal without evidence of mass or diverticulum. There was no significant cricopharyngeal achalasia. Dual and single contrast images of the esophagus demonstrate normal caliber and contour. Mild granular mucosal pattern distal one half suggesting mild esophagitis. No evidence of stricture, mass, or ulcerations identified. Esophageal peristalsis is moderately disordered. Feline contraction pattern noted. Small type I hiatus hernia present. Episodic gastroesophageal reflux present to the level of the aortic arch. Dual contrast and single contrast images of the stomach demonstrated normal contour, with mild thickening of the rugal folds. Normal gastric mucosal pattern. No evidence of mass or ulceration. Contrast freely passed into the gastric antrum and duodenal bulb without delay. Single and air-contrast images of the duodenal bulb demonstrate no abnormality. The duodenal sweep has a normal appearance, course, and mucosal fold appearance. FLUOROSCOPY TIME: 3 minutes 18 seconds Number of Spot Images:12 Number of cines obtained: 11 DOSE AREA PRODUCT: 275.4 dGy-m2 FL/FL upper GI w Ba Swallow IMPRESSION: 1. Trace laryngeal penetration without glottic or subglottic aspiration. 2. Moderately disordered esophageal peristalsis. Feline contraction pattern present, typically associated with chronic reflux. 3. Granular appearing distal esophageal mucosa, suggesting mild esophagitis. 4. Small type I hiatus hernia. 5. Episodic gastroesophageal reflux identified to the level of the aortic arch. 6. Thickening of the gastric rugal folds suggesting gastritis. Electronically signed by: Jamal Salas MD 05/25/2024 12:49 PM EDT
== END 2024-05-25 08:17 | disposition home or self-care (01) ==
LOC: HO.XRAY 08:16
PROVIDERS: PCP Internal Medicine; Visit Provider Nurse Practitioner Family
DX: K21.9 Gastro-esophageal reflux disease without esophagitis (principal)
CPT/HCPCS: 74240

== ENCOUNTER → 2024-05-25 08:18 | Outpatient (BNV) | payer OTHER, SELFPAY | PROVIDERS: PCP Internal Medicine; Visit Provider Radiology Diagnostic Radiology | DX: K21.9 Gastro-esophageal reflux disease without esophagitis (principal) | CPT/HCPCS: 74246 ==

== ENCOUNTER 2024-06-09 06:41 | Day surgery (SDC) | payer OTHER, SELFPAY ==
[2024-06-07 10:59] VITALS: BMI 26.0
--- NOTE | 2024-06-08 08:53 | P.CONAN_ITS ---
Documented by User: Rossy Ashton NP 06/08/24 09:00 HPI - Anesthesia Eval Consult details Narrative: 69yo F for Upper Endoscopy [place] [facility] [place] for: Supraventricular tachycardia s/p ablation [facility] 2018, echo and Holter normal 05/22, follow-up with cardiology, on Cardizem and atenolol [place] [facility] [place] pulmo for COPD, nocturnal hypoxia (O2 QHS) PMFSH Active Problems Active Problems: All Active Problems Hypokalemia (Acute) Weight loss (Acute) Renal cyst, acquired, left (Acute) Leukocytosis (leucocytosis) (Acute) Allergic reaction (Acute) Cough (Acute) Hip pain, right (Acute) Neck pain (Acute) Hx of esophagogastroduodenoscopy (Acute) Hx of colonoscopy (Acute) Postmenopausal (Acute) Urticaria (Acute) Tachycardia (Acute) Dog bite (Acute) Constipation (Acute) Normal pelvic exam (Acute) Rash (Acute) Radicular low back pain (Acute) Tired (Acute) Rib pain on left side (Acute) Colonoscopy refused (Acute) Mammogram normal (Acute) Personal history of nicotine dependence (Acute) Diverticulosis (Acute) Depression (Acute) Lung density on x-ray (Acute) Tubular adenoma (Acute) Supraventricular tachycardia (Acute) Nocturnal hypoxia (Acute) Hyperlipidemia (Acute) Hypertension (Acute) Lower back pain (Acute) COPD (chronic obstructive pulmonary disease) (Acute) Past Medical History Medical History Personal history of nicotine dependence Diverticulosis Lung density on x-ray Tubular adenoma Nocturnal hypoxia Hyperlipidemia Lower back pain Hypertension Mitral valve prolapse Supraventricular tachycardia Fibromyalgia Depression Anxiety COPD (chronic obstructive pulmonary disease) Family History Family History Father History of CVA (cerebrovascular accident) Mother History of CVA (cerebrovascular accident) Family history of problems with anesthesia: No Surgical History Surgical History History of esophagogastroduodenoscopy (EGD) H/O colonoscopy History of cardiac radiofrequency ablation History of Problems with Anesthesia: No Social History Social History Household Members: Family Housing: House Are you a primary childcare teacher to a significant other at home: No Do you presently have visiting nurse or other home services: No Alcohol intake: never Patient Tobacco Use Status: Former Tobacco user e-Cigarette/Vaping Use: Never Used Use of substances other than those prescribed or required for medical reasons: No Have you been hit, kicked, punched, or otherwise hurt by someone within the past year? If so, by whom?: No Advance Directives: No Advance Directives Information Provided: Yes Advance Directives Date on File: 02/03/23 service: No Current occupational status: retired Cognitive needs: No Hearing needs: No Vision needs: Yes Meds Allergies Allergy/AdvReac Type Severity Reaction Status Date / Time paroxetine [From PAXIL] Allergy Mild RASH Verified 06/09/24 07:12 adhesive tape AdvReac Severe Redness of Verified 06/09/24 07:12 Skin Home Medications ?Medication ?Instructions ?Recorded ?Confirmed ?Last Taken ?Type lorazepam 0.5 mg tablet 0.5 mg PO TID PRN Agitation 11/27/19 06/07/24 Unknown History aspirin 81 mg tablet,delayed 81 mg PO DAILY 03/22/20 06/07/24 06/10/23 History release cholecalciferol (vitamin D3) 50 50 mcg PO DAILY 08/28/21 06/07/24 06/10/23 History mcg (2,000 unit) capsule vitamin E 200 unit capsule 200 unit PO DAILY 08/28/21 06/07/24 06/10/23 History duloxetine 20 mg capsule,delayed 20 mg PO DAILY 09/18/22 06/07/24 02/03/23 History release (Cymbalta) cyanocobalamin (vitamin B-12) 500 500 mcg PO DAILY 02/03/23 06/07/24 06/10/23 History mcg tablet trazodone 100 mg tablet 300 mg PO BEDTIME 05/07/23 06/07/24 Unknown History sertraline 100 mg tablet 200 mg PO DAILY 01/01/24 06/07/24 Unknown History Exam Height,Weight and Vital Signs: Height 5 ft 6 in Weight 73.028 kg Narrative Narrative: EKG 2023 EKG Details: EKG with sinus rhythm at 79/Min; nonspecific ST-T changes; normal OR and corrected QT. Holter 2023 1. Baseline was normal sinus rhythm with no pauses 2. No sustained arrhythmias 3. Occasional PACs and rare PVCs noted 4. Patient reported symptoms and triggered events correlated with sinus rhythm Assessment and Plan Assessment Anesthesia Assessment: Chart Reviewed Final Anesthetic Review Family History of Problems with Anesthesia: No History of Problems with Anesthesia: No Documented by User: La Cobb MD 06/09/24 07:53 [facility] Active Problems Active Problems: All Active Problems Hypokalemia (Acute) Weight loss (Acute) Renal cyst, acquired, left (Acute) Leukocytosis (leucocytosis) (Acute) Allergic reaction (Acute) Cough (Acute) Hip pain, right (Acute) Neck pain (Acute) Hx of esophagogastroduodenoscopy (Acute) Hx of colonoscopy (Acute) Postmenopausal (Acute) Urticaria (Acute) Tachycardia (Acute) Dog bite (Acute) Constipation (Acute) Normal pelvic exam (Acute) Rash (Acute) Radicular low back pain (Acute) Tired (Acute) Rib pain on left side (Acute) Colonoscopy refused (Acute) Mammogram normal (Acute) Personal history of nicotine dependence (Acute)- remote history Diverticulosis (Acute) Depression (Acute) Lung density on x-ray (Acute) Tubular adenoma (Acute) Supraventricular tachycardia (Acute) Nocturnal hypoxia (Acute) Hyperlipidemia (Acute) Hypertension (Acute) Lower back pain (Acute) COPD (chronic obstructive pulmonary disease) (Acute) with bronchitis. 2 roubds of treatment with steroids and antibiotics. Still taking antibiotics Past Medical History Medical History Personal history of nicotine dependence Diverticulosis Lung density on x-ray Tubular adenoma Nocturnal hypoxia Hyperlipidemia Lower back pain Hypertension Mitral valve prolapse Supraventricular tachycardia Fibromyalgia Depression Anxiety COPD (chronic obstructive pulmonary disease) Family History Family History Father History of CVA (cerebrovascular accident) Mother History of CVA (cerebrovascular accident) Family history of problems with anesthesia: No Surgical History Surgical History History of esophagogastroduodenoscopy (EGD) H/O colonoscopy History of cardiac radiofrequency ablation History of Problems with Anesthesia: No Social History Social History Household Members: Family Housing: House Are you a primary childcare teacher to a significant other at home: No Do you presently have visiting nurse or other home services: No Alcohol intake: never Patient Tobacco Use Status: Former Tobacco user e-Cigarette/Vaping Use: Never Used Use of substances other than those prescribed or required for medical reasons: No Have you been hit, kicked, punched, or otherwise hurt by someone within the past year? If so, by whom?: No Advance Directives: No Advance Directives Information Provided: Yes Advance Directives Date on File: 02/03/23 service: No Current occupational status: retired Cognitive needs: No Hearing needs: No Vision needs: Yes Meds Allergies Allergy/AdvReac Type Severity Reaction Status Date / Time paroxetine [From PAXIL] Allergy Mild RASH Verified 06/09/24 07:12 adhesive tape AdvReac Severe Redness of Verified 06/09/24 07:12 Skin Home Medications ?Medication ?Instructions ?Recorded ?Confirmed ?Last Taken ?Type lorazepam 0.5 mg tablet 0.5 mg PO TID PRN Agitation 11/27/19 06/07/24 Unknown History aspirin 81 mg tablet,delayed 81 mg PO DAILY 03/22/20 06/07/24 06/10/23 History release cholecalciferol (vitamin D3) 50 50 mcg PO DAILY 08/28/21 06/07/24 06/10/23 History mcg (2,000 unit) capsule vitamin E 200 unit capsule 200 unit PO DAILY 08/28/21 06/07/24 06/10/23 History duloxetine 20 mg capsule,delayed 20 mg PO DAILY 09/18/22 06/07/24 02/03/23 History release (Cymbalta) cyanocobalamin (vitamin B-12) 500 500 mcg PO DAILY 02/03/23 06/07/24 06/10/23 History mcg tablet trazodone 100 mg tablet 300 mg PO BEDTIME 05/07/23 06/07/24 Unknown History sertraline 100 mg tablet 200 mg PO DAILY 10/31/24 04/07/25 Unknown History Exam Height,Weight and Vital Signs: Height 5 ft 6 in Weight 73.028 kg Vital Signs Temp Pulse Resp BP Pulse Ox O2 Del Method 06/09/24 07:21 97.6 F 74 14 85/58 L 94 Room Air Airway Mallampati Class: II TM Dist: >3cm Neck ROM: Full Denture: Upper Loose/Missing/Broken Teeth: Yes (No teeth bottom- dental posts. Full upper denture) Heart: RRR Lungs: CTAB. No wheezes Assessment and Plan Assessment Anesthesia Assessment: Anesthesia Plan Discussed and Chart Reviewed Final Anesthetic Review Family History of Problems with Anesthesia: No History of Problems with Anesthesia: No NPO: Yes ASA Class: III Final Preanesthetic Review: No Changes in Pt Med Stat, Meds/Allgs Chart Reviewed, Consent Obtained/Reviewed and Anes Risks/Benef Reviewed Patient Risk: Intermediate Procedure Risk: Low Assessment/Block/Sedation in SS: Assess/Block/Sedation-SS Anesthetic Plan Anesthetic Plan: TIVA Disposition: Standard PACU
[2024-06-09 07:21] VITALS: BP 85/58; PULSE 74; RESP 14; TEMP 36.4; O2SAT 94; BMI 25.3
[2024-06-09] MEDS: Lactated Ringers 1,000 ML 100 ML IVCONT (07:35)
--- NOTE | 2024-06-09 08:42 | MHC.SHP ---
Pre-Procedural Eval Section A - 24 Hr Update-Section A only Date of Service: 06/09/24 Section B - Complete if H&P > 30 days Chief Complaint: Gastro-esophageal reflux disease without esophagit Relevant Family History (Specify if Yes): No Relevant Social History: None Present Medications: see Short Stay Collaborative assessment Medical History: Significant History (Personal history of nicotine dependence Diverticulosis Lung density on x-ray Tubular adenoma Nocturnal hypoxia Hyperlipidemia Lower back pain Hypertension Mitral valve prolapse Supraventricular tachycardia Fibromyalgia Depression Anxiety COPD (chronic obstructive pulmonary disease)) History of Previous Operations: Relevant previous surgery/procedure and date(s) (History of esophagogastroduodenoscopy (EGD) H/O colonoscopy History of cardiac radiofrequency ablation) Allergies: Allergies Allergy/AdvReac Type Severity Reaction Status Date / Time paroxetine [From PAXIL] Allergy Mild RASH Verified 06/09/24 07:12 adhesive tape AdvReac Severe Redness of Verified 06/09/24 07:12 Skin Review of Systems Sugical H&P ROS: Negative: Constitution, Cardiovascular, Respiratory, Neurological, Psychiatric, Hem-Onc, Allergic/Immunologic, Gastrointestinal, Genitourinary, Musculoskeletal, Integumentary, Endocrine and Eyes/Ears/Nose/Throat Exam Surgical H&P Exam: Normal: HEENT, Normal: Heart, Normal: Lungs, Normal: Extremities, Normal: Abdomen, Normal: Skin and Normal: Neurological Plan Diagnosis/Plan: Unchanged I have reviewed the history and physical and performed a pertinent physical examination on my patient. No changes have occurred unless specified. Time Spent With Patient Time: Total time managing care of this patient today ____ minutes.
--- NOTE | 2024-06-09 08:57 | W.PM.OPN ---
Operative Note Operative Note Date of Service: 06/09/24 Narrative: Procedure Description: EGD Indication: abdominal pain Anesthesia: MAC FLEXIBLE TRANSORAL UPPER GASTROINTESTINAL ENDOSCOPY UPPER ENDOSCOPY Consent: Indications for the procedure and potential complications of bleeding, perforation, reaction to medications and missed diagnosis were discussed with the patient and informed consent was obtained. Instrument: Olympus GIF H 190 J mid size upper endoscope Monitoring: Vital signs and clinical assessment, continuous EKG monitoring, Pulse oximetry, Carbon Dioxide monitoring and blood pressure monitoring were done throughout the procedure. Procedure: The patient was placed in the left lateral decubitis position and pre-procedure medications were administered and a bite block was placed. The endoscope was inserted into the mouth and advanced under direct vision to the third part of duodenum. A careful inspection was made as the upper endoscope was withdrawn including a retroflexed examination of the proximal stomach; Findings and interventions are described below. Findings: Larynx:normal Esophagus: GE junction at 40 cm, diaphragm hiatus at 40 cm, mild bogginess at GEJ, bx taken Stomach: streaky gastritis in antrum and body . Biopsies were obtained. Grade 2 flap valve on retroflexed examination of the cardia. Duodenum: Normal bulb and descending duodenum, bx taken Intervention: Biopsies as noted above, Impression/Findings: gastritis mild esophagitis PLAN: consider changing lansoprazole if ongoing sx GERD precautions
[2024-06-09 09:06] VITALS: BP 93/50; PULSE 67; RESP 14; TEMP 36.6; O2SAT 93
[2024-06-09 09:21] VITALS: BP 131/45; PULSE 74; RESP 18; TEMP 36.1; O2SAT 95
== END 2024-06-09 10:50 | disposition home or self-care (01) ==
PROVIDERS: PCP Internal Medicine; Visit Provider Internal Medicine Gastroenterology
PROC: 0DJ08ZZ Inspection of Upper Intestinal Tract, Via Natural or Artificial Opening Endoscopic (ICD-10-PCS; CPT 43235; principal; 2024-06-09 08:30)
DX: R10.11 Right upper quadrant pain (principal); R13.10 Dysphagia, unspecified; K21.9 Gastro-esophageal reflux disease without esophagitis; K29.50 Unspecified chronic gastritis without bleeding; K20.90 Esophagitis, unspecified without bleeding; K44.9 Diaphragmatic hernia without obstruction or gangrene; K76.0 Fatty (change of) liver, not elsewhere classified; K76.89 Other specified diseases of liver; I10 Essential (primary) hypertension; I34.1 Nonrheumatic mitral (valve) prolapse; E78.5 Hyperlipidemia, unspecified; J44.9 Chronic obstructive pulmonary disease, unspecified; K57.30 Diverticulosis of large intestine without perforation or abscess without bleeding; M79.7 Fibromyalgia; M54.50 Low back pain, unspecified; Z79.82 Long term (current) use of aspirin; Z79.899 Other long term (current) drug therapy; Z88.8 Allergy status to other drugs, medicaments and biological substances; L23.1 Allergic contact dermatitis due to adhesives; Z98.890 Other specified postprocedural states; Z87.891 Personal history of nicotine dependence
CPT/HCPCS: 43239; 88305; 88313; 88342; J1100; J1596; J2003; J2704

== ENCOUNTER → 2024-06-09 06:41 | Outpatient (BNV) | payer OTHER, SELFPAY | PROVIDERS: PCP Internal Medicine; Visit Provider Internal Medicine Gastroenterology | DX: K21.00 Gastro-esophageal reflux disease with esophagitis, without bleeding (principal); K29.70 Gastritis, unspecified, without bleeding | CPT/HCPCS: 43239 ==

== ENCOUNTER 2024-06-14 11:01 | Outpatient (REF) | payer OTHER, SELFPAY ==
--- NOTE | ~2024-06-14 | CT_ITS ---
CLINICAL HISTORY: Z87.891 - Personal history of nicotine dependence Examination CT lung cancer screening History Screening examination performed for pulmonary nodules Technique Axial CT images of the chest using low-dose technique. Effective radiation dose total: 49.2 mGy-cm, CTDIvol 1.2 mGy. Referring provider counseled the patient on shared decision-making for LDCT screening. Additional counseling was provided on smoking cessation. Comparison: None Findings: Lungs: Solid pulmonary nodules measure up to 5 mm (series 6, image 112 in the left lower lobe). Mild paraseptal emphysema. Moderate centrilobular emphysema. Mild bronchial wall thickening. Mild increased subpleural reticulation Coronary artery calcifications: [id number] Other: 2.4 cm nodule in the right lobe of the thyroid Limited upper abdomen: Small hiatal hernia Impression: LungRADS 2 - Benign Appearance: Continue annual screening with low dose Chest CT in 12 months. ##L2# Nodule in the thyroid meets size criteria for a dedicated nonemergent thyroid ultrasound. Category 1: Normal; continue annual screening Category 2: Benign appearance or behavior, continue annual screening Category 3: Probably benign, [address] recommended Category 4A: Suspicious, [address] recommended; may consider PET/CT Category 4B: Suspicious, Additional diagnostics and/or tissue sampling recommended Category 4X: Suspicious, Additional diagnostics and/or tissue sampling recommended Category 0: Recalls (incomplete screen due to Incomplete coverage, Noise, Respiratory motion, Expiration, Obscured by acute abnormality) This document has been electronically signed by: Tamara Purcell MD on 06/15/2024 21:26:29
== END 2024-06-14 11:02 | disposition home or self-care (01) ==
LOC: HO.CT 11:01
PROVIDERS: PCP Internal Medicine; Visit Provider Physician Assistant Medical
DX: Z12.2 Encounter for screening for malignant neoplasm of respiratory organs (principal); Z87.891 Personal history of nicotine dependence
CPT/HCPCS: 71271

== ENCOUNTER → 2024-06-14 11:03 | Outpatient (BNV) | payer OTHER, SELFPAY | PROVIDERS: PCP Internal Medicine; Visit Provider Radiology Diagnostic Radiology | DX: Z12.2 Encounter for screening for malignant neoplasm of respiratory organs (principal); Z87.891 Personal history of nicotine dependence | CPT/HCPCS: 71271 ==

== ENCOUNTER 2024-06-22 09:03 | Outpatient (AMB) | payer OTHER, SELFPAY ==
[2024-06-22 09:08] VITALS: BP 136/74; PULSE 78; O2SAT 94; BMI 25.8
--- NOTE | 2024-06-22 09:08 | MHC.OFFVIS ---
Vital Signs 06/22/24 09:08 Height 5 ft 6 in Weight 160 lb BMI 25.8 BP 136/74 Blood Pressure Location Rt brachial Position Sitting Pulse 78 Pulse Source Pulse Oximeter Pulse Oximetry (%) 94 Oxygen Delivery Method Room Air Intake Visit Reasons: s/p egd Rodas Intake Note: ESTABLISHED PATIENT for s/p egd w/ TH Chief Complaint; Pt denies any GI sx or concerns at this time. Pt stopped senna as she did not find it necessary/effective. Pt still taking all other GI meds w/o difficulty. 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 She can continue taking Dulcolax daily. Patient was encouraged to increase fluid intake and activity to promote better bowel motility. Patient lost 29 lb in the past 8 months. She did change her diet and no longer eating carbs or sugars. Patient reports dysphagia occasionally as well as dyspepsia and epigastric pain. We will send her for upper GI series. Patient will be sent for upper endoscopy as well. Her last endoscopy was couple years ago. Will check for eosinophilic esophagitis. Patient does admit to have large amount of mucus when she wakes up in the morning. Patient had normal ultrasound. I will see patient in 3 months, sooner on as needed basis. She is agreeable to plan of care and verbalizes understanding of instructions. She was given the opportunity to ask questions and all questions answered. ? Thank you for allowing me to participate in her care Orders Orders [place] upper GI w Ba Swallow Today K21.9 Medications New plecanatide (Trulance) 3 mg PO DAILY 30 tabs 3RF K59.09 UPPER ENDOSCOPY Findings: Larynx:normal Esophagus: GE junction at 40 cm, diaphragm hiatus at 40 cm, mild bogginess at GEJ, bx taken Stomach: streaky gastritis in antrum and body . Biopsies were obtained. Grade 2 flap valve on retroflexed examination of the cardia. Duodenum: Normal bulb and descending duodenum, bx taken Intervention: Biopsies as noted above, Impression/Findings: gastritis mild esophagitis PLAN: consider changing lansoprazole if ongoing sx GERD precautions PATHOLOGY RESULTS Diagnosis A. Duodenum, biopsy: Duodenal mucosa within normal limits. B. Stomach, biopsy: Oxyntic mucosa with mild chronic inactive inflammation; no Helicobacter organisms seen. C. GE junction, biopsy: - Cardiac-type mucosa with moderate chronic active inflammation; no intestinal metaplasia seen. - Active esophagitis (maximum eosinophil count 3 per high powered field). D. Esophagus, distal, biopsy: Squamous epithelium within normal limits; no inflammation seen TODAY'S VISIT Patient is here today for follow-up and to discuss upper endoscopy results. Patient continues to have a epigastric pain and reflux. Sometimes when she even drinks water and bent over she will feel acid reflux. Currently she is taking lansoprazole, however patient admits that she does not have any food or eat anything till the afternoon. Patient is taking sucralfate at bedtime. Reports that she is moving her bowels every 2-3 days. Continues to have left lower quadrant pain. Patient had upper GI series with barium swallow that showed disorganized esophageal motility, possible gastritis. Currently patient is taking Trulance in the morning and Dulcolax in the evening and for the most part she has to wait few days before she has a bowel movement. Patient does reports to be drinking fluids, not enough though. Patient is not following low FODMAP diet. Her reflux is worse after she has coffee with blueberry muffin or just coffee [facility] Medical History Personal history of nicotine dependence Diverticulosis Lung density on x-ray Tubular adenoma Nocturnal hypoxia Hyperlipidemia Lower back pain Hypertension Mitral valve prolapse Supraventricular tachycardia Fibromyalgia Depression Anxiety COPD (chronic obstructive pulmonary disease) Surgical History History of esophagogastroduodenoscopy (EGD) H/O colonoscopy History of cardiac radiofrequency ablation Family History Father History of CVA (cerebrovascular accident) Mother History of CVA (cerebrovascular accident) Social History Household Members: Family Housing: House Are you a primary nurse healthcare manager to a significant other at home: No Do you presently have visiting nurse or other home services: No Alcohol intake: never Patient Tobacco Use Status: Former Tobacco user e-Cigarette/Vaping Use: Never Used Advance Directives Date on File: 02/03/23 service: No Current occupational status: retired Cognitive needs: No Hearing needs: No Vision needs: Yes Review of Systems Const Denies weight gain and Denies weight loss ENT Reports no additional complaints, Denies dysphagia and Denies odynophagia Card Reports no additional complaints Resp Reports no additional complaints GI Denies abdominal pain, Denies belching, Denies melena, Reports bloating, Denies change in bowel habits, Reports constipation, Denies dysphagia, Denies excessive flatus, Reports dyspepsia, Reports heartburn, Denies diarrhea, Denies loose stools, Denies nausea, Denies odynophagia and Denies vomiting Reports no additional complaints Musc Reports no additional complaints Neuro Reports no additional complaints Psych Reports no additional complaints Endo Reports no additional complaints Physical Exam Vital Signs: Last Vital Signs Pulse 78 06/22/24 09:08 BP 136/74 06/22/24 09:08 Pulse Ox 94 06/22/24 09:08 Oxygen Delivery Method Room Air 06/22/24 09:08 BMI result Body Mass Index 25.8 Const General: healthy appearing and no acute distress Nutritional Appearance: obese Orientation/consciousness: patient oriented x3 Resp Effort & Inspection: normal respiratory effort, able to speak in complete sentences, no tracheal deviation and symmetric chest movement Auscultation: clear to auscultation bilaterally Cardio Rate: regular rate GI Inspection: Yes normal to inspection, No distended and Yes obesity Palpation (GI): Soft to palpation, not firm, nontender and No hepatosplenomegaly present Auscultation: normal bowel sounds General: Yes no CVA tenderness Back/Spine/Pelvis Back: no CVA tenderness Skin General skin exam: elasticity normal, turgor normal and dry skin Neuro General: patient oriented x3 Psych Appearance: grossly normal Mental Status: mental status grossly normal Results Reviewed Results Reviewed: UPPER GI SERIES WITH BARIUM SWALLOW 05/25/2024 IMPRESSION: 1. Trace laryngeal penetration without glottic or subglottic aspiration. 2. Moderately disordered esophageal peristalsis. Feline contraction pattern present, typically associated with chronic reflux. 3. Granular appearing distal esophageal mucosa, suggesting mild esophagitis. 4. Small type I hiatus hernia. 5. Episodic gastroesophageal reflux identified to the level of the aortic arch. 6. Thickening of the gastric rugal folds suggesting gastritis. Assessment & Plan Assessment & Plan (1) Constipation: Code(s): K59.00 - Constipation, unspecified Category: Medical Qualifiers: Constipation type: chronic idiopathic constipation Qualified Code(s): K59.04 - Chronic idiopathic constipation (2) Tubular adenoma: Comment: 09/2023 Code(s): D36.9 - Benign neoplasm, unspecified site Category: Medical (3) Diverticulosis: Code(s): K57.90 - Diverticulosis of intestine, part unspecified, without perforation or abscess without bleeding Category: Medical (4) GERD (gastroesophageal reflux disease): Code(s): K21.9 - Gastro-esophageal reflux disease without esophagitis Qualifiers: Esophagitis presence: without esophagitis Qualified Code(s): K21.9 - Gastro-esophageal reflux disease without esophagitis (5) Postprandial abdominal bloating: Code(s): R14.0 - Abdominal distension (gaseous) (6) Abdominal pain: Code(s): R10.9 - Unspecified abdominal pain Qualifiers: Abdominal location: left lower quadrant Qualified Code(s): R10.32 - Left lower quadrant pain (7) Dysphagia: Code(s): R13.10 - Dysphagia, unspecified Qualifiers: Dysphagia type: pharyngoesophageal phase Qualified Code(s): R13.14 - Dysphagia, pharyngoesophageal phase (8) Hepatic steatosis: Code(s): K76.0 - Fatty (change of) liver, not elsewhere classified Plan Patient will continue lansoprazole every morning. Avoid dietary triggers and late night snacking. Patient educated about importance of eating half an hour after taking PPI as this is the only way that this medication will work. Patient will take sucralfate at 14:00 and at bedtime. Continue taking Linzess and Dulcolax. Increase fluid intake and activity to promote better bowel motility. Patient was encouraged to take probiotics with fiber as well. I will see her in 2-3 months, sooner on as needed basis. She is agreeable to this plan and verbalizes understanding of instructions. She was given the opportunity to ask questions and all questions answered Thank you for allowing me to participate in her care Medications: Changed From sucralfate 10 mL PO BEDTIME 400 mL 3RF K21.9 - Gastro-esophageal reflux disease without esophagitis To sucralfate 10 mL PO BID 400 mL 3RF K21.9 - Gastro-esophageal reflux disease without esophagitis Coding Level of Care Code Est Pt Level 4 (70644) Complex EM visit Add On G2211 Diagnoses Chronic idiopathic constipation K59.04 Constipation type: chronic idiopathic constipation Tubular adenoma D36.9 Diverticulosis K57.90 Gastroesophageal reflux disease without esophagitis K21.9 Esophagitis presence: without esophagitis Postprandial abdominal bloating R14.0 Left lower quadrant abdominal pain R10.32 Abdominal location: left lower quadrant Pharyngoesophageal dysphagia R13.14 Dysphagia type: pharyngoesophageal phase Hepatic steatosis K76.0 Time Spent (min) 40 Comment 25 minutes spent with patient and additional 15 minutes spent reviewing her records
== END 2024-06-22 09:50 | disposition home or self-care (01) ==
PROVIDERS: PCP Internal Medicine; Visit Provider Nurse Practitioner Family
DX: K59.04 Chronic idiopathic constipation (principal); D36.9 Benign neoplasm, unspecified site; K57.90 Diverticulosis of intestine, part unspecified, without perforation or abscess without bleeding; K21.9 Gastro-esophageal reflux disease without esophagitis; R14.0 Abdominal distension (gaseous); R10.32 Left lower quadrant pain; R13.14 Dysphagia, pharyngoesophageal phase; K76.0 Fatty (change of) liver, not elsewhere classified
CPT/HCPCS: 99214; G2211

== ENCOUNTER → 2024-06-22 09:03 | Outpatient (BNVA) | payer OTHER, SELFPAY | PROVIDERS: PCP Internal Medicine; Visit Provider Nurse Practitioner Family | DX: K59.04 Chronic idiopathic constipation (principal); K57.90 Diverticulosis of intestine, part unspecified, without perforation or abscess without bleeding; K76.0 Fatty (change of) liver, not elsewhere classified; K21.9 Gastro-esophageal reflux disease without esophagitis; D36.9 Benign neoplasm, unspecified site; R14.0 Abdominal distension (gaseous); R10.32 Left lower quadrant pain; R13.14 Dysphagia, pharyngoesophageal phase | CPT/HCPCS: 99212 ==

== ENCOUNTER 2024-07-06 14:00 | Outpatient (AMB) | payer OTHER, SELFPAY ==
[2024-07-06 14:16] VITALS: BP 120/68; PULSE 71; BMI 25.8
--- NOTE | 2024-07-06 14:16 | MHC.OFFVIS ---
Vital Signs 07/06/24 14:16 Height 5 ft 6 in Weight 160 lb BMI 25.8 BP 120/68 Blood Pressure Location Lt brachial Position Sitting Pulse 71 Pulse Source Monitor Intake Visit Reasons: Follow up Allergies paroxetine [From PAXIL] Allergy (Mild, Verified 06/22/24 09:08) RASH adhesive tape Adverse Reaction (Severe, Verified 06/22/24 09:08) Redness of Skin Medication List - Last Reconciled 07/06/24 by Nestor Sam MD albuterol sulfate 90 mcg/actuation 2 puffs PO Q6H PRN albuterol sulfate 2.5 mg (3 mL) inhalation Q4-6H PRN 30 days amitriptyline 150 mg (2 x 75 mg) PO BEDTIME aspirin 81 mg PO DAILY atenolol 25 mg PO BEDTIME atorvastatin 20 mg PO DAILY azithromycin 250 mg PO 3XW bisacodyl (Laxative (bisacodyl)) 10 mg PO DAILY cholecalciferol (vitamin D3) 50 mcg PO DAILY cyanocobalamin (vitamin B-12) 500 mcg PO DAILY diltiazem HCl ER 180 mg PO DAILY docusate sodium 200 mg (2 x 100 mg) PO BEDTIME duloxetine (Cymbalta) 20 mg PO DAILY aaxseusllfg-msfvecmjs-jdcrwnzi 200-62.5-25 mcg (Trelegy Ellipta) 1 inh inhalation DAILY furosemide 40 mg PO DAILY lansoprazole 30 mg PO DAILY lorazepam 0.5 mg PO TID PRN plecanatide (Trulance) 3 mg PO DAILY potassium chloride ER 20 mEq PO BID sertraline 200 mg PO DAILY sucralfate 10 mL PO BID vitamin E 200 units PO DAILY zolpidem 10 mg PO BEDTIME PRN HPI Comments Details: 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 Previously seeing . It seems that she was getting a lot of episodes of palpitations thought to be from supraventricular tachycardia. Then in 2016, she was seen by [facility] EP and underwent ablation of the same. In 2020, she was again having palpitations and heart racing into the 140s. Then there is a mention of atrial fibrillation by EMT evaluation but the ER visit rather showed sinus rhythm. Since then, she has been on diltiazem plus atenolol. Last year, she was again complaining of some palpitations but nothing recently. She states she feels fine in that regard. She gets some random chest pains that according to her is like a muscle spasm. However, it does not seem to be exertional. Not doing any regular exercise because of instability and a fear of falling. FORMERLY [facility], 1928–1983 Medical History Personal history of nicotine dependence Diverticulosis Lung density on x-ray Tubular adenoma Nocturnal hypoxia Hyperlipidemia Lower back pain Hypertension Mitral valve prolapse Supraventricular tachycardia Fibromyalgia Depression Anxiety COPD (chronic obstructive pulmonary disease) Surgical History History of esophagogastroduodenoscopy (EGD) H/O colonoscopy History of cardiac radiofrequency ablation Family History Father History of CVA (cerebrovascular accident) Mother History of CVA (cerebrovascular accident) Social History Household Members: Family Housing: House Are you a primary livestock caretaker to a significant other at home: No Do you presently have visiting nurse or other home services: No Alcohol intake: never Patient Tobacco Use Status: Former Tobacco user e-Cigarette/Vaping Use: Never Used Advance Directives Date on File: 02/03/23 service: No Current occupational status: retired Cognitive needs: No Hearing needs: No Vision needs: Yes Review of Systems Const Denies weakness ENT Denies dizziness Card Denies chest pain, Denies chest pain with activity, Denies syncope, Denies rapid heart rate, Denies pedal edema, Denies edema, Denies leg edema, Denies lightheadedness, Denies palpitations, Denies dyspnea, Denies dyspnea on exertion and Denies orthopnea Resp Denies cough, Denies dyspnea and Denies dyspnea on exertion GI Denies hematochezia and Denies change in stool character Musc Denies abnormal gait, Reports myalgias, Denies muscle cramps, Denies muscle weakness, Denies numbness, Denies radiating pain into limb and Denies tingling Neuro Denies abnormal gait, Denies dizziness, Denies syncope, Denies numbness, Denies tingling and Denies weakness Endo Denies palpitations Physical Exam Vital Signs: Last Vital Signs Pulse 71 07/06/24 14:16 BP 120/68 07/06/24 14:16 BMI result Body Mass Index 25.8 Const General: comfortable and no acute distress Orientation/consciousness: patient oriented x3 HEENT Other: Unremarkable Head: Yes normal to inspection Neck Neck: Yes normal visual inspection Chest Chest palpation & inspection: normal inspection of the chest Resp Auscultation: clear to auscultation bilaterally Cardio Palpation: normal PMI Heart sounds: S1 normal heart sound present, S2 normal heart sound present, no gallops, no murmurs and no rubs GI Palpation (GI): Soft to palpation Back/Spine/Pelvis Other: unremarkable Skin General skin exam: no rashes or lesions noted Neuro General: patient oriented x3 Extrem General: Yes normal to inspection Psych Mental Status: mental status grossly normal Office Procedures EKG Details: EKG with sinus rhythm at 71/Min; no significant ST-T changes; [place]. [id number], Complete Assessment & Plan Assessment & Plan (1) AVNRT (AV neil re-entry tachycardia): Code(s): I47.1 - Supraventricular tachycardia Category: Medical Plan: EKG from 01/2021 shows a narrow complex tachycardia at 180/Min. Appears regular. Could be rather recurrent AVNRT. Atrial tachycardia vs flutter also possible. Less likely atrial fibrillation. EKG from ER itself shows sinus rhythm at 87/Min. 2 week Holter shows underlying sinus rhythm; occasional PACs and some PVCs but no significant runs. In other monitor from 2023, underlying sinus with PACs/PVCs but no sustained arrhythmias. Echocardiogram with normal LVEF, 57%; no significant valvular pathology and otherwise unremarkable. Stable on diltiazem/atenolol. (2) Atrial arrhythmia: Code(s): I49.8 - Other specified cardiac arrhythmias Category: Medical Plan: Plan as above. (3) Coronary artery calcification seen on CT scan: Code(s): I25.10 - Atherosclerotic heart disease of [place] coronary artery without angina pectoris Category: Medical Plan: CT chest had reported coronary artery calcification which is not uncommon at this age. Chest pains sound atypical but we can do a pharmacological stress with Lexiscan. She is not comfortable walking on the treadmill. Orders: Orders NM cardiolite stress test Today R07.2 - Precordial pain CA lexiscan stress w carlos Today I20.9 - Angina pectoris, unspecified Coding Level of Care Code Est Pt Level 4 (82705) Complex EM visit Add On G2211 Diagnoses AVNRT (AV neil re-entry tachycardia) I47.1 Atrial arrhythmia I49.8 Coronary artery calcification seen on CT scan I25.10 CPT Codes EKG - CPT: [id number], Complete ([id number])
== END 2024-07-06 14:42 | disposition home or self-care (01) ==
LOC: HO.HCS 14:02
PROVIDERS: PCP Internal Medicine; Visit Provider Internal Medicine
DX: I47.10 Supraventricular tachycardia, unspecified (principal); I49.8 Other specified cardiac arrhythmias; I25.10 Atherosclerotic heart disease of native coronary artery without angina pectoris
CPT/HCPCS: 93010; 99214; G2211

== ENCOUNTER → 2024-07-06 14:00 | Outpatient (BNVA) | payer OTHER, SELFPAY | PROVIDERS: PCP Internal Medicine; Visit Provider Internal Medicine | DX: I47.19 Other supraventricular tachycardia (principal); I49.8 Other specified cardiac arrhythmias; I25.10 Atherosclerotic heart disease of native coronary artery without angina pectoris | CPT/HCPCS: 93005; 99212 ==

== ENCOUNTER 2024-07-21 10:53 | Outpatient (AMB) | payer OTHER, SELFPAY ==
[2024-07-21 11:07] VITALS: BP 120/64; PULSE 82; O2SAT 95; BMI 25.8
--- NOTE | 2024-07-21 11:07 | MHC.OFFVIS ---
Vital Signs 07/21/24 11:07 Height 5 ft 6 in Weight 159 lb 13.362 oz BMI 25.8 BP 120/64 Blood Pressure Location Lt brachial Position Sitting Pulse 82 Pulse Source Pulse Oximeter Pulse Oximetry (%) 95 Oxygen Delivery Method Room Air Intake Visit Reasons: copd Intake Note: pt is here for ct scan results. 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 Allergies paroxetine [From PAXIL] Allergy (Mild, Verified 07/21/24 11:11) RASH adhesive tape Adverse Reaction (Severe, Verified 07/21/24 11:11) Redness of Skin Medication List - Last Reconciled 07/21/24 by Ibrahima Hernandez MD albuterol sulfate 90 mcg/actuation 2 puffs PO Q6H PRN albuterol sulfate 2.5 mg (3 mL) inhalation Q4-6H PRN 30 days amitriptyline 150 mg (2 x 75 mg) PO BEDTIME aspirin 81 mg PO DAILY atenolol 25 mg PO BEDTIME atorvastatin 20 mg PO DAILY azithromycin 250 mg PO 3XW bisacodyl (Laxative (bisacodyl)) 10 mg PO DAILY cholecalciferol (vitamin D3) 50 mcg PO DAILY cyanocobalamin (vitamin B-12) 500 mcg PO DAILY diltiazem HCl ER 180 mg PO DAILY docusate sodium 200 mg (2 x 100 mg) PO BEDTIME duloxetine (Cymbalta) 20 mg PO DAILY wwmpxsboqkm-axnowoehn-hhcfpvde 200-62.5-25 mcg (Trelegy Ellipta) 1 inh inhalation DAILY furosemide 40 mg PO DAILY lansoprazole 30 mg PO DAILY lorazepam 0.5 mg PO TID PRN plecanatide (Trulance) 3 mg PO DAILY potassium chloride ER 20 mEq PO BID sertraline 200 mg PO DAILY sucralfate 10 mL PO BID vitamin E 200 units PO DAILY zolpidem 10 mg PO BEDTIME PRN Do you need a note to return to daycare/school/sports/work: No HPI HPI copd: Details: 69 YEARS OLD VERY PLEASANT FEMALE IS HERE FOR HER FOLLOW-UP FOR COPD, AND ESPECIALLY AFTER THE ANNUAL LUNG SCAN. BREATHING IS REMAINING STABLE. SHE HAS JUST MILD INTERMITTENT COUGH. NO ATTACKS OF WHEEZING. MILD SHORTNESS OF BREATH IF SHE WALKS UP STAIRS OR WALKS FAST. CONTINUES TO USE. TRELEGY ELLIPTA 1 INHALATION DAILY AND ALBUTEROL HFA OR ALBUTEROL SOLUTION IN THE NEBULIZER Q 6 HOURS P.R.N.. SHE DOES NOT SMOKE FOR THE LAST FEW YEARS ON LICENSE OF [facility] Medical History Personal history of nicotine dependence Diverticulosis Lung density on x-ray Tubular adenoma Nocturnal hypoxia Hyperlipidemia Lower back pain Hypertension Mitral valve prolapse Supraventricular tachycardia Fibromyalgia Depression Anxiety COPD (chronic obstructive pulmonary disease) Surgical History History of esophagogastroduodenoscopy (EGD) H/O colonoscopy History of cardiac radiofrequency ablation Family History Father History of CVA (cerebrovascular accident) Mother History of CVA (cerebrovascular accident) Social History Household Members: Family Housing: House Are you a primary day care center director to a significant other at home: No Do you presently have visiting nurse or other home services: No Alcohol intake: never Patient Tobacco Use Status: Former Tobacco user e-Cigarette/Vaping Use: Never Used Advance Directives Date on File: 02/03/23 service: No Current occupational status: retired Cognitive needs: No Hearing needs: No Vision needs: Yes Review of Systems Const All systems reviewed & are unremarkable except as noted in HPI and below Eyes Reports no additional complaints ENT Reports no additional complaints Card Denies chest pain, Denies irregular heart rhythm and Denies leg edema Resp Reports as per HPI GI Reports constipation and Reports heartburn (Controlled with omeprazole) Reports no additional complaints Musc Denies abnormal gait (Slow mainly because of back pain), Reports back pain (Her back remains stiff most of the times) and Reports myalgias Skin/Breast Reports system reviewed and no additional complaints, except as documented Neuro Denies abnormal gait (Slow mainly because of back pain) Psych Reports anxiety Physical Exam Vital Signs: Last Vital Signs Pulse 82 07/21/24 11:07 BP 120/64 07/21/24 11:07 Pulse Ox 95 07/21/24 11:07 Oxygen Delivery Method Room Air 07/21/24 11:07 BMI result Body Mass Index 25.8 Const General: comfortable, no acute distress, alert and awake Orientation/consciousness: patient oriented x3 HEENT Head: Yes normal to inspection General nose exam: No nasal polyps present and No nasal discharge present Face and sinus: Yes sinuses nontender Mouth: oropharynx normal Throat: Yes posterior oropharynx normal Eyes General: appearance normal, both eyes and all related structures Neck Neck: Yes normal visual inspection, Yes no lymphadenopathy, Yes trachea midline and Yes no JVD Thyroid: Thyroid normal Chest Chest palpation & inspection: normal inspection of the chest, normal palpation of entire chest wall and no tenderness Resp Other: Percussion note resonant, breath sounds are equal on both sides. I do not hear any wheezes or crepitations today. Cardio Palpation: normal PMI Rate: regular rate Rhythm: regular rhythm Heart sounds: no gallops and no murmurs GI Palpation (GI): Soft to palpation, nontender, No hepatosplenomegaly present and no masses Auscultation: normal bowel sounds Back/Spine/Pelvis Thoracic/Lumbar Spine: thoracic and lumbar spine normal to inspection, thoraco-lumbar ROM limited and thoraco-lumbar spasm Skin General skin exam: no rashes or lesions noted Neuro General: patient oriented x3 and no focal motor deficits Cranial nerves: Yes CN's II-XII intact bilaterally Extrem General: Yes normal to inspection, Yes no clubbing, cyanosis or edema and Yes no calf tenderness Psych Appearance: grossly normal and well kempt Speech and movement: Normal speech and movement present Results Reviewed Results Reviewed: 06/15/2024 LDCT CHEST Lungs: Solid pulmonary nodules measure up to 5 mm (series 6, image 112 in the left lower lobe). Mild paraseptal emphysema. Moderate centrilobular emphysema. Mild bronchial wall thickening. Mild increased subpleural reticulation Coronary artery calcifications: Tcsq-oc-qmkggynx Other: 2.4 cm nodule in the right lobe of the thyroid Limited upper abdomen: Small hiatal hernia Impression: LungRADS 2 - Benign Appearance: Continue annual screening with low dose Chest CT in 12 months. ##L2# Nodule in the thyroid meets size criteria for a dedicated nonemergent thyroid ultrasound. Assessment & Plan Assessment & Plan (1) COPD (chronic obstructive pulmonary disease): Comment: COPD , CHRONIC, CONTROLLED AND STABLE, normal spirometry 2021 DESCRIBES SLIGHTLY INCREASED COUGH AND SCRATCHY FEELING IN THE THROAT . ALSO HAD THICK MUCUS ESPECIALLY IN THE MORNING. THE SYMPTOMS ARE WELL CONTROLLED SINCE SHE IS ON TRELEGY 1 INHALATION DAILY. Code(s): J44.9 - Chronic obstructive pulmonary disease, unspecified Category: Medical Plan: CONTINUE TO USE TRELEGY ELLIPTA 1 INHALATION DAILY AND ALBUTEROL HFA 2 PUFFS Q 6 HOURS P.R.N. OR ALBUTEROL SOLUTION IN THE NEBULIZER Q 6 HOURS P.R.N.. (2) Nocturnal hypoxia: Comment: PATIENT HAS HISTORY OF NOCTURNAL HYPOXEMIA, TREATED WITH OXYGEN SUPPLEMENTATION. 2L/MT She is now using it only off and on. Code(s): G47.34 - Idiopathic sleep related nonobstructive alveolar hypoventilation Category: Medical Plan: USE O2 2 L/MINUTE AT NIGHT, AND P.R.N. DURING THE DAYTIME. (3) Lung density on x-ray: Comment: ON THE CT SCAN OF ABDOMEN, A WEDGE SHAPED DENSITY IN THE RIGHT LOWER LOBE WHICH IS PROBABLY DUE TO ATELECTASIS. REPEAT CT SCAN SHOWS THAT THE DENSITY IN THE RIGHT LOWER LOBE HAS RESOLVED, WAS PROBABLY ATELECTASIS. A 5 MM DENSITY IN LEFT LOWER LOBE REMAINED UNCHANGED FROM BEFORE . ON THE CURRENT LDCT , THERE IS NO FURTHER INCREASE IN THE SIZE OF THE DENSITY INLLL. A NODULE 2.5 CM IN THE RIGHT LOBE OF THYROID IS DESCRIBED. Code(s): J98.4 - Other disorders of lung Category: Medical Plan: CONTINUE ANNUAL LDCT. FURTHER WORKUP FOR THE THYROID NODULE WOULD INCLUDE ULTRASOUND AND THEN POSSIBLE NEEDLE BIOPSY. HER APPOINTMENT WITH HER PCP IS THE ABOUT 4 MONTHS FROM NOW. BECAUSE SHE IS QUITE CONCERNED, I WILL GO AHEAD AND ORDER AN ULTRASOUND OF THE THYROID, IF SHE NEEDS FURTHER WORKUP SHE WILL BE REFERRED BACK TO THE PRIMARY CARE PHYSICIAN. Orders: Orders US thyroid Today E04.1 - Nontoxic single thyroid nodule Coding Level of Care Code Est Pt Level 3 (36250) Diagnoses COPD (chronic obstructive pulmonary disease) J44.9 Nocturnal hypoxia G47.34 Lung density on x-ray J98.4
== END 2024-07-21 11:27 | disposition home or self-care (01) ==
LOC: HO.HPS 10:54
PROVIDERS: PCP Internal Medicine; Visit Provider Internal Medicine
DX: J44.9 Chronic obstructive pulmonary disease, unspecified (principal); G47.34 Idiopathic sleep related nonobstructive alveolar hypoventilation; J98.4 Other disorders of lung
CPT/HCPCS: 99213

== ENCOUNTER → 2024-07-21 10:53 | Outpatient (BNVA) | payer OTHER, SELFPAY | PROVIDERS: PCP Internal Medicine; Visit Provider Internal Medicine | DX: J44.9 Chronic obstructive pulmonary disease, unspecified (principal); J98.4 Other disorders of lung; G47.34 Idiopathic sleep related nonobstructive alveolar hypoventilation | CPT/HCPCS: 99212 ==

== ENCOUNTER 2024-08-24 12:27 | Outpatient (REF) | payer OTHER, SELFPAY ==
--- NOTE | ~2024-08-24 | US_ITS ---
EXAMINATION: US THYROID HISTORY: E04.1 - Nontoxic single thyroid nodule TECHNIQUE: Real-time grayscale ultrasound imaging was performed and images were reviewed. COMPARISON: Correlation is made with a chest CT dated 06/14/2024. FINDINGS: SIZE: The right thyroid lobe measures 5.1 x 1.0 x 1.6 cm. The left thyroid lobe measures 5.2 x 1.9 x 2.3 cm. The isthmus measures 3 mm. FLOW: Flow to the gland is the right lobe appears mildly hypervascular. ECHOGENICITY: The echotexture of the gland is homogeneous. NODULES: There is a solitary nodule at the lower pole of the left thyroid lobe as described below: Nodule #: 1 Location: Left lower pole measuring 3.0 x 1.5 x 2.1 cm. Shape: Wider than tall (0 points) Margins: Smooth (0 points) Echotexture: Hypoechoic (2 points) Composition: Mixed (1 point) Calcifications: Punctate calcifications (3 points) Total points: 6 TIRADS: TR4: Moderately suspicious. US/US thyroid IMPRESSION: Moderately suspicious 3.0 x 1.5 x 2.1 cm nodule at the lower pole of the left thyroid lobe. According to ACR TI-RADS guidelines below, ultrasound-guided fine-needle aspiration is recommended. ACR TI-RADS Guidelines TR1 (0 points): Benign, No follow-up or biopsy required TR2 (2 points): Not Suspicious, No biopsy or follow up indicated TR3 (3 points): Mildly Suspicious, FNA if >= 2.5 cm, Follow if >= 1.5 cm TR4 (4-6 points): Moderately Suspicious, FNA if >= 1.5 cm, Follow if >= 1.0 cm TR5 (>=7 points): Highly Suspicious, FNA if >= 1.0 cm, Follow if >= 0.5 cm Electronically signed by: Mustapha Mayfield MD 08/24/2024 01:21 PM EDT
== END 2024-08-24 12:28 | disposition home or self-care (01) ==
LOC: HO.HMGCX 12:27
PROVIDERS: PCP Internal Medicine; Visit Provider Internal Medicine
DX: E04.1 Nontoxic single thyroid nodule (principal)
CPT/HCPCS: 76536

== ENCOUNTER → 2024-08-24 12:34 | Outpatient (BNV) | payer OTHER, SELFPAY | PROVIDERS: PCP Internal Medicine; Visit Provider Radiology Diagnostic Radiology | DX: E04.1 Nontoxic single thyroid nodule (principal) | CPT/HCPCS: 76536 ==

== ENCOUNTER 2024-09-06 10:46 | Outpatient (AMB) | payer OTHER, SELFPAY ==
--- NOTE | 2024-09-06 10:49 | A.OFFVIS_ITS ---
Vital Signs 09/06/24 10:53 Height 5 ft 6 in Weight 159 lb BMI 25.7 BP 112/64 Blood Pressure Location Rt brachial Position Sitting Pulse 78 Pulse Source Pulse Oximeter Pulse Oximetry (%) 93 Oxygen Delivery Method Room Air Intake Visit Reasons: GERD + Pain mgmt. 2 mos FUV. Intake Note: ESTABLISHED PATIENT for GERD + chronic abd pain mgmt. Chief Complaint; Pt denies any new GI sx or concerns at this time. Pt does report a general malaise onset within the last week. Initial BP reading was 94/46, checked again with manual and recorded above. 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 2 mos FUV.: Details: LAST VISIT Constipation Tubular adenoma Diverticulosis GERD (gastroesophageal reflux disease) Postprandial abdominal bloating Abdominal pain Dysphagia Hepatic steatosis Plan Patient will continue lansoprazole every morning. Avoid dietary triggers and late night snacking. Patient educated about importance of eating half an hour after taking PPI as this is the only way that this medication will work. Patient will take sucralfate at 14:00 and at bedtime. Continue taking Linzess and Dulcolax. Increase fluid intake and activity to promote better bowel motility. Patient was encouraged to take probiotics with fiber as well. I will see her in 2-3 months, sooner on as needed basis. She is agreeable to this plan and verb alizes understanding of instructions. She was given the opportunity to ask questions and all questions answered ? Thank you for allowing me to participate in her care Changed Changed From sucralfate 10 mL PO BEDTIME 400 mL 3RF K21.9 Changed To sucralfate 10 mL PO BID 400 mL 3RF K21.9 TODAY'S VISIT Patient is here today for follow-up. Patient reports that she has been doing better since started on lansoprazole daily and sucralfate twice a day. However when patient refilled her last prescription for sucralfate she was given prescription to take only once daily. Patient has been taking it at bedtime. Patient reports occasional acid reflux, denies any dyspepsia, dysphagia or odynophagia. Denies any nausea or vomiting. Reports occasional abdominal bloating. States significant improvement since taking trulance. Patient reports that she has been feeling well except for increased malaise that started a week ago. Today patient reports to be feeling well. Denies any additional GI concerning symptoms. [facility] Medical History (Updated 09/06/24 @ 13:00 by CHELA Goncalves) GERD (gastroesophageal reflux disease) Colonoscopy refused Nodule of right lobe of thyroid gland Personal history of nicotine dependence Diverticulosis Lung density on x-ray Tubular adenoma Nocturnal hypoxia Hyperlipidemia Lower back pain Hypertension Mitral valve prolapse Supraventricular tachycardia Fibromyalgia Depression Anxiety COPD (chronic obstructive pulmonary disease) Surgical History (Updated 09/06/24 @ 13:01 by CHELA Goncalves) Hx of esophagogastroduodenoscopy History of esophagogastroduodenoscopy (EGD) H/O colonoscopy History of cardiac radiofrequency ablation Family History Father History of CVA (cerebrovascular accident) Mother History of CVA (cerebrovascular accident) Social History Household Members: Family Housing: House Are you a primary manager respiratory care to a significant other at home: No Do you presently have visiting nurse or other home services: No Alcohol intake: never Patient Tobacco Use Status: Former Tobacco user e-Cigarette/Vaping Use: Never Used Advance Directives Date on File: 02/03/23 service: No Current occupational status: retired Cognitive needs: No Hearing needs: No Vision needs: Yes Review of Systems Const Denies weight gain and Denies weight loss ENT Reports no additional complaints, Denies dysphagia and Denies odynophagia Card Reports no additional complaints Resp Reports no additional complaints GI Denies abdominal pain, Denies belching, Denies melena, Reports bloating, Denies change in bowel habits, Reports constipation (improved), Denies dysphagia, Denies excessive flatus, Denies dyspepsia, Denies heartburn, Denies diarrhea, Denies loose stools, Denies nausea, Denies odynophagia and Denies vomiting Reports no additional complaints Musc Reports no additional complaints Neuro Reports no additional complaints Psych Reports no additional complaints Endo Reports no additional complaints Physical Exam Vital Signs: Last Vital Signs Pulse 78 09/06/24 10:53 BP 112/64 09/06/24 10:53 Pulse Ox 93 09/06/24 10:53 Oxygen Delivery Method Room Air 09/06/24 10:53 BMI result Body Mass Index 25.7 Const General: healthy appearing and no acute distress Nutritional Appearance: obese Orientation/consciousness: patient oriented x3 Resp Effort & Inspection: normal respiratory effort, able to speak in complete sentences, no tracheal deviation and symmetric chest movement Auscultation: clear to auscultation bilaterally Cardio Rate: regular rate GI Inspection: Yes normal to inspection, No distended and Yes obesity Palpation (GI): Soft to palpation, not firm, nontender and No hepatosplenomegaly present Auscultation: normal bowel sounds General: Yes no CVA tenderness Back/Spine/Pelvis Back: no CVA tenderness Skin General skin exam: elasticity normal, turgor normal and dry skin Neuro General: patient oriented x3 Psych Appearance: grossly normal Mental Status: mental status grossly normal Assessment & Plan Assessment & Plan (1) GERD (gastroesophageal reflux disease): Code(s): K21.9 - Gastro-esophageal reflux disease without esophagitis Category: Medical Qualifiers: Esophagitis presence: esophagitis presence not specified Qualified Code(s): K21.9 - Gastro-esophageal reflux disease without esophagitis (2) Constipation: Code(s): K59.00 - Constipation, unspecified Category: Medical Qualifiers: Constipation type: chronic idiopathic constipation Qualified Code(s): K59.04 - Chronic idiopathic constipation (3) Diverticulosis: Code(s): K57.90 - Diverticulosis of intestine, part unspecified, without perforation or abscess without bleeding Category: Medical (4) Hx of colonoscopy: Code(s): Z98.890 - Other specified postprocedural states Category: Surgical Plan Continue lansoprazole daily. Avoid dietary triggers in late night snacking. Patient will continue taking sucralfate at bedtime. Continue Trulance daily. Increase fluid intake and activity to increase bowel motility. Follow-up in 6 months, sooner on as needed basis. She is agreeable to this plan and verbalizes understanding of instructions. She was given the opportunity to ask questions and all questions answered. Thank you for allowing me to participate in her care Medications: Changed From sucralfate 10 mL PO BID 400 mL 3RF K21.9 - Gastro-esophageal reflux disease without esophagitis To sucralfate 10 mL PO BEDTIME 400 mL 3RF K21.9 - Gastro-esophageal reflux disease without esophagitis Refilled lansoprazole 30 mg PO DAILY 90 caps 3RF K21.9 - Gastro-esophageal reflux disease without esophagitis plecanatide (Trulance) 3 mg PO DAILY 90 tabs 3RF K59.09 - Other constipation Coding Level of Care Code Est Pt Level 3 (93799) Diagnoses Gastroesophageal reflux disease, unspecified whether esophagitis present K21.9 Esophagitis presence: esophagitis presence not specified Chronic idiopathic constipation K59.04 Constipation type: chronic idiopathic constipation Diverticulosis K57.90 Hx of colonoscopy Z98.890 Time Spent (min) 25 Comment 15 minutes spent with patient and additional 10 minutes spent reviewing her records
[2024-09-06 10:53] VITALS: BP 112/64; PULSE 78; O2SAT 93; BMI 25.7
== END 2024-09-06 11:19 | disposition home or self-care (01) ==
LOC: HO.HGI 10:47
PROVIDERS: PCP Internal Medicine; Visit Provider Nurse Practitioner Family
DX: K21.9 Gastro-esophageal reflux disease without esophagitis (principal); K59.04 Chronic idiopathic constipation; K57.90 Diverticulosis of intestine, part unspecified, without perforation or abscess without bleeding; Z98.890 Other specified postprocedural states
CPT/HCPCS: 99213

== ENCOUNTER → 2024-09-06 10:46 | Outpatient (BNVA) | payer OTHER, SELFPAY | PROVIDERS: PCP Internal Medicine; Visit Provider Nurse Practitioner Family | DX: K21.9 Gastro-esophageal reflux disease without esophagitis (principal); K59.04 Chronic idiopathic constipation; K57.90 Diverticulosis of intestine, part unspecified, without perforation or abscess without bleeding; Z98.890 Other specified postprocedural states | CPT/HCPCS: 99212 ==

== ENCOUNTER → 2024-09-14 09:58 | Outpatient (REF) | payer OTHER, SELFPAY ==
--- NOTE | ~2024-09-14 | NM_ITS ---
Lexiscan Myocardial perfusion study Indication: Chest pain Technique: The patient was brought in for a Lexiscan perfusion study on 09/14/2024 and was injected 0.4 mg of Lexiscan intravenously. Within a minute of this injection 25 mCi of sestamibi was given intravenously. Images were obtained using the SPECT gamma camera interlaced with the gating device. Images were obtained in supine position. Resting perfusion study was performed on 09/15/2024. Patient was administered 25 mCi of sestamibi intravenously at rest. Images were then obtained in supine position. Total DLP 79 mGy-cm. Images were processed with the software and compared side to side in short axis, horizontal long axis and vertical long axis views. Findings: Raw aquisition reviewed. The stress perfusion study showed diminished tracer uptake in the distal part of inferolateral wall. There is also adjacent subdiaphragmatic tracer uptake. There is improvement with CT attenuation correction and hence could indicate artifactual components. There is also reduced tracer uptake in the mid to distal part of anterior wall. No change with CT attenuation correction. The gated study shows normal LV systolic function with calculated LVEF of 62%. LV cavity is normal in size. The gated study shows reduced contractility in the distal inferolateral wall. Resting study showsmildly reduced tracer uptake in the distal part of inferolateral wall. There is reduced uptake in the distal part of anteroseptal wall. With CT attenuation correction, the inferolateral wall uptake improves. Distal anteroseptal defect still seen. Gating at rest reveals normal wall motion with ejection fraction at 49%, but visually appears higher. The findings are consistent with reversible distal inferolateral defect; fixed appearing distal anterior defect. NM/NM cardiolite stress test Impression: 1. Myocardial perfusion imaging study shows distal inferolateral ischemia. Possible nontransmural infarct in the distal anterior wall versus artifact. 2. Gated LVEF is 62% during stress and 49% during rest. Correlate with echocardiogram. 3. Transient ischemic dilatation not present. EKG component of the test reported separately. Electronically signed by: Nestor Sam MD 09/15/2024 11:16 AM EDT
--- NOTE | 2024-09-14 10:01 | CA_ITS ---
Acquisition Time: 2024-09-14 10:21:03 Total Exercise Time: 00:02:00 Test Indications: CP Medications: SEE H&P Protocol: LEXISCAN Max HR: 101 BPM 66% of Pred: 151 BPM Max BP: 130/84 mmHG Max Work Load: 1.0 METS Pharmacological stress test with Lexiscan while pt swings her legs, with reports of dizziness, without any arrythmias, with normotensive response to injection. Nondiagnostic EKG for ischemia. In recovery, pt treated with IVP Aminophylline 75 mg to reverse Lexiscan after which feeling back to baseline. Nuclear images pending. Test reviewed with Dr. Sam. Referred By: Nestor Sam Electronically Signed By: Jamal Schmidt
== END ==
LOC: HO.CARD 09:58
PROVIDERS: PCP Internal Medicine; Visit Provider Internal Medicine
DX: I20.9 Angina pectoris, unspecified (principal)
CPT/HCPCS: 78452; 93017; A9500; J0280; J2785

== ENCOUNTER → 2024-09-14 10:01 | Outpatient (BNV) | payer OTHER, SELFPAY | PROVIDERS: PCP Internal Medicine | DX: R07.9 Chest pain, unspecified (principal) | CPT/HCPCS: 78452; 93016; 93018 ==

== ENCOUNTER 2024-10-18 12:25 | Outpatient (AMB) | payer OTHER, SELFPAY ==
[2024-10-18 12:32] VITALS: BP 132/78; PULSE 75; O2SAT 94; BMI 26.4
--- NOTE | 2024-10-18 12:32 | MHC.OFFVIS ---
Vital Signs 10/18/24 12:32 Height 5 ft 6 in Weight 163 lb 5.8 oz BMI 26.4 BP 132/78 Blood Pressure Location Lt brachial Position Sitting Pulse 75 Pulse Source Pulse Oximeter Pulse Oximetry (%) 94 Oxygen Delivery Method Room Air Intake Visit Reasons: Nontoxic single thyroid nodule Intake Note: New patient present today for Nontoxic single thyroid nodule. 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 Accompanied by: Self / Same As Patient Allergies paroxetine (From PAXIL) Allergy (Mild, Verified 10/18/24 12:37) RASH adhesive tape Adverse Reaction (Severe, Verified 10/18/24 12:37) Redness of Skin Medication List - Last Reconciled 10/18/24 by Albina Lobato MD albuterol sulfate 2.5 mg (3 mL) inhalation Q4-6H PRN 30 days albuterol sulfate 90 mcg/actuation 2 puffs PO Q6H PRN amitriptyline 150 mg (2 x 75 mg) PO BEDTIME aspirin 81 mg PO DAILY atenolol 25 mg PO BEDTIME atorvastatin 20 mg PO DAILY azithromycin 250 mg PO 3XW bisacodyl (Laxative (bisacodyl)) 10 mg PO DAILY cholecalciferol (vitamin D3) 50 mcg PO DAILY cyanocobalamin (vitamin B-12) 500 mcg PO DAILY diltiazem HCl ER 180 mg PO DAILY docusate sodium 200 mg (2 x 100 mg) PO BEDTIME duloxetine (Cymbalta) 20 mg PO DAILY rolouxhvfzy-psfrfpiog-qtelukfj 200-62.5-25 mcg (Trelegy Ellipta) 1 ea PO DAILY furosemide 40 mg PO DAILY lansoprazole 30 mg PO DAILY lorazepam 0.5 mg PO TID PRN plecanatide (Trulance) 3 mg PO DAILY potassium chloride ER 20 mEq PO BID sertraline 200 mg PO DAILY sucralfate 10 mL PO BEDTIME vitamin E 200 units PO DAILY zolpidem 10 mg PO BEDTIME PRN HPI Comments Details: 69-year-old female coming in today for initial evaluation of solitary left-sided thyroid nodule. CT lung 06/15/2024 incidentally identified a thyroid nodule. Ultrasound thyroid 08/24/2024, I reviewed the images myself which showed a 3 cm left lower pole mixed cystic solid hypoechoic nodule with punctate calcifications, TR 4 category. Normal TSH from March 2024. Patient currently denies heat or cold intolerance, , hair loss, palpitation, anxiety, weight changes, mood changes, low energy, changes in appearance of eyes or vision changes, tremors, increased diaphoresis or dry skin. ? Does have issues with intermittent diarrhea and constipation. Some intermittent difficulty swallowing with food , big pills. does bother her to some extent. for 1-2 years. Complains of raspy voice. Patient denies any pain on swallowing or difficulty breathing. Patient denies any history of childhood neck radiation. Denies having ever used lithium, amiodarone or biotin supplements. Patient denies any family history of thyroid cancer or thyroid disease. Physical exam General: sitting comfortably in no acute distress HEENT: normocephalic/atraumatic, Neck: supple, palpable 1 cm left-sided nodule Cardiac: normal heart sounds Pulm: normal breath sounds B/L, no added breath sounds Abd: not distended, no tenderness Extremities: no edema, no signs of myxedema Neuro: AAO x3, Speech: normal, no facial droop, moving all 4 extremities Laboratory Tests 01/03/24 04/02/24 09:47 13:00 TSH 2.45 1.25 EXAMINATION: US THYROID 08/24/24 HISTORY: E04.1 - Nontoxic single thyroid nodule TECHNIQUE: Real-time grayscale ultrasound imaging was performed and images were reviewed. COMPARISON: Correlation is made with a chest CT dated 06/14/2024. FINDINGS: SIZE: The right thyroid lobe measures 5.1 x 1.0 x 1.6 cm. The left thyroid lobe measures 5.2 x 1.9 x 2.3 cm. The isthmus measures 3 mm. FLOW: Flow to the gland is the right lobe appears mildly hypervascular. ECHOGENICITY: The echotexture of the gland is homogeneous. NODULES: There is a solitary nodule at the lower pole of the left thyroid lobe as described below: Nodule #: 1 Location: Left lower pole measuring 3.0 x 1.5 x 2.1 cm. Shape: Wider than tall (0 points) Margins: Smooth (0 points) Echotexture: Hypoechoic (2 points) Composition: Mixed (1 point) Calcifications: Punctate calcifications (3 points) Total points: 6 TIRADS: TR4: Moderately suspicious. US/US thyroid IMPRESSION: Moderately suspicious 3.0 x 1.5 x 2.1 cm nodule at the lower pole of the left thyroid lobe. According to ACR TI-RADS guidelines below, ultrasound-guided fine-needle aspiration is recommended. [facility] Medical History (Updated 10/18/24 @ 13:03 by Albina Lobato MD) Left thyroid nodule GERD (gastroesophageal reflux disease) Colonoscopy refused Nodule of right lobe of thyroid gland Personal history of nicotine dependence Diverticulosis Lung density on x-ray Tubular adenoma Nocturnal hypoxia Hyperlipidemia Lower back pain Hypertension Mitral valve prolapse Supraventricular tachycardia Fibromyalgia Depression Anxiety COPD (chronic obstructive pulmonary disease) Surgical History Hx of esophagogastroduodenoscopy History of esophagogastroduodenoscopy (EGD) H/O colonoscopy History of cardiac radiofrequency ablation Family History Father History of CVA (cerebrovascular accident) Mother History of CVA (cerebrovascular accident) Social History Household Members: Family Housing: House Are you a primary rn progressive care unit to a significant other at home: No Do you presently have visiting nurse or other home services: No Alcohol intake: never Patient Tobacco Use Status: Former Tobacco user e-Cigarette/Vaping Use: Never Used Advance Directives Date on File: 02/03/23 service: No Current occupational status: retired Cognitive needs: No Hearing needs: No Vision needs: Yes Physical Exam Vital Signs: Last Vital Signs Pulse 75 10/18/24 12:32 BP 132/78 10/18/24 12:32 Pulse Ox 94 10/18/24 12:32 Oxygen Delivery Method Room Air 10/18/24 12:32 BMI result Body Mass Index 26.4 Assessment & Plan Assessment & Plan (1) Left thyroid nodule: Code(s): E04.1 - Nontoxic single thyroid nodule Category: Medical Plan: 69-year-old female with no family history of thyroid cancer, with no personal history of head or neck radiation coming in today for left-sided thyroid nodule. CT lung 06/15/2024 incidentally identified a thyroid nodule. Ultrasound thyroid 08/24/2024, I reviewed the images myself which showed a 3 cm left lower pole mixed cystic solid hypoechoic nodule with punctate calcifications, TR 4 category. Normal TSH from March 2024. I explained that it is common to have thyroid nodules. About 95% of the time these nodules are benign. However if the nodule is > 1 cm in size or suspicious on ultrasound then a fine need aspiration biopsy is recommended. We discussed that a FNAB involves 4-5 passes with a small gauge needle and material obtained is sent off for cytology.If the cytopathology is benign then the nodule will be followed annually with repeat ultrasounds. However if it is suspicious or malignant, we will need to discuss further management. Indeterminate cytology can be further investigated with repeat FNA, genetic testing or empiric lobectomy. Malignant cytology is managed with either lobectomy or total thyroidectomy. We discussed briefly that thyroid cancer is, in most patients, an indolent disease that does not affect mortality. She does have some degree of compressive symptoms. We will arrange for FNA of the left inferior 3 cm thyroid nodule at next available opening and patient will follow up with me in clinic thereafter for results and further decision making. Plan: -scheduled for FNA of the left inferior 3 cm thyroid nodule and follow up 2 weeks after to discuss results Plan I spent 45 minutes in reviewing the record, seeing the patient and documenting in the medical record. Orders: Orders US biopsy thyroid Today E04.1 - Nontoxic single thyroid nodule Coding Level of Care Code New Pt Level 4 (02208) Diagnoses Left thyroid nodule E04.1 Time Spent (min) 45
== END 2024-10-18 13:08 | disposition home or self-care (01) ==
LOC: HO.ENCR 12:26
PROVIDERS: PCP Internal Medicine; Visit Provider Student in an Organized Health Care Education/Training Program
DX: E04.1 Nontoxic single thyroid nodule (principal)
CPT/HCPCS: 99204

== ENCOUNTER → 2024-10-18 12:25 | Outpatient (BNVA) | payer OTHER, SELFPAY | PROVIDERS: PCP Internal Medicine; Visit Provider Student in an Organized Health Care Education/Training Program | DX: E04.1 Nontoxic single thyroid nodule (principal) | CPT/HCPCS: 99202 ==

== ENCOUNTER → 2024-10-21 09:20 | Outpatient (REF) | payer OTHER, SELFPAY ==
--- NOTE | 2024-10-21 09:23 | CA_ITS ---
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 Normal LV ejection fraction of 60 65% with grade 1 diastolic dysfunction 2. Normal cardiac valvular Dopplers 3. Normal RV systolic pressure 4. No gross pericardial effusion Findings Left Ventricle Normal left ventricular size, thickness, and systolic function. The visually estimated ejection fraction is between 60-65%. Spectral Doppler is indicative of an impaired relaxation filling pattern. E/E prime ratio is <8, consistent with normal filling pressures. Evidence suggests grade I (mild) diastolic dysfunction. Right Ventricle Normal right ventricular cavity size and systolic function. Atria Both atria are normal in size. There is no evidence of interatrial shunt. Aortic Valve Normal aortic valve structure and function. There is no aortic valve stenosis. There is no aortic valve regurgitation. Mitral Valve Normal mitral valve structure and function. There is trace mitral valve regurgitation. There is no mitral valve stenosis. Pulmonic Valve The pulmonic valve is likely normal. There is trace pulmonic valve regurgitation. Tricuspid Valve Normal tricuspid valve structure. There is trace tricuspid valve regurgitation. The right ventricular systolic pressure is normal. Normal right atrial pressure. There is no evidence of pulmonary hypertension. Great Vessels All visible segments of the aorta are normal in size. The pulmonary artery was not well visualized. There is no dilatation of the ascending aorta measuring 3.00 cm. Venous The inferior vena cava is normal in size and collapses greater than 50% with inspiration. Pericardium/Pleural There is no evidence of pericardial effusion. Prior Study Comparison No significant change compared to prior study dated: 05/18/2021. Measurements 2D Linear Measurements IVSd: 0.81 0.6-0.9/0.6-1.0 cm LVIDd: 5.03 3.9-5.3/4.2-5.9 cm LVIDd Index: 2.75 2.4-3.2/2.2-3.1 cm/m2 LVIDs: 2.66 2.0-3.6 cm LVPWd: 0.92 0.7-1.1 cm LA Diam: 3.50 2.7-3.8/3.0-4.0 cm LAIDs Index: 1.91 1.5-2.3 cm/m2 LV Mass: 188.49 67-162/88-224 g LV Mass Index: 103.00 43-95/49-115 g/m2 LVOT Diam: 1.90 3.0+(-)1.3 cm 2D Systolic Function EF 4C: 56.70 >55% EF 2C: 64.20 >55% EF BiP: 60.60 >55% Mitral Valve MV Pk E: 0.60 MV PK A: 0.79 MV Decel Time: 201.00 E/A: 0.80 E'Lateral: 6.31 E'Medial: 6.96 E/E' Med: 8.60 E/E' Lat: 9.50 PHT: 59.00 MVA PHT: 3.73 Decel Gooding: 2.98 Aortic Valve AoV Pk Subhash: 1.65 AoV Pk Grad: 11.00 LVOT LVOT Pk Subhash: 1.18 LVOT Mn Subhash: 0.72 LVOT VTI: 0.20 LVOT Pk Grad: 6.00 LVOT Mn Grad: 3.00 LVOT Diam: 1.90 LVOT Area: 2.84 Diastolic Function MV Pk E: 0.60 MV Pk A: 0.79 E/A: 0.80 E'Medial: 6.96 E/E' Med: 8.60 E' Laterial: 6.31 E/E' Lat: 9.50 Right Ventricle TAPSE (mm): 23.20 TVS' Subhash: 14.10 Tricuspid Valve TR Pk Subhash: 2.07 TR Pk Grad: 17.00 RA Press: 3.00 RVSP: 20.00 Great Vessels Aorta Sinus of Valsalva: 2.60 2.0-3.5 cm Ao Asc: 3.00 2.1-3.4 cm Pulmonary Veins Pulm Vein S/D 1.20 Pulmonary Valve PV Pk Subhash: 0.82 Peak PV Grad: 3.00 Updated in Other Vendor System with Status of Final Luciano Kearney MD electronically signed on 10/22/2024 5:00:18 PM with status of Final
== END ==
LOC: HO.CARD 09:20
PROVIDERS: PCP Internal Medicine
DX: R94.39 Abnormal result of other cardiovascular function study (principal)
CPT/HCPCS: 93306

== ENCOUNTER → 2024-10-21 09:23 | Outpatient (BNV) | payer OTHER, SELFPAY | PROVIDERS: PCP Internal Medicine; Visit Provider Internal Medicine Cardiovascular Disease | DX: I51.89 Other ill-defined heart diseases (principal) | CPT/HCPCS: 93306 ==

== ENCOUNTER 2024-10-27 09:36 | Outpatient (REF) | payer OTHER, SELFPAY ==
--- NOTE | 2024-10-27 10:06 | PM.PROC ---
Brief Operative Note Date of procedure: 10/27/24 Pre-op diagnosis: left lower 3 cm thyroid nodule FNA biopsy Post-op diagnosis: same Procedure: THYROID FINE NEEDLE ASPIRATION PROCEDURE NOTE ? PROCEDURE PERFORMED: Ultrasound-guided FNA of thyroid nodule ? OPERATORS: Dr. Albina Lobato ? INDICATION: left lower 3 cm thyroid nodule ; FNA performed to assess for malignancy ? DESCRIPTION OF PROCEDURE: The indications for FNA (to assess for malignancy) were reviewed with the patient in detail. Potential complications (e.g., bleeding, infection, damage to local structures, absence of clear diagnosis after FNA) were reviewed. Alternatives to FNA including conservative observation or surgery were described. The patient understood and agreed to proceed. This was documented by the signing of the written informed consent form. A time-out was performed to confirm the patient's identity and the site of planned FNA. The nodule of interest was identified using ultrasound (14 MHz linear array probe). The site of FNA was then draped in the usual fashion and carefully cleaned and prepared using alcohol swabs. The skin at the previously-identified site of needle insertion was iced and sprayed with numbing spray. Under ultrasound guidance, _4_ passes were performed using a 1.5-inch, 25-gauge needle, and sample was obtained via capillary action. The needle tip was clearly visualized to be within the nodule at the time of sampling for 4__ of _4_ passes [Insert image recorded as part of the procedure] The patient tolerated the procedure well. There were no immediate complications. A small adhesive bandage was applied, and the patient was advised to take acetaminophen (rather than NSAIDs) for any discomfort and to report any signs of inflammation/infection or marked swelling. IMPRESSION: Technically successful ultrasound-guided fine needle aspiration of left lower 3 cm thyroid nodule . PLAN: The patient was advised that I will provide follow-up regarding the cytology result and any subsequent plans. Albina Lobato MD Endocrinology Attending Condition: stable Disposition: same day
== END 2024-10-27 09:37 | disposition home or self-care (01) ==
LOC: HO.US 09:36
PROVIDERS: PCP Internal Medicine; Visit Provider Student in an Organized Health Care Education/Training Program
DX: E04.1 Nontoxic single thyroid nodule (principal)
CPT/HCPCS: 10005; 88173; 88305

== ENCOUNTER → 2024-10-27 09:36 | Outpatient (BNV) | payer OTHER, SELFPAY | PROVIDERS: PCP Internal Medicine; Visit Provider Student in an Organized Health Care Education/Training Program | DX: E04.1 Nontoxic single thyroid nodule (principal) | CPT/HCPCS: 10005 ==

== ENCOUNTER 2024-11-10 13:39 | Outpatient (AMB) | payer OTHER, SELFPAY ==
--- NOTE | 2024-11-10 13:42 | A.OFFVIS_ITS ---
Vital Signs 3 11/10/24 13:43 Height 5 ft 6 in Weight 166 lb 10.711 oz BMI 26.9 BP 124/64 Blood Pressure Location Lt brachial Position Sitting Pulse 71 Pulse Source Pulse Oximeter Pulse Oximetry (%) 94 Oxygen Delivery Method Room Air Intake Visit Reasons: Biopsy f/u Intake Note: Patient present today for biopsy results. 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 Accompanied by: Self / Same As Patient Allergies paroxetine (From PAXIL) Allergy (Mild, Verified 11/10/24 13:46) RASH adhesive tape Adverse Reaction (Severe, Verified 11/10/24 13:46) Redness of Skin Medication List - Last Reconciled 11/10/24 by Albina Lobato MD albuterol sulfate 2.5 mg (3 mL) inhalation Q4-6H PRN 30 days albuterol sulfate 90 mcg/actuation 2 puffs PO Q6H PRN amitriptyline 150 mg (2 x 75 mg) PO BEDTIME aspirin 81 mg PO DAILY atenolol 25 mg PO BEDTIME atorvastatin 20 mg PO DAILY azithromycin 250 mg PO 3XW bisacodyl (Laxative (bisacodyl)) 10 mg PO DAILY cholecalciferol (vitamin D3) 50 mcg PO DAILY cyanocobalamin (vitamin B-12) 500 mcg PO DAILY diltiazem HCl ER 180 mg PO DAILY docusate sodium 200 mg (2 x 100 mg) PO BEDTIME duloxetine (Cymbalta) 20 mg PO DAILY plcwtaytaky-uwdhzmnvc-wrjhyblw 200-62.5-25 mcg (Trelegy Ellipta) 1 ea PO DAILY furosemide 40 mg PO DAILY lansoprazole 30 mg PO DAILY lorazepam 0.5 mg PO TID PRN plecanatide (Trulance) 3 mg PO DAILY potassium chloride ER 20 mEq PO BID sertraline 200 mg PO DAILY sucralfate 10 mL PO BEDTIME vitamin E 200 units PO DAILY zolpidem 10 mg PO BEDTIME PRN HPI Comments Details: 69-year-old female coming in today for i follow up of solitary left-sided thyroid nodule. CT lung 06/15/2024 incidentally identified a thyroid nodule. Ultrasound thyroid 08/24/2024, I reviewed the images myself which showed a 3 cm left lower pole mixed cystic solid hypoechoic nodule with punctate calcifications, TR 4 category. Normal TSH from March 2024. Patient currently denies heat or cold intolerance, , hair loss, palpitation, anxiety, weight changes, mood changes, low energy, changes in appearance of eyes or vision changes, tremors, increased diaphoresis or dry skin. ? Does have issues with intermittent diarrhea and constipation. Some intermittent difficulty swallowing with food , big pills. does bother her to some extent. for 1-2 years. Complains of raspy voice. Patient denies any pain on swallowing or difficulty breathing. Patient denies any history of childhood neck radiation. Denies having ever used lithium, amiodarone or biotin supplements. Patient denies any family history of thyroid cancer or thyroid disease. Interval history 10/27/2024: Status post FNA of the left lower pole 3 cm nodule which came back as nondiagnostic, [place] category 1. Physical exam General: sitting comfortably in no acute distress HEENT: normocephalic/atraumatic, Neck: supple, palpable 1 cm left-sided nodule Cardiac: normal heart sounds Pulm: normal breath sounds B/L, no added breath sounds Abd: not distended, no tenderness Extremities: no edema, no signs of myxedema Neuro: AAO x3, Speech: normal, no facial droop, moving all 4 extremities Laboratory Tests 01/03/24 04/02/24 09:47 13:00 TSH 2.45 1.25 EXAMINATION: US THYROID 08/24/24 HISTORY: E04.1 - Nontoxic single thyroid nodule TECHNIQUE: Real-time grayscale ultrasound imaging was performed and images were reviewed. COMPARISON: Correlation is made with a chest CT dated 06/14/2024. FINDINGS: SIZE: The right thyroid lobe measures 5.1 x 1.0 x 1.6 cm. The left thyroid lobe measures 5.2 x 1.9 x 2.3 cm. The isthmus measures 3 mm. FLOW: Flow to the gland is the right lobe appears mildly hypervascular. ECHOGENICITY: The echotexture of the gland is homogeneous. NODULES: There is a solitary nodule at the lower pole of the left thyroid lobe as described below: Nodule #: 1 Location: Left lower pole measuring 3.0 x 1.5 x 2.1 cm. Shape: Wider than tall (0 points) Margins: Smooth (0 points) Echotexture: Hypoechoic (2 points) Composition: Mixed (1 point) Calcifications: Punctate calcifications (3 points) Total points: 6 TIRADS: TR4: Moderately suspicious. US/US thyroid IMPRESSION: Moderately suspicious 3.0 x 1.5 x 2.1 cm nodule at the lower pole of the left thyroid lobe. According to ACR TI-RADS guidelines below, ultrasound-guided fine-needle aspiration is recommended. [facility] Medical History (Updated 10/18/24 @ 13:03 by Albina Lobato MD) Left thyroid nodule GERD (gastroesophageal reflux disease) Colonoscopy refused Nodule of right lobe of thyroid gland Personal history of nicotine dependence Diverticulosis Lung density on x-ray Tubular adenoma Nocturnal hypoxia Hyperlipidemia Lower back pain Hypertension Mitral valve prolapse Supraventricular tachycardia Fibromyalgia Depression Anxiety COPD (chronic obstructive pulmonary disease) Surgical History Hx of esophagogastroduodenoscopy History of esophagogastroduodenoscopy (EGD) H/O colonoscopy History of cardiac radiofrequency ablation Family History Father History of CVA (cerebrovascular accident) Mother History of CVA (cerebrovascular accident) Social History Household Members: Family Housing: House Are you a primary home health caregiver to a significant other at home: No Do you presently have visiting nurse or other home services: No Alcohol intake: never Patient Tobacco Use Status: Former Tobacco user e-Cigarette/Vaping Use: Never Used Advance Directives Date on File: 02/03/23 service: No Current occupational status: retired Cognitive needs: No Hearing needs: No Vision needs: Yes Physical Exam Vital Signs: Last Vital Signs Pulse 71 11/10/24 13:43 BP 124/64 11/10/24 13:43 Pulse Ox 94 11/10/24 13:43 Oxygen Delivery Method Room Air 11/10/24 13:43 BMI result Body Mass Index 26.9 Assessment & Plan Assessment & Plan (1) Left thyroid nodule: Code(s): E04.1 - Nontoxic single thyroid nodule Category: Medical Plan: 69-year-old female with no family history of thyroid cancer, with no personal history of head or neck radiation coming in today for left-sided thyroid nodule. CT lung 06/15/2024 incidentally identified a thyroid nodule. Ultrasound thyroid 08/24/2024, I reviewed the images myself which showed a 3 cm left lower pole mixed cystic solid hypoechoic nodule with punctate calcifications, TR 4 category. Normal TSH from March 2024. She does have some degree of compressive symptoms. 10/27/2024: Status post FNA of the left inferior 3 cm thyroid nodule which came back as nondiagnostic, [place] category 1. I discussed with the patient that nondiagnostic results yield a 5-20% risk of malignancy. At this point would recommend repeating the biopsy in about 8-10 weeks. Plan: -scheduled for repeat FNA of the left inferior 3 cm thyroid nodule in 8-10 weeks from the last biopsy and follow up 2 weeks after to discuss results Plan See above Orders: Orders 2 US biopsy thyroid Today E04.1 - Nontoxic single thyroid nodule Coding Level of Care Code Est Pt Level 3 (98709) Diagnoses Left thyroid nodule E04.1
[2024-11-10 13:43] VITALS: BP 124/64; PULSE 71; O2SAT 94; BMI 26.9
== END 2024-11-10 14:11 | disposition home or self-care (01) ==
LOC: HO.ENCR 13:40
PROVIDERS: PCP Internal Medicine; Visit Provider Student in an Organized Health Care Education/Training Program
DX: E04.1 Nontoxic single thyroid nodule (principal)
CPT/HCPCS: 99213

== ENCOUNTER → 2024-11-10 13:39 | Outpatient (BNVA) | payer OTHER, SELFPAY | PROVIDERS: PCP Internal Medicine; Visit Provider Student in an Organized Health Care Education/Training Program | DX: E04.1 Nontoxic single thyroid nodule (principal) | CPT/HCPCS: 99212 ==

== ENCOUNTER 2024-11-24 09:57 | Outpatient (REF) | payer OTHER, SELFPAY ==
[2024-11-24 11:18] LABS: MANUAL DIFF FLAG NO
[2024-11-24 11:47] LABS: Hematocrit 37.3 % (37.0-47.0); Hemoglobin 12.4 g/dl (12.0-16.0); Imm Gran Abs Auto 0.03 X10*3/uL (0.00-0.03); Imm Gran Pct Auto 0.4 % (0.0-0.4); Lymphocytes Absolute Auto 1.7 X10*3/uL (1.2-4.9); Mean Corpuscular HGB Conc 33.2 g/dl (31.0-35.0); Mean Corpuscular Hemoglobin 29.7 pg (27.0-33.0); Mean Corpuscular Volume 89.4 fL (80.0-98.0); NRBC Abs Auto 0.000 X10*3/uL (0.0-0.012); NRBC Pct Auto 0.0 /100WBC (0.0-0.2); Platelet Count 222 X10*3/uL (160-400); Red Blood Count 4.17 X10*6/uL (4.20-5.50); White Blood Count 8.4 X10*3/uL (4.8-10.8)
[2024-11-24 13:04] LABS: Alanine Aminotransferase 16 U/L (0-31); Albumin Level 4.5 g/dL (3.5-5.0); Alkaline Phosphatase 63 U/L (39-117); Anion Gap 14 (12-20); Aspartate Amino Transferase 35 U/L (5-31); Blood Urea Nitrogen 11 mg/dL (9-16); Calcium 9.1 mg/dL (8.4-10.2); Carbon Dioxide 26 mmol/L (22-29); Chloride 108 mmol/L (96-108); Cholesterol 190 mg/dL (<200); Estimated Glomerular Filt Rate 59; HDL Cholesterol 60 mg/dL (>40); Potassium 4.1 mmol/L (3.3-5.1); Sodium 144 mmol/L (135-145); Total Protein 7.1 g/dL (6.5-8.0); Triglycerides 108 mg/dL (<150)
== END 2024-11-24 09:58 | disposition home or self-care (01) ==
LOC: HO.LAB 09:57
PROVIDERS: PCP Internal Medicine; Visit Provider Internal Medicine
DX: J44.9 Chronic obstructive pulmonary disease, unspecified (principal); G47.34 Idiopathic sleep related nonobstructive alveolar hypoventilation; J98.4 Other disorders of lung; I10 Essential (primary) hypertension; E78.5 Hyperlipidemia, unspecified; Z79.51 Long term (current) use of inhaled steroids; Z13.6 Encounter for screening for cardiovascular disorders; Z87.891 Personal history of nicotine dependence
CPT/HCPCS: 36415; 80053; 80061; 85025; 99212

== ENCOUNTER 2024-11-24 09:57 | Outpatient (AMB) | payer OTHER, SELFPAY ==
--- NOTE | 2024-11-24 10:14 | MHC.OFFVIS ---
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 Enrobing Required: No Allergies paroxetine (From PAXIL) Allergy (Mild, Verified 11/24/24 10:49) RASH adhesive tape Adverse Reaction (Severe, Verified 11/24/24 10:49) Redness of Skin Medication List - Last Reconciled 11/24/24 by Ibrahima Hernandez MD albuterol sulfate 90 mcg/actuation 2 puffs PO Q6H PRN albuterol sulfate 2.5 mg (3 mL) inhalation Q4-6H PRN 30 days amitriptyline 150 mg (2 x 75 mg) PO BEDTIME aspirin 81 mg PO DAILY atenolol 25 mg PO BEDTIME atorvastatin 20 mg PO DAILY azithromycin 250 mg PO 3XW bisacodyl (Laxative (bisacodyl)) 10 mg PO DAILY cholecalciferol (vitamin D3) 50 mcg PO DAILY cyanocobalamin (vitamin B-12) 500 mcg PO DAILY diltiazem HCl ER 180 mg PO DAILY docusate sodium 200 mg (2 x 100 mg) PO BEDTIME duloxetine (Cymbalta) 20 mg PO DAILY tklnrdouius-vxmbjyrwn-lofexyix 200-62.5-25 mcg (Trelegy Ellipta) 1 ea PO DAILY furosemide 40 mg PO DAILY lansoprazole 30 mg PO DAILY lorazepam 0.5 mg PO TID PRN plecanatide (Trulance) 3 mg PO DAILY potassium chloride ER 20 mEq PO BID sertraline 200 mg PO DAILY sucralfate 10 mL PO BEDTIME vitamin E 200 units PO DAILY zolpidem 10 mg PO BEDTIME PRN Do you need a note to return to daycare/school/sports/work: No HPI HPI COPD: Details: THIS 69 YEARS OLD FEMALE IS HERE FOR HER PULMONARY FOLLOW-UP AFTER 4 MONTHS. SHE IS PAST SMOKER BUT HAS QUIT COMPLETELY. SHE DOES HAVE CHRONIC OBSTRUCTIVE PULMONARY DISEASE, MODERATELY SEVERE. AND IS RELATIVELY STABLE HER MAIN SYMPTOM IS GETTING SHORT OF BREATH ON PHYSICAL EXERTION LIKE WALKING UP HILL OR CLIMBING STAIRS. SHE HAS INTERMITTENT COUGH WITHOUT MUCH EXPECTORATION. HER BREATHING STATUS REMAINS STABLE ON THE CURRENT MEDICAL REGIMEN. SHE USES O2 2 L/MINUTE AT NIGHT, AND USES THE PORTABLE CYLINDER DURING THE DAYTIME IF SHE HAS TO GO OUTDOORS FOR LONG PERIODS. [facility] Medical History Left thyroid nodule GERD (gastroesophageal reflux disease) Colonoscopy refused Nodule of right lobe of thyroid gland Personal history of nicotine dependence Diverticulosis Lung density on x-ray Tubular adenoma Nocturnal hypoxia Hyperlipidemia Lower back pain Hypertension Mitral valve prolapse Supraventricular tachycardia Fibromyalgia Depression Anxiety COPD (chronic obstructive pulmonary disease) Surgical History Hx of esophagogastroduodenoscopy History of esophagogastroduodenoscopy (EGD) H/O colonoscopy History of cardiac radiofrequency ablation Family History Father History of CVA (cerebrovascular accident) Mother History of CVA (cerebrovascular accident) Social History Household Members: Family Housing: House Are you a primary in home caregiver to a significant other at home: No Do you presently have visiting nurse or other home services: No Alcohol intake: never Patient Tobacco Use Status: Former Tobacco user e-Cigarette/Vaping Use: Never Used Advance Directives Date on File: 02/03/23 service: No Current occupational status: retired Cognitive needs: No Hearing needs: No Vision needs: Yes Review of Systems Const All systems reviewed & are unremarkable except as noted in HPI and below Eyes Reports no additional complaints ENT Reports no additional complaints Card Denies chest pain, Denies irregular heart rhythm and Denies leg edema Resp Reports as per HPI GI Reports constipation and Reports heartburn (Controlled with omeprazole) Reports no additional complaints Musc Denies abnormal gait (Slow mainly because of back pain), Reports back pain (Her back remains stiff most of the times) and Reports myalgias Skin/Breast Reports system reviewed and no additional complaints, except as documented Neuro Denies abnormal gait (Slow mainly because of back pain) Psych Reports anxiety Physical Exam Vital Signs: Last Vital Signs Pulse 85 11/24/24 10:15 BP 110/64 11/24/24 10:15 Pulse Ox 95 11/24/24 10:15 Oxygen Delivery Method Room Air 11/24/24 10:15 BMI result Body Mass Index 26.9 Const General: comfortable, no acute distress, alert and awake Orientation/consciousness: patient oriented x3 HEENT Head: Yes normal to inspection General nose exam: No nasal polyps present and No nasal discharge present Face and sinus: Yes sinuses nontender Mouth: oropharynx normal Throat: Yes posterior oropharynx normal Eyes General: appearance normal, both eyes and all related structures Neck Neck: Yes normal visual inspection, Yes no lymphadenopathy, Yes trachea midline and Yes no JVD Thyroid: Thyroid normal Chest Chest palpation & inspection: normal inspection of the chest, normal palpation of entire chest wall and no tenderness Resp Other: Percussion note resonant, breath sounds are equal on both sides. I do not hear any wheezes or crepitations today. Cardio Palpation: normal PMI Rate: regular rate Rhythm: regular rhythm Heart sounds: no gallops and no murmurs GI Palpation (GI): Soft to palpation, nontender, No hepatosplenomegaly present and no masses Auscultation: normal bowel sounds Back/Spine/Pelvis Thoracic/Lumbar Spine: thoracic and lumbar spine normal to inspection, thoraco-lumbar ROM limited and thoraco-lumbar spasm Skin General skin exam: no rashes or lesions noted Neuro General: patient oriented x3 and no focal motor deficits Cranial nerves: Yes CN's II-XII intact bilaterally Extrem General: Yes normal to inspection, Yes no clubbing, cyanosis or edema and Yes no calf tenderness Psych Appearance: grossly normal and well kempt Speech and movement: Normal speech and movement present Assessment & Plan Assessment & Plan (1) COPD (chronic obstructive pulmonary disease): Comment: COPD , CHRONIC, CONTROLLED AND STABLE, normal spirometry 2021 THE SYMPTOMS ARE WELL CONTROLLED SINCE SHE IS ON TRELEGY 1 INHALATION DAILY. Code(s): J44.9 - Chronic obstructive pulmonary disease, unspecified Category: Medical Plan: CONTINUE USING TRELEGY ELLIPTA 1 INHALATION DAILY AND ALBUTEROL HFA 2 PUFFS Q 4-6 HOURS P.R.N.. ALTERNATIVELY SHE CAN USE ALBUTEROL SOLUTION IN THE NEBULIZER Q 4-6 HOURS P.R.N. WHEN AT HOME. (2) Nocturnal hypoxia: Comment: PATIENT HAS HISTORY OF NOCTURNAL HYPOXEMIA, TREATED WITH OXYGEN SUPPLEMENTATION. 2L/MT She is now using it only off and on. Code(s): G47.34 - Idiopathic sleep related nonobstructive alveolar hypoventilation Category: Medical Plan: CONTINUE USING O2 2 L/MINUTE AT NIGHT AND P.R.N. DURING THE DAYTIME.. (3) Personal history of nicotine dependence: Comment: (30+PYH - quit 12 years ago in 2013) Code(s): Z87.891 - Personal history of nicotine dependence Category: Medical Plan: COMMENDED FOR NOT SMOKING (4) Lung density on x-ray: Comment: ON THE CT SCAN OF ABDOMEN, A WEDGE SHAPED DENSITY IN THE RIGHT LOWER LOBE WHICH IS PROBABLY DUE TO ATELECTASIS. REPEAT CT SCAN SHOWS THAT THE DENSITY IN THE RIGHT LOWER LOBE HAS RESOLVED, WAS PROBABLY ATELECTASIS. A 5 MM DENSITY IN LEFT LOWER LOBE REMAINED UNCHANGED FROM BEFORE . Code(s): J98.4 - Other disorders of lung Category: Medical Plan: WILL CONTINUE TO HAVE YEARLY LDCT Coding Level of Care Code Est Pt Level 3 (90958) Diagnoses COPD (chronic obstructive pulmonary disease) J44.9 Nocturnal hypoxia G47.34 Personal history of nicotine dependence Z87.891 Lung density on x-ray J98.4
[2024-11-24 10:15] VITALS: BP 110/64; PULSE 85; O2SAT 95; BMI 26.9
== END 2024-11-24 10:51 | disposition home or self-care (01) ==
LOC: HO.HPS 09:58
PROVIDERS: PCP Internal Medicine; Visit Provider Internal Medicine
DX: J44.9 Chronic obstructive pulmonary disease, unspecified (principal); G47.34 Idiopathic sleep related nonobstructive alveolar hypoventilation; Z87.891 Personal history of nicotine dependence; J98.4 Other disorders of lung
CPT/HCPCS: 99213

== ENCOUNTER 2025-01-05 14:30 | Outpatient (AMB) | payer OTHER, SELFPAY ==
--- NOTE | 2025-01-05 14:34 | A.OFFVIS_ITS ---
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 Accompanied by: Self / Same As Patient Allergies paroxetine (From PAXIL) Allergy (Mild, Verified 01/05/25 14:39) RASH adhesive tape Adverse Reaction (Severe, Verified 01/05/25 14:39) Redness of Skin Medication List - Last Reconciled 01/05/25 by Jamal Schmidt NP albuterol sulfate 90 mcg/actuation 2 puffs PO Q6H PRN albuterol sulfate 2.5 mg (3 mL) inhalation Q4-6H PRN 30 days amitriptyline 150 mg (2 x 75 mg) PO BEDTIME aspirin 81 mg PO DAILY atenolol 25 mg PO BEDTIME atorvastatin 20 mg PO DAILY azithromycin 250 mg PO 3XW bisacodyl (Laxative (bisacodyl)) 10 mg PO DAILY cholecalciferol (vitamin D3) 50 mcg PO DAILY cyanocobalamin (vitamin B-12) 500 mcg PO DAILY diltiazem HCl ER 180 mg PO DAILY docusate sodium 200 mg (2 x 100 mg) PO BEDTIME duloxetine (Cymbalta) 20 mg PO DAILY cnpysogzqye-yuffyrgta-ynsugoih 200-62.5-25 mcg (Trelegy Ellipta) 1 ea PO DAILY furosemide 40 mg PO DAILY lansoprazole 30 mg PO DAILY lorazepam 0.5 mg PO TID PRN plecanatide (Trulance) 3 mg PO DAILY sertraline 200 mg PO DAILY sucralfate 10 mL PO BEDTIME vitamin E 200 units PO DAILY zolpidem 10 mg PO BEDTIME PRN HPI Comments Details: This is a 69-year-old patient coming in for a follow-up visit. Patient with a history of hypertension, hyperlipidemia, SVT status post ablation in 2017, and COPD who has been following with us yearly. Back in 2020 patient was having palpitations and at that time EMT had mentioned AFib but ER evaluation showed sinus rhythm. Since then patient has been on diltiazem and atenolol. At her last visit, patient had reported some random chest discomfort for which patient underwent a myocardial perfusion study that was abnormal and therefore underwent a coronary CTA. Today she is here to review the results with the his. Patient is otherwise reporting feeling well overall without any cardiac symptoms of exertional chest pain, shortness of breath, palpitations, dizziness, orthopnea, PND, leg edema, presyncope or syncope. Patient is reporting compliance with all her medications. [facility] Medical History Left thyroid nodule GERD (gastroesophageal reflux disease) Colonoscopy refused Nodule of right lobe of thyroid gland Personal history of nicotine dependence Diverticulosis Lung density on x-ray Tubular adenoma Nocturnal hypoxia Hyperlipidemia Lower back pain Hypertension Mitral valve prolapse Supraventricular tachycardia Fibromyalgia Depression Anxiety COPD (chronic obstructive pulmonary disease) Surgical History Hx of esophagogastroduodenoscopy History of esophagogastroduodenoscopy (EGD) H/O colonoscopy History of cardiac radiofrequency ablation Family History Father History of CVA (cerebrovascular accident) Mother History of CVA (cerebrovascular accident) Social History Household Members: Family Housing: House Are you a primary home care rn to a significant other at home: No Do you presently have visiting nurse or other home services: No Alcohol intake: never Patient Tobacco Use Status: Former Tobacco user e-Cigarette/Vaping Use: Never Used Advance Directives Date on File: 02/03/23 service: No Current occupational status: retired Cognitive needs: No Hearing needs: No Vision needs: Yes Review of Systems Const Denies daytime sleepiness, Denies difficulty sleeping, Denies snoring, Denies stops breathing during sleep and Denies weakness Card Denies chest pain, Denies rapid heart rate, Denies irregular heart rhythm, Denies claudication, Denies leg edema, Denies lightheadedness, Denies palpitations, Denies dyspnea, Denies dyspnea on exertion, Denies orthopnea, Denies paroxysmal nocturnal dyspnea and Denies slow heart rate Resp Denies cough, Denies dyspnea, Denies dyspnea on exertion and Denies snoring GI Reports no additional complaints, Denies hematochezia, Denies change in stool character and Denies dyspepsia Musc Denies abnormal gait, Denies muscle weakness and Denies numbness Neuro Denies abnormal gait, Denies numbness and Denies weakness Endo Denies palpitations Physical Exam Vital Signs: Last Vital Signs Pulse 82 01/05/25 14:36 BP 110/70 01/05/25 14:36 BMI result Body Mass Index 27.7 Const General: cooperative, healthy appearing, comfortable and no acute distress Orientation/consciousness: patient oriented x3 HEENT Head: Yes normal to inspection Neck Neck: Yes normal visual inspection, Yes trachea midline and Yes supple Chest Chest palpation & inspection: normal inspection of the chest Resp Effort & Inspection: normal respiratory effort Auscultation: clear to auscultation bilaterally, no crackles, no rales, no rhonchi and no wheezes Cardio Jugular venous distension: no JVD Palpation: normal PMI Rate: regular rate Rhythm: regular rhythm Heart sounds: S1 normal heart sound present, S2 normal heart sound present, no click, no gallops, no murmurs and no rubs Peripheral pulses: Peripheral pulses 2+ throughout GI Inspection: Yes normal to inspection Palpation (GI): Soft to palpation Auscultation: normal bowel sounds Skin General skin exam: no rashes or lesions noted Neuro General: patient oriented x3 Extrem General: Yes normal to inspection, No no pedal edema and No calf tenderness Psych Appearance: grossly normal Mental Status: mental status grossly normal Speech and movement: Normal speech and movement present Office Procedures EKG Details: EKG today showed normal sinus rhythm, rate 82 beats per minute, nonspecific ST-T wave, [place], [place]. [id number], Complete Assessment & Plan Assessment & Plan (1) Coronary artery calcification seen on CT scan: Code(s): I25.10 - Atherosclerotic heart disease of [place] coronary artery without angina pectoris Category: Medical Plan: Given her reports of random chest pain and coronary calcification seen on her previous chest CT, patient underwent a myocardial perfusion study on 09/14/2024 that showed distal inferolateral ischemia, possible nontransmural infarct in the distal anterior wall versus artifact. Given this finding, patient underwent a coronary CTA on 12/08/2024 that showed calcified plaque in the proximal LAD and circumflex causing minimal less than 25% diameter stenosis, mild 4 chamber cardiomegaly, and 0.3 cm pulmonary nodule in the anterior left upper lobe. Clinically asymptomatic. Continue with statin therapy with an LDL goal less than 70. Most recent LDL at 109 and therefore we will increase the statin dose. We will repeat lipid profile in 3 months. Patient is already following with pulmonology and aware about nodule. (2) Supraventricular tachycardia: Code(s): I47.1 - Supraventricular tachycardia Category: Medical Plan: History of SVT s/p ablation [facility] 2017. Question of AFib back in 2020 however ER evaluation showed sinus rhythm. Patient has been on diltiazem and atenolol since. No reported symptoms of palpitations. Continue the same. 10/21/2024-echo study showed a normal LV systolic function with an ejection fraction between 60-65% with grade 1 diastolic dysfunction. (3) Hypertension: Code(s): I10 - Essential (primary) hypertension Category: Medical Plan: Blood pressure today is well-controlled. Continue current regimen with a blood pressure goal less than 130/80. Advised monitoring blood pressures at home. (4) Hyperlipidemia: Code(s): E78.5 - Hyperlipidemia, unspecified Category: Medical Plan: As above. Advised on heart healthy diet, regular exercise, losing weight, med compliance, and management of vascular risk factors. Follow up in a year, sooner if needed. In the interim, patient will call the office with any concerns or change in symptoms. This note was generated using voice recognition software. While every effort has been made to ensure accuracy and proper business systems manager, there may be occasional errors that could affect the content or meaning of the described symptoms. Orders: Orders Lipid Panel 3 Months I25.10 - Atherosclerotic heart disease of [place] coronary artery without angina pectoris AMB EKG-In Office Today I47.1 - Supraventricular tachycardia Medications: New atorvastatin (Lipitor) 40 mg PO DAILY 90 tabs 0RF Discontinued atorvastatin Discontinued Reason: Doctor's Order 20 mg PO DAILY 90 tabs 3RF Coding Level of Care Code Est Pt Level 4 (05882) Complex EM visit Add On G2211 Diagnoses Coronary artery calcification seen on CT scan I25.10 Supraventricular tachycardia I47.1 Hypertension I10 Hyperlipidemia E78.5 CPT Codes EKG - CPT: 38489-[id number], Complete ([id number]) Time Spent (min) 31 Comment Time spent in reviewing the chart, test results, assessment, counseling and documentation.
[2025-01-05 14:36] VITALS: BP 110/70; PULSE 82; BMI 27.7
== END 2025-01-05 15:03 | disposition home or self-care (01) ==
LOC: HO.HCS 14:31
PROVIDERS: PCP Internal Medicine
DX: I25.10 Atherosclerotic heart disease of native coronary artery without angina pectoris (principal); I47.10 Supraventricular tachycardia, unspecified; I10 Essential (primary) hypertension; E78.5 Hyperlipidemia, unspecified
CPT/HCPCS: 93010; 99214; G2211

== ENCOUNTER → 2025-01-05 14:30 | Outpatient (BNVA) | payer OTHER, SELFPAY | PROVIDERS: PCP Internal Medicine | DX: I25.10 Atherosclerotic heart disease of native coronary artery without angina pectoris (principal); I10 Essential (primary) hypertension; E78.5 Hyperlipidemia, unspecified; I47.10 Supraventricular tachycardia, unspecified | CPT/HCPCS: 93005; 99212 ==

== ENCOUNTER 2025-01-06 10:23 | Outpatient (AMB) | payer OTHER, SELFPAY ==
--- NOTE | 2025-01-06 10:29 | MHC.PC.OV ---
Vital Signs 01/06/25 10:31 Height 5 ft 6 in Weight 170 lb BMI 27.4 BP 120/70 Blood Pressure Location Lt brachial Position Sitting Respiration 16 Pulse 78 Pulse Source Pulse Oximeter Temp 98.1 F Temp Source Oral Pulse Oximetry (%) 94 Oxygen Delivery Method Room Air Intake Visit Reasons: follow up Intake Note: Pt is here today for a follow up visit on back pain. Allergies paroxetine (From PAXIL) Allergy (Mild, Verified 01/06/25 10:34) RASH adhesive tape Adverse Reaction (Severe, Verified 01/06/25 10:34) Redness of Skin Medication List - Last Reconciled 01/06/25 by iLberty Bustillos MD albuterol sulfate 90 mcg/actuation 2 puffs PO Q6H PRN albuterol sulfate 2.5 mg (3 mL) inhalation Q4-6H PRN 30 days amitriptyline 150 mg (2 x 75 mg) PO BEDTIME aspirin 81 mg PO DAILY atenolol 25 mg PO BEDTIME atorvastatin (Lipitor) 40 mg PO DAILY azithromycin 250 mg PO 3XW baclofen 10 mg PO BEDTIME bisacodyl (Laxative (bisacodyl)) 10 mg PO DAILY cholecalciferol (vitamin D3) 50 mcg PO DAILY cyanocobalamin (vitamin B-12) 500 mcg PO DAILY diltiazem HCl ER 180 mg PO DAILY docusate sodium 200 mg (2 x 100 mg) PO BEDTIME duloxetine (Cymbalta) 20 mg PO DAILY lanprtxzihz-pgtpuacjz-bwyeqtul 200-62.5-25 mcg (Trelegy Ellipta) 1 ea PO DAILY furosemide 40 mg PO DAILY lansoprazole 30 mg PO DAILY lorazepam 0.5 mg PO TID PRN meloxicam 15 mg PO DAILY plecanatide (Trulance) 3 mg PO DAILY sertraline 200 mg PO DAILY sucralfate 10 mL PO BEDTIME vitamin E 200 units PO DAILY zolpidem 10 mg PO BEDTIME PRN Tobacco use date assessed: 01/06/25 Fall risk assessment: No Falls in past year Last assessed Fall Risk: 01/06/25 Dental Screening Dental Screen Date: 01/06/25 Did you have a dental visit in the last 12 months?: Yes Did you have a dental problem in the last 6 months where you did not have access to dental care?: No Was dental information given to patient?: Patient has dentist HPI follow up HPI Details Pt presents complaining of worsening chronic LBP occasionally radiating to LLE worse when getting up or starting to walk for the last few months. Patient denies any weakness or numbness in extremities change in bowel or bladder function. She complains of chronic for few months R groin pain when walking or changing body position in bed, patient denies abdominal pelvic pain nausea vomiting fever chills chronic depression stable on current medications, [facility] Medical History (Updated 01/06/25 @ 20:22 by Liberty Bustillos MD) Coronary artery calcification seen on CT scan Left thyroid nodule GERD (gastroesophageal reflux disease) Colonoscopy refused Nodule of right lobe of thyroid gland Personal history of nicotine dependence Diverticulosis Lung density on x-ray Tubular adenoma Nocturnal hypoxia Hyperlipidemia Lower back pain Hypertension Mitral valve prolapse Supraventricular tachycardia Fibromyalgia Depression Anxiety COPD (chronic obstructive pulmonary disease) Surgical History Hx of esophagogastroduodenoscopy History of esophagogastroduodenoscopy (EGD) H/O colonoscopy History of cardiac radiofrequency ablation Family History Father History of CVA (cerebrovascular accident) Mother History of CVA (cerebrovascular accident) Social History Household Members: Family Housing: House Are you a primary child daycare worker to a significant other at home: No Do you presently have visiting nurse or other home services: No Alcohol intake: never Patient Tobacco Use Status: Former Tobacco user e-Cigarette/Vaping Use: Never Used Advance Directives Date on File: 02/03/23 service: No Current occupational status: retired Cognitive needs: No Hearing needs: No Vision needs: Yes Questionnaire PHQ-9 Over the last 2 weeks, how often have you been bothered by any of the following problems? 1. Little interest or pleasure in doing things: not at all 2. Feeling down, depressed, or hopeless: not at all 3. Trouble falling or staying asleep, or sleeping too much: more than half the days 4. Feeling tired or having little energy: more than half the days 5. Poor appetite or overeating: more than half the days 6. Feeling bad about yourself - or that you are a failure or have let yourself or your family down: not at all 7. Trouble concentrating on things, such as reading the newspaper or watching television: not at all 8. Moving or speaking so slowly that other people could have noticed. Or the opposite - being so fidgety or restless that you have been moving around a lot more than usual: not at all 9. Thoughts that you would be better off or of hurting yourself in some way: not at all Total score: 6 Depression Screening Interpretation: Negative Depression Screening Done: Yes Source: Developed by Drs. Mustapha Dunlap, Mandi Good, Segun Dueñas and colleagues, with an educational jennifer from [employer]. Thrive Questionnaire Date Thrive assessed: 04/02/24 I am a: Patient What is your living situation today?: I have a steady place to live Within the past 12 months, did the food you bought not last and you didn't have the money to get more?: Never true Within the past 12 months, did you worry whether your food would run out before you got money to buy more?: Never true Do you have trouble paying for medicines?: No Do you have trouble getting transportation to medical appointments?: No Do you have trouble paying your heating and electricity bill?: No Do you have trouble taking care of your child, family member or friend?: I choose not to answer this question Do you have trouble with day-to-day activities such as bathing, preparing meals, shopping, managing finances, etc.?: Yes Are you currently unemployed and looking for a job?: No Are you interested in more education?: No Please select the resources that you would like help with: None Currently or been in a relationship where the following occur: No concerns reported THRIVE Score: 0 SAI-7 AMB Questionnaire SAI-7 Date SAI - 7 assessed: 04/02/24 Feeling nervous, anxious, or on edge: 0 = Not at all Not being able to stop or control worryin = More than half the days Worrying too much about different things: 2 = More than half the days Trouble relaxin = More than half the days Being so restless that it is hard to sit still: 2 = More than half the days Becoming easily annoyed or irritable: 0 = Not at all Feeling afraid as if something awful might happen: 0 = Not at all Total SAI-7 score (0-4 normal; 5-9 mild; 10-14 moderate; 15-21 severe): 8 Source: Developed by Drs. Mustapha Dunlap, Mandi Good, Segun Dueñas and colleagues, with an educational jennifer from [employer]. Review of Systems Const All systems reviewed & are unremarkable except as noted in HPI and below Eyes Reports no additional complaints ENT Reports no additional complaints Card Reports no additional complaints Resp Reports no additional complaints GI Reports no additional complaints Reports no additional complaints Physical exam (Primary Care) Vital Signs: Last Vital Signs Temp 98.1 F 01/06/25 10:31 Pulse 78 01/06/25 10:31 Resp 16 01/06/25 10:31 BP 120/70 01/06/25 10:31 Pulse Ox 94 01/06/25 10:31 Oxygen Delivery Method Room Air 01/06/25 10:31 BMI result Body Mass Index 27.4 Tobacco/Smoking Status: Tobacco use Status Tobacco use date assessed 01/06/25 01/06/25 10:38 Patient Tobacco Use Status Former Tobacco user 01/06/25 10:29 e-Cigarette/Vaping Use Never Used 01/06/25 10:29 PHQ-9: PHQ-9 Score PHQ-9: Total score 6 01/06/25 11:13 Depression Screening Interpretation: Negative Thrive Assessment: Date of Thrive Assessment Date Thrive assessed 04/02/24 01/06/25 10:29 Currently or been in a relationship where the following occur: No concerns reported Const General: no acute distress HENMT Head: Yes normal to inspection Neck Neck: Yes supple Resp Effort & Inspection: normal respiratory effort Auscultation: clear to auscultation bilaterally Cardio Rhythm: regular rhythm Heart sounds: S1 normal heart sound present and S2 normal heart sound present GI Inspection: Yes normal to inspection Palpation (GI): Soft to palpation Percussion: Yes normal to percussion Auscultation: normal bowel sounds Back/Spine/Pelvis Other: Paraspinal tenderness in lower lumbar region left more than right, straight leg rising 90 degrees bilaterally, strength 5/5 bilateral deep tendon reflexes 2+ bilaterally, there is decreased range of motion in the right hip Coding Level of Care Code Est Pt Level 4 (65862) Diagnoses Hip pain, right M25.551 Lumbar back pain M54.50 Hyperlipidemia E78.5 Depression F32.9 COPD (chronic obstructive pulmonary disease) J44.9 Assessment & Plan Assessment & Plan (1) Hip pain, right: Code(s): M25.551 - Pain in right hip Category: Medical Plan: Obtain x-ray of right hip referred to physical therapy (2) Lumbar back pain: Code(s): M54.50 - Low back pain, unspecified Category: Medical Plan: Obtain DEXA of lumbar spine and referred to physical therapy, meloxicam baclofen are prescribed for 2 weeks (3) Hyperlipidemia: Code(s): E78.5 - Hyperlipidemia, unspecified Category: Medical Plan: cont Atorvastatin, (4) Depression: Comment: f/u psychiatrist and psychologist Code(s): F32.9 - Major depressive disorder, single episode, unspecified Category: Medical Plan: cont meds (5) COPD (chronic obstructive pulmonary disease): Comment: COPD , CHRONIC, CONTROLLED AND STABLE, normal spirometry 2021 THE SYMPTOMS ARE WELL CONTROLLED SINCE SHE IS ON TRELEGY 1 INHALATION DAILY. Code(s): J44.9 - Chronic obstructive pulmonary disease, unspecified Category: Medical Plan: cont Trelegy Orders: Orders XR lumbar spine 2-3V Today M25.551 - Pain in right hip, M25.552 - Pain in left hip, M54.50 - Low back pain, unspecified PT Evaluation and Treatment Today M25.551 - Pain in right hip, M54.50 - Low back pain, unspecified XR hip BI w PEL1V Today M25.551 - Pain in right hip, M25.552 - Pain in left hip, M54.50 - Low back pain, unspecified XR sacroiliac joint min 3V Today M25.551 - Pain in right hip, M25.552 - Pain in left hip, M54.50 - Low back pain, unspecified Medications: New baclofen 10 mg PO BEDTIME 30 tabs 0RF meloxicam 15 mg PO DAILY 20 tabs 0RF
[2025-01-06 10:31] VITALS: BP 120/70; PULSE 78; RESP 16; TEMP 36.7; O2SAT 94; BMI 27.4
== END 2025-01-06 17:05 | disposition home or self-care (01) ==
LOC: HO.HMCC 10:24
PROVIDERS: PCP Internal Medicine; Visit Provider Internal Medicine
DX: M25.551 Pain in right hip (principal); M54.50 Low back pain, unspecified; J44.9 Chronic obstructive pulmonary disease, unspecified; E78.5 Hyperlipidemia, unspecified; F32.9 Major depressive disorder, single episode, unspecified

== ENCOUNTER 2025-01-06 10:23 | Outpatient (REF) | payer OTHER, SELFPAY ==
--- NOTE | ~2025-01-06 | XR_ITS ---
EXAMINATION: XR BILATERAL HIPS WITH AP PELVIS CLINICAL INFORMATION: M54.50 - Low back pain, unspecified COMPARISON: None available. TECHNIQUE: AP and frog-leg lateral views of each hip and an AP view of the pelvis. FINDINGS: Pelvis x-ray demonstrates atherosclerotic calcifications in the right common femoral artery. There are phleboliths in the pelvis. There is minimal degenerative change in the left greater than right SI joints. There is mild to moderate degenerative changes pubic symphysis joint. Right hip joint demonstrates moderate axial joint space narrowing and marginal osteophytes involving femoral head more than acetabular roof. Lateral Center edge angle measures 21 degrees (wnl >20-25 and <40 degrees) Chondrocalcinosis is present involving anterior femoral head, visible on the frog leg view. Left hip: Joint spaces maintained without degenerative changes. XR/XR hip BI w PEL1V IMPRESSION: Moderate degenerative changes in the right hip joint are consistent with CPPD arthropathy. Borderline dysplastic right hip acetabulum. There are mild degenerative changes in the SI joints, greater on the left. Unremarkable left hip. Electronically signed by: Joni Richardson MD 01/06/2025 11:58 AM [facility]
--- NOTE | ~2025-01-06 | XR_ITS ---
EXAMINATION: XR SACROILIAC JOINTS CLINICAL INFORMATION: M54.50 - Low back pain, unspecified COMPARISON: None. Correlation made with CT abdomen pelvis 01/28/2023. TECHNIQUE: 3 views of the sacroiliac joints FINDINGS: No fracture, dislocation, or suspicious bone lesion. The sacral arches are intact. SI joints demonstrate no widening or periarticular erosion or sclerosis. Mild degenerative changes are present bilaterally. No soft tissue abnormalities are evident aside from vascular calcifications. XR/XR sacroiliac joint min 3V IMPRESSION: 1. Mild degenerative arthritis in both SI joints without evidence of inflammatory arthropathy. Electronically signed by: Jamal Salas MD 01/06/2025 11:57 AM [facility]
--- NOTE | ~2025-01-06 | XR_ITS ---
EXAMINATION: XR LUMBOSACRAL SPINE CLINICAL INFORMATION: M54.50 - Low back pain, unspecified COMPARISON: March 15, 2020 TECHNIQUE: Three views of the lumbosacral spine. FINDINGS: There are 5 nonrib-bearing lumbar segments. There is 17 degrees dextroscoliosis of thoracolumbar junction, previously 13 degrees. 18 degrees levoscoliosis of the lower lumbar spine, previously 8 degrees. T12-L1: Unremarkable L1-L2: There is subtle left lateral listhesis and mild disc space narrowing with endplate sclerosis. L2-L3: There is moderate disc space narrowing with endplate sclerosis and osteophytes. L3-L4: There is right lateral listhesis. There is facet sclerosis and osteophytes. L4-L5: There is facet sclerosis and osteophytes. L5-S1: There is mild disc space narrowing and facet sclerosis. XR/XR lumbar spine 2-3V IMPRESSION: Increased S-shaped scoliosis with stable degenerative disc disease and facet osteoarthritis. Electronically signed by: Joni Richardson MD 01/06/2025 12:03 PM [facility] MACHADO
== END 2025-01-06 10:24 | disposition home or self-care (01) ==
LOC: HO.HMGCX 10:23
PROVIDERS: PCP Internal Medicine; Visit Provider Internal Medicine
DX: M25.551 Pain in right hip (principal); M25.552 Pain in left hip; M54.50 Low back pain, unspecified; G89.29 Other chronic pain; R10.31 Right lower quadrant pain; F32.A Depression, unspecified; E78.5 Hyperlipidemia, unspecified; F32.9 Major depressive disorder, single episode, unspecified; J44.9 Chronic obstructive pulmonary disease, unspecified
CPT/HCPCS: 72100; 72202; 73521; 96127; 99212

== ENCOUNTER → 2025-01-06 11:29 | Outpatient (BNV) | payer OTHER, SELFPAY | PROVIDERS: PCP Internal Medicine; Visit Provider Radiology Diagnostic Radiology | DX: M51.360 Other intervertebral disc degeneration, lumbar region with discogenic back pain only (principal); M47.816 Spondylosis without myelopathy or radiculopathy, lumbar region; M41.86 Other forms of scoliosis, lumbar region; M16.11 Unilateral primary osteoarthritis, right hip; M47.896 Other spondylosis, lumbar region; M46.1 Sacroiliitis, not elsewhere classified | CPT/HCPCS: 72100; 72202; 73521 ==